=== PATIENT | female | born 1940 | race Caucasian/White ===

== ENCOUNTER 2017-12-09 11:30 | Emergency (ER) | payer OTHER ==
--- OUTSIDE RECORDS SUMMARY | 2017-12-09 11:33 | XMS REPORT | Clinical Summary ---
:1940 Author Organization [facility] Address [address] [place] [address] Care Team Providers Name Role Phone Liya Cruz MD Primary Care Provider Allergies Active Allergy Reactions Severity Noted Date Comments Niacin 12/13/2015 Oxybutynin 12/13/2015 Current Medications Prescription Sig. Disp. Refills Start End Status Date Date denosumab (PROLIA) 60 Prolia yearly Active mg/mL syringe syringe calcium Calcium with Active carbonate-vitamin D3 Vitamin D 600 1 600 mg(1,500mg) -400 mg (1,500 unit per tablet mg)-400 unit tablet POLYETHYLENE GLYCOL Miralax Active 3350 (MIRALAX ORAL) CYANOCOBALAMIN/FOLIC vitamin Active ACID (VITAMIN [id number] Z18-tpfab acid ACID ORAL) VITAMIN E (AQUASOL E vitamin E Active ORAL) TETRAHYDROZOLINE HCL/ZN Apply to eye. Active SULF (EYE DROPS OPHT) Fresh kote BABY ASPIRIN ORAL Take 81 mg by Active mouth. acetaminophen-codeine TAKE 1 TO 2 1 Active (TYLENOL WITH CODEINE TABLETS BY 7 #3) 300-30 mg per MOUTH EVERY tablet DAY NEEDED TiZANidine (ZANAFLEX) 2 Take 2 mg by 3 Active MG capsule mouth nightly. 7 levothyroxine Take 1 tablet 90 tablet 3 Active (SYNTHROID, LEVOXYL) (100 mcg 7 100 mcg tablet total) by mouth once daily. hydroCHLOROthiazide Take 1 tablet 90 tablet 3 Active (HYDRODIURIL) 12.5 MG (12.5 mg 7 tablet total) by mouth once daily. esomeprazole (NexIUM) Take 1 capsule 90 capsule 3 Active 40 MG capsule (40 mg total) 7 by mouth once daily. atenolol (TENORMIN) 25 TAKE ONE 270 tablet 3 Active MG tablet TABLET BY 7 MOUTH 2 TIMES DAILY losartan (COZAAR) 50 MG Take 1 tablet 180 tablet 3 Active tablet (50 mg total) 7 by mouth 2 (two) times a day. lidocaine (LIDODERM) 5 PLACE 1 PATCH 90 patch 3 Active % ON THE SKIN 7 DAILY.. MAY WEAR UP TO 12 HOURS verapamil sustained Take 1 90 tablet 2 Active release (CALAN-SR) 240 tablet(s) 7 MG SR tablet every day by oral route in the morning. verapamil (CALAN) 120 Take 1 tablet 90 tablet 3 Active MG tablet (120 mg total) 7 018 by mouth every evening. dicyclomine (BENTYL) 10 Take 1 capsule 120 capsule 11 Active MG capsule (10 mg total) 7 018 by mouth 4 (four) times a day before meals and nightly. omega-3 acid ethyl TAKE 2 360 capsule 3 Active esters (LOVAZA) 1 gram CAPSULES BY 7 capsule MOUTH TWICE A DAY amoxicillin (AMOXIL) TAKE 2 6 Active 500 MG capsule CAPSULES BY 8 MOUTH 1 HOUR BEFORE DENTAL PROCEDURE hydroxyurea (HYDREA) TAKE ONE 3 Active 500 mg capsule CAPSULE BY 8 MOUTH 6 DAYS A WEEK AND 2 CAPSULES ON SATURDAY zolpidem (AMBIEN) 5 MG Take one at 90 tablet 2 Active tablet bedtime 8 018 methylPREDNISolone follow package 21 tablet 0 Active (MEDROL, ANNE,) 4 mg directions 8 018 tablet diclofenac (VOLTAREN) 1 Apply 2 Tube 1 Active % gel topically 4 8 018 (four) times a day for 30 days. Apply 1 gram to affected area qid prn nortriptyline (PAMELOR) Take 1 capsule 30 capsule 11 10 MG capsule (10 mg total) 6 017 by mouth nightly. esomeprazole (NexIUM) Take 1 90 capsule 3 Discontinued 40 MG capsule capsule(s) 6 017 every day by oral route daily losartan (COZAAR) 50 MG Take 1 tablet 180 tablet 2 Discontinued tablet (50 mg total) 6 017 by mouth 2 (two) times a day for 90 days. Take 1 tablet(s) twice a day by oral route for 90 days. verapamil (CALAN) 120 Take 1 tablet 90 tablet 0 Discontinued MG tablet (120 mg total) 6 017 by mouth every evening for 90 days. Take 1 tablet(s) every day by oral route in the evening. verapamil sustained Take 1 tablet 90 tablet 2 Discontinued release (CALAN-SR) 240 (240 mg total) 6 017 MG SR tablet by mouth every morning for 90 days. Take 1 tablet(s) every day by oral route in the morning. hydroxyurea (HYDREA) Take 1,000 mg 1 Discontinued 500 mg capsule by mouth once 7 017 daily. 1 tab daily rivaroxaban (XARELTO) Take 1 tablet 2 tablet 0 Discontinued 10 mg tablet (10 mg total) 7 018 by mouth daily for 2 days. omega-3 acid ethyl Take 2 caps po 360 capsule 3 Discontinued esters (LOVAZA) 1 gram bid 7 017 capsule zolpidem (AMBIEN) 5 MG Take 1 tablet 30 tablet 1 Discontinued tablet (5 mg total) 7 017 by mouth once daily for 30 days. hydroCHLOROthiazide TAKE 1 TABLET 90 tablet 0 Discontinued (HYDRODIURIL) 12.5 MG EVERY DAY 7 017 tablet levothyroxine TAKE 1 TABLET 90 tablet 0 Discontinued (SYNTHROID, LEVOXYL) EVERY DAY 7 017 100 mcg tablet atenolol (TENORMIN) 25 TAKE ONE 270 tablet 0 Discontinued MG tablet TABLET BY 7 017 MOUTH 2 TIMES DAILY verapamil (CALAN) 120 TAKE 1 TABLET 90 tablet 3 Discontinued MG tablet IN THE EVENING 7 017 hydroxyurea (HYDREA) TAKE 2 75 capsule 0 Discontinued 500 mg capsule CAPSULES BY 017 MOUTH EVERY DAY lidocaine (LIDODERM) 5 PLACE 1 PATCH 30 patch 2 Discontinued % ON THE SKIN DAILY.. MAY WEAR UP TO 12 HOURS zolpidem (AMBIEN) 5 MG Take 1 tablet 30 tablet 1 Discontinued tablet (5 mg total) by mouth once daily for 30 days. acetaminophen-codeine Take 1-2 tabs 60 tablet 1 (TYLENOL WITH CODEINE a day prn #3) 300-30 mg per tablet hydroxyurea (HYDREA) TAKE 2 75 capsule 0 Discontinued 500 mg capsule CAPSULES BY 017 MOUTH EVERY DAY esomeprazole (NexIUM) TAKE ONE 90 capsule 3 Discontinued 40 MG capsule CAPSULE BY MOUTH EVERY DAY atenolol (TENORMIN) 25 TAKE ONE 270 tablet 1 Discontinued MG tablet TABLET BY MOUTH 2 TIMES DAILY zolpidem (AMBIEN) 5 MG TAKE 1 TABLET 30 tablet 1 Discontinued tablet BY MOUTH EVERY DAY levothyroxine TAKE 1 TABLET 90 tablet 0 Discontinued (SYNTHROID, LEVOXYL) EVERY DAY 100 mcg tablet hydroCHLOROthiazide TAKE 1 TABLET 90 tablet 0 Discontinued (HYDRODIURIL) 12.5 MG BY MOUTH EVERY tablet DAY losartan (COZAAR) 50 MG TAKE 1 TABLET 180 tablet 2 Discontinued tablet BY MOUTH TWICE 017 A DAY zolpidem (AMBIEN) 5 MG Take 1 tablet 90 tablet 2 Discontinued tablet (5 mg total) by mouth once daily for 30 days. BACTROBAN 2 % ointment Apply 15 g 1 topically 3 017 (three) times a day for 7 days. amoxicillin (AMOXIL) Take 2 cap 1 2 capsule 6 500 MG capsule hour before 7 017 dental procedure penicillin v potassium Take 1 tablet 40 tablet 0 (VEETID) 500 MG tablet (500 mg total) 7 017 by mouth 4 (four) times a day for 10 days. If fever hydroxyurea (HYDREA) Take 1 capsule 75 capsule 0 500 mg capsule (500 mg total) 7 017 by mouth 3 (three) times a week for 40 doses. predniSONE (DELTASONE) Take 2 tab in 60 tablet 0 Discontinued 1 mg tablet the am 7 017 predniSONE (DELTASONE) Take 1 tab 30 tablet 0 Discontinued 1 mg tablet every morning 7 018 rivaroxaban (XARELTO) Take one daily 30 tablet 0 Discontinued 10 mg tablet as directed 8 018 when in high risk situation for DVT XARELTO 10 mg tablet TAKE 1 TABLET 30 tablet 0 Discontinued BY MOUTH EVERY 8 018 DAY DIRECTED WHEN IN HIGH RISK SITUATION OF DVT Active Problems Problem Noted Date Essential thrombocytosis 01/31/2017 Anxiety 12/13/2015 Brachial neuritis 12/13/2015 Chronic back pain 12/13/2015 Chronic pain syndrome 12/13/2015 Generalized abdominal pain 12/13/2015 Left sided chest pain 12/13/2015 Musculoskeletal disorder of neck 12/13/2015 Other nerve root and plexus disorders 12/13/2015 Non megaloblastic anemia associated with nutritional deficiency 12/13/2015 Pain in thoracic spine 12/13/2015 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 Insomnia 10/01/2013 Back pain 07/07/2013 Fibromyalgia 01/05/2013 Malaise and fatigue 01/05/2013 Osteoporosis 10/23/2012 Atopic rhinitis 10/24/2011 Neuralgia 07/03/2011 Abnormal liver function tests 02/22/2011 Constipation 12/13/2010 Essential hypertension 12/13/2010 Hypothyroidism 12/13/2010 Irritable bowel syndrome 12/13/2010 Migraine 12/13/2010 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 Encounters Date Type Specialty Care Team Description 12/05/2017 Hospital Encounter Radiology Liya Cruz Acute bilateral low L.MD back pain with sciatica, sciatica laterality unspecified 12/05/2017 Procedure Pass Radiology 12/05/2017 Orders Only Internal Medicine Solange Farias MA Acute bilateral low back pain with sciatica, sciatica laterality unspecified (Primary Dx) 12/04/2017 Hospital Encounter Radiology Liya Cruz Acute bilateral low L., back pain, with sciatica presence unspecified 12/04/2017 Hospital Encounter Radiology Liya Cruz Acute bilateral low L., back pain, with sciatica presence unspecified 12/04/2017 Office Visit Internal Medicine Liya Cruz Acute bilateral low L., back pain, with sciatica presence unspecified (Primary Dx) 12/03/2017 Orders Only Hematology Nayely Phipps, Other specified MA diseases of blood and blood-forming organs (Primary Dx) 11/18/2017 Telephone Internal Medicine Solange Farias MA 11/10/2017 Refill Internal Medicine Liya Cruz MD 10/30/2017 Telephone Internal Medicine Shyam Beltrán Angel, [place] unspecified type (Primary Dx) 10/14/2017 Office Visit Internal Medicine Liya Cruz Encounter for general adult medical examination with abnormal findings (Primary Dx); MD Karlos Essential hypertension; Hyperglycemia; Vitamin D deficiency; Post herpetic neuralgia; Thrombocytosis 10/07/2017 Lab Lab Toni Ceja, Other frank MD diseases of blood and blood-forming organs 10/07/2017 Office Visit Hematology Toni Ceja Essential MD thrombocytosis (Primary Dx) 10/07/2017 Hospital Encounter Radiology Liya Cruz Screening mammogram, MD Karlos encounter for 09/27/2017 Orders Only Rheumatology Lucero, Other specified [place], [place] diseases of blood and blood-forming organs (Primary Dx) 09/08/2017 Refill Toni Valdovinos MD 09/06/2017 Refill Internal Medicine Liya Cruz MD 09/03/2017 Orders Only Hematology Nayely Phipps, Other specified MA diseases of blood and blood-forming organs (Primary Dx) 07/29/2017 Refill Hematology Toni Ceja MD 07/24/2017 Telephone Internal Medicine Felix Beltrán MA 07/15/2017 Office Visit Toni Valdovinos Essential MD thrombocytosis (Primary Dx) 07/15/2017 Office Visit Internal Medicine Liya Cruz Irritable bowel syndrome, unspecified type (Primary Dx); MD Karlos Other fatigue; Thrombocytosis; Screening mammogram, encounter for 07/09/2017 Orders Only Hematology Young, Other specified Fanny G, ALTHEA diseases of blood and blood-forming organs (Primary Dx) 06/17/2017 Office Visit Internal Medicine Liya Cruz Other fatigue ( Primary Dx); MD Karlos Other chest pain; Blurred vision; Nonintractable paroxysmal hemicrania, unspecified chronicity pattern 06/17/2017 Lab Toni Villalba, Other specified MD diseases of blood and blood-forming organs 06/17/2017 Office Visit Hematology Toni Ceja Essential MD thrombocytosis (Primary Dx) 05/29/2017 Orders Only Hematology Nayely Phipps, Other specified MA diseases of blood and blood-forming organs (Primary Dx) 05/21/2017 Refill Hematology Toni Ceja MD 05/20/2017 Office Visit Internal Medicine Liya Cruz Need for vaccination MD Karlos (Primary Dx) 05/20/2017 Office Visit Toni Valdovinos Essential MD thrombocytosis (Primary Dx) 05/17/2017 Orders Only Internal Medicine Liya Cruz MD 05/17/2017 Telephone Internal Medicine Liya Cruz MD 05/16/2017 Orders Only Internal Medicine Solange Farias MA 05/16/2017 Orders Only Hematology Nayely Phipps, Other specified MA diseases of blood and blood-forming organs (Primary Dx) 05/15/2017 Refill Internal Medicine Liya Cruz MD 04/15/2017 Office Visit Internal Medicine Liya Cruz Essential thrombocytosis (Primary Dx); MD Karlos Essential hypertension; Other specified hypothyroidism; Mixed hyperlipidemia; Folliculitis 04/13/2017 Refill Internal Medicine Liya Cruz MD 03/26/2017 Refill Internal Medicine Liya Cruz MD 03/15/2017 Telephone Internal Medicine Rebeca Beckman MA 03/13/2017 Refill Internal Medicine Liya Cruz MD 03/11/2017 Lab Toni Villalba, Other specified MD diseases of blood and blood-forming organs 03/11/2017 Office Visit Toni Valdovinos Essential MD thrombocytosis (Primary Dx) 03/06/2017 Orders Only Nayely Chiang, Other specified MA diseases of blood and blood-forming organs (Primary Dx) 03/05/2017 Refill Internal Medicine Liya Cruz MD 02/18/2017 Lab Lab Toni Ceja, Other specified diseases of blood and blood-forming organs 02/18/2017 Office Visit Hematology Toni Ceja Essential MD thrombocytosis (Primary Dx) 02/12/2017 Refill Hematology Toni Ceja MD 02/11/2017 Orders Only Hematology Nayely Phipps, Other specified MA diseases of blood and blood-forming organs (Primary Dx) 02/11/2017 Refill Internal Medicine Liya Cruz MD 01/31/2017 Hospital Encounter Radiology Kate Dennis, Screening for MD osteoporosis 01/31/2017 Hospital Encounter Radiology Kate Dennis Senile osteoporosis 01/31/2017 Lab Toni Villalba, Other specified diseases of blood and blood-forming organs 01/31/2017 Office Visit Toni Valdovinos Essential MD thrombocytosis (Primary Dx) 01/31/2017 Ancillary Orders Radiology Kate Dennis, Screening for MD osteoporosis 01/31/2017 Transcribe Orders Access Kate Dennis Senile osteoporosis (Primary Dx) 01/30/2017 Orders Only Hematology Nayely Phipps, Other specified MA diseases of blood and blood-forming organs (Primary Dx) 01/24/2017 Orders Only Internal Medicine Solange Farias MA Iron deficiency anemia, unspecified iron deficiency anemia type (Primary Dx) 01/18/2017 Telephone Internal Medicine Faby Orourke MA 01/16/2017 Telephone Internal Medicine Liya Crzu MD 01/15/2017 Telephone Internal Medicine Solange Farias MA 01/15/2017 Refill Toni Valdovinos MD 01/14/2017 Lab Lab Toni Ceja, Other specified diseases of blood and blood-forming organs 01/14/2017 Office Visit Toni Valdovinos Essential MD thrombocythemia (Primary Dx) 01/14/2017 Orders Only Hematology Young, Other specified Fanny G, ALTHEA diseases of blood and blood-forming organs (Primary Dx) 01/11/2017 Documentation Internal Medicine Liya Cruz MD 01/10/2017 Telephone Internal Medicine Solange Farias MA 01/07/2017 Office Visit Internal Medicine Liya Cruz Chronic fatigue ( Primary Dx); MD Karlos Chronic joint pain; Thrombocytosis; Other specified hypothyroidism; Fibromyalgia syndrome 01/03/2017 Refill Internal Medicine Liya Cruz MD 01/02/2017 Orders Only Hematology Shania Phippsa, Other specified [place] diseases of blood and blood-forming organs (Primary Dx) 12/17/2016 Refill Hematology Toni Ceja MD after 12/08/2016 Immunizations Name Dates Previously Given Next Due FLUZONE HIGH-DOSE PF 06/26/2015 Influenza Trivalent 06/12/2017, 06/10/2017, 06/10/2008 Pneumococcal Conjugate 13-Valent 07/12/2015 Pneumococcal Polysaccharide 07/07/2013, 09/18/2007, 09/09/2007 Tdap 05/20/2017 Family History Medical History Relation Name Comments Hypertension Father Breast cancer Mother Cancer Other Coronary artery disease Other Relation Name Status Comments Father Mother Other Social History Tobacco Use Types Packs/Day Years Used Date Never Smoker Smokeless Tobacco: Never Used Alcohol Use Drinks/Week oz/Week Comments No Sex Assigned at Date Recorded Not on file Last Filed Vital Signs Vital Sign Reading Time Taken Blood Pressure 118/71 12/04/2017 1:06 PM CDT Pulse 69 12/04/2017 1:06 PM CDT Temperature 36.5 C (97.7 F) 10/07/2017 2:28 PM [employer] Respiratory Rate 16 10/07/2017 2:28 PM [employer] Oxygen Saturation - - Inhaled Oxygen Concentration - - Weight 50.8 kg (112 lb) 12/05/2017 5:34 PM CDT Height 167.6 cm (5' 6") 12/05/2017 5:34 PM CDT Body Mass Index 18.08 12/05/2017 5:34 PM CDT Plan of Treatment Date Type Specialty Care Team Description 12/09/2017 Office Visit Internal Medicine Smiley Neves MD [address] [place] [address] [phone] 12/12/2017 Office Visit Internal Medicine Liya Cruz MD [address] [place] [address] [phone] 04/14/2018 Office Visit Internal Medicine Liya Cruz MD [address] [place] [address] [phone] Health Maintenance Due Date Last Done Comments INFLUENZA VACCINE 04/09/2018 06/12/2017, 06/10/2017, 05/10/2016, Additional history exists PNEUMOCOCCAL POLYSACCHARIDE VACCINE Completed 07/07/2013, 09/18/2007, AGE 65 AND OVER 09/09/2007 PNEUMOCOCCAL-13 Completed 07/12/2015 ZOSTER VACCINE Excluded Results MRI Lumbar Spine W Wo Contrast (12/05/2017 6:27 PM) Specimen Performing Laboratory [facility] [address] [place] [address] Narrative EXAM: MRI LUMBAR SPINE W WO CONTRAST CLINICAL HISTORY: M54.40 Lumbago with sciaticaunspecified side, rule out compression fracture TECHNIQUE: Multiplanar multisequence pre and post contrast enhanced examination was performed of the Lumbar spine. COMPARISON:Lumbar radiograph, 12/04/2017 FINDINGS: There are five [id number] lumbar-type vertebrae, and the last functional disc is presumed to be L5-S1. The compression deformity of the superior endplate of the L3 vertebral body with less than 25% vertebral height loss. It demonstrates mild corresponding edema and enhancement suggesting an acute to early subacute chronicity. Lumbar lordotic alignment, vertebral body height, and signal intensity are otherwise within normal limits. There is otherwise no evidence of acute fracture, suspicious osteolytic lesion, or suspicious osteoblastic lesion. No abnormal spinal cord signal is present. No abnormal enhancement is identified. Evaluation of the disc levels is as follows: L1-L2: No significant thecal sac or foraminal stenosis. L2-L3: Note is again made of a compression deformity of the superior endplate of the L3 vertebral body with less than 25% vertebral height loss. There is disc height loss and mild diffuse disc bulge with impression upon the ventral thecal sac. No significant thecal sac or foraminal stenosis. L3-L4: Disc height loss and mild diffuse disc bulge. Mild bilateral facet hypertrophy and minimal ligamentum flavum thickening also noted. Impression upon the thecal sac is present, particularly posterolaterally. No significant thecal sac stenosis. Minimal/mild bilateral inferior foraminal narrowing. L4-L5: Minimal diffuse disc bulge. Mild bilateral facet hypertrophy and ligamentum flavum thickening. Impression upon the thecal sac with a triangular configuration. Thecal sac is otherwise adequate in size. Mild bilateral inferior foraminal narrowing. L5-S1: Minimal diffuse disc bulge. No significant thecal sac or foraminal stenosis. Visualized paraspinal soft tissues are unremarkable. Note is made of a left interpolar renal renal simple cyst measuring 2.5 cm (T2 axial image 34, series 9). IMPRESSION: 1.Compression deformity of the superior endplate of the L3 vertebral body with less than 25% vertebral height loss. It demonstrates mild corresponding edema and enhancement suggesting an acute to early subacute chronicity. 2.No acute thecal sac stenosis or foraminal narrowing. [facility]-[id number] Procedure Note Hm Interface, Radiology Results Incoming - 12/05/2017 6:43 PM CDT EXAM: MRI LUMBAR SPINE W WO CONTRAST CLINICAL HISTORY: M54.40 Lumbago with sciatica unspecified side, rule out compression fracture TECHNIQUE: Multiplanar multisequence pre and post contrast enhanced examination was performed of the Lumbar spine. COMPARISON: Lumbar radiograph, 12/04/2017 FINDINGS: There are five [id number]-[id number] lumbar-type vertebrae, and the last functional disc is presumed to be L5-S1. The compression deformity of the superior endplate of the L3 vertebral body with less than 25% vertebral height loss. It demonstrates mild corresponding edema and enhancement suggesting an acute to early subacute chronicity. Lumbar lordotic alignment, vertebral body height, and signal intensity are otherwise within normal limits. There is otherwise no evidence of acute fracture , suspicious osteolytic lesion, or suspicious osteoblastic lesion. No abnormal spinal cord signal is present. No abnormal enhancement is identified. Evaluation of the disc levels is as follows: L1-L2: No significant thecal sac or foraminal stenosis. L2-L3: Note is again made of a compression deformity of the superior endplate of the L3 vertebral body with less than 25% vertebral height loss. There is disc height loss and mild diffuse disc bulge with impression upon the ventral thecal sac. No significant thecal sac or foraminal stenosis. L3-L4: Disc height loss and mild diffuse disc bulge. Mild bilateral facet hypertrophy and minimal ligamentum flavum thickening also noted. Impression upon the thecal sac is present, particularly posterolaterally. No significant thecal sac stenosis. Minimal/mild bilateral inferior foraminal narrowing. L4-L5: Minimal diffuse disc bulge. Mild bilateral facet hypertrophy and ligamentum flavum thickening. Impression upon the thecal sac with a triangular configuration. Thecal sac is otherwise adequate in size. Mild bilateral inferior foraminal narrowing. L5-S1: Minimal diffuse disc bulge. No significant thecal sac or foraminal stenosis. Visualized paraspinal soft tissues are unremarkable. Note is made of a left interpolar renal renal simple cyst measuring 2.5 cm (T2 axial image 34, series 9). IMPRESSION: 1. Compression deformity of the superior endplate of the L3 vertebral body with less than 25% vertebral height loss. It demonstrates mild corresponding edema and enhancement suggesting an acute to early subacute chronicity. 2. No acute thecal sac stenosis or foraminal narrowing. [facility]-[id number] Estimated GFR (12/05/2017 5:34 PM)Only the most recent of2 resultswithin the time period is included. Component Value Ref Range GFR Non Af Amer 31 (A) mL/min/1.73 m2 GFR Af Amer 38 (A) mL/min/1.73 m2 Comment: Chronic kidney disease: <60 mL/min/1.73m2 Kidney failure: <15 mL/min/1.73m2 The estimated GFR is calculated from the IDMS-traceable Modification of Diet in Renal Disease Equation. The accuracy of the calculation is poor when the creatinine is normal. Calculated values >90 mL/min/1.73m2 are not reported. This equation has not been validated in children (<18 years), women, the elderly (>70 years), or ethnic groups other than Caucasians and Americans. Specimen Performing Laboratory Blood [facility] DEPARTMENT OF PATHOLOGY AND GENOMIC MEDICINE [address] [place] [id number] POC creatinine (12/05/2017 5:34 PM)Only the most recent of2 resultswithin the time period is included. Component Value Ref Range POC creatinine 1.6 (H) 0.5 - 0.9 mg/dl Comment: Meter ID: [id number] Power System Electrical Engineer: Renee Julian Specimen Performing Laboratory Blood [facility] DEPARTMENT OF PATHOLOGY AND GENOMIC MEDICINE [address] [place] [id number] XR Lumbar Spine Complete 4+ Vw (12/04/2017 2:45 PM) [facility] [address] [place] [id number] Narrative EXAMINATION: XR LUMBAR SPINE COMPLETE 4VW CLINICAL HISTORY: M54.5 Low back pain, BACK PAIN 6 WKS COMPARISON:None IMPRESSION: 4 radiographs of the lumbar spine are submitted. 5 nonrib-bearing lumbar-type vertebral bodies are identified. There is a compression deformity of the L3 vertebral body with the impression of its superior endplate. Given the history, this probably represents an acute/recent compression fracture. MRI may be considered for further evaluation. There is questionable mild depression of the superior endplate of L1. Bone density appears decreased. Multilevel spondylotic changes of the lumbar spine, more pronounced at L2-L3. Vascular calcifications along the abdominal aorta. [id number] Procedure Note Interface, Radiology Results Incoming - 12/04/2017 5:38 PM CDT EXAMINATION: XR LUMBAR SPINE COMPLETE 4 VW CLINICAL HISTORY: M54.5 Low back pain, BACK PAIN 6 WKS COMPARISON: None IMPRESSION: 4 radiographs of the lumbar spine are submitted. 5 nonrib-bearing lumbar-type vertebral bodies are identified. There is a compression deformity of the L3 vertebral body with the impression of its superior endplate. Given the history, this probably represents an acute/ recent compression fracture. MRI may be considered for further evaluation. There is questionable mild depression of the superior endplate of L1. Bone density appears decreased. Multilevel spondylotic changes of the lumbar spine, more pronounced at L2-L3. Vascular calcifications along the abdominal aorta. [id number] XR Thoracic Spine 3 Vw (12/04/2017 2:45 PM) Specimen Performing Laboratory [facility] [address] [place] [id number] Narrative EXAMINATION:XR THORACIC SPINE 3 VW CLINICAL HISTORY:M54.5 Low back pain, t spine pain IMPRESSION: 4 views of the thoracic spine were obtained. The thoracic spine alignment is unremarkable. There is no fracture or subluxation. The bone density is unremarkable with no focal bone lesion. [facility]-[id number] Procedure Note Interface, Radiology Results Incoming - 12/04/2017 5:46 PM CDT EXAMINATION: XR THORACIC SPINE 3 VW CLINICAL HISTORY: M54.5 Low back pain, t spine pain IMPRESSION: 4 views of the thoracic spine were obtained. The thoracic spine alignment is unremarkable. There is no fracture or subluxation. The bone density is unremarkable with no focal bone lesion. [facility]-[id number] CBC with platelet and differential (10/31/2017 10:12 AM)Only the most recent of12 resultswithin the time period is included. Component Value Ref Range WBC 4.0 3.8 - 10.8 Thousand/uL RBC 2.55 (L) 3.80 - 5.10 Million/uL HGB 10.0 (L) 11.7 - 15.5 g/dL HCT 28.5 (L) 35.0 - 45.0 % MCV 111.8 (H) 80.0 - 100.0 fL MCH 39.2 (H) 27.0 - 33.0 pg MCHC 35.1 32.0 - 36.0 g/dL RDW 14.5 11.0 - 15.0 % Platelet count 429 (H) 140 - 400 Thousand/uL MPV 10.8 7.5 - 12.5 fL Neutrophils, absolute 1,964 1,500 - 7,800 cells/uL Lymphocytes, absolute 1,500 850 - 3,900 cells/uL Monocytes, absolute 476 200 - 950 cells/uL Eosinophils, absolute 20 15 - 500 cells/uL Basophils, absolute 40 0 - 200 cells/uL Neutrophils 49.1 % Lymphocytes 37.5 % Monocytes 11.9 % Eosinophils 0.5 % Basophils + RC 1.0 % Specimen Performing Laboratory [facility] Narrative FASTING:NO FASTING: NO Vitamin D 25 hydroxy level (10/14/2017 12:42 PM) Component Value Ref Range Vitamin D, 25-hydroxy 42 30 - 100 ng/mL Comment: Vitamin D Status 25-OH Vitamin D: Deficiency:<20 ng/mL Insufficiency: 20 - 29 ng/mL Optimal: > or=30 ng/mL For 25-OH Vitamin D testing on patients on D2-supplementation and patients for whom quantitation of D2 and D3 fractions is required, the QuestAssureD(TM) 25-OH VIT D, (D2,D3), LC/MS/MS is recommended: order code 56470 (patients >2yrs). For more information on this test, go to: http://education.Windcentrale.[employer]/faq/QAG147 (This link is being provided for informational/educational purposes only.) Specimen Performing Laboratory [facility] Narrative FASTING:NO FASTING: NO Thyroid stimulating hormone (10/14/2017 12:42 PM)Only the most recent of3 resultswithin the time period is included. Component Value Ref Range TSH 1.65 0.40 - 4.50 mIU/L Specimen Performing Laboratory [facility] Narrative FASTING:NO FASTING: NO Hemoglobin A1c (10/14/2017 12:42 PM) Component Value Ref Range Hemoglobin A1C 5.3 <5.7 % of total Hgb Comment: For the purpose of screening for the presence of diabetes: <5.7% Consistent with the absence of diabetes 5.7-6.4%Consistent with increased risk for diabetes (prediabetes) > or=6.5%Consistent with diabetes This assay result is consistent with a decreased risk of diabetes. Currently, no consensus exists regarding use of hemoglobin A1c for diagnosis of diabetes in children. According to [place] [employer] Association (ADA) guidelines, hemoglobin A1c <7.0% represents optimal control in non- diabetic patients. Different metrics may apply to specific patient populations. Standards of Medical Care in Diabetes(ADA). Specimen Performing Laboratory [facility] Narrative FASTING:NO FASTING: NO Lipid panel (10/14/2017 12:42 PM)Only the most recent of2 resultswithin the time period is included. Component Value Ref Range Cholesterol, total 207 (H) <200 mg/dL HDL cholesterol 39 (L) >50 mg/dL Triglycerides 141 <150 mg/dL LDL cholesterol calculated 141 (H) mg/dL (calc) Comment: Reference range: <100 Desirable range <100 mg/dL for patients with CHD or diabetes and <70 mg/dL for diabetic patients with known heart disease. LDL-C is now calculated using the Marvin-Johnston calculation, which is a validated novel method providing better accuracy than the Friedewald equation in the estimation of LDL-C. Marvin SS et al. ALFREDO. 2013;310(19): 8585-1965 (http://education.Droidhen.[employer]/faq/GLJ965) Cholesterol/HDL ratio 5.3 (H) <5.0 (calc) Non-HDL cholesterol 168 (H) <130 mg/dL (calc) Comment: For patients with diabetes plus 1 major ASCVD risk factor, treating to a non-HDL-C goal of <100 mg/dL (LDL-C of <70 mg/dL) is considered a therapeutic option. Specimen Performing Laboratory [facility] Narrative FASTING:NO FASTING: NO Comprehensive metabolic panel (10/14/2017 12:42 PM)Only the most recent of4 resultswithin the time period is included. Component Value Ref Range Glucose 101 (H) 65 - 99 mg/dL Comment: Fasting reference interval For someone without known diabetes, a glucose value between 100 and 125 mg/dL is consistent with prediabetes and should be confirmed with a follow-up test. BUN, whole blood 19 7 - 25 mg/dL Creatinine 0.86 0.60 - 0.93 mg/dL Comment: For patients >49 years of age, the reference limit for Creatinine is approximately 13% higher for people identified as -Lebanese. EGFR Non-Afr. [place] 65 > OR=60 mL/min/1.73m2 EGFR 75 > OR=60 mL/min/1.73m2 BUN/creatinine ratio NOT APPLICABLE 6 - 22 (calc) Sodium 141 135 - 146 mmol/L Potassium 4.4 3.5 - 5.3 mmol/L Chloride 103 98 - 110 mmol/L CO2 32 (H) 20 - 31 mmol/L Calcium 10.0 8.6 - 10.4 mg/dL Protein 7.2 6.1 - 8.1 g/dL Albumin, S 4.2 3.6 - 5.1 g/dL Globulin, total 3.0 1.9 - 3.7 g/dL (calc) Albumin/globulin ratio 1.4 1.0 - 2.5 (calc) Total bilirubin 0.6 0.2 - 1.2 mg/dL Alkaline phosphatase 48 33 - 130 U/L AST 39 (H) 10 - 35 U/L ALT 52 (H) 6 - 29 U/L Specimen Performing Laboratory [facility] Narrative FASTING:NO FASTING: NO Smear review (10/07/2017 2:30 PM)Only the most recent of4 resultswithin the time period is included. Component Value Ref Range Platelet slide review Zahra adequate Anisocytosis Moderate Schistocytes Occasional Ovalocytes Moderate Specimen Performing Laboratory [facility] DEPARTMENT OF PATHOLOGY AND GENOMIC MEDICINE [address] [place] [address] Mammo Screening w Cad Bilateral (10/07/2017 1:19 PM) Specimen Performing Laboratory [facility] [address] [place] [address] Narrative PROCEDURE: MAMMO SCREENING W CAD BILATERAL Computer-assisted detection was utilized for the interpretation of this exam. COMPARISON: 2015 through 2012 TECHNIQUE: Bilateral digital screening mammogram was performed and interpreted using computer-assisted detection. CLINICAL HISTORY: The patient has no current palpable breast complaints. FINDINGS: Bilateral mammogram demonstrates the breast parenchyma to beheterogeneously dense, which could obscure the detection of small masses. LEFT:No specific features of malignancy. RIGHT: No specific features of malignancy. IMPRESSION: BI-RADS Category 2. Benign finding(s). Recommend comparison with physical exam and annual screening mammography. There has been no significant interval change from prior studies. This facility is accredited by The [employer] for Mammography. A negative x-ray report should not delay biopsy if a dominant or clinically suspicious mass is present. Not all cancers are identified by x-ray. [facility]-[id number] Aldolase, serum (06/17/2017 5:10 PM) Component Value Ref Range Aldolase 9.0 (H) < OR=8.1 U/L Specimen Performing Laboratory [facility] Narrative FASTING:NO Sedimentation rate (06/17/2017 5:10 PM)Only the most recent of2 resultswithin the time period is included. Component Value Ref Range Sedimentation rate 25 < OR=30 mm/h Specimen Performing Laboratory [facility] Narrative FASTING:NO C-reactive protein (06/17/2017 5:10 PM)Only the most recent of2 resultswithin the time period is included. Component Value Ref Range CRP 1.5 <8.0 mg/L Comment: Please note recent reference range and units of measure changes Specimen Performing Laboratory [facility] Narrative FASTING:NO Creatine kinase, total (CPK) (06/17/2017 5:10 PM) Component Value Ref Range Creatine kinase 20 (L) 29 - 143 U/L Specimen Performing Laboratory [facility] Narrative FASTING:NO ECG 12 lead (06/17/2017 4:31 PM) Component Value Ref Range Ventricular rate 59 Atrial rate 59 TN interval 140 QRSD interval 104 QT interval 458 QTC interval 453 P axis 1 60 QRS axis 1 31 T wave axis 67 EKG impression Sinus bradycardia-Voltage criteria for left ventricular hypertrophy-Abnormal ECG-In automated comparison with ECG of 17-JUL-2016 12:47,-No significant change was found- Specimen Performing Laboratory [facility] [address] [place] [address] Manual differential (06/17/2017 2:12 PM)Only the most recent of2 resultswithin the time period is included. Component Value Ref Range Manual differential PERFORMED Neutrophils 59.0 39.0 - 69.0 % Lymphocytes 25.0 25.0 - 45.0 % Monocytes 13.0 (H) 0.0 - 10.0 % Eosinophils 2.0 0.0 - 5.0 % Basophils 0.0 0.0 - 1.0 % Metamyelocytes 0 % Myelocytes 1 % Promyelocytes 0 % Platelet slide review Mkd increased (A) Anisocytosis Moderate Schistocytes Occasional Target cells Moderate (A) Ovalocytes Moderate Specimen Performing Laboratory [facility] DEPARTMENT OF PATHOLOGY AND GENOMIC MEDICINE [address] [place] [id number] T4, free (04/15/2017 11:51 AM) Component Value Ref Range T4, free 1.4 0.8 - 1.8 ng/dL Specimen Performing Laboratory [facility] Narrative FASTING:NO Bone Density (01/31/2017 4:29 PM) Specimen Performing Laboratory [address] [address] Narrative EXAMINATION:BONE DENSITY CLINICAL HISTORY: 76 years Female M81.0 Age-related osteoporosis without current pathological fracture, m81.0 COMPARISON:01/11/2015 The results of this study expressed as bone mineral density (BMD) were as follows: AP spine (L1-L4) BMD: 0.900 g/cm2 T-Score: -2.4 Z-Score: -0.1 Percent change: +2.5 Dual Femur (Total Mean): BMD: 0.843 g/cm2 T-Score: -1.3 Z-Score:0.9 Percent change: +0.2 Trabecular Bone Score (TBS): TBS L1-L4: 1.201,(>1.350 normal, 1.200-1.350 partially degraded microarchitecture, <1.200 degraded microarchitecture) The 10 year probability of fracture, adjusted for FRAX: Major Osteoporotic Fracture: 22.6% Hip Fracture:13.7% Femur FRAX: Risk factors: Family history of Hip fracture 10 year probability of fracture: 1.Major osteoporotic: 22.1% 2.Hip: 14% 3.Based on femur left neck BMD Impression: 1.Osteopenia Notes: *The world health organization (WHO) has classified the patient's T-score as follows: At or above (-1) as normal (-1) to (-2.5) as low (osteopenia) Below (-2.5) as abnormally low (osteoporosis, increased fracture risk) For premenopausal women, men under the age 50 years, and children the WHO classification does not apply. In these individuals please assess bone mineral density with Z scores for each skeletal site examined. Z scores above -2.0: Within expected range for age. Z scores lower than -2.0:Low bone density for age. The TBS is derived from the texture of the DEXA image and has been shown to be related to bone microarchitecture and fracture risk. This data provides information independent of BMD value; is used as a complement to the data obtained from the DEXA analysis and the clinical examination. The TBS can assist the healthcare professional in assessment of fracture risk and in monitoring the effect of treatments on patient over time. [facility]-[id number] Procedure Note [facility], Radiology Results Incoming - 01/31/2017 4:40 PM CDT EXAMINATION: BONE DENSITY CLINICAL HISTORY: 76 years Female M81.0 Age-related osteoporosis without current pathological fracture, m81.0 COMPARISON: 01/11/2015 The results of this study expressed as bone mineral density (BMD) were as follows: AP spine (L1-L4) BMD: 0.900 g/cm2 T-Score: -2.4 Z-Score: -0.1 Percent change: +2.5 Dual Femur (Total Mean): BMD: 0.843 g/cm2 T-Score: -1.3 Z-Score: 0.9 Percent change: +0.2 Trabecular Bone Score (TBS): TBS L1-L4: 1.201, (>1.350 normal, 1.200-1.350 partially degraded microarchitecture, <1.200 degraded microarchitecture) The 10 year probability of fracture, adjusted for FRAX: Major Osteoporotic Fracture: 22.6% Hip Fracture: 13.7% Femur FRAX: Risk factors: Family history of Hip fracture 10 year probability of fracture: 1. Major osteoporotic: 22.1% 2. Hip: 14% 3. Based on femur left neck BMD Impression: 1. Osteopenia Notes: *The world health organization (WHO) has classified the patient's T-score as follows: At or above (-1) as normal (-1) to (-2.5) as low (osteopenia) Below (-2.5) as abnormally low (osteoporosis, increased fracture risk) For premenopausal women, men under the age 50 years, and children the WHO classification does not apply. In these individuals please assess bone mineral density with Z scores for each skeletal site examined. Z scores above -2.0: Within expected range for age. Z scores lower than -2.0: Low bone density for age. The TBS is derived from the texture of the DEXA image and has been shown to be related to bone microarchitecture and fracture risk. This data provides information independent of BMD value; is used as a complement to the data obtained from the DEXA analysis and the clinical examination. The TBS can assist the healthcare professional in assessment of fracture risk and in monitoring the effect of treatments on patient over time. [facility]-[id number] Total iron binding capacity (01/24/2017 11:13 AM)Only the most recent of2 resultswithin the time period is included. Component Value Ref Range Iron level 142 45 - 160 mcg/dL Iron binding capacity 311 250 - 450 mcg/dL (calc) Iron saturation 46 11 - 50 % (calc) Specimen Performing Laboratory [facility] Narrative FASTING:NO Reticulocyte count, automated (01/24/2017 11:13 AM) Component Value Ref Range Retic count, manual 1.4 % Retic absolute, auto 31,920 20,000 - 80,000 cells/uL Specimen Performing Laboratory [facility] Narrative FASTING:NO Erythropoietin (01/14/2017 2:12 PM) Component Value Ref Range Erythropoietin 105.8 (H) 2.6 - 18.5 mIU/mL Specimen Performing Laboratory Serum [facility] DEPARTMENT OF PATHOLOGY AND GENOMIC MEDICINE [address] [place] [id number] Reticulocyte count (01/14/2017 2:12 PM) Component Value Ref Range Retic %, auto 2.1 0.5 - 2.1 % Retic absolute, auto 0.0474 0.0210 - 0.1155 m/uL Specimen Performing Laboratory [facility] DEPARTMENT OF PATHOLOGY AND GENOMIC MEDICINE [address] [place] [id number] Ferritin level (01/14/2017 2:12 PM) Component Value Ref Range Ferritin level 679 (H) 13 - 150 ng/mL Specimen Performing Laboratory Plasma specimen [facility] DEPARTMENT OF PATHOLOGY AND GENOMIC MEDICINE [address] [place] [id number] LIYA SCREEN W IFA W REFLEX TO TITER (01/07/2017 12:40 PM) Component Value Ref Range LIYA screen NEGATIVE NEGATIVE Comment: LIYA IFA is a first line screen for detecting the presence of up to approximately 150 autoantibodies in various autoimmune diseases. A negative LIYA IFA result suggests LIYA-associated autoimmune diseases are not present at this time. Visit Physician FAQs for interpretation of all antibodies in the [place], prevalence, and association with diseases at http://Buscatucancha.com.[employer] ([employer])/ faq/TXG999 Specimen Performing Laboratory [facility] Narrative FASTING:NO URINALYSIS, COMPLETE, WITH REFLEX TO CULTURE (01/07/2017 12:40 PM) Component Value Ref Range Color, UA YELLOW YELLOW Appearance CLEAR CLEAR Specific gravity, urine 1.017 1.001 - 1.035 pH, urine 6.5 5.0 - 8.0 Glucose, urine NEGATIVE NEGATIVE Bilirubin, UA NEGATIVE NEGATIVE Ketones, UA NEGATIVE NEGATIVE Occult blood, urine NEGATIVE NEGATIVE Protein, UA NEGATIVE NEGATIVE Nitrite, UA NEGATIVE NEGATIVE Leukocyte esterase, UA NEGATIVE NEGATIVE WBC, UA NONE SEEN < OR=5 /HPF RBC, UA 0-2 < OR=2 /HPF Squamous epithelial cells, UA NONE SEEN < OR=5 /HPF Bacteria, UA NONE SEEN NONE SEEN /HPF Hyaline casts, UA NONE SEEN NONE SEEN /LPF Reflex NO CULTURE INDICATED Specimen Performing Laboratory [facility] Narrative FASTING:NO Cyclic citrullinated peptide antibody, IgG (01/07/2017 12:40 PM) Component Value Ref Range Cyclic citrullin peptide Ab <16 UNITS Comment: Reference Range Negative:<20 Weak Positive: 20-39 Moderate Positive: 40-59 Strong Positive: >59 Specimen Performing Laboratory [facility] Narrative FASTING:NO Rheumatoid factor (01/07/2017 12:40 PM) Component Value Ref Range Rheumatoid factor 8 <14 IU/mL Specimen Performing Laboratory [facility] Narrative FASTING:NO after 12/08/2016 Insurance Payer Benefit Plan / Group Subscriber ID Type Phone Address MEDICARE MEDICARE PART A AND B xxxxxxxxxx Medicare [place], [place] AETNA AETNA PPO OPEN CHOICE xxxxxxxxx PPO [phone] [id number]
[2017-12-09 12:29] LABS: Absolute Lymphocytes (CBC) 1.5 K/uL (0.7-4.9); Absolute Monocytes 1.2 K/uL (0.1-1.3); Absolute Neutrophil 8.8 K/uL (1.8-8.0); Hematocrit 33.8 % (36.0-45.0); Lymphocytes % 12.7 % (15.3-44.8); MCH 39.8 pg (27.0-35.0); MCV 119.8 fL (80-100); MPV 8.9 fL (7.6-11.3); Monocytes % 10.6 % (3.3-12.3); RBC Red Blood Cell Count 2.82 M/uL (3.86-4.86)
[2017-12-09 12:37] LABS: Potassium 3.2 mEq/L (3.6-5.0)
[2017-12-09 12:49] LABS: Urine Blood TRACE (NEG); Urine Glucose NEGATIVE (NEG); Urine Protein NEGATIVE (NEG); Urine Specific Gravity 1.015 (1.005-1.030)
[2017-12-09 13:12] LABS: Urine White Blood Cell Casts OK
[2017-12-09 13:13] LABS: Blood Morphology Comment NOTED (NOT SEEN); Macrocytosis 3+; Ovalocytes SLIGHT; Platelet Estimate INCR; Platelets, Giant FEW; Target Cells 2+
--- NOTE | 2017-12-09 14:07 | ER ---
Nurse's Notes [facility] Name: Carmen Ewing Age: 77 yrs Sex: Female : 1940 Arrival Date: 12/09/2017 Time: 11:31 Bed 13 Private MD: Diagnosis: Fracture of unspecified lumbar vertebra;Low back pain Presentation: 12/09 11:43 Presenting complaint: Patient states: "I am having pain in my back, lower abdomen, and lk1 down my legs. 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 Transition of care: patient was not received from another setting of care. Onset of symptoms is unknown. Care prior to arrival: None. 11:43 Method Of Arrival: Ambulatory lk1 11:43 Acuity: ARTHUR 3 lk1 Triage Assessment: 11:46 General: Appears in no apparent distress. Behavior is calm, cooperative, appropriate lk1 for age. Pain: Complains of pain in suprapubic area Pain radiates to low back area Pain currently is 9 out of 10 on a pain scale. GI: Abdomen is non-distended. : Reports pain in bilateral in suprapubic area flank(s), lower quadrant(s) in lower back urinary frequency. Historical: - Allergies: 11:46 nicin drugs; lk1 - PMHx: 11:46 Hypertension; Irritable bowel syndrome; neuropathy; shingles; lk1 - PSHx: 11:46 cataract sx; Bladder suspension; Hysterectomy; Appendectomy; splenectomy; lk1 - Immunization history:: Adult Immunizations up to date. - Social history:: Smoking status: Patient/guardian denies using tobacco. Screenin:37 Abuse screen: Denies threats or abuse. Denies injuries from another. Nutritional iw screening: No deficits noted. Tuberculosis screening: No symptoms or risk factors identified. Fall Risk None identified. Assessment: 12:30 General: Appears in no apparent distress. comfortable, Behavior is calm, cooperative. iw Pain: Denies pain. Neuro: Level of Consciousness is awake, alert, obeys commands. Cardiovascular: Patient's skin is warm and dry. Respiratory: Respiratory pattern is regular, symmetrical. GI: Bowel sounds present X 4 quads. Abd is soft X 4 quads. Derm: Skin is pink, warm \\T\\ dry. normal. Musculoskeletal: Range of motion: intact in all extremities. 13:37 Reassessment: Patient appears in no apparent distress at this time. Patient and/or iw family updated on plan of care and expected duration. Pain level reassessed. Patient is alert, oriented x 3, equal unlabored respirations, skin warm/dry/pink. Vital Signs: 11:47 BP 122 / 102; Pulse 74; Resp 18; Temp 98.2(TE); Pulse Ox 99% on R/A; Weight 50.8 kg lk1 (M); Height 5 ft. 3 in. (160.02 cm) (M); Pain 9/10; 11:47 Body Mass Index 19.84 (50.80 kg, 160.02 cm) 1 ED Course: 11:31 Patient arrived in ED. as 11:45 Triage completed. [facility] 11:47 Arm band placed on right wrist. [facility] 11:56 Deedee Scott, RN is Primary Nurse. 11:57 Yevgeniy Castro MD is Attending Physician. 12:23 Initial lab(s) drawn, by ct, sent to lab. Urine collected: clean catch specimen, clear. 5 Inserted saline lock: 22 gauge in left antecubital area, using aseptic technique. Blood collected. 12:23 BMP Sent. [facility] 12:24 CBC with Diff Sent. [facility] 12:30 Patient has correct armband on for positive identification. iw 14:20 No provider procedures requiring assistance completed. IV discontinued, intact, iw bleeding controlled, No redness/swelling at site. Pressure dressing applied. Administered Medications: No medications were administered Outcome: 14:07 Discharge ordered by . gs 14:20 Discharged to home ambulatory. iw 14:20 Condition: good 14:20 Discharge instructions given to patient, Instructed on discharge instructions, follow up and referral plans. Demonstrated understanding of instructions, follow-up care. 14:21 Patient left the ED. Signatures: Chanel Scruggs Irene, KATHY CHAVEZ Alexa Zelaya RN RN [facility] Alicia Scruggs [facility] Yevgeniy Castro MD MD
--- NOTE | 2017-12-09 14:07 | EDPHYS ---
Physician Documentation [facility] Name: Carmen Ewing Age: 77 yrs Sex: Female : 1940 Arrival Date: 12/09/2017 Time: 11:31 Bed 13 Private MD: ED Physician Yevgeniy Castro HPI: 12/09 13:58 This 77 yrs old Female presents to ER via Ambulatory with complaints of gs Abdominal Pain, Back Pain, Leg Pain. 13:58 The patient presents with pain that is acute. The symptoms are located in the low back. gs Onset: The symptoms/episode began/occurred 1 week(s) ago. The pain radiates to the right lower quadrant and left lower quadrant. Associated signs and symptoms: Pertinent negatives: fever. The problem was sustained from unknown cause. Modifying factors: The patient symptoms are alleviated by nothing, the patient symptoms are aggravated by movement. Severity of symptoms: At their worst the symptoms were moderate, in the emergency department the symptoms have improved, markedly. The patient has experienced similar episodes in the past, a few times. Historical: - Allergies: 11:46 nicin drugs; lk1 - PMHx: 11:46 Hypertension; Irritable bowel syndrome; neuropathy; shingles; lk1 - PSHx: 11:46 cataract sx; Bladder suspension; Hysterectomy; Appendectomy; splenectomy; lk1 - Immunization history:: Adult Immunizations up to date. - Social history:: Smoking status: Patient/guardian denies using tobacco. ROS: 13:58 Constitutional: Negative for fever. gs 13:58 All other systems are negative. Exam: 13:58 Chest/axilla: Normal chest wall appearance and motion. Nontender with no deformity. gs No lesions are appreciated. Cardiovascular: Regular rate and rhythm with a normal S1 and S2. No gallops, murmurs, or rubs. Normal PMI, no JVD. No pulse deficits. Respiratory: Lungs have equal breath sounds bilaterally, clear to auscultation and percussion. No rales, rhonchi or wheezes noted. No increased work of breathing, no retractions or nasal flaring. Abdomen/GI: Soft, non-tender, with normal bowel sounds. No distension or tympany. No guarding or rebound. No evidence of tenderness throughout. Back: No spinal tenderness. No costovertebral tenderness. Full range of motion. Skin: Warm, dry with normal turgor. Normal color with no rashes, no lesions, and no evidence of cellulitis. MS/ Extremity: Pulses equal, no cyanosis. Neurovascular intact. Full, normal range of motion. Neuro: Awake and alert, GCS 15, oriented to person, place, time, and situation. Cranial nerves II-XII grossly intact. Motor strength 5/5 in all extremities. Sensory grossly intact. Cerebellar exam normal. Normal gait. 13:58 Constitutional: The patient appears alert, awake. Vital Signs: 11:47 BP 122 / 102; Pulse 74; Resp 18; Temp 98.2(TE); Pulse Ox 99% on R/A; Weight 50.8 kg lk1 (M); Height 5 ft. 3 in. (160.02 cm) (M); Pain 9/10; 11:47 Body Mass Index 19.84 (50.80 kg, 160.02 cm) lk1 MDM: 12:02 Patient medically screened. 13:58 Differential diagnosis: arthritis, chronic back pain, Pyelonephritis ruptured disc, gs vertebral fracture. Data reviewed: vital signs, nurses notes. ED course: pt with known vert fx within week has seen pcp had workup mri no acute changes concerned about uti have drawn blood plts and urine good will discharge. 12/09 12:02 Order name: CBC with Diff; Complete Time: 13:57 gs 12/09 12:02 Order name: BMP; Complete Time: 13:57 gs 12/09 11:48 Order name: Urine Dipstick-Ancillary (obtain specimen); Complete Time: 12:24 lk1 12/09 12:25 Order name: Urine Dipstick--Ancillary (enter results) bd 12/09 12:25 Order name: Urine Dipstick-Ancillary; Complete Time: 13:57 EDMS 12/09 12:44 Order name: CBC Smear Scan; Complete Time: 13:57 EDMS Administered Medications: No medications were administered Disposition: 12/09/17 14:07 Discharged to Home. Impression: Fracture of unspecified lumbar vertebra, Low back pain. - Condition is Stable. - Discharge Instructions: Back Pain, Adult. - Medication Reconciliation Form, Thank You Letter, Antibiotic Education, Prescription Opioid Use form. - Follow up: Private Physician; When: 2 - 3 days; Reason: Re-evaluation by your physician. Signatures: Dispatcher [employer] Deedee Ward, RN RN Alexa Westfall RN RN lk1 Yevgeniy Castro MD MD
[2017-12-09 14:30] VITALS: BP 122/102; TEMP 98.2; O2SAT 99
== END 2017-12-09 14:21 | disposition home or self-care (01) ==
LOC: ER 11:30
DX: S32.009A Unspecified fracture of unspecified lumbar vertebra, initial encounter for closed fracture (principal); I10 Essential (primary) hypertension; Z91.048 Other nonmedicinal substance allergy status
CPT/HCPCS: 36415; 80048; 81003; 85025; 99283

== ENCOUNTER 2018-08-24 08:11 | Emergency (ER) | payer OTHER ==
--- OUTSIDE RECORDS SUMMARY | 2018-08-24 08:15 | XMS REPORT | Clinical Summary ---
:1940 Author Organization [facility] Address [address] [place] [address] Care Team Providers Name Role Phone Melania Cruz MD Primary Care Provider Allergies Active Allergy Reactions Severity Noted Date Comments Niacin 12/13/2015 Burning, stinging to body and hot flashes. Oxybutynin 12/13/2015 Skin burning Medications Medication Sig Dispensed Refills Start End Status Date Date denosumab (PROLIA) 60 Prolia 2 times 0 Active mg/mL syringe syringe a year calcium Take by mouth 0 09/09/19 Active carbonate-vitamin D3 daily. Calcium 11 600 mg(1,500mg) -400 with Vitamin D unit per tablet 600 mg (1,500 mg)-400 unit tablet POLYETHYLENE GLYCOL Miralax 0 Active 3350 (MIRALAX ORAL) VITAMIN E (AQUASOL E 800 Int'l 0 Active ORAL) Units daily. vitamin E TETRAHYDROZOLINE HCL/ZN Apply to eye. 0 Active SULF (EYE DROPS OPHT) 1 gtt 4x times/day hydroxyurea (HYDREA) 2 capsules 3 09/19/19 Active 500 mg capsule Mon, Wed, and 18 Sat. 1 cap the other days gabapentin (NEURONTIN) Take 1 capsule 60 capsule 11 12/31/19 Active 100 mg capsule (100 mg total) 18 019 by mouth 2 (two) times a day. losartan (COZAAR) 50 MG Take 1 tablet 180 tablet 3 02/01/20 Active tablet (50 mg total) 18 by mouth 2 (two) times a day. verapamil (CALAN) 120 TAKE 1 TABLET 90 tablet 3 02/03/20 Active MG tablet IN THE EVENING 18 019 verapamil sustained Take 1 90 tablet 3 02/21/20 Active release (CALAN-SR) 240 tablet(s) 18 MG SR tablet every day by oral route in the morning. TURMERIC ROOT EXTRACT Take by mouth. 0 Active ORAL glucosamine/chondr pryor A Take by mouth. 0 Active sod (OSTEO BI-FLEX ORAL) vit C/vit Take by mouth. 0 Active E/lutein/min/omega-3 (OCUVITE ORAL) cyanocobalamin 100 MCG Take 100 mcg 0 Active tablet by mouth daily. cholecalciferol, Take 1,000 0 Active vitamin D3, (VITAMIN Units by mouth D3) 1,000 unit capsule daily. atenolol (TENORMIN) 25 Takes 2 270 tablet 3 04/24/20 Active MG tablet tablets am and 18 1 PM lidocaine (LIDODERM) 5 PLACE 1 PATCH 90 patch 3 04/24/20 Active % ON THE SKIN 18 DAILY.. MAY WEAR UP TO 12 HOURS esomeprazole (NexIUM) Take 1 capsule 90 capsule 3 04/24/20 Active 40 MG capsule (40 mg total) 18 by mouth once daily. hydroCHLOROthiazide Take 1 tablet 90 tablet 3 06/19/20 Active (HYDRODIURIL) 12.5 MG (12.5 mg 18 tablet total) by mouth once daily. levothyroxine Take 1 tablet 90 tablet 1 06/19/20 Active (SYNTHROID, LEVOXYL) (100 mcg 18 100 mcg tablet total) by mouth daily. acetaminophen-codeine Take 1 tablet 30 tablet 0 08/06/20 Active (TYLENOL WITH CODEINE by mouth every 18 018 #3) 300-30 mg per 4 (four) hours tablet as needed for moderate pain for up to 30 days. zolpidem (AMBIEN) 5 MG TAKE 1 TABLET 30 tablet 1 08/12/20 Active tablet BY MOUTH AT 18 020 BEDTIME CYANOCOBALAMIN/FOLIC vitamin 0 Discontinued ACID (VITAMIN W25-HIKMU W54-zqeno acid 018 ACID ORAL) BABY ASPIRIN ORAL Take 81 mg by 0 Discontinued mouth. 018 rivaroxaban (XARELTO) Take 1 tablet 2 tablet 0 10/17/19 Discontinued 10 mg tablet (10 mg total) 17 018 by mouth daily for 2 days. omega-3 acid ethyl Take 2 caps po 360 capsule 3 10/24/19 Discontinued esters (LOVAZA) 1 gram bid 17 017 capsule acetaminophen-codeine TAKE 1 TO 2 1 02/14/20 Discontinued (TYLENOL WITH CODEINE TABLETS BY 17 018 #3) 300-30 mg per MOUTH EVERY tablet DAY NEEDED TiZANidine (ZANAFLEX) 2 Take 2 mg by 3 04/02/20 Discontinued MG capsule mouth nightly. 17 018 zolpidem (AMBIEN) 5 MG Take 1 tablet 90 tablet 2 04/15/20 Discontinued tablet (5 mg total) 17 018 by mouth once daily for 30 days. levothyroxine Take 1 tablet 90 tablet 3 04/15/20 Discontinued (SYNTHROID, LEVOXYL) (100 mcg 018 100 mcg tablet total) by mouth once daily. hydroCHLOROthiazide Take 1 tablet 90 tablet 3 04/15/20 Discontinued (HYDRODIURIL) 12.5 MG (12.5 mg 17 018 tablet total) by mouth once daily. esomeprazole (NexIUM) Take 1 capsule 90 capsule 3 04/15/20 Discontinued 40 MG capsule (40 mg total) 17 018 by mouth once daily. atenolol (TENORMIN) 25 TAKE ONE 270 tablet 3 04/15/20 Discontinued MG tablet TABLET BY 17 018 MOUTH 2 TIMES DAILY losartan (COZAAR) 50 MG Take 1 tablet 180 tablet 3 04/15/20 Discontinued tablet (50 mg total) 17 018 by mouth 2 (two) times a day. lidocaine (LIDODERM) 5 PLACE 1 PATCH 90 patch 3 04/15/20 Discontinued % ON THE SKIN 17 018 DAILY.. MAY WEAR UP TO 12 HOURS verapamil sustained Take 1 90 tablet 2 05/16/20 Discontinued release (CALAN-SR) 240 tablet(s) 17 018 MG SR tablet every day by oral route in the morning. verapamil (CALAN) 120 Take 1 tablet 90 tablet 3 05/16/20 Discontinued MG tablet (120 mg total) 17 018 by mouth every evening. amoxicillin (AMOXIL) Take 2 cap 1 2 capsule 6 05/17/20 Discontinued 500 MG capsule hour before 17 018 dental procedure dicyclomine (BENTYL) 10 Take 1 capsule 120 capsule 11 07/15/20 MG capsule (10 mg total) 17 018 by mouth 4 (four) times a day before meals and nightly. predniSONE (DELTASONE) Take 1 tab 30 tablet 0 07/15/20 Discontinued 1 mg tablet every morning 17 018 omega-3 acid ethyl TAKE 2 360 capsule 3 09/06/20 Discontinued esters (LOVAZA) 1 gram CAPSULES BY 17 018 capsule MOUTH TWICE A DAY amoxicillin (AMOXIL) TAKE 2 6 09/13/19 Discontinued 500 MG capsule CAPSULES BY 18 018 MOUTH 1 HOUR BEFORE DENTAL PROCEDURE zolpidem (AMBIEN) 5 MG Take one at 90 tablet 2 10/14/19 Discontinued tablet bedtime 18 018 rivaroxaban (XARELTO) Take one daily 30 tablet 0 10/14/19 Discontinued 10 mg tablet as directed 018 when in high risk situation for DVT XARELTO 10 mg tablet TAKE 1 TABLET 30 tablet 0 11/11/19 Discontinued BY MOUTH EVERY 18 018 DAY DIRECTED WHEN IN HIGH RISK SITUATION OF DVT methylPREDNISolone follow package 21 tablet 0 12/05/19 (MEDROL, ANNE,) 4 mg directions 018 tablet diclofenac (VOLTAREN) 1 Apply 2 Tube 1 12/05/19 Discontinued % gel topically 4 18 018 (four) times a day for 30 days. Apply 1 gram to affected area qid prn HYDROcodone-acetaminoph Take 1 tablet 120 tablet 0 12/20/19 Discontinued en (NORCO) 5-325 mg per by mouth every 18 018 tablet 6 (six) hours as needed for moderate pain (compression fracture) for up to 30 days. Max Daily Amount: 4 tablets metaxalone (SKELAXIN) Use 1 tab po 30 tablet 0 12/20/19 Discontinued 400 mg tablet tid as needed 018 for back spasms due to compression fracture tapentadol (NUCYNTA) 50 Take 1 tablet 90 tablet 0 01/16/20 Discontinued mg tablet (50 mg total) 18 018 by mouth every 8 (eight) hours as needed for severe pain for up to 30 days. Max Daily Amount: 150 mg celecoxib (CeleBREX) Take 1 capsule 30 capsule 0 01/16/20 Discontinued 200 MG capsule (200 mg total) 18 018 by mouth daily for 30 days. nystatin (MYCOSTATIN) Take 5 mL 100 mL 0 01/29/20 Discontinued 100,000 unit/mL (500,000 Units 18 018 suspension total) by mouth 4 (four) times a day for 5 days. Swish and spit diclofenac (VOLTAREN) 1 APPLY TO 200 g 1 02/04/20 Discontinued % gel AFFECTED AREA 18 018 1 GRAM 4 TIMES A DAY NEEDED celecoxib (CeleBREX) TAKE ONE 30 capsule 0 02/12/20 Discontinued 200 MG capsule CAPSULE BY 18 018 MOUTH EVERY DAY traMADol (ULTRAM) 50 mg Take 1 tablet 90 tablet 0 02/13/20 Discontinued tablet (50 mg total) 18 018 by mouth every 8 (eight) hours as needed for moderate pain for up to 30 days. ALPRAZolam (XANAX) 0.25 Take 1 tablet 2 tablet 0 02/13/20 MG tablet (0.25 mg 18 018 total) by mouth as needed for anxiety (pre-procedure ) for up to 1 day. nystatin (MYCOSTATIN) SWISH AND SPIT 100 mL 0 02/19/20 Discontinued 100,000 unit/mL WITH 5 18 018 suspension MILLILITERS BY MOUTH 4 TIMES A DAY acetaminophen-codeine Take 1 tablet 0 Discontinued (TYLENOL WITH CODEINE by mouth every 018 #3) 300-30 mg per 4 (four) hours tablet as needed for moderate pain. zolpidem (AMBIEN) 5 MG Take one at 30 tablet 1 02/21/20 Discontinued tablet bedtime 18 018 verapamil sustained Take 1 90 tablet 2 02/21/20 Discontinued release (CALAN-SR) 240 tablet(s) 18 018 MG SR tablet every day by oral route in the morning. nystatin (MYCOSTATIN) Take 5 mL 100 mL 0 02/21/20 100,000 unit/mL (500,000 Units 18 018 suspension total) by mouth 4 (four) times a day for 7 days. Swish in mouth HYDROcodone-acetaminoph Take 1 tablet 30 tablet 0 02/21/20 en (NORCO) 10-325 mg by mouth every 18 018 per tablet 8 (eight) hours as needed for moderate pain for up to 14 days. Max Daily Amount: 3 tablets hydroCHLOROthiazide Take 1 tablet 90 tablet 3 02/21/20 Discontinued (HYDRODIURIL) 12.5 MG (12.5 mg 18 018 tablet total) by mouth once daily. acetaminophen-codeine Take 1-2 60 tablet 0 03/06/20 Discontinued (TYLENOL WITH CODEINE tablets by 18 018 #3) 300-30 mg per mouth every 6 tablet (six) hours as needed for moderate pain for up to 30 doses. celecoxib (CeleBREX) TAKE ONE 30 capsule 0 03/10/20 Discontinued 200 MG capsule CAPSULE BY 18 018 MOUTH EVERY DAY acetaminophen with Take by mouth. 0 Discontinued codeine 018 (TYLENOL-CODEINE #3 ORAL) acetaminophen-codeine Take 1 tab po 90 tablet 0 04/01/20 Discontinued (TYLENOL WITH CODEINE q 8 hour for 18 018 #3) 300-30 mg per moderate to tablet severe pain from compression fractures acetaminophen-codeine Take 1 tab po 90 tablet 0 04/24/20 Discontinued (TYLENOL WITH CODEINE q 8 hour for 18 018 #3) 300-30 mg per moderate to tablet severe pain from compression fractures amoxicillin (AMOXIL) TAKE 2 2 capsule 4 05/21/20 500 MG capsule CAPSULES BY 18 018 MOUTH 1 HOUR BEFORE DENTAL PROCEDURE levothyroxine TAKE 1 TABLET 90 tablet 1 06/02/20 Discontinued (SYNTHROID, LEVOXYL) BY MOUTH EVERY 18 018 100 mcg tablet DAY zolpidem (AMBIEN) 5 MG Take one at 30 tablet 1 06/19/20 Discontinued tablet bedtime 018 amoxicillin (AMOXIL) Take 2 one 2 capsule 6 06/19/20 500 MG capsule hour prior to dental procedure acetaminophen-codeine Take 1 tablet 120 tablet 0 06/19/20 Discontinued (TYLENOL WITH CODEINE by mouth every 18 018 #3) 300-30 mg per 6 (six) hours tablet as needed for moderate pain for up to 30 days. Active Problems Problem Noted Date Essential thrombocytosis [...] Encounters Date Type Specialty Care Team Description 08/18/2018 Telephone Endocrinology Marquita Thapa MA 08/12/2018 Refill Internal Medicine Melania Cruz MD 08/06/2018 Orders Only Internal Medicine Melania Cruz MD 08/06/2018 Telephone Internal Medicine Solange Farias MA 06/26/2018 Lab Lab Toni Ceja, Other specified diseases of blood and blood-forming organs 06/26/2018 Office Visit Hematology Toni Ceja Essential MD thrombocytosis (HCC) (Primary Dx) 06/24/2018 Orders Only Hematology Nayely Phipps, Other specified MA diseases of blood and blood-forming organs (Primary Dx) 06/19/2018 Office Visit Internal Medicine Melania Cruz Chronic pain syndrome (Primary Dx); MD Karlos Other osteoporosis with current pathological fracture with delayed healing, subsequent encounter; Paroxysmal atrial fibrillation (HCC); Thrombocytosis (HCC); Closed compression fracture of L3 lumbar vertebra with routine healing , subsequent encounter; Closed compression fracture of fourth lumbar vertebra, initial encounter (HCC); Closed wedge compression fracture of first lumbar vertebra, initial encounter (HCC); Chronic midline low back pain with right-sided sciatica; Fluctuating blood pressure; Other fatigue 06/02/2018 Refill Internal Medicine Melania Cruz MD 05/23/2018 Orders Only Internal Medicine Solange Farias MA 05/21/2018 Refill Internal Medicine Melania Cruz MD 05/09/2018 Orders Only Internal Medicine Solange Farias MA Other fatigue (Primary Dx) 04/24/2018 Office Visit Internal Medicine Melania Cruz Other osteoporosis with current pathological fracture with delayed healing, subsequent encounter ( Primary Dx); MD Karlos Closed compression fracture of L3 lumbar vertebra with routine healing, subsequent encounter; Closed compression fracture of fourth lumbar vertebra, initial encounter; Closed wedge compression fracture of first lumbar vertebra, initial encounter; Thrombocytosis 04/24/2018 Lab Lab Toni Ceja, Other frank SOLIS diseases of blood and blood-forming organs 04/24/2018 Office Visit Hematology Toni Ceja, Essential thrombocytosis (Primary Dx) 04/15/2018 Orders Only Hematology Young, Other specified Fanny Curiel MA diseases of blood and blood-forming organs (Primary Dx) 04/01/2018 Orders Only Internal Medicine Melania Cruz MD 04/01/2018 Telephone Internal Medicine Solange Farias MA 03/17/2018 Lab Lab Melania Cruz Closed compression MD Karlos fracture of fourth lumbar vertebra, initial encounter (Primary Dx) 03/17/2018 Office Visit Internal Medicine Melania Cruz Closed compression fracture of fourth lumbar vertebra, initial encounter (Primary Dx); MD Karlos Closed compression fracture of L3 lumbar vertebra with routine healing, subsequent encounter; Vitamin D deficiency; Other osteoporosis with current pathological fracture with delayed healing, subsequent encounter 03/17/2018 Office Visit Neurosurgery Seth Ortiz MD Compression fracture of spine, sequela (Primary Dx) 03/10/2018 Refill Pain Medicine Anibal Garay MD 03/06/2018 Anesthesia Event General Surgery Mindy Rush APRN 03/06/2018 Surgery General Surgery Seth Ortiz MD KYPHOPLASTY OF L1, L3, L4 03/06/2018 Hospital Encounter General Surgery Seth Ortiz MD Compression fracture of L3 lumbar vertebra, sequela; Closed compression fracture of body of first lumbar vertebra 03/05/2018 Hospital Encounter Radiology Seth Ortiz MD Osteoporosis, unspecified osteoporosis type, unspecified pathological fracture presence 03/05/2018 Hospital Encounter Radiology Seth Ortiz MD Osteoporosis, unspecified osteoporosis type, unspecified pathological fracture presence 03/05/2018 Prep for Surgery Neurosurgery Mcarthur, Compression fracture Brigida RN of L3 lumbar vertebra, sequela (Primary Dx) 02/28/2018 Transcribe Orders Neurosurgery Seth Ortiz MD Osteoporosis, unspecified osteoporosis type, unspecified pathological fracture presence (Primary Dx) 02/28/2018 Transcribe Orders Access Kate Dennis, Senile osteoporosis (Primary Dx) 02/25/2018 Pre-Admit Testing Pre-Admission Seth Ortiz MD Preop testing Appointment Testing (Primary Dx) 02/25/2018 Office Visit Neurosurgery Seth Ortiz MD Non-traumatic compression fracture of first lumbar vertebra, initial encounter (Primary Dx); Non-traumatic compression fracture of third lumbar vertebra, initial encounter; Non-traumatic compression fracture of fourth lumbar vertebra, initial encounter 02/20/2018 Office Visit Internal Medicine Melania Cruz Closed wedge compression fracture of first lumbar vertebra, initial encounter (Primary Dx); MD Karlos Closed compression fracture of fourth lumbar vertebra, initial encounter; Closed compression fracture of L3 lumbar vertebra with routine healing , subsequent encounter 02/20/2018 Lab Lab Toni Ceja, Other specified diseases of blood and blood-forming organs 02/20/2018 Office Visit Hematology Toni Ceja, Essential thrombocytosis (Primary Dx) 02/19/2018 Telephone Internal Medicine Melania Cruz MD 02/18/2018 Refill Internal Medicine Melania Cruz MD 02/17/2018 Hospital Encounter Radiology Melania Cruz Closed compression MD Karlos fracture of third lumbar vertebra, sequela 02/17/2018 Hospital Encounter Radiology Melania Cruz Closed compression MD Karlos fracture of third lumbar vertebra, sequela 02/13/2018 Orders Only Hematology Young, Other specified Fanny Curiel MA diseases of blood and blood-forming organs (Primary Dx) 02/12/2018 Office Visit Pain Medicine Anibal Garay Vertebral fracture, osteoporotic, sequela (Primary Dx); MD Mauri Lumbosacral spondylosis without myelopathy; Musculoskeletal pain, chronic; Chronic pain syndrome 02/11/2018 Refill Pain Medicine Anibal Garay MD 02/06/2018 Refill Internal Medicine Melania Cruz MD 02/05/2018 Office Visit Internal Medicine Melania Cruz Closed compression fracture of third lumbar vertebra, sequela (Primary Dx); MD Karlos Thrombocytosis; Age-related osteoporosis with current pathological fracture with routine healing, subsequent encounter 02/03/2018 Refill Internal Medicine Melania Cruz MD 02/02/2018 Refill Internal Medicine Melania Cruz MD 01/31/2018 Refill Internal Medicine Melania Cruz MD 01/31/2018 Orders Only Internal Medicine Solange Farias, ALTHEA 01/28/2018 Orders Only Internal Medicine Solange Farias, [place] 01/22/2018 Procedure visit Pain Medicine Anibal Garay Lumbosacral spondylosis without myelopathy (Primary Dx); MD aMuri Lumbar facet arthropathy 01/15/2018 Office Visit Pain Medicine Anibal Garay Chronic pain syndrome (Primary Dx); MD Mauri Lumbar facet arthropathy; Chronic bilateral low back pain without sciatica; Musculoskeletal pain, chronic; Vertebral fracture, osteoporotic, with routine healing, subsequent encounter 01/13/2018 Orders Only Internal Medicine Melania Cruz Acute midline thoracic back pain (Primary Dx); MD Karlos Compression fracture of body of thoracic vertebra 01/13/2018 Telephone Internal Medicine Naz Tsang, [place] 01/08/2018 Telephone Internal Medicine Solange Farias, [place] 12/30/2017 Office Visit Internal Medicine Melania Cruz Closed compression fracture of L3 lumbar vertebra with routine healing, subsequent encounter ( Primary Dx); MD Karlos Age-related osteoporosis with current pathological fracture with routine healing, subsequent encounter 12/21/2017 Refill Internal Medicine Melania Cruz MD 12/19/2017 Lab Lab Toni Ceja, Other specified MD diseases of blood and blood-forming organs 12/19/2017 Office Visit Hematology Toni Ceja, Essential MD thrombocytosis (Primary Dx) 12/19/2017 Office Visit Internal Medicine Melania Cruz Localized osteoporosis with current pathological fracture with routine healing, subsequent encounter (Primary Dx); MD Karlos Acute midline low back pain without sciatica; Thrombocytosis; Elevated serum creatinine; BMI less than 19,adult 12/17/2017 Orders Only Hematology Nayely Phipps, Other specified MA diseases of blood and blood-forming organs (Primary Dx) 12/17/2017 Refill Internal Medicine Solange Farias, [place] 12/05/2017 Hospital Encounter Radiology Melania Cruz Acute bilateral low MD Karlos back pain with sciatica, sciatica laterality unspecified 12/05/2017 Orders Only Internal Medicine Solange Farias MA Acute bilateral low back pain with sciatica, sciatica laterality unspecified (Primary Dx) 12/04/2017 Hospital Encounter Radiology Melania Cruz Acute bilateral low L., back pain, with sciatica presence unspecified 12/04/2017 Hospital Encounter Radiology Melania Cruz Acute bilateral low L., MD back pain, with sciatica presence unspecified 12/04/2017 Office Visit Internal Medicine Melania Cruz Acute bilateral low L., back pain, with sciatica presence unspecified (Primary Dx) 12/03/2017 Orders Only Hematology Nayely Phipps, Other specified MA diseases of blood and blood-forming organs (Primary Dx) 11/18/2017 Telephone Internal Medicine Solange Farias MA 11/10/2017 Refill Internal Medicine Melania Cruz MD 10/30/2017 Telephone Internal Medicine Shyam Beltrán Angel, ALTHEA unspecified type (Primary Dx) 10/14/2017 Office Visit Internal Medicine Melania Cruz Encounter for general adult medical examination with abnormal findings (Primary Dx); MD Karlos Essential hypertension; Hyperglycemia; Vitamin D deficiency; Post herpetic neuralgia; Thrombocytosis 10/07/2017 Lab Lab Toni Ceja, Other specified diseases of blood and blood-forming organs 10/07/2017 Office Visit Hematology Toni Ceja Essential MD thrombocytosis (Primary Dx) 10/07/2017 Hospital Encounter Radiology Melania Cruz Screening mammogram, MD Karlos encounter for 09/27/2017 Orders Only Rheumatology Lucero, Other specified [place], [place] diseases of blood and blood-forming organs (Primary Dx) 09/08/2017 Refill Hematology Toni Ceja MD 09/06/2017 Refill Internal Medicine Melania Cruz MD 09/03/2017 Orders Only Hematology Nayely Phipps, Other specified MA diseases of blood and blood-forming organs (Primary Dx) after 08/23/2017 Immunizations Name Dates Previously Given Next Due FLUZONE HIGH-DOSE PF 06/26/2015 Influenza Trivalent 06/12/2017, 06/10/2017, 06/10/2008 Influenza, Unspecified 06/09/2018 Pneumococcal Conjugate 13-Valent 07/12/2015 Pneumococcal Polysaccharide 07/07/2013, 09/18/2007, 09/18/2007 Tdap 05/20/2017 Family History Medical History Relation Name Comments Hypertension Father Breast cancer Mother Cancer Other Coronary artery disease Other Relation Name Status Comments Father Mother Other Social History Tobacco Use Types Packs/Day Years Used Date Never Smoker Smokeless Tobacco: Never Used Tobacco Cessation: Counseling Given: Yes Alcohol Use Drinks/Week oz/Week Comments No Sex Assigned at Date Recorded Not on file Job Start Date Occupation Industry Not on file Not on file Not on file Travel History Travel Start Travel End No recent travel history available. Last Filed Vital Signs Vital Sign Reading Time Taken Blood Pressure 114/72 06/19/2018 11:31 AM CDT Pulse 64 06/19/2018 11:31 AM CDT Temperature 36.4 C (97.6 F) 04/24/2018 2:09 PM CDT Respiratory Rate 17 04/24/2018 2:09 PM CDT Oxygen Saturation 95% 03/06/2018 6:31 PM CDT Inhaled Oxygen Concentration - - Weight 45.8 kg (101 lb) 06/19/2018 11:31 AM CDT Height 165.1 cm (5' 5") 06/19/2018 11:31 AM CDT Body Mass Index 16.81 06/19/2018 11:31 AM CDT Plan of Treatment Date Type Specialty Care Team Description 08/25/2018 Office Visit Endocrinology Jewell Cloud MD [address] [facility] [address] [place], [place] [phone] 09/25/2018 Office Visit Internal Medicine Melania Cruz MD [address] [facility] [address] [place], [place] [phone] 09/25/2018 Office Visit Hematology Toni Ceja MD [address] [facility] [address] [place], [place] [phone] 09/25/2018 Lab Lab Health Maintenance Due Date Last Done Comments SHINGLES VACCINES (1 of 2) 1989 PNEUMOCOCCAL POLYSACCHARIDE VACCINE Completed 07/07/2013, 09/18/2007 AGE 65 AND OVER PNEUMOCOCCAL-13 Completed 07/12/2015 INFLUENZA VACCINE Completed 06/09/2018, 06/02/2018, 06/12/2017, Additional history exists Implants Implanted Type Area Referral Coordinator Device Shelf Model / Identifier Expiration Serial / Lot Date Cement Bone Hiviscocty Rdopq [employer] - [id number] Surgical N/A: [employer] OF 06/08/2020 C01A / Implanted: Qty: 1 on 03/06/2018 by Seth Ortiz MD Bone Cement N/A [employer] / [id number] Device Bone Filler Sz 3 [employer] - [id number] Surgical N/A: [employer] OF F04B / Implanted: Qty: 1 on 03/06/2018 by Seth Ortiz MD Implants; N/A [employer] / Expanders; [id number] Extenders; Surgical Wires Device Bone Filler Sz 3 [employer] - [id number] Surgical N/A: [employer] OF F04B / Implanted: Qty: 1 on 03/06/2018 by Seth Ortiz MD Implants; N/A [employer] / Expanders; [id number] Extenders; Surgical Wires Device Bone Filler Sz 3 [employer] - [id number] Surgical N/A: [employer] OF F04B / Implanted: Qty: 1 on 03/06/2018 by Seth Ortiz MD Implants; N/A [employer] / Expanders; [id number] Extenders; Surgical Wires Device Bone Filler Sz 3 [employer] - [id number] Surgical N/A: [employer] OF F04B / Implanted: Qty: 1 on 03/06/2018 by Seth Ortiz MD Implants; N/A [employer] / Expanders; [id number] Extenders; Surgical Wires Procedures Procedure Name Priority Date/Time Associated Comments Diagnosis TOTAL IRON BINDING Routine 06/26/2018 1:30 Results for this CAPACITY PM CDT procedure are in the results section. FERRITIN LEVEL Routine 06/26/2018 1:30 Results for this PM CDT procedure are in the results section. SEDIMENTATION RATE Routine 06/26/2018 1:30 Results for this PM CDT procedure are in the results section. SMEAR REVIEW Routine 06/26/2018 1:30 Results for this PM CDT procedure are in the results section. HC COMPLETE BLD COUNT Routine 06/26/2018 1:30 Other specified Results for this W/AUTO DIFF PM CDT diseases of blood procedure are in and blood-forming the results organs section. SEDIMENTATION RATE Routine 06/19/2018 12:40 Fluctuating blood Results for this PM CDT pressure procedure are in the results section. THYROID STIMULATING Routine 06/19/2018 12:40 Other fatigue Results for this HORMONE PM CDT procedure are in the results section. C-REACTIVE PROTEIN Routine 06/19/2018 12:40 Chronic midline low Results for this PM CDT back pain with procedure are in right-sided the results sciatica section. COMPREHENSIVE METABOLIC Routine 06/19/2018 12:40 Fluctuating blood Results for this PANEL PM CDT pressure procedure are in Other fatigue the results section. CBC WITH PLATELET AND Routine 05/10/2018 9:50 Other fatigue Results for this DIFFERENTIAL AM CDT procedure are in the results section. SMEAR REVIEW Routine 04/24/2018 2:05 Results for this PM CDT procedure are in the results section. HC COMPLETE BLD COUNT Routine 04/24/2018 2:05 Other specified Results for this W/AUTO DIFF PM CDT diseases of blood procedure are in and blood-forming the results organs section. TISSUE TRANSGLUTAMINASE Routine 03/17/2018 3:37 Results for this AB, IGA PM CDT procedure are in the results section. CELIAC DISEASE REFLEXIVE Routine 03/17/2018 3:37 Closed compression Results for this CASCADE PM CDT fracture of fourth procedure are in lumbar vertebra, the results initial encounter section. PHOSPHORUS LEVEL Routine 03/17/2018 3:37 Closed compression Results for this PM CDT fracture of fourth procedure are in lumbar vertebra, the results initial encounter section. VITAMIN D 25 HYDROXY Routine 03/17/2018 3:37 Closed compression Results for this LEVEL PM CDT fracture of fourth procedure are in lumbar vertebra, the results initial encounter section. PARATHYROID HORMONE Routine 03/17/2018 3:37 Closed compression Results for this PM CDT fracture of fourth procedure are in lumbar vertebra, the results initial encounter section. SERUM ELECTROPHORESIS Routine 03/17/2018 3:37 Closed compression Results for this PM CDT fracture of fourth procedure are in lumbar vertebra, the results initial encounter section. OR FL > 1 HOUR Routine 03/06/2018 4:50 Closed compression Results for this PM CDT fracture of body of procedure are in first lumbar the results vertebra section. [place] AN ELECTIVE Routine 03/06/2018 3:35 ENDOTRACHEAL AIRWAY PM CDT Procedure Note - Alana Ferguson CRNA - 03/06/2018 3:35 PM CDT Airway Date/Time: 03/06/2018 3:08 PM Performed by: ALANA FERGUSON Authorized by: LUCIANO AVILA Location: OR Urgency: Elective Difficult Airway: No Preoxygenated with 100% O2: Yes C-spine Precautions Maintained Throughout: Yes Mask Ventilation: Easy mask Final Airway Type: Endotracheal airway Final Endotracheal Airway: ETT Cuffed: Yes Technique Used: Direct laryngoscopy Devices/Methods Used in Placement: Intubating stylet Blade Type: Arriaga Laryngoscope Blade/Videolaryngoscope Blade Size: 2 ETT Size (mm): 6.5 Cuff at minimum occlusion pressure: Yes Measured from: Lips ETT to Lips (cm): 22 Placement Verified by: CO2 detection and direct visualization Laryngoscopic view: Grade I - full view of glottis Rapid Sequence Induction (RSI): No Modified RSI: No Number of Attempts at Approach: 1 KYPHOPLASTY, SPINE, LUMBAR 03/06/2018 12:55 PM CDT Closed compression fracture of body of first lumbar vertebra Case Notes PRONE POSITION, KYPHON KIT, C-ARM Special Needs PRONE POSITION, KYPHON KIT,C-ARM SURGICAL PATHOLOGY Routine 03/06/2018 9:11 Results for this REQUEST AM CDT procedure are in the results section. BONE DENSITY Routine 03/05/2018 2:50 Osteoporosis, Results for this PM CDT unspecified procedure are in osteoporosis type, the results unspecified section. pathological fracture presence BONE DENSITY Routine 03/05/2018 2:50 Osteoporosis, Results for this PERIPHERAL PM CDT unspecified procedure are in osteoporosis type, the results unspecified section. pathological fracture presence ECG PRE/POST OP Routine 02/25/2018 2:44 Preop testing Results for this PM CDT procedure are in the results section. SMEAR REVIEW Routine 02/20/2018 1:14 Results for this PM CDT procedure are in the results section. HC COMPLETE BLD COUNT Routine 02/20/2018 1:14 Other specified Results for this W/AUTO DIFF PM CDT diseases of blood and procedure are in blood-forming organs the results section. MRI LUMBAR SPINE W WO Routine 02/17/2018 4:15 Closed compression Results for this CONTRAST PM CDT fracture of third procedure are in lumbar vertebra, the results sequela section. MRI THORACIC SPINE W Routine 02/17/2018 3:40 Closed compression Results for this WO CONTRAST PM CDT fracture of third procedure are in lumbar vertebra, the results sequela section. CBC WITH PLATELET AND Routine 02/05/2018 11:06 Thrombocytosis Results for this DIFFERENTIAL AM CDT procedure are in the results section. COMPREHENSIVE Routine 02/05/2018 11:06 Closed compression Results for this METABOLIC PANEL AM CDT fracture of third procedure are in lumbar vertebra, the results sequela section. SMEAR REVIEW Routine 12/19/2017 2:50 Results for this PM CDT procedure are in the results section. ZZESTIMATED GFR Routine 12/19/2017 2:50 Results for this PM CDT procedure are in the results section. BASIC METABOLIC PANEL Routine 12/19/2017 2:50 Results for this PM CDT procedure are in the results section. HC COMPLETE BLD COUNT Routine 12/19/2017 2:50 Other specified Results for this W/AUTO DIFF PM CDT diseases of blood and procedure are in blood-forming organs the results section. MRI LUMBAR SPINE W WO STAT 12/05/2017 6:27 Acute bilateral low Results for this CONTRAST PM CDT back pain with procedure are in sciatica, sciatica the results laterality unspecified section. ESTIMATED GFR Routine 12/05/2017 5:34 Results for this PM CDT procedure are in the results section. POC CREATININE Routine 12/05/2017 5:34 Results for this PM CDT procedure are in the results section. ESTIMATED GFR Routine 12/05/2017 5:26 Results for this PM CDT procedure are in the results section. POC CREATININE Routine 12/05/2017 5:26 Results for this PM CDT procedure are in the results section. XR THORACIC SPINE 3 Routine 12/04/2017 2:45 Acute bilateral low Results for this VW PM CDT back pain, with procedure are in sciatica presence the results unspecified section. XR LUMBAR SPINE Routine 12/04/2017 2:45 Acute bilateral low Results for this COMPLETE 4+ VW PM CDT back pain, with procedure are in sciatica presence the results unspecified section. CBC WITH PLATELET AND Routine 10/31/2017 10:12 Hypertension, Results for this DIFFERENTIAL AM [employer] unspecified type procedure are in the results section. VITAMIN D 25 HYDROXY Routine 10/14/2017 12:42 Vitamin D deficiency Results for this LEVEL PM [facility] procedure are in the results section. HEMOGLOBIN A1C Routine 10/14/2017 12:42 Hyperglycemia Results for this PM [employer] [employer] procedure are in the results section. LIPID PANEL Routine 10/14/2017 12:42 Encounter for general Results for this PM [employer] [employer] CLERK adult medical procedure are in examination with the results abnormal findings section. Essential hypertension THYROID STIMULATING Routine 10/14/2017 12:42 Encounter for general Results for this HORMONE PM [employer] [employer]ERK adult medical procedure are in examination with the results abnormal findings section. Essential hypertension COMPREHENSIVE Routine 10/14/2017 12:42 Encounter for general Results for this METABOLIC PANEL PM [employer]OM [employer]ERK adult medical procedure are in examination with the results abnormal findings section. Essential hypertension SMEAR REVIEW Routine 10/07/2017 2:30 Results for this PM [employer] [employer]OM [employer]ERK procedure are in the results section. HC COMPLETE BLD COUNT Routine 10/07/2017 2:30 Other specified Results for this W/AUTO DIFF PM [employer] [employer]OM CLERK diseases of blood and procedure are in blood-forming organs the results section. MAMMO SCREENING W CAD Routine 10/07/2017 1:19 Screening mammogram, Results for this BILATERAL PM [employer]ERK encounter for procedure are in the results section. after 08/23/2017 Results Smear review (06/26/2018 1:30 PM CDT)Only the most recent of5 resultswithin the time period is included. Platelet slide review Zahra adequate [facility] DEPARTMENT OF PATHOLOGY AND GENOMIC MEDICINE Anisocytosis Moderate [facility]Y AND GENOMIC MEDICINE Polychromasia Moderate [facility] PATHOLOGY AND GENOMIC MEDICINE Tear drop cells Occasional [facility] DE[facility] OF PATHOLOGY AND GENOMIC MEDICINE Spherocytes Occasional [facility] DE[facility] OF PATHOLOGY AND GENOMIC MEDICINE Ovalocytes Moderate [facility] DE[facility] OF PATHOLOGY AND GENOMIC MEDICINE Performing Organization Address [facility] [place] Number [facility] DEPARTMENT OF PATHOLOGY AND [address] [place] [id number] [place] [facility] Total iron binding capacity (06/26/2018 1:30 PM CDT) Iron level 108 37 - 145 ug/dL [facility] DEPARTMENT OF PATHOLOGY AND GENOMIC MEDICINE Iron binding capacity 308 200 - 400 ug/dL [facility] DEPARTMENT OF PATHOLOGY AND GENOMIC MEDICINE % Saturation 35.1 15.0 - 38.0 % [facility] DEPARTMENT OF PATHOLOGY AND GENOMIC MEDICINE Specimen Plasma specimen Performing Organization Address City/[facility] Phone Number [facility] DEPARTMENT OF PATHOLOGY AND [address] [place] [id number] [place] MEDICINE Sedimentation rate (06/26/2018 1:30 PM CDT)Only the most recent of2 resultswithin the time period is included. Sedimentation rate 64 (H) 0 - 20 mm/hr [facility] DEPARTMENT OF PATHOLOGY AND GENOMIC MEDICINE Performing Organization Address City/[facility] Phone Number [facility] DEPARTMENT OF PATHOLOGY AND [address] [place] [address] GENOMIC MEDICINE CBC with platelet and differential (06/26/2018 1:30 PM CDT)Only the most recent of8 resultswithin the time period is included. WBC 6.10 4.50 - 11.00 k/uL [facility] DEPARTMENT OF PATHOLOGY AND GENOMIC MEDICINE RBC 2.25 (L) 4.20 - 5.50 m/uL [facility] DEPARTMENT OF PATHOLOGY AND GENOMIC MEDICINE HGB 9.7 (L) 12.0 - 16.0 g/dL [facility] DEPARTMENT OF PATHOLOGY AND GENOMIC MEDICINE HCT 26.9 (L) 37.0 - 47.0 % [facility] DEPARTMENT OF PATHOLOGY AND GENOMIC MEDICINE MCV 119.6 (H) 82.0 - 100.0 fL [facility] DEPARTMENT OF PATHOLOGY AND GENOMIC MEDICINE MCH 43.1 (H) 27.0 - 34.0 pg [facility] DEPARTMENT OF PATHOLOGY AND GENOMIC MEDICINE MCHC 36.1 31.0 - 37.0 g/dL [facility] DEPARTMENT OF PATHOLOGY AND GENOMIC MEDICINE RDW - SD 61.9 (H) 37.0 - 55.0 fL [facility] DEPARTMENT OF PATHOLOGY AND GENOMIC MEDICINE MPV 9.2 8.8 - 13.2 fL [facility] DEPARTMENT OF PATHOLOGY AND GENOMIC MEDICINE Platelet count 336 150 - 400 k/uL [facility] DEPARTMENT OF PATHOLOGY AND GENOMIC MEDICINE Neutrophils 60.2 39.0 - 69.0 % [facility] DEPARTMENT OF PATHOLOGY AND GENOMIC MEDICINE Lymphocytes 27.5 25.0 - 45.0 % [facility] DEPARTMENT OF PATHOLOGY AND GENOMIC MEDICINE Monocytes 11.8 (H) 0.0 - 10.0 % [facility] DEPARTMENT OF PATHOLOGY AND GENOMIC MEDICINE Eosinophils 0.2 0.0 - 5.0 % [facility] DEPARTMENT OF PATHOLOGY AND GENOMIC MEDICINE Basophils 0.3 0.0 - 1.0 % [facility] DEPARTMENT OF PATHOLOGY AND GENOMIC MEDICINE Specimen Blood Performing Organization Address City/[facility]/Zipcode Phone Number [facility] DEPARTMENT OF PATHOLOGY AND [address] [place] [address] [facility] MEDICINE Ferritin level (06/26/2018 1:30 PM CDT) Ferritin level 357 (H) 13 - 150 ng/mL [facility] DEPARTMENT OF PATHOLOGY AND GENOMIC MEDICINE Specimen Plasma specimen Performing Organization Address City/State/Zipcode Phone Number [facility] DEPARTMENT OF PATHOLOGY AND [address] [place] [address] [facility] C-reactive protein (06/19/2018 12:40 PM CDT) CRP 4.7 <8.0 mg/L [facility] [place] Specimen Blood Narrative Performed At FASTING:NO [facility] FASTING: NO Resulting Agency Comment Performing Organization Information: Site ID: [id number] Name: [facility] Address: [address] [place] [id number] Director: Gayatri Trent Performing Organization Address City/[facility] Phone Number [place] [address] Thyroid stimulating hormone (06/19/2018 12:40 PM CDT)Only the most recent of2 resultswithin the time period is included. TSH 0.63 0.40 - 4.50 mIU/L [facility] [place] Specimen Blood Narrative Performed At FASTING:NO [facility] FASTING: NO Resulting Agency Comment Performing Organization Information: Site ID: [id number] Name: [facility] Address: [address] [place] [id number] Director: Gayatri Trent Performing Organization Address [facility] [place] Phone [place] [address] Comprehensive metabolic panel (06/19/2018 12:40 PM CDT)Only the most recent of3 resultswithin the time period is included. Glucose 91 65 - 139 mg/dL [facility] Comment: [place] Non-fasting reference interval BUN, whole blood 22 7 - 25 mg/dL [facility] [place] Creatinine 0.75 0.60 - 0.93 [facility] Comment: mg/dL [place] For patients >49 years of age, the reference limit for Creatinine is approximately 13% higher for people identified as -Bahamian. EGFR Non-Afr. Bahamian 76 > OR=60 [facility] mL/min/1.73m2 [place] EGFR 88 > OR=60 [facility] mL/min/1.73m2 [place] BUN/creatinine ratio NOT APPLICABLE 6 - 22 (calc) [facility] [place] Sodium 142 135 - 146 mmol/L [facility] [place] Potassium 4.0 3.5 - 5.3 mmol/L [facility] [place] Chloride 102 98 - 110 mmol/L [facility] CO2 28 20 - 32 mmol/L [facility] Calcium 9.8 8.6 - 10.4 mg/dL [facility] Protein 7.0 6.1 - 8.1 g/dL [facility] Albumin, S 3.9 3.6 - 5.1 g/dL [facility] Globulin, total 3.1 1.9 - 3.7 g/dL [facility] (calc) [place] Albumin/globulin ratio 1.3 1.0 - 2.5 (calc) [facility] Total bilirubin 0.5 0.2 - 1.2 mg/dL [facility] Alkaline phosphatase 86 33 - 130 U/L [facility] AST 30 10 - 35 U/L [facility] ALT 48 (H) 6 - 29 U/L [facility] [place] Specimen Blood Narrative Performed At FASTING:NO [facility] FASTING: NO Resulting Agency Comment Performing Organization Information: Site ID: [id number] Name: [facility] Address: [address] [place] [phone] Director: Gayatri Trent Performing Organization Address City/State/[facility] Phone [place] [address] Celiac disease reflexive cascade (03/17/2018 3:37 PM CDT) IgA 454 (H) 68 - 408 mg/dL [facility] Comment: Total IgA is within or higher than established ranges. Tissue Transglutaminase, IgA to follow. REFERENCE INTERVAL: Immunoglobulin A Access complete set of age- and/or gender-specific reference intervals for this test in the [facility] ([facility]). Performed by [facility], [address] [place] [id number] [email or web address], Lorenzo Curry MD - Lab. Director Specimen Serum Performing Organization Address [facility] Centercode Phone Number [facility] [address] [address] Tissue transglutaminase Ab, IgA (03/17/2018 3:37 PM CDT) Tissue transglutaminase Ab, 1 0 - 3 U/mL [facility] IgA Comment: No further celiac testing to be performed. INTERPRETIVE INFORMATION: Tissue Transglutaminase (tTG) Antibody, IgA 3 U/mL or less: Negative 4-10 U/mL: Weak Positive 11 U/mL or greater: Positive Presence of the tissue transglutaminase (tTG) IgA antibody is associated with glutensensitive enteropathies such as celiac disease and dermatitis herpetiformis. tTG IgA antibody concentrations greater than 40 U/mL usually correlate with results of duodenal biopsies consistent with a diagnosis of celiac disease. For antibody concentrations greater or equal to 4 U/mL but less than or equal to 40 U/mL, additional testing for endomysial (GAYLE) IgA concentrations may improve the positive predictive value for disease. Performed by [facility], [address] [place], [place] [id number] [email or web address], Lorenzo Curry MD - Lab. Director Specimen Serum Performing Organization Address City/State/Zipcode Phone Number [facility] [address] [place] [address] Vitamin D 25 hydroxy level (03/17/2018 3:37 PM CDT)Only the most recent of2 resultswithin the time period is included. Vitamin D, 25-hydroxy 57.8 30.0 - 150.0 [facility] DEPARTMENT OF Comment: ng/mL PATHOLOGY AND GENOMIC This assay reports the sum of 25-hydroxy vitamin D3 and 25-hydroxy vitamin MEDICINE D2. Reference range: 0-17 years: Deficiency: less than 20ng/mL Optimum level: greater than or equal to 20 ng/mL. 18 years and older: Deficiency: less than 20ng/mL Insufficiency: 20-29 ng/mL Optimum Level: 30-80 ng/mL The assay reportable range is 3.4155.9 ng/mL. Levels higher than 150 ng/mL may be associated with toxicity. If toxicity is clinically suspected and the reported result is >155.9 ng/mL,contact lab for alternative methods to obtain a definitivelevel. If separate quantitation of 25-hydroxy vitamin D3 and 25-hydroxy vitamin D2 is needed, please contact lab for alternative methods. Specimen Blood Performing Organization Address City/State/Zipcode Phone Number [facility] DEPARTMENT OF PATHOLOGY AND [address] [place] [address] [facility] Serum electrophoresis (03/17/2018 3:37 PM CDT) Protein 7.5 6.3 - 8.3 g/dL [facility] DEPARTMENT OF Comment: PATHOLOGY AND GENOMIC [place] 4.6-7.0 g/dL MEDICINE 1 week 4.4-7.6 g/dL 7 months-1year5.1-7.3 g/dL 1-2 years5.6-7.5 g/dL >3 years6.0-8.0 g/dL 18-150 6.3-8.3 g/dL SPE albumin 4.62 4.00 - 5.30 g/dL [facility] DEPARTMENT OF PATHOLOGY AND GENOMIC MEDICINE SPE alpha 1 0.23 0.10 - 0.25 g/dL [facility] DEPARTMENT OF PATHOLOGY AND GENOMIC MEDICINE SPE alpha 2 0.84 0.58 - 0.84 g/dL [facility] DEPARTMENT OF PATHOLOGY AND GENOMIC MEDICINE SPE beta 0.96 0.50 - 1.10 g/dL [facility] DEPARTMENT OF PATHOLOGY AND GENOMIC MEDICINE SPE gamma 0.86 0.60 - 1.30 g/dL [facility] DEPARTMENT OF PATHOLOGY AND GENOMIC MEDICINE SPE extended See CommentComment: [facility] DE[facility] OF interpretation A normal serum PATHOLOGY AND GENOMIC protein study. MEDICINE SPE interpretation See CommentComment: [facility] DEPARTMENT OF Carolyne Tapia, PhD; PATHOLOGY AND GENOMIC Lidya Foote, PhD; Hannah Arriaga MD Specimen Serum Performing Organization Address [facility] Phone Number [facility] DEPARTMENT OF PATHOLOGY AND [address] [place] [phone] [place] [address] MEDICINE Phosphorus level (03/17/2018 3:37 PM CDT) Phosphorus 3.8 2.4 - 4.5 mg/dL [facility] DEPARTMENT OF PATHOLOGY AND GENOMIC MEDICINE Specimen Plasma specimen Performing Organization Address [facility] Phone Number [facility] DEPARTMENT OF PATHOLOGY AND [address] [place] [id number] [facility] Parathyroid hormone (03/17/2018 3:37 PM CDT) PTH 27 15 - 65 pg/mL [facility] DEPARTMENT OF PATHOLOGY AND GENOMIC MEDICINE Specimen Blood Performing Organization Address [facility] Phone Number [facility] DEPARTMENT OF PATHOLOGY AND [address] [place] [phone] [place] [address] MEDICINE [place] > I Hour (03/06/2018 4:50 PM CDT) Narrative Performed At EXAMINATION:OR [place] 1 HOUR RADIANT C-arm fluoroscopy was requested in OR. LOCATION: [facility]3 OR 10 PROCEDURE: C-ARM FOR KYPHOPLASTY OF L1, L3, L4 START: 1530 END: 1650 FL TIME: 2min 20sec DOSE (mGy): 18.30 TECH: IMPRESSION: Separate operative report will be issued by the physician performing the procedure. [id number] Procedure Note Interface, Radiology Results Incoming - 03/06/2018 9:45 PM CDT EXAMINATION: OR FL 1 HOUR C-arm fluoroscopy was requested in OR. LOCATION: [facility]3 OR 10 PROCEDURE: C-ARM FOR KYPHOPLASTY OF L1, L3, L4 START: 1530 END: 1650 FL TIME: 2min 20sec DOSE (mGy): 18.30 TECH: IMPRESSION: Separate operative report will be issued by the physician performing the procedure. [id number] Performing Organization Address [facility] Cent[facility]ode Phone Number [facility] [address] [place] [address] Surgical pathology request (03/06/2018 9:11 AM CDT) [facility] DEPARTMENT OF PATHOLOGY AND GENOMIC MEDICINE Surgical pathology report See link below for PDF [facility] DEPARTMENT OF Lab Report PATHOLOGY AND GENOMIC MEDICINE Result status This is Final Report to [facility] DEPARTMENT OF [id number] PATHOLOGY AND GENOMIC MEDICINE Performing Organization Address [facility]ode Phone Number [facility] DEPARTMENT OF PATHOLOGY AND [address] [place] [id number] [place] MEDICINE Bone Density (03/05/2018 2:50 PM CDT) Narrative Performed At EXAMINATION:[facility] CLINICAL HISTORY:M81.0 Age-related osteoporosis without current pathological fracture, Osteoporosis COMPARISON:01/31/2017 The results of this study expressed as bone mineral density (BMD) were as follows: AP spine (L1-L3) BMD: 0.920 g/cm2 T-Score: - 2.1 WHO Classification:Osteopenia There is a statistically significant 6.7% increase from prior exam. This however likely reflects increasing spondylitic changes given the extensive endplate deformity and sclerosis. TBS L1-L4: 1.217, >1.350 normal, 1.200-1.350 partially degraded microarchitecture, <1.200 degraded microarchitecture The 10 year probability of fracture, adjusted for FRAX: Major Osteoporotic Fracture: 20.2% Hip Fracture:16.7% Dual Femur (Total Mean): BMD: 0.798 g/cm2 T-Score:- 1.7 WHO Classification:Osteopenia There is a statistically significant 5.3 % decrease from prior. IMPRESSION: Bone mineral density results as described.Osteopenia with statistically significant decrease in total hip BMD from 01/31/2017 with abnormal TBS mapping score as detailed. A copy of this scans including a report detailing these results will follow. Note: The world health organization (WHO) has classified the patient's T-score as follows: Above (-1) as normal (-1) to (-2.5) as low (osteopenia) Below (-2.5) as abnormally low (osteoporosis, increased fracture risk) Dual femur FRAX: Risk factors: Family history, history of adult fracture. 10 year probability of fracture: 1.Major osteoporotic: 28.9% 2.Hip: 17.5% 3.Based on dual femur left neck BMD Thank you for allowing us to participate in the care of your patient. [facility]-[id number] Procedure Note [facility], Radiology Results Incoming - 03/05/2018 3:22 PM CDT EXAMINATION: BONE DENSITY CLINICAL HISTORY: M81.0 Age-related osteoporosis without current pathological fracture, Osteoporosis COMPARISON: 01/31/2017 The results of this study expressed as bone mineral density (BMD) were as follows: AP spine (L1-L3) BMD: 0.920 g/cm2 T-Score: - 2.1 WHO Classification: Osteopenia There is a statistically significant 6.7% increase from prior exam. This however likely reflects increasing spondylitic changes given the extensive endplate deformity and sclerosis. TBS L1-L4: 1.217, >1.350 normal, 1.200-1.350 partially degraded microarchitecture, <1.200 degraded microarchitecture The 10 year probability of fracture, adjusted for FRAX: Major Osteoporotic Fracture: 20.2% Hip Fracture: 16.7% Dual Femur (Total Mean): BMD: 0.798 g/cm2 T-Score: - 1.7 WHO Classification: Osteopenia There is a statistically significant 5.3 % decrease from prior. IMPRESSION: Bone mineral density results as described. Osteopenia with statistically significant decrease in total hip BMD from 01/31/2017 with abnormal TBS mapping score as detailed. A copy of this scans including a report detailing these results will follow. Note: The world health organization (WHO) has classified the patient's T-score as follows: Above (-1) as normal (-1) to (-2.5) as low (osteopenia) Below (-2.5) as abnormally low (osteoporosis, increased fracture risk) Dual femur FRAX: Risk factors: Family history, history of adult fracture. 10 year probability of fracture: 1. Major osteoporotic: 28.9% 2. Hip: 17.5% 3. Based on dual femur left neck BMD Thank you for allowing us to participate in the care of your patient. [facility]-[id number] [facility] Organization Address City/State/Zipcode Phone Number [facility] [address] [place] [address] Bone Density Peripheral (03/05/2018 2:50 PM CDT) Narrative Performed At EXAMINATION:BONE DENSITY PERIPHERAL [facility] CLINICAL HISTORY:M81.0 Age-related osteoporosis without current pathological fracture, Osteoporosis system indictes peripheral scan unusual variation in vertebra ( vertebral fractures) COMPARISON:01/11/2015 The results of this study expressed as bone mineral density (BMD) were as follows: Left Forearm (Radius 33%): BMD: 0.669 g/cm2 T-Score: - 2.4 WHO Classification:Osteopenia There is no statistically significant change from prior. IMPRESSION: Bone mineral density measurements as described.Please see report. A copy of this scans including a report detailing these results will follow. Note: The world health organization (WHO) has classified the patient's T-score as follows: Above (-1) as normal (-1) to (-2.5) as low (osteopenia) Below (-2.5) as abnormally low (osteoporosis, increased fracture risk) Thank you for allowing us to participate in the care of your patient. [facility]-[id number] Procedure Note Hm Interface, Radiology Results Incoming - 03/05/2018 3:22 PM CDT EXAMINATION: BONE DENSITY PERIPHERAL CLINICAL HISTORY: M81.0 Age-related osteoporosis without current pathological fracture, Osteoporosis system indictes peripheral scan unusual variation in vertebra ( vertebral fractures) COMPARISON: 01/11/2015 The results of this study expressed as bone mineral density (BMD) were as follows: Left Forearm (Radius 33%): BMD: 0.669 g/cm2 T-Score: - 2.4 WHO Classification: Osteopenia There is no statistically significant change from prior. IMPRESSION: Bone mineral density measurements as described. Please see report. A copy of this scans including a report detailing these results will follow. Note: The world health organization (WHO) has classified the patient's T-score as follows: Above (-1) as normal (-1) to (-2.5) as low (osteopenia) Below (-2.5) as abnormally low (osteoporosis, increased fracture risk) Thank you for allowing us to participate in the care of your patient. [facility]-[id number] Performing Organization Address [facility] Phone Number [facility] [address] [place] [address] ECG Pre/Post Op (02/25/2018 2:44 PM CDT) Ventricular rate 49 [facility] Atrial rate 49 [facility] [place] interval 182 [facility] QRSD interval 104 [facility] QT interval 490 [facility] QTC interval 442 [facility] P axis 1 78 [facility] QRS axis 1 66 [facility] T wave axis 72 [facility] EKG impression Marked sinus bradycardia-Voltage criteria for [facility] left ventricular hypertrophy-Abnormal ECG-In automated comparison with ECG of 17-JUN-2017 16:31,-No significant change was found- Performing Organization Address [facility] Centercode Phone Number [facility] [address] [place] [address] MRI Lumbar Spine W Wo Contrast (02/17/2018 4:15 PM CDT)Only the most recent of2 resultswithin the time period is included. Narrative Performed At [facility] EXAM:MRI LUMBAR SPINE W WO CONTRAST COMPARISON: December 05, 2017. CLINICAL HISTORY: S32.030S Wedge compression fracture of third lumbar vertebrasequela, compression fract TECHNIQUE: Multiplanar multisequence examination was performedWith and without contrast. FINDINGS: The previously noted L3 compression fracture demonstrates further height loss and slight further bony retropulsion. There are new acute to subacute compression fractures of the L4 and L1 vertebral bodies associated with height loss and bone marrow edema which have appeared since the previous examination. There is bony retropulsion most prominent at the L1 level but there is moderate stenosis but no evidence of compression of the conus medullaris. The appearance of the fractures in the absence of associated soft tissue mass is consistent with osteopenic compression fractures. These fractures are amenable to vertebral augmentation if clinically necessary for pain relief and spinal stabilization. There is stable degenerative disc disease and spondylotic changes throughout the lumbar spine without significant spondylotic stenosis. IMPRESSION: Further height loss involving the previously noted compression fracture of L3 with greater bony retropulsion resulting in moderate central canal stenosis. Acute to subacute compression fracture of the L1 vertebral body with bony retropulsion and moderate degree of spinal canal stenosis but no compression of the conus. Acute to subacute grade 1 compression fracture at L4 without significant bony retropulsion. No enhancing masses. The above-described osteopenic compression fractures are amenable to vertebral augmentation, if clinically necessary. [id number] Procedure Note Interface, Radiology Results Incoming - 02/17/2018 4:52 PM CDT EXAM: MRI LUMBAR SPINE W WO CONTRAST COMPARISON: December 05, 2017. CLINICAL HISTORY: S32.030S Wedge compression fracture of third lumbar vertebra sequela, compression fract TECHNIQUE: Multiplanar multisequence examination was performed With and without contrast. FINDINGS: The previously noted L3 compression fracture demonstrates further height loss and slight further bony retropulsion. There are new acute to subacute compression fractures of the L4 and L1 vertebral bodies associated with height loss and bone marrow edema which have appeared since the previous examination. There is bony retropulsion most prominent at the L1 level but there is moderate stenosis but no evidence of compression of the conus medullaris. The appearance of the fractures in the absence of associated soft tissue mass is consistent with osteopenic compression fractures. These fractures are amenable to vertebral augmentation if clinically necessary for pain relief and spinal stabilization. There is stable degenerative disc disease and spondylotic changes throughout the lumbar spine without significant spondylotic stenosis. IMPRESSION: Further height loss involving the previously noted compression fracture of L3 with greater bony retropulsion resulting in moderate central canal stenosis. Acute to subacute compression fracture of the L1 vertebral body with bony retropulsion and moderate degree of spinal canal stenosis but no compression of the conus. Acute to subacute grade 1 compression fracture at L4 without significant bony retropulsion. No enhancing masses. The above-described osteopenic compression fractures are amenable to vertebral augmentation, if clinically necessary. [facility]-[id number] Performing Organization Address City/State/Zipcode Phone Number [facility] [address] [place] [address] MRI Thoracic Spine W Wo Contrast (02/17/2018 3:40 PM CDT) Narrative Performed At [facility] EXAM:MRI THORACIC SPINE W WO CONTRAST COMPARISON: None. CLINICAL HISTORY: S32.030S Wedge compression fracture of third lumbar vertebrasequela, compression fracture TECHNIQUE: Multiplanar multisequence examination was performedWith and without contrast. FINDINGS: Recent grade 3 compression fracture of the L1 vertebral body with bony retropulsion and moderate spinal canal stenosis is identified again. There are no thoracic compression fractures. There is mild thoracic degenerative disc disease without dorsal protrusion or cord compression. IMPRESSION: No evidence of thoracic compression fracture. L1 compression fracture with bony retropulsion and moderate stenosis. This fracture appears to be likely of benign osteopenic etiology since there is no enhancing soft tissue mass. No enhancing masses. [id number] Procedure Note Interface, Radiology Results Incoming - 02/17/2018 4:53 PM CDT EXAM: MRI THORACIC SPINE W WO CONTRAST COMPARISON: None. CLINICAL HISTORY: S32.030S Wedge compression fracture of third lumbar vertebra sequela, compression fracture TECHNIQUE: Multiplanar multisequence examination was performed With and without contrast. FINDINGS: Recent grade 3 compression fracture of the L1 vertebral body with bony retropulsion and moderate spinal canal stenosis is identified again. There are no thoracic compression fractures. There is mild thoracic degenerative disc disease without dorsal protrusion or cord compression. IMPRESSION: No evidence of thoracic compression fracture. L1 compression fracture with bony retropulsion and moderate stenosis. This fracture appears to be likely of benign osteopenic etiology since there is no enhancing soft tissue mass. No enhancing masses. [id number] Performing Organization Address [facility]/Zipcode Phone Number [facility] [address] [place] [address] Estimated GFR (12/19/2017 2:50 PM CDT) GFR Non Af Amer 69 mL/min/1.73 m2 [facility] DEPARTMENT OF PATHOLOGY AND GENOMIC MEDICINE GFR Af Amer 84 mL/min/1.73 m2 [facility] DEPARTMENT OF Comment: PATHOLOGY AND GENOMIC Chronic kidney disease: <60 mL/min/1.73m2 MEDICINE Kidney failure: <15 mL/min/1.73m2 The estimated GFR is calculated from the IDMS-traceable Modification of Diet in Renal Disease Equation. The accuracy of the calculation is poor when the creatinine is normal. Calculated values >90 mL/min/1.73m2 are not reported. This equation has not been validated in children (<18 years), women, the elderly (>70 years), or ethnic groups other than Caucasians and Americans. Specimen Plasma specimen Performing Organization Address [facility] Phone Number [facility] DEPARTMENT OF PATHOLOGY AND [address] [place] [address] [facility] Basic metabolic panel (12/19/2017 2:50 PM CDT) Sodium 137 135 - 148 mEq/L [facility] DEPARTMENT OF PATHOLOGY AND GENOMIC MEDICINE Potassium 3.5 3.5 - 5.0 mEq/L [facility] DEPARTMENT OF PATHOLOGY AND GENOMIC MEDICINE Chloride 98 98 - 112 mEq/L [facility] DEPARTMENT OF PATHOLOGY AND GENOMIC MEDICINE CO2 25 24 - 31 mEq/L [facility] DEPARTMENT OF PATHOLOGY AND GENOMIC MEDICINE Anion gap 14 7 - 15 mEq/L [facility] DEPARTMENT OF PATHOLOGY Comment: AND [facility] Starting from December , anion gap calculation no longer incorporates potassium. Please note the change. BUN 17 8 - 23 mg/dL [facility] DEPARTMENT OF PATHOLOGY AND GENOMIC MEDICINE Creatinine 0.8 0.5 - 0.9 mg/dL [facility] DEPARTMENT OF PATHOLOGY AND GENOMIC MEDICINE Glucose 156 (H) 65 - 99 mg/dL [facility] DEPARTMENT OF PATHOLOGY AND GENOMIC MEDICINE Calcium 9.7 8.8 - 10.2 mg/dL [facility] DEPARTMENT OF PATHOLOGY AND GENOMIC MEDICINE Specimen Plasma specimen Performing Organization Address City/[facility]/Zipcode Phone Number [facility] DEPARTMENT PATHOLOGY AND [address] [place] [address] [facility] MEDICINE Estimated GFR (12/05/2017 5:34 PM CDT)Only the most recent of2 resultswithin the time period is included. GFR Non Af Amer 31 (A) mL/min/1.73 m2 [facility] DEPARTMENT OF PATHOLOGY AND GENOMIC MEDICINE GFR Af Amer 38 (A) mL/min/1.73 m2 [facility] DEPARTMENT OF Comment: PATHOLOGY AND GENOMIC Chronic kidney disease: <60 mL/min/1.73m2 MEDICINE Kidney failure: <15 mL/min/1.73m2 The estimated GFR is calculated from the IDMS-traceable Modification of Diet in Renal Disease Equation. The accuracy of the calculation is poor when the creatinine is normal. Calculated values >90 mL/min/1.73m2 are not reported. This equation has not been validated in children (<18 years), women, the elderly (>70 years), or ethnic groups other than Caucasians and Americans. Specimen Blood Performing Organization Address City/[facility] Centercode Phone Number [facility] DEPARTMENT OF PATHOLOGY AND [address] [place], [place] [id number] [facility] MEDICINE POC creatinine (12/05/2017 5:34 PM CDT)Only the most recent of2 resultswithin the time period is included. POC creatinine 1.6 (H) 0.5 - 0.9 mg/dl [facility] DEPARTMENT OF PATHOLOGY Comment: AND [employer] Meter ID: [id number] [employer] X Ray Operator: Renee Julian Specimen Blood Performing Organization Address City/[facility] Centercode Phone Number [facility] DEPARTMENT OF PATHOLOGY AND [address] [place], [place] [phone] [employer] XR Lumbar Spine Complete 4+ Vw (12/04/2017 2:45 PM CDT) Narrative Performed At EXAMINATION: XR LUMBAR SPINE COMPLETE 4VW [facility] CLINICAL HISTORY: M54.5 Low back pain, BACK [...] L2-L3. Vascular calcifications along the abdominal aorta. [id number] Procedure Note Hm Interface, Radiology Results Incoming - 12/04/2017 5:38 [...] L2-L3. Vascular calcifications along the abdominal aorta. [id number] Performing Organization Address [facility] Phone Number [facility] [address] [place] [address] XR Thoracic Spine 3 Vw (12/04/2017 2:45 PM CDT) Narrative Performed At EXAMINATION:XR THORACIC SPINE 3 VW [facility] CLINICAL HISTORY:M54.5 Low back pain, t spine pain IMPRESSION: 4 views of the thoracic spine were obtained. The thoracic spine alignment is unremarkable. There is no fracture or subluxation. The bone density is unremarkable with no focal bone lesion. [facility]-[id number] Procedure Note Interface, Radiology Results Incoming - 12/04/2017 5:46 PM CDT EXAMINATION: XR THORACIC SPINE 3 VW CLINICAL HISTORY: M54.5 Low back pain, t spine pain IMPRESSION: 4 views of the thoracic spine were obtained. The thoracic spine alignment is unremarkable. There is no fracture or subluxation. The bone density is unremarkable with no focal bone lesion. [facility]-[id number] Performing Organization Address [facility]ori Phone Number [facility] [address] [place] [address] Hemoglobin A1c (10/14/2017 12:42 PM CASH ROOM CLERK) Hemoglobin A1C 5.3 <5.7 % of total Hgb [employer] [place] Comment: For the purpose of screening for the presence of diabetes: <5.7% Consistent with the absence of diabetes 5.7-6.4%Consistent with increased risk for diabetes (prediabetes) > or=6.5%Consistent with diabetes This assay result is consistent with a decreased risk of diabetes. Currently, no consensus exists regarding use of hemoglobin A1c for diagnosis of diabetes in children. According to [place] Diabetes Association (ADA) guidelines, hemoglobin A1c <7.0% represents optimal control in non- diabetic patients. Different metrics may apply to specific patient populations. Standards of Medical Care in Diabetes(ADA). Specimen Blood Narrative Performed At FASTING:NO [facility] FASTING: NO Resulting Agency Comment Performing Organization Information: Site ID: [id number] Name: [facility] Address: [address] [place] [id number] Director: Gayatri Trent MD Performing Organization Address [facility]ori Phone Number [place] [address] Lipid panel (10/14/2017 12:42 PM CASH ROOM CLERK) Cholesterol, total 207 (H) <200 mg/dL [facility] HDL cholesterol 39 (L) >50 mg/dL [facility] Triglycerides 141 <150 mg/dL [facility] LDL cholesterol 141 (H) mg/dL (calc) [facility] calculated Comment: [place] Reference range: <100 Desirable range <100 mg/dL for patients with CHD or diabetes and <70 mg/dL for diabetic patients with known heart disease. LDL-C is now calculated using the Marvin-Preston calculation, which is a validated novel method providing better accuracy than the Friedewald equation in the estimation of LDL-C. Marvin RANDLE et al. ALFREDO. 2013;310(19): 8325-6169 (http://education.[employer].Guided Interventions/faq/KWJ037) Cholesterol/HDL ratio 5.3 (H) <5.0 (calc) [facility] Non-HDL cholesterol 168 (H) <130 mg/dL [facility] Comment: (calc) [place] For patients with diabetes plus 1 major ASCVD risk factor, treating to a non-HDL-C goal of <100 mg/dL (LDL-C of <70 mg/dL) is considered a therapeutic option. Specimen Blood Narrative Performed At FASTING:NO [facility] FASTING: NO Resulting Agency Comment Performing Organization Information: Site ID: [id number] Name: [facility] Address: [address] [place] [id number] Director: Gayatri Trent MD Performing Organization Address [facility] Phone Number [facility] [employer] [address] [address] Mammo Screening w Cad Bilateral (10/07/2017 1:19 PM CASH ROOM CLERK) Narrative Performed At PROCEDURE: [facility] MAMMO SCREENING W CAD BILATERAL Computer-assisted detection [...] studies. This facility is accredited by The [place] [employer] for Mammography. A negative x-ray report should not delay biopsy if a dominant or clinically suspicious mass is present. Not all cancers are identified by x-ray. [facility]-[id number] Performing Organization Address City/State/Zipcode Phone Number [facility] [address] [place] [address] after 08/23/2017 Insurance Payer Benefit Plan / Group Subscriber ID Type Phone Address MEDICARE MEDICARE PART A AND B xxxxxxxxxxx Medicare [place], [place] AET[employer] AETNA PPO OPEN CHOICE xxxxxxxxx PPO Advance Directives Patient has advance care planning documents on file. For more information, please contact:[facility] [place] [address]
[2018-08-24 09:03] LABS: Protime INR 0.99
[2018-08-24 09:20] LABS: ALT/SGPT 68 U/L (12-78); AST/SGOT 32 U/L (15-37); Albumin 3.6 g/dL (3.4-5.0); Alkaline Phosphatase 88 U/L (45-117); BUN Blood Urea Nitrogen 26 mg/dL (7-18); Bicarbonate 26 mmol/L (21-32); Bilirubin Direct 0.1 mg/dL (0-0.2); Bilirubin Total 0.4 mg/dL (0.2-1.0); Glucose Level 87 mg/dL (74-106); Lipase 248 U/L (73-393); Magnesium 1.7 mg/dL (1.8-2.4); NT PRO-BNP 629 pg/mL (<450); Potassium 3.3 mmol/L (3.5-5.1); Protein, Total 7.7 g/dL (6.4-8.2); Sodium Level 140 mmol/L (136-145); Troponin (Emerg Dept Use Only) < 0.02 ng/mL (0.0-0.045)
--- NOTE | 2018-08-24 09:28 | RAD REPORT ---
EXAM DESCRIPTION: Munir Single View08/24/2018 9:01 am CLINICAL HISTORY: Chest pain COMPARISON: 2017 FINDINGS: Areas of scarring are present within the lungs. The lungs appear clear of acute infiltrate . The heart is normal size IMPRESSION: No acute abnormalities displayed. If patient's symptoms persist PA and lateral chest se kostas would be recommended
[2018-08-24 09:37] LABS: Hematocrit 31.7 % (36.0-45.0); MCH 44.3 pg (27.0-35.0); MCV 124.9 fL (80-100); MPV 8.8 fL (7.6-11.3); RBC Red Blood Cell Count 2.54 M/uL (3.86-4.86)
[2018-08-24 09:41] LABS: Anisocytosis 1+; Blood Morphology Comment NOTED (NOT SEEN); Macrocytosis 3+; Platelet Estimate ADEQ
[2018-08-24] MEDS ORDERED: MAGNESIUM SULFATE 1 gm IVPB 1 GM/100 ML BAG IV ONE (10:38)
[2018-08-24] MEDS ORDERED: POTASSIUM 25 MEQ EFFERV TAB ONE (10:38)
--- NOTE | 2018-08-24 12:08 | ER ---
Nurse's Notes [facility] Name: Carmen Ewing Age: 78 yrs Sex: Female : 1940 Arrival Date: 08/24/2018 Time: 08:14 Bed 17 Private MD: out of town, doctor Diagnosis: Chest pain, unspecified Presentation: 08/24 08:30 Presenting complaint: Patient states: fractured L1, L3, L4 due to osteoporosis in em December, has been having back pain that radiates into abdomen and rib cage, has been taking T3 that have not helped, pt ambulated into room, rates pain 9/10. Transition of care: patient was not received from another setting of care. Onset of symptoms was December 2017. Risk Assessment: Do you want to hurt yourself or someone else? Patient reports no desire to harm self or others. Initial Sepsis Screen: Does the patient meet any 2 criteria? No. Patient's initial sepsis screen is negative. Does the patient have a suspected source of infection? No. Patient's initial sepsis screen is negative. Care prior to arrival: None. 08:30 Method Of Arrival: Ambulatory em 08:37 Acuity: ARTHUR 3 la1 Triage Assessment: 08:35 General: Appears in no apparent distress. comfortable, Behavior is calm, cooperative. em Pain: Complains of pain in lumbar area Pain radiates to chest and abdomen. GI: Abdomen is flat, Reports nausea. Historical: - Allergies: 08:35 niacin; em - PMHx: 08:35 Hypertension; Irritable bowel syndrome; neuropathy; shingles; Osteoporosis; pulmonary em embolism; thrombocythemia; Hypothyroidism; - Immunization history:: Adult Immunizations up to date. - Social history:: Smoking status: Patient/guardian denies using tobacco. - Ebola Screening: : Patient negative for fever greater than or equal to 101.5 degrees Fahrenheit, and additional compatible Ebola Virus Disease symptoms Patient denies exposure to infectious person Patient denies travel to an Ebola-affected area in the 21 days before illness onset No symptoms or risks identified at this time. Screenin:37 Abuse screen: Denies threats or abuse. Nutritional screening: No deficits noted. em Tuberculosis screening: No symptoms or risk factors identified. Fall Risk None identified. Assessment: 08:35 General: Appears in no apparent distress. comfortable, Behavior is calm, cooperative. em Pain: Complains of pain in lumbar area Pain currently is 9 out of 10 on a pain scale. Neuro: Level of Consciousness is awake, alert, obeys commands, Oriented to person, place, time, situation. Cardiovascular: Capillary refill < 3 seconds Patient's skin is warm and dry. Respiratory: Airway is patent Respiratory effort is even, unlabored, Respiratory pattern is regular, symmetrical. GI: Abdomen is flat, Bowel sounds present X 4 quads. Reports nausea. : No signs and/or symptoms were reported regarding the genitourinary system. EENT: No signs and/or symptoms were reported regarding the EENT system. Derm: Skin is intact, is healthy with good turgor, Skin is pink, warm \T\ dry. Musculoskeletal: Range of motion: intact in all extremities. 09:00 Reassessment: Patient appears in no apparent distress at this time. I agree with above iw assessment by Kai Gonzales LVN. 09:30 Reassessment: Patient appears in no apparent distress at this time. Patient and/or em family updated on plan of care and expected duration. Pain level reassessed. Patient is alert, oriented x 3, equal unlabored respirations, skin warm/dry/pink. 10:47 Reassessment: Patient appears in no apparent distress at this time. Patient and/or em family updated on plan of care and expected duration. Pain level reassessed. Patient is alert, oriented x 3, equal unlabored respirations, skin warm/dry/pink. family at bedside, pending disposition. 12:22 Reassessment: Patient appears in no apparent distress at this time. Patient and/or em family updated on plan of care and expected duration. Pain level reassessed. Patient is alert, oriented x 3, equal unlabored respirations, skin warm/dry/pink. Vital Signs: 08:35 BP 131 / 82; Pulse 71; Resp 16; Pulse Ox 99% on R/A; Weight 48.99 kg; Height 5 ft. 6 em in. (167.64 cm); Pain 9/10; 09:34 BP 126 / 63; Pulse 59; Resp 16; Pulse Ox 100% on R/A; em 10:47 BP 106 / 88; Pulse 57; Resp 18; Pulse Ox 99% on R/A; em 12:23 BP 142 / 67; Pulse 61; Resp 16; Pulse Ox 99% on R/A; Pain 5/10; em 08:35 Body Mass Index 17.43 (48.99 kg, 167.64 cm) em ED Course: 08:14 Patient arrived in ED. sb2 08:17 out of town, doctor is Private Physician. sb2 08:21 Yevgeniy Castro MD is Attending Physician. gs 08:30 Kai Gonzales LVN is Primary Nurse. em 08:35 Arm band placed on. em 08:37 Triage completed. la1 08:37 Patient has correct armband on for positive identification. Placed in gown. Bed in low em position. Call light in reach. Side rails up X2. compressor engineer on. Pulse ox on. NIBP on. 09:00 X-ray completed. Portable x-ray completed in exam room. Patient tolerated procedure sg4 well. 09:00 Initial lab(s) drawn, by me, sent to lab. Inserted saline lock: 20 gauge in right em forearm, using aseptic technique. Blood collected. 09:27 EKG done, by ED staff, reviewed by Yevgeniy Castro MD. em 09:33 Warm blanket given. em 12:21 No provider procedures requiring assistance completed. IV discontinued, intact, em bleeding controlled, No redness/swelling at site. Pressure dressing applied. Administered Medications: 10:38 Drug: Magnesium Sulfate 1 grams Route: IVPB; Infused Over: 1 hrs; Site: right forearm; em 12:21 Follow up: Response: No adverse reaction; IV Status: Completed infusion; IV Intake: em 100ml 10:38 Drug: Potassium Effervescent Tablet 50 mEq Route: PO; em 11:36 Follow up: Response: No adverse reaction em Intake: 12:21 IV: 100ml; Total: 100ml. em Outcome: 12:08 Discharge ordered by . gs 12:21 Discharged to home ambulatory, with family. em 12:21 Condition: good 12:21 Discharge instructions given to patient, Instructed on discharge instructions, follow up and referral plans. Demonstrated understanding of instructions, follow-up care. 12:23 Patient left the ED. em Signatures: Kai Gonzales LVN LVN em Deedee Scott RN RN Ishan Coronado RN RN la1 Yevgeniy Castro MD MD Mimi Mcneill sb2 Berenice Cazares sg4 Corrections: (The following items were deleted from the chart) 09:33 08:30 Presenting complaint: Patient states: fractured L1, L3, L4 in December, has been em having back pain that radiates into abdomen and rib cage, has been taking T3 that have not helped, pt ambulated into room, rates pain 05/19 em
--- NOTE | 2018-08-24 12:08 | EDPHYS ---
Physician Documentation [facility] Name: Carmen Ewing Age: 78 yrs Sex: Female : 1940 Arrival Date: 08/24/2018 Time: 08:14 Bed 17 Private MD: out of town, doctor ED Physician Yevgeniy Castro HPI: 08/24 12:03 This 78 yrs old Female presents to ER via Ambulatory with complaints of Pain gs All Over, Nausea. 12:03 The patient or guardian reports chest pain that is located primarily in the anterior gs chest wall. Onset: 4 week(s) ago. The pain does not radiate. Associated signs and symptoms: Pertinent negatives: abdominal pain, diaphoresis, dizziness, headache, near syncope, palpitations, shortness of breath, vomiting. The chest pain is described as dull. Duration: The patient or guardian reports multiple episodes, that wax and wane, with no pattern. Modifying factors: The symptoms are alleviated by nothing. the symptoms are aggravated by twisting torso. Severity of pain: At its worst the pain was moderate in the emergency department the pain is unchanged. The patient has experienced similar episodes in the past, several times. Historical: - Allergies: 08:35 niacin; em - PMHx: 08:35 Hypertension; Irritable bowel syndrome; neuropathy; shingles; Osteoporosis; pulmonary em embolism; thrombocythemia; Hypothyroidism; - Immunization history:: Adult Immunizations up to date. - Social history:: Smoking status: Patient/guardian denies using tobacco. - Ebola Screening: : Patient negative for fever greater than or equal to 101.5 degrees Fahrenheit, and additional compatible Ebola Virus Disease symptoms Patient denies exposure to infectious person Patient denies travel to an Ebola-affected area in the 21 days before illness onset No symptoms or risks identified at this time. ROS: 12:03 All other systems are negative. gs Exam: 12:03 Head/Face: Normocephalic, atraumatic. Eyes: Pupils equal round and reactive to light, gs extra-ocular motions intact. Lids and lashes normal. Conjunctiva and sclera are non-icteric and not injected. Cornea within normal limits. Periorbital areas with no swelling, redness, or edema. ENT: Nares patent. No nasal discharge, no septal abnormalities noted. Tympanic membranes are normal and external auditory canals are clear. Oropharynx with no redness, swelling, or masses, exudates, or evidence of obstruction, uvula midline. Mucous membranes moist. Neck: Trachea midline, no thyromegaly or masses palpated, and no cervical lymphadenopathy. Supple, full range of motion without nuchal rigidity, or vertebral point tenderness. No Meningismus. Chest/axilla: Normal chest wall appearance and motion. Nontender with no deformity. No lesions are appreciated. Cardiovascular: Regular rate and rhythm with a normal S1 and S2. No gallops, murmurs, or rubs. Normal PMI, no JVD. No pulse deficits. Respiratory: Lungs have equal breath sounds bilaterally, clear to auscultation and percussion. No rales, rhonchi or wheezes noted. No increased work of breathing, no retractions or nasal flaring. Abdomen/GI: Soft, non-tender, with normal bowel sounds. No distension or tympany. No guarding or rebound. No evidence of tenderness throughout. Back: No spinal tenderness. No costovertebral tenderness. Full range of motion. Skin: Warm, dry with normal turgor. Normal color with no rashes, no lesions, and no evidence of cellulitis. MS/ Extremity: Pulses equal, no cyanosis. Neurovascular intact. Full, normal range of motion. Neuro: Awake and alert, GCS 15, oriented to person, place, time, and situation. Cranial nerves II-XII grossly intact. Motor strength 5/5 in all extremities. Sensory grossly intact. Cerebellar exam normal. Normal gait. 12:03 Constitutional: The patient appears alert, awake. 12:03 ECG was reviewed by the Attending Physician. Vital Signs: 08:35 BP 131 / 82; Pulse 71; Resp 16; Pulse Ox 99% on R/A; Weight 48.99 kg; Height 5 ft. 6 em in. (167.64 cm); Pain 9/10; 09:34 BP 126 / 63; Pulse 59; Resp 16; Pulse Ox 100% on R/A; em 10:47 BP 106 / 88; Pulse 57; Resp 18; Pulse Ox 99% on R/A; em 12:23 BP 142 / 67; Pulse 61; Resp 16; Pulse Ox 99% on R/A; Pain 5/10; em 08:35 Body Mass Index 17.43 (48.99 kg, 167.64 cm) em MDM: 08:31 Patient medically screened. 12:03 Differential diagnosis: acute myocardial infarction, chest wall pain, congestive heart gs failure. Data reviewed: vital signs, nurses notes, and as a result, I will discharge patient. Response to treatment: the patient's symptoms have resolved after treatment, the patient's pain is gone. 08/24 08:32 Order name: Basic Metabolic Panel 08/24 08:32 Order name: CBC with Diff 08/24 08:32 Order name: LFT's 08/24 08:32 Order name: Magnesium 08/24 08:32 Order name: NT PRO-BNP 08/24 08:32 Order name: PT-INR 08/24 08:32 Order name: Troponin (emerg Dept Use Only) 08/24 08:32 Order name: Lipase 08/24 09:08 Order name: Protime (+INR); Complete Time: 10:22 EDMS 08/24 09:20 Order name: Basic Metabolic Panel; Complete Time: 10:22 EDWY 08/24 09:20 Order name: Liver (Hepatic) Function; Complete Time: 10:22 EDMS 08/24 09:20 Order name: Troponin (Emerg Dept Use Only); Complete Time: 10:22 EDMS 08/24 09:20 Order name: NT PRO-BNP; Complete Time: 10:22 EDMS 08/24 09:20 Order name: Magnesium; Complete Time: 10:22 EDMS 08/24 08:32 Order name: XRAY Chest (1 view) 08/24 08:32 Order name: EKG; Complete Time: 08:33 08/24 08:32 Order name: Cardiac monitoring; Complete Time: 09:30 08/24 08:32 Order name: EKG - Nurse/Tech; Complete Time: 09:30 08/24 08:32 Order name: IV Saline Lock; Complete Time: 09:30 08/24 08:32 Order name: Labs collected and sent; Complete Time: 09:30 08/24 08:32 Order name: O2 Per Protocol; Complete Time: 09:30 08/24 08:32 Order name: O2 Sat Monitoring; Complete Time: 09:29 08/24 09:20 Order name: Lipase; Complete Time: 10:22 EDWY 08/24 09:28 Order name: RAD; Complete Time: 10:22 EDMS 08/24 09:40 Order name: CBC with Automated Diff; Complete Time: 10: EDMS 08/24 09:41 Order name: Manual Differential; Complete Time: 10:22 EDMS EC:03 Rate is 56 beats/min. Rhythm is regular. IN interval is normal. QRS interval is gs prolonged. T waves are Flattened. No ST changes noted. Clinical impression: NSR w/ Non-specific ST/T Changes. Interpreted by me. Administered Medications: 10:38 Drug: Magnesium Sulfate 1 grams Route: IVPB; Infused Over: 1 hrs; Site: right forearm; em 12:21 Follow up: Response: No adverse reaction; IV Status: Completed infusion; IV Intake: em 100ml 10:38 Drug: Potassium Effervescent Tablet 50 mEq Route: PO; em 11:36 Follow up: Response: No adverse reaction em Disposition: 08/24/18 12:08 Discharged to Home. Impression: Chest pain, unspecified. - Condition is Stable. - Discharge Instructions: Nonspecific Chest Pain. - Medication Reconciliation Form, Thank You Letter, Antibiotic Education, Prescription Opioid Use form. - Follow up: Private Physician; When: 1 - 2 days; Reason: Re-evaluation by your physician. Signatures: Dispatcher [employer] Kai Moreno, SEUN DEJESUSN Yevgeniy Payne MD MD Corrections: (The following items were deleted from the chart) 12:23 12:08 08/24/2018 12:08 Discharged to Home. Impression: Chest pain, unspecified. em Condition is Stable. Forms are Medication Reconciliation Form, Thank You Letter, Antibiotic Education, Prescription Opioid Use. Follow up: Private Physician; When: 1 - 2 days; Reason: Re-evaluation by your physician. gs
[2018-08-24 12:33] VITALS: O2SAT 99
[2018-08-24 12:35] VITALS: BP 142/67
--- NOTE | 2018-08-25 07:06 | EKG ---
Test Date: 2018-08-24 Test Time: 09:20:38 Electrical Prospecting Supervisor: ILIANA MEASUREMENT RESULTS: Intervals: Rate: 56 [place]: 180 QRSD: 108 QT: 448 QTc: 432 [place]: P: 65 [place]: 180 QRS: 26 T: 62 INTERPRETIVE STATEMENTS: Sinus bradycardia Moderate voltage criteria for LVH, may be normal variant Nonspecific T wave abnormality Abnormal ECG Compared to ECG 06/06/2017 01:43:08 T-wave abnormality now present Electronically Signed On 08-25-18 07:04:33 [employer]INGER by Rhett Flores
== END 2018-08-24 12:23 | disposition home or self-care (01) ==
LOC: ER 08:11
DX: R07.9 Chest pain, unspecified (principal); I10 Essential (primary) hypertension; Z91.048 Other nonmedicinal substance allergy status
CPT/HCPCS: 36415; 71045; 80048; 80076; 83690; 83735; 83880; 84484; 85025; 85610; 93005; 96365; 96366; 99284; J3475

== ENCOUNTER 2019-10-11 09:29 | Emergency (ER) | payer OTHER ==
--- NOTE | 2019-10-11 10:12 | ER ---
Nurse's Notes [facility] Name: Carmen Ewing Age: 79 yrs Sex: Female : 1940 Arrival Date: 10/11/2019 Time: 09:31 Bed 18 Private MD: out of town, doctor Diagnosis: Zoster [herpes zoster] Presentation: 10/11 09:38 Presenting complaint: Patient states: pain to R arm, shoulder and R side of neck that ss began last night. This am, patient noticed painful rash to area. Hx of shingles. Transition of care: patient was not received from another setting of care. Onset of symptoms was October 10, 2019. Risk Assessment: Do you want to hurt yourself or someone else? Patient reports no desire to harm self or others. Initial Sepsis Screen: Does the patient meet any 2 criteria? No. Patient's initial sepsis screen is negative. Does the patient have a suspected source of infection? No. Patient's initial sepsis screen is negative. Care prior to arrival: None. 09:38 Method Of Arrival: Ambulatory ss 09:38 Acuity: ARTHUR 5 ss Historical: - Allergies: 09:42 Niacin; ss - PMHx: 09:42 Hypertension; Hypothyroidism; Irritable bowel syndrome; Osteoporosis; Pulmonary ss Embolism; shingles; neuropathy; thrombocythemia; ITP; - PSHx: 09:42 Hysterectomy; splenectomy; Appendectomy; Vertebroplasty s/p compression fx; ss - Immunization history:: Adult Immunizations up to date. - Coronavirus screen:: The patient has NOT traveled to [place], [place], or [place] in the past 14 days. Proceed with normal triage process as indicated. - Social history:: Smoking status: Patient denies any tobacco usage or history of. - Ebola Screening: : Patient denies exposure to infectious person Patient denies travel to an Ebola-affected area in the 21 days before illness onset. Screenin:24 Abuse screen: Denies threats or abuse. Nutritional screening: No deficits noted. Tuberculosis screening: No symptoms or risk factors identified. Fall Risk None identified. Assessment: 10:00 General: Appears in no apparent distress. uncomfortable, well developed, Behavior is sv calm, cooperative, appropriate for age. Pain: Complains of pain in right clavicle, anterior aspect of right upper chest and neck Pain currently is 8 out of 10 on a pain scale. Pain began 1 day ago. Is continuous. Neuro: Level of Consciousness is awake, alert, obeys commands, Oriented to person, place, time, situation, Moves all extremities. Full function Gait is steady. Respiratory: Airway is patent Respiratory effort is even, unlabored, Respiratory pattern is regular, symmetrical. Derm: Skin is pink, warm \T\ dry. Rash noted that is red, raised, on right clavicle, anterior aspect of right upper chest and neck. Musculoskeletal: Range of motion: intact in all extremities. Vital Signs: 09:42 BP 136 / 73; Pulse 66; Resp 17; Temp 97.9(O); Pulse Ox 100% on R/A; Weight 48.99 kg; ss Height 5 ft. 6 in. (167.64 cm); Pain 8/10; 09:42 Body Mass Index 17.43 (48.99 kg, 167.64 cm) ED Course: 09:29 [facility] 09:29 Pérez Warren MD is Attending Physician. cp 09:31 Patient arrived in ED. mr 09:31 out of town, doctor is Private Physician. mr 09:39 Triage completed. ss 09:42 Arm band placed on right wrist. ss 10:00 No provider procedures requiring assistance completed. sv 10:08 Urszula Ramirez RN is Primary Nurse. sv 10:08 Served as a certified executive chef for assessment of Pérez HOLT. sv 10:23 Patient did not have IV access during this emergency room visit. sv 10:25 Patient has correct armband on for positive identification. Bed in low position. Call light in reach. Administered Medications: 10:15 Drug: traMADol 50 mg Route: PO; 10:23 Follow up: Response: No adverse reaction; Medication administered at discharge. Outcome: 10:12 Discharge ordered by . 10:23 Discharged to home ambulatory. 10:23 Condition: stable 10:23 Discharge instructions given to patient, Instructed on discharge instructions, medication usage, Demonstrated understanding of instructions, follow-up care, medications, Prescriptions given X 3. 10:39 Patient left the ED. Signatures: Urszula Ramirez RN RN Trinidad HarringtonOdette ruiz RN RN Pérez Dixon PA PA cp Harris, Amy, RN RN Corrections: (The following items were deleted from the chart) 10:26 10:24 General: Appears ah ah
--- NOTE | 2019-10-11 10:12 | EDPHYS ---
Physician Documentation [facility] Name: Carmen Ewing Age: 79 yrs Sex: Female : 1940 Arrival Date: 10/11/2019 Time: 09:31 Bed 18 Private MD: out of town, doctor ED Physician Pérez Warren HPI: 10/11 09:50 This 79 yrs old Female presents to ER via Ambulatory with complaints of cp Shingles. 09:50 The patient's rash thought to be caused by possible shingles. cp 09:50 The rash is located on the right lateral neck and right shoulder and right side chest. cp The rash can be described as erythematous. 09:50 Onset: The symptoms/episode began/occurred this morning. cp 09:50 Associated signs and symptoms: Pertinent positives: Pain Pertinent negatives: cp difficulty breathing, fever, itching, wheezing. Patient reports having shingles in the past and pain is similar. Started having pain to right side of neck and right shoulder and right chest yesterday. Noticed rash this morning. Historical: - Allergies: 09:42 Niacin; ss - PMHx: 09:42 Hypertension; Hypothyroidism; Irritable bowel syndrome; Osteoporosis; Pulmonary ss Embolism; shingles; neuropathy; thrombocythemia; ITP; - PSHx: 09:42 Hysterectomy; splenectomy; Appendectomy; Vertebroplasty s/p compression fx; ss - Immunization history:: Adult Immunizations up to date. - Coronavirus screen:: The patient has NOT traveled to [place], [place], or [place] in the past 14 days. Proceed with normal triage process as indicated. - Social history:: Smoking status: Patient denies any tobacco usage or history of. - Ebola Screening: : Patient denies exposure to infectious person Patient denies travel to an Ebola-affected area in the 21 days before illness onset. ROS: 09:55 Constitutional: Negative for body aches, chills, fever, poor PO intake. cp 09:55 Eyes: Negative for injury, pain, redness, and discharge. cp 09:55 Cardiovascular: Negative for chest pain, palpitations. 09:55 Respiratory: Negative for cough, shortness of breath, wheezing. 09:55 Abdomen/GI: Negative for abdominal pain, vomiting, diarrhea, constipation. 09:55 Skin: Positive for rash. 09:55 Neuro: Negative for altered mental status, headache, weakness. 09:55 All other systems are negative. Exam: 10:00 Constitutional: The patient appears in no acute distress, alert, awake, cp non-diaphoretic, non-toxic, well developed, well nourished. 10:00 Head/Face: Normocephalic, atraumatic. cp 10:00 Eyes: Periorbital structures: appear normal, Conjunctiva: normal, no exudate, no injection, Lids and lashes: appear normal, bilaterally. 10:00 Chest/axilla: Palpation: is normal, no crepitus, no tenderness. 10:00 Cardiovascular: Rate: normal, Rhythm: regular. 10:00 Respiratory: the patient does not display signs of respiratory distress, Respirations: normal, no use of accessory muscles, no retractions, labored breathing, is not present, Breath sounds: are clear throughout, no decreased breath sounds, no stridor, no wheezing. 10:00 Skin: rash can be described as erythematous, papular, noted to be scattered and grouped, on the anterior aspect of right upper chest and right lateral neck and right shoulder. Vital Signs: 09:42 BP 136 / 73; Pulse 66; Resp 17; Temp 97.9(O); Pulse Ox 100% on R/A; Weight 48.99 kg; ss Height 5 ft. 6 in. (167.64 cm); Pain 8/10; 09:42 Body Mass Index 17.43 (48.99 kg, 167.64 cm) ss MDM: 09:36 Patient medically screened. lizbeth 10:00 Differential diagnosis: allergic reaction, cellulitis, herpes zoster. cp 10:12 Data reviewed: vital signs, nurses notes, and as a result, I will discharge patient. cp 10:12 Counseling: I had a detailed discussion with the patient and/or guardian regarding: the cp historical points, exam findings, and any diagnostic results supporting the discharge/admit diagnosis, the need for outpatient follow up, a family practitioner, to return to the emergency department if symptoms worsen or persist or if there are any questions or concerns that arise at home. Administered Medications: 10:15 Drug: traMADol 50 mg Route: PO; 10:23 Follow up: Response: No adverse reaction; Medication administered at discharge. sv Disposition: 10/12 07:40 Co-signature as Attending Physician, Pérez Kelvin MD I agree with the assessment and [facility] plan of care. Disposition: 10/11/19 10:12 Discharged to Home. Impression: Zoster [herpes zoster]. - Condition is Stable. - Discharge Instructions: Shingles. - Prescriptions for capsaicin 0.075 % Topical cream - apply 1 application by TOPICAL route 3 times per day As needed; 60 gram. Tramadol 50 mg Oral Tablet - take 1 tablet by ORAL route every 8 hours as needed; 12 tablet. Acyclovir 800 mg Oral Tablet - take 1 tablet by ORAL route 5 times per day for 10 days; 50 tablet. - Medication Reconciliation Form, Thank You Letter, Antibiotic Education, Prescription Opioid Use form. - Follow up: Private Physician; When: 1 - 2 days; Reason: Recheck today's complaints. - Problem is new. - Symptoms have improved. Signatures: Pérez Warren MD MD cha Smirch, Shelby RN RN Pérez Dixon PA PA cp Harris, Amy, RN RN ah Verde, Stephanie RN Corrections: (The following items were deleted from the chart) 10/11 10:39 10:12 10/11/2019 10:12 Discharged to Home. Impression: Zoster [herpes zoster]. ah Condition is Stable. Forms are Medication Reconciliation Form, Thank You Letter, Antibiotic Education, Prescription Opioid Use. Follow up: Private Physician; When: 1 - 2 days; Reason: Recheck today's complaints. Problem is new. Symptoms have improved. cp
[2019-10-11] MEDS ORDERED: TRAMADOL HCL 50 MG TAB ONE (10:22)
[2019-10-11 10:45] VITALS: BP 136/73; TEMP 97.9; O2SAT 100
== END 2019-10-11 10:39 | disposition home or self-care (01) ==
LOC: ER 09:29
DX: B02.9 Zoster without complications (principal); I10 Essential (primary) hypertension; Z88.8 Allergy status to other drugs, medicaments and biological substances
CPT/HCPCS: 99283

== ENCOUNTER 2021-03-04 21:43 | Emergency (ER) | payer OTHER ==
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
[2021-03-04] MEDS ORDERED: NA CHLORIDE 0.9% 500 ML ONE (23:02)
[2021-03-04 23:05] LABS: Absolute Lymphocytes (CBC) 1.2 K/uL (0.7-4.9); Hematocrit 30.6 % (36.0-45.0); Lymphocytes % 14.7 % (15.3-44.8); MPV 8.5 fL (7.6-11.3); RBC Red Blood Cell Count 2.55 M/uL (3.86-4.86)
[2021-03-04] MEDS ORDERED: ONDANSETRON 4 MG/2 ML VIAL ONE (23:19)
[2021-03-04] MEDS ORDERED: MORPHINE 4 MG/ML SYR ONE (23:19)
[2021-03-04 23:40] LABS: ALT/SGPT 56 U/L (12-78); AST/SGOT 34 U/L (15-37); Albumin 3.2 g/dL (3.4-5.0); Alkaline Phosphatase 78 U/L (45-117); BUN Blood Urea Nitrogen 56 mg/dL (7-18); Bicarbonate 27 mmol/L (21-32); Bilirubin Direct < 0.1 mg/dL (0-0.2); Bilirubin Total 0.3 mg/dL (0.2-1.0); Glucose Level 112 mg/dL (74-106); Lipase 235 U/L (73-393); Potassium 3.1 mmol/L (3.5-5.1); Protein, Total 8.4 g/dL (6.4-8.2); Sodium Level 138 mmol/L (136-145)
[2021-03-05 00:54] LABS: Blood Morphology Comment NOTED (NOT SEEN); Hypochromasia 1+; Macrocytosis 2+; Platelet Estimate ADEQ; Stomatocytes 1+; White Blood Cell Scan OK (OK)
[2021-03-05 01:45] LABS: Urine Blood 1+ (Negative); Urine Glucose Negative (Negative); Urine Protein Negative (Negative); Urine Specific Gravity 1.025 (1.005-1.030)
--- NOTE | 2021-03-05 02:02 | ER ---
Nurse's Notes [facility] Name: Carmen Ewing Age: 80 yrs Sex: Female : 1940 Arrival Date: 03/04/2021 Time: 21:45 Bed 6 Private MD: Diagnosis: Gastritis and duodenitis;Urinary tract infection, site not specified Presentation: 03/04 22:06 Chief complaint: Patient states: she has been having abdominal pain for days which has bb gotten worse today no vomiting or diarrhea pain is 9/10. Coronavirus screen: At this time, the client does not indicate any symptoms associated with coronavirus-19. Ebola Screen: No symptoms or risks identified at this time. Initial Sepsis Screen: Does the patient meet any 2 criteria? No. Patient's initial sepsis screen is negative. Does the patient have a suspected source of infection? No. Patient's initial sepsis screen is negative. Risk Assessment: Do you want to hurt yourself or someone else? Patient reports no desire to harm self or others. Onset of symptoms is unknown. 22:06 Method Of Arrival: Ambulatory bb 22:06 Acuity: ARTHUR 3 bb Triage Assessment: 23:07 General: Appears uncomfortable. GI: Reports lower abdominal pain, upper abdominal pain. ea Historical: - Allergies: 22:10 Niacin; bb - PMHx: 22:10 Hypertension; Hypothyroidism; Irritable bowel syndrome; neuropathy; Osteoporosis; bb Pulmonary Embolism; shingles; thrombocythemia; ITP; - PSHx: 22:10 Hysterectomy; splenectomy; Appendectomy; Vertebroplasty s/p compression fx; bb - Immunization history:: Adult Immunizations up to date, Client reports receiving the 2nd dose of the Covid vaccine. - Social history:: Smoking status: Patient denies any tobacco usage or history of. Screenin:38 Abuse screen: Denies threats or abuse. Nutritional screening: On. Tuberculosis ea screening: No symptoms or risk factors identified. Fall Risk None identified. Assessment: 23:06 General: Appears uncomfortable, Behavior is appropriate for age. Pain: Complains of ea pain in abdomen. Neuro: Level of Consciousness is awake, alert, obeys commands, Oriented to person, place, time. Cardiovascular: Patient's skin is warm and dry. Respiratory: Airway is patent Respiratory effort is even, unlabored, Respiratory pattern is regular, symmetrical. Derm: Skin is pink, warm \T\ dry. 03/05 00:16 Reassessment: Patient appears in no apparent distress at this time. Patient is alert, rr5 oriented x 3, equal unlabored respirations, skin warm/dry/pink. back form CTscan. 02:19 Reassessment: Patient appears in no apparent distress at this time. Patient is alert, rr5 oriented x 3, equal unlabored respirations, skin warm/dry/pink. discharge instruction given and explained without complaints made Patient states symptoms have improved. Vital Signs: 03/04 22:06 BP 96 / 58; Pulse 66; Resp 18 S; Temp 97.9(O); Pulse Ox 97% ; Weight 50.8 kg (R); bb Height 5 ft. 6 in. (167.64 cm) (R); Pain 9/10; 23:06 BP 146 / 58; Pulse 60; Resp 18; Pulse Ox 98% ; ea 03/05 00:30 BP 141 / 89; Pulse 65; Resp 17; Pulse Ox 99% ; rr5 01:20 BP 126 / 89; Pulse 69; Resp 17; Pulse Ox 98% ; rr5 02:21 BP 132 / 81; Pulse 75; Resp 19; Pulse Ox 99% ; rr5 03/04 22:06 Body Mass Index 18.08 (50.80 kg, 167.64 cm) bb ED Course: 03/04 21:45 Patient arrived in ED. es 22:08 Triage completed. bb 22:10 Arm band placed on. Family accompanied patient. bb 22:16 Trevor Miller MD is Attending Physician. [facility] 22:38 Jocelin Henriquez, KATHY is Primary Nurse. ea 23:07 Patient has correct armband on for positive identification. Bed in low position. Call ea light in reach. Side rails up X2. 23:33 Inserted saline lock: 20 gauge in right antecubital area, using aseptic technique. rr5 ,using aseptic technique. inserted by jocelin Blood collected. 03/05 00:17 CT Abd/Pelvis - Without Contrast In Process Unspecified. EDMS 02:19 No provider procedures requiring assistance completed. IV discontinued, intact, rr5 bleeding controlled, No redness/swelling at site. Pressure dressing applied. Administered Medications: 03/04 22:50 Drug: NS 0.9% 500 ml Route: IV; Rate: bolus; Site: right antecubital; ea 03/05 00:00 Follow up: Response: No adverse reaction; IV Status: Completed infusion; IV Intake: rr5 500ml 03/04 23:05 Drug: morphine 2 mg Route: IVP; Site: right antecubital; ea 23:06 Drug: Zofran (Ondansetron) 4 mg Route: IVP; Site: right antecubital; ea 03/05 00:10 Follow up: Response: No adverse reaction rr5 03/04 23:44 Drug: morphine 2 mg Route: IVP; Site: right antecubital; ea 03/05 00:40 Follow up: Response: No adverse reaction; RASS: Alert and Calm (0) rr5 01:59 Drug: GI Cocktail without - (Maalox Suspension 30 ml, Lidocaine Liquid 2 % 15 rr5 ml) Route: PO; 02:20 Follow up: Response: No adverse reaction rr5 01:59 Drug: Potassium Chloride 20 mEq Route: PO; rr5 02:20 Follow up: Response: No adverse reaction rr5 02:00 Drug: Rocephin (cefTRIAXone) 1 grams Route: IV; Rate: per protocol; Site: right forearm;rr5 02:20 Follow up: Response: No adverse reaction; IV Status: Completed infusion; IV Intake: rr5 100ml Intake: 00:00 IV: 500ml; Total: 500ml. rr5 02:20 IV: 100ml; Total: 600ml. rr5 Outcome: 02:01 Discharge ordered by . 7 02:19 Discharged to home via wheelchair, with family. rr5 02:19 Condition: stable 02:19 Discharge instructions given to patient, family, Instructed on discharge instructions, follow up and referral plans. Demonstrated understanding of instructions, follow-up care, medications, Prescriptions given X 3. 02:22 Patient left the ED. rr5 Signatures: Dispatcher [employer] Samanta Medina Brenda, RN RN bb Antunez, Elena, RN RN ea Roque, Raymond, RN RN rr5 Trevor Miller MD MD 7
--- NOTE | 2021-03-05 02:02 | EDPHYS ---
Physician Documentation [facility] Name: Carmen Ewing Age: 80 yrs Sex: Female : 1940 Arrival Date: 03/04/2021 Time: 21:45 Bed 6 Private MD: ED Physician Trevor Miller HPI: 03/04 23:05 This 80 yrs old Female presents to ER via Ambulatory with complaints of mh7 Abdominal Pain. 23:05 The patient presents with abdominal pain in the right upper quadrant, right lower mh7 quadrant. Onset: The symptoms/episode began/occurred 2 week(s) ago. The symptoms radiate to the right flank. 23:06 Associated signs and symptoms: Pertinent negatives: nausea, vomiting, and diarrhea, mh7 nausea and vomiting, anorexia, blood in stools, chest pain, constipation, diarrhea, dysuria, fever, headache, hematuria, nausea, palpitations, shortness of breath, vaginal discharge, vomiting, vomiting blood. The symptoms are described as intermittent, vague, waxing/waning. Modifying factors: The symptoms are alleviated by nothing, the symptoms are aggravated by nothing. Severity of pain: At its worst the pain was moderate 7 day(s) ago, in the emergency department the pain is unchanged. Historical: - Allergies: 22:10 Niacin; bb - PMHx: 22:10 Hypertension; Hypothyroidism; Irritable bowel syndrome; neuropathy; Osteoporosis; bb Pulmonary Embolism; shingles; thrombocythemia; ITP; - PSHx: 22:10 Hysterectomy; splenectomy; Appendectomy; Vertebroplasty s/p compression fx; bb - Immunization history:: Adult Immunizations up to date, Client reports receiving the 2nd dose of the Covid vaccine. - Social history:: Smoking status: Patient denies any tobacco usage or history of. ROS: 23:06 Constitutional: Negative for fever, chills, and weight loss, Eyes: Negative for injury, mh7 pain, redness, and discharge, ENT: Negative for injury, pain, and discharge, Neck: Negative for injury, pain, and swelling, Cardiovascular: Negative for chest pain, palpitations, and edema, Respiratory: Negative for shortness of breath, cough, wheezing, and pleuritic chest pain, Back: Negative for injury and pain, : Negative for injury, bleeding, discharge, and swelling, MS/Extremity: Negative for injury and deformity, Skin: Negative for injury, rash, and discoloration, Neuro: Negative for headache, weakness, numbness, tingling, and seizure, Psych: Negative for depression, anxiety, suicide ideation, homicidal ideation, and hallucinations, Allergy/Immunology: Negative for hives, rash, and allergies, Endocrine: Negative for neck swelling, polydipsia, polyuria, polyphagia, and marked weight changes, Hematologic/Lymphatic: Negative for swollen nodes, abnormal bleeding, and unusual bruising. Exam: 23:06 Constitutional: This is a well developed, well nourished patient who is awake, alert, mh7 and in no acute distress. Head/Face: Normocephalic, atraumatic. Eyes: Pupils equal round and reactive to light, extra-ocular motions intact. Lids and lashes normal. Conjunctiva and sclera are non-icteric and not injected. Cornea within normal limits. Periorbital areas with no swelling, redness, or edema. Neck: Trachea midline, no thyromegaly or masses palpated, and no cervical lymphadenopathy. Supple, full range of motion without nuchal rigidity, or vertebral point tenderness. No Meningismus. Chest/axilla: Normal chest wall appearance and motion. Nontender with no deformity. No lesions are appreciated. Cardiovascular: Regular rate and rhythm with a normal S1 and S2. No gallops, murmurs, or rubs. Normal PMI, no JVD. No pulse deficits. Respiratory: Lungs have equal breath sounds bilaterally, clear to auscultation and percussion. No rales, rhonchi or wheezes noted. No increased work of breathing, no retractions or nasal flaring. 23:06 Skin: Warm, dry with normal turgor. Normal color with no rashes, no lesions, and no evidence of cellulitis. MS/ Extremity: Pulses equal, no cyanosis. Neurovascular intact. Full, normal range of motion. Neuro: Awake and alert, GCS 15, oriented to person, place, time, and situation. Cranial nerves II-XII grossly intact. Motor strength 5/5 in all extremities. Sensory grossly intact. Cerebellar exam normal. Normal gait. Psych: Awake, alert, with orientation to person, place and time. Behavior, mood, and affect are within normal limits. 23:06 Abdomen/GI: Inspection: abdomen appears normal, Bowel sounds: normal, in all quadrants, Palpation: mild abdominal tenderness, in the right upper quadrant and right lower quadrant, mass, is not appreciated, rebound tenderness, is not appreciated, voluntary guarding, is not appreciated, involuntary guarding, is not appreciated, no appreciated organomegaly, Rectal exam: the exam is deferred, because of patient request, Indicators: McBurney's point is not tender, Antony's sign is negative, Rovsing's sign is negative, Obturator sign is negative, Psoas sign is negative, Liver: no appreciated palpable abnormalities, Hernia: not appreciated. 23:06 Back: normal spinal alignment noted, CVA tenderness, that is mild, is noted on the right, vertebral tenderness, is not appreciated, muscle spasm, is not present. Vital Signs: 22:06 BP 96 / 58; Pulse 66; Resp 18 S; Temp 97.9(O); Pulse Ox 97% ; Weight 50.8 kg (R); bb Height 5 ft. 6 in. (167.64 cm) (R); Pain 9/10; 23:06 BP 146 / 58; Pulse 60; Resp 18; Pulse Ox 98% ; ea 03/05 00:30 BP 141 / 89; Pulse 65; Resp 17; Pulse Ox 99% ; rr5 01:20 BP 126 / 89; Pulse 69; Resp 17; Pulse Ox 98% ; rr5 02:21 BP 132 / 81; Pulse 75; Resp 19; Pulse Ox 99% ; rr5 03/04 22:06 Body Mass Index 18.08 (50.80 kg, 167.64 cm) bb MDM: 01:59 Differential diagnosis: bowel obstruction, cholecystitis, Cholelithiasis, mh7 diverticulitis, gastritis, gastroesophageal reflux disease, non-specific abd pain, pancreatitis, Peptic Ulcer Disease, Pyelonephritis, Ureterolithiasis, urinary tract infection. Data reviewed: vital signs, nurses notes, lab test result(s), CBC, electrolytes, urinalysis, EKG, radiologic studies, CT scan. Data interpreted: Pulse oximetry: on room air is 98 %. Interpretation: normal. Counseling: I had a detailed discussion with the patient and/or guardian regarding: the historical points, exam findings, and any diagnostic results supporting the discharge/admit diagnosis, the presence of at least one elevated blood pressure reading (>120/80) during this emergency department visit, lab results, radiology results, the need for outpatient follow up, to return to the emergency department if symptoms worsen or persist or if there are any questions or concerns that arise at home. Response to treatment: the patient's symptoms have resolved after treatment, the patient's blood pressure is in an acceptable range, mental status has returned to baseline, the patient no longer shows bradycardia, the patient is not short of breath, the patient is not tachycardic, the patient's pain is gone, the patient's temperature has normalized. 02:01 Patient medically screened. [facility] 03/04 22:36 Order name: Basic Metabolic Panel [facility] 03/04 22:36 Order name: CBC with Diff; Complete Time: 01:19 [facility] 03/04 22:36 Order name: Hepatic Function; Complete Time: 23:41 [facility] 03/04 22:36 Order name: Lipase; Complete Time: 23:41 [facility] 03/04 22:36 Order name: Basic Metabolic Panel; Complete Time: 23:41 [facility] 03/04 23:12 Order name: CBC Smear Scan; Complete Time: 01:19 [facility] 03/04 23:42 Order name: CT Abd/Pelvis - Without Contrast [facility] 03/05 01:44 Order name: Urine Dipstick-Ancillary; Complete Time: 01:48 [facility] 03/05 01:46 Order name: Urine Microscopic Only 03/05 01:59 Order name: Urine Culture [facility] 03/04 22:36 Order name: IV Saline Lock; Complete Time: 22:50 [facility] 03/04 22:36 Order name: Labs collected and sent; Complete Time: 22:50 [facility] 03/04 22:36 Order name: EKG - Nurse/Tech; Complete Time: 23:18 [facility] 03/04 22:36 Order name: Urine Dipstick-Ancillary (obtain specimen); Complete Time: 01:42 [facility] Administered Medications: 03/04 22:50 Drug: NS 0.9% 500 ml Route: IV; Rate: bolus; Site: right antecubital; ea 03/05 00:00 Follow up: Response: No adverse reaction; IV Status: Completed infusion; IV Intake: rr5 500ml 03/04 23:05 Drug: morphine 2 mg Route: IVP; Site: right antecubital; ea 23:06 Drug: Zofran (Ondansetron) 4 mg Route: IVP; Site: right antecubital; ea 03/05 00:10 Follow up: Response: No adverse reaction rr5 03/04 23:44 Drug: morphine 2 mg Route: IVP; Site: right antecubital; ea 03/05 00:40 Follow up: Response: No adverse reaction; RASS: Alert and Calm (0) rr5 01:59 Drug: GI Cocktail without - (Maalox Suspension 30 ml, Lidocaine Liquid 2 % 15 rr5 ml) Route: PO; 02:20 Follow up: Response: No adverse reaction rr5 01:59 Drug: Potassium Chloride 20 mEq Route: PO; rr5 02:20 Follow up: Response: No adverse reaction rr5 02:00 Drug: Rocephin (cefTRIAXone) 1 grams Route: IV; Rate: per protocol; Site: right forearm;rr5 02:20 Follow up: Response: No adverse reaction; IV Status: Completed infusion; IV Intake: rr5 100ml Disposition: 03/05/21 02:01 Discharged to Home. Impression: Gastritis and duodenitis, Urinary tract infection, site not specified. - Condition is Stable. - Discharge Instructions: Gastritis, Adult, [id number], Urinary Tract Infection, Adult, [id number], Duodenitis. - Prescriptions for Bentyl 20 mg Oral Tablet - take 1 tablet by ORAL route every 6 hours As needed; 20 tablet. Keflex 500 mg Oral Capsule - take 1 capsule by ORAL route every 12 hours for 7 days; 14 capsule. Nexium 20 mg Oral Capsule - take 1 capsule by ORAL route once daily; 20 capsule. - Medication Reconciliation Form, Thank You Letter, Antibiotic Education, Prescription Opioid Use form. - Follow up: Private Physician; When: 1 - 2 days; Reason: Worsening of condition, Recheck today's complaints, Continuance of care, Re-evaluation by your physician. - Problem is an ongoing problem. - Symptoms have improved. Signatures: Dispatcher [employer] EDNaz Yoo RN RN Jocelin Sheffield RN RN ea Roque, Raymond, RN RN rr5 Trevor Miller MD MD mh7 Corrections: (The following items were deleted from the chart) 02:22 02:01 03/05/2021 02:01 Discharged to Home. Impression: Gastritis and duodenitis; rr5 Urinary tract infection, site not specified. Condition is Stable. Forms are Medication Reconciliation Form, Thank You Letter, Antibiotic Education, Prescription Opioid Use. Follow up: Private Physician; When: 1 - 2 days; Reason: Worsening of condition, Recheck today's complaints, Continuance of care, Re-evaluation by your physician. Problem is an ongoing problem. Symptoms have improved. mh7
[2021-03-05] MEDS ORDERED: MAGNES/ALUMIN/SIMET 30ML UCUP ONE (02:13)
[2021-03-05] MEDS ORDERED: LIDOCAINE VISCOUS 2% SOLN 15 ML UDC ONE (02:13)
[2021-03-05] MEDS ORDERED: POTASSIUM CL SA 10 MEQ TAB PO ONE (02:17)
[2021-03-05] MEDS ORDERED: NA CHLORIDE 0.9% 100 ML ONE (02:22)
[2021-03-05] MEDS ORDERED: CEFTRIAXONE/SWI 1gm 1 GM/10 ML SYR ONE (02:22)
[2021-03-05 02:35] VITALS: TEMP 97.9
[2021-03-05 02:42] VITALS: BP 132/81; O2SAT 99
[2021-03-05 03:36] LABS: Urine Bacteria LOADED /HPF (<20)
--- NOTE | 2021-03-06 12:16 | RAD REPORT ---
EXAM DESCRIPTION: CT - Abdomen Pelvis Wo Contrast - 03/05/2021 6:16 am CLINICAL HISTORY: 80 years Female Abd pain; Flank pain COMPARISON: None. TECHNIQUE: Contiguous axial images obtained through the abdomen and pelvis without IV contrast. Refo rmatted images obtained. This exam was performed according to our department optimization program which includes automated exp osure control, adjustment of the mA and/or kv according to patient size and/or use of iterative recon struction technique. FINDINGS: Scarring/atelectasis in the lower lungs. Calcified granuloma at the right lung base. Small hiatal hernia. The liver appears unremarkable. The liver appears prominent in the left upper abdomen without definite visualization of the spleen co nsistent with the clinical history of previous splenectomy. No adrenal masses. Low-density lesion in the left kidney measuring 2.9 cm consistent with a renal cyst. Small area of hy perdensity in the lateral left kidney likely from a small hemorrhagic cyst. There are nonobstructing renal calculi. No hydronephrosis or ureteral calculi. The gallbladder is visualized. Atherosclerotic calcifications. No aneurysmal dilatation of the aorta. There is wall thickening in the distal stomach and in the proximal duodenum with surrounding inflamma tory changes. The appearance suggests changes from gastritis/duodenitis or ulcer disease. Some of thi s inflammatory changes also visualized around the pancreatic head and therefore clinical and laborato ry correlation is also recommended to exclude the possibility of pancreatitis. No bowel obstruction. The appendix is not visualized. There is sigmoid diverticulosis. No significant free pelvic fluid. There are changes from previous hysterectomy. There are a co uple of calcific densities in the urinary bladder consistent with bladder stones. Degenerative changes in the spine. There are old compression fractures at L1, L3 and L4 with changes from vertebral body augmentation. IMPRESSION: 1. There is wall thickening in the distal stomach and in the proximal duodenum with pryor rrounding inflammatory changes. The appearance suggests changes from gastritis/duodenitis or ulcer di sease. Some of this inflammatory change is also visualized around the pancreatic head. Although pancr eatitis is felt to be much less likely, clinical and laboratory correlation is also recommended to ex clude the possibility of pancreatitis. 2. Nonobstructing renal calculi. No hydronephrosis or ureteral calculi. 3. There are a couple of calcific densities in the urinary bladder consistent with bladder stones. Electronically signed by: Zafar Pulido MD 03/05/2021 12:37 AM CDT Due to temporary technical issues with the PACS/Fluency reporting system, reports are being signed by the in house radiologist without review as a courtesy to ensure prompt reporting. The interpreting r adiologist is fully responsible for the content of the report.
--- NOTE | 2021-03-06 15:52 | EKG ---
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
== END 2021-03-05 02:22 | disposition home or self-care (01) ==
LOC: ER 21:43
DX: K29.70 Gastritis, unspecified, without bleeding (principal); K29.80 Duodenitis without bleeding; N39.0 Urinary tract infection, site not specified; I10 Essential (primary) hypertension; E03.9 Hypothyroidism, unspecified; K58.9 Irritable bowel syndrome, unspecified; G62.9 Polyneuropathy, unspecified; M81.0 Age-related osteoporosis without current pathological fracture; Z86.711 Personal history of pulmonary embolism
CPT/HCPCS: 96365; 96361; 93005; 87088; 85025; 87086; 80048; 36415; 80076; 87077; 87186; 83690; 74176; 96375; 99284; J0696; J7040; J2405; 81003; 81015

== ENCOUNTER 2021-05-29 09:50 | Inpatient (IN) | payer OTHER ==
[2021-05-29 10:46] LABS: Hematocrit 24.6 % (36.0-45.0); RBC Red Blood Cell Count 1.85 M/uL (3.86-4.86)
[2021-05-29 10:49] LABS: Protime INR 0.97
[2021-05-29 10:58] LABS: Absolute Lymphocytes (CBC) 1.1 K/uL (0.7-4.9); Basophils % 0.6 % (0-1.3); Lymphocytes % 28.3 % (15.3-44.8)
[2021-05-29 11:05] LABS: ALT/SGPT 62 U/L (12-78); AST/SGOT 43 U/L (15-37); Albumin 3.4 g/dL (3.4-5.0); Alkaline Phosphatase 58 U/L (45-117); BUN Blood Urea Nitrogen 26 mg/dL (7-18); Bicarbonate 24 mmol/L (21-32); Bilirubin Direct 0.1 mg/dL (0-0.2); Bilirubin Total 0.6 mg/dL (0.2-1.0); Glucose Level 124 mg/dL (74-106); Magnesium 1.9 mg/dL (1.8-2.4); NT PRO-BNP 1593 pg/mL (<450); Potassium 3.5 mmol/L (3.5-5.1); Sodium Level 138 mmol/L (136-145); Troponin (Emerg Dept Use Only) < 0.02 ng/mL (0.0-0.045)
--- NOTE | 2021-05-29 11:07 | RAD REPORT ---
EXAM DESCRIPTION: RAD - Chest Single View - 05/29/2021 10:40 am CLINICAL HISTORY: CHEST PAIN Chest pain. COMPARISON: Chest Single View dated 08/24/2018; Chest Single View dated 06/06/2017; CHEST SINGLE VIEW dated 03/07/2015; CHEST SINGLE VIEW dated 01/26/2011 FINDINGS: Portable technique limits examination quality. The lungs are emphysematous but grossly clear. The heart is normal in size. No displaced fractures. IMPRESSION: Prominent COPD.
--- NOTE | 2021-05-29 12:34 | RAD REPORT ---
EXAM DESCRIPTION: CT - Chest For Pe Angio - 05/29/2021 12:19 pm CLINICAL HISTORY: CHEST PAIN COMPARISON: Abdomen Pelvis Wo Contrast dated 03/05/2021 FINDINGS: Chest Wall: No suspicious thyroid nodules or pathologic lymphadenopathy. Lungs: Scarring and/or subsegmental atelectasis in the lung bases. No evidence of either edema or pne umonia. No suspicious pulmonary nodules identified. Pleura: No significant effusions or pneumothorax. Mediastinum/josemanuel: No pathologic lymphadenopathy. Small hiatal hernia. Pulmonary arteries/Aorta: No filling defect identified. No aortic aneurysm. Heart: No significant pericardial effusion. Normal heart size. Upper abdomen: No acute abnormality. Left upper pole renal lesion which is likely a cyst. Bones: No acute abnormality. Kyphoplasty changes at L1. Multilevel degenerative changes are present i n the spine. All CT scans are performed using dose optimization technique as appropriate and may include automated exposure control or mA/KV adjustment according to patient size. IMPRESSION: Negative for pulmonary embolism. No other acute findings identified within the chest.
[2021-05-29] MEDS ORDERED: ONDANSETRON 4 MG/2 ML VIAL ONE (12:46)
[2021-05-29] MEDS ORDERED: MORPHINE 4 MG/ML SYR ONE (12:46)
[2021-05-29] MEDS ORDERED: NA CHLORIDE 0.9% 500 ML ONE (12:48)
[2021-05-29 13:00] LABS: Urine Blood 1+ (Negative); Urine Glucose Negative (Negative); Urine Protein Negative (Negative); Urine pH 5.5 (5.0-7.0)
--- NOTE | 2021-05-29 13:06 | EDPHYS ---
Physician Documentation [facility] Name: Carmen Ewing Age: 81 yrs Sex: Female : 1940 Arrival Date: 05/29/2021 Time: 09:51 Bed 7 Private MD: ED Physician Christos Caal HPI: 05/29 10:34 This 81 yrs old Female presents to ER via Ambulatory with complaints of Chest pm1 Pain. 10:34 The patient or guardian reports chest pain that is located primarily in the left pm1 breast. Onset: at 03:00. The pain radiates to right back. Associated signs and symptoms: Pertinent positives: palpitations, Pertinent negatives: abdominal pain, cough, diaphoresis, dizziness, headache, lightheadedness, nausea, shortness of breath, vomiting. The chest pain is described as a pressure. Duration: The patient or guardian reports a single episode, that is still ongoing. Modifying factors: The symptoms are alleviated by nothing. the symptoms are aggravated by nothing. Severity of pain: in the emergency department the pain is a 8 / 10. The patient has not experienced similar symptoms in the past. The patient has not recently seen a physician, has an appointment scheduled, With hematology oncology this week for follow-up for ITP. Patient presents with chest pain onset 3 AM on right breast area. Patient reports pain migrated to left breast area with radiation to left back. Right breast pain no longer present. Patient reports palpitations with her chest pain. Palpitations described as feeling of irregular heart rate for a few seconds and then it settles down. Patient reports no other symptoms with her chest pain: No shortness of breath no nausea vomiting no headache no abdominal pain no diaphoresis. Historical: - Allergies: 10:13 Niacin; ss - PMHx: 10:13 Hypertension; Irritable bowel syndrome; ITP; neuropathy; Osteoporosis; Hypothyroidism; ss Pulmonary Embolism; shingles; thrombocythemia; - Immunization history:: Client reports receiving the 2nd dose of the Covid vaccine. - Social history:: Smoking status: Patient denies any tobacco usage or history of. ROS: 10:34 Constitutional: Negative for fever, chills, and weight loss. pm1 10:34 Respiratory: Negative for shortness of breath, cough, wheezing, and pleuritic chest pain, Abdomen/GI: Negative for abdominal pain, nausea, vomiting, diarrhea, and constipation, Back: Negative for injury and pain, MS/Extremity: Negative for injury and deformity, Skin: Negative for injury, rash, and discoloration, Neuro: Negative for headache, weakness, numbness, tingling, and seizure. 10:34 Cardiovascular: Positive for chest pain, palpitations, Negative for edema. 10:34 All other systems are negative. Exam: 10:34 Constitutional: This is a well developed, well nourished patient who is awake, alert, pm1 and in no acute distress. Head/Face: Normocephalic, atraumatic. 10:34 Back: No spinal tenderness. No costovertebral tenderness. Full range of motion. Skin: Warm, dry with normal turgor. Normal color with no rashes, no lesions, and no evidence of cellulitis. MS/ Extremity: Pulses equal, no cyanosis. Neurovascular intact. Full, normal range of motion. 10:34 Chest/axilla: Inspection: normal, Palpation: is normal, no crepitus, no tenderness. 10:34 Cardiovascular: Rate: normal, Rhythm: regular, Pulses: no pulse deficits are appreciated, Heart sounds: normal, normal S1and S2, Edema: is not appreciated. 10:34 Respiratory: Exam negative for acute changes, respiratory distress, shortness of breath, Breath sounds: are clear throughout. 10:34 Abdomen/GI: Exam negative for acute changes, Inspection: abdomen appears normal, Palpation: abdomen is soft and non-tender, in all quadrants. 10:34 Neuro: Exam negative for acute changes, Orientation: is normal, Mentation: is normal, Motor: is normal, moves all fours, Sensation: is normal, no obvious gross deficits. Vital Signs: 10:10 BP 165 / 88; Pulse 74; Resp 16; Temp 98.8(O); Pulse Ox 99% on R/A; Weight 50.8 kg; ss Height 5 ft. 5 in. (165.10 cm); Pain 8/10; 10:31 BP 160 / 81; Pulse 69; Resp 18; Pulse Ox 100% on R/A; Pain 8/10; tr6 10:10 Body Mass Index 18.64 (50.80 kg, 165.10 cm) ss MDM: 10:18 Patient medically screened. pm1 10:38 Data reviewed: vital signs. pm1 12:50 Counseling: I had a detailed discussion with the patient and/or guardian regarding: the pm1 historical points, exam findings, and any diagnostic results supporting the discharge/admit diagnosis, lab results, radiology results, the need for further work-up and treatment in the hospital. 13:04 Physician consultation: Ishan Coronado Sr. was called at 13:04, was contacted at 13:04, pm1 regarding admission, patient's condition, and will see patient in ED, shortly. 05/29 10:23 Order name: Basic Metabolic Panel; Complete Time: 11:53 tr6 05/29 10:23 Order name: CBC with Diff; Complete Time: 16:40 tr6 05/29 10:23 Order name: LFT's; Complete Time: 11:53 tr6 05/29 10:23 Order name: Magnesium; Complete Time: 11:53 tr6 05/29 10:23 Order name: NT PRO-BNP; Complete Time: 11:53 tr6 05/29 10:23 Order name: PT-INR; Complete Time: 11:00 tr6 05/29 10:23 Order name: Troponin (emerg Dept Use Only); Complete Time: 11:53 tr6 05/29 10:27 Order name: TSH pm1 05/29 10:27 Order name: Thyroid Stimulating Hormone; Complete Time: 11:53 EDMS 05/29 11:10 Order name: CBC Smear Scan; Complete Time: 16:40 EDMS 05/29 12:10 Order name: SARS-COV-2 RT PCR; Complete Time: 12:10 EDMS 05/29 13:00 Order name: Urine Dipstick-Ancillary; Complete Time: 13:02 EDMS 05/29 18:06 Order name: Troponin I; Complete Time: 18:33 EDMS 05/29 10:23 Order name: XRAY Chest (1 view); Complete Time: 11:53 tr6 05/29 10:23 Order name: EKG; Complete Time: 10:24 tr6 05/29 10:23 Order name: Cardiac monitoring; Complete Time: 10:23 tr6 05/29 10:23 Order name: EKG - Nurse/Tech; Complete Time: 10:32 tr6 05/29 11:54 Order name: CT Chest For PE Angio; Complete Time: 12:36 pm1 05/30 03:45 Order name: CBC with Automated Diff EDMS 05/30 04:19 Order name: Comprehensive Metabolic Panel EDMS 05/30 04:19 Order name: Lipid Profile EDMS 05/30 04:19 Order name: T4 Free EDMS 05/30 07:07 Order name: Folic Acid, (Folate) EDMS 05/30 07:07 Order name: Vitamin B12 Level EDMS 05/30 07:13 Order name: Type and Screen EDMS 05/29 10:23 Order name: IV Saline Lock; Complete Time: 10:34 tr6 05/29 10:23 Order name: Labs collected and sent; Complete Time: 10:34 tr6 05/29 10:23 Order name: O2 Per Protocol; Complete Time: 10:23 tr6 05/29 10:23 Order name: O2 Sat Monitoring; Complete Time: 10:23 tr6 Administered Medications: 12:23 Drug: morphine 4 mg Route: IVP; Site: right forearm; ch5 12:23 Drug: Zofran (Ondansetron) 4 mg Route: IVP; Site: right forearm; ch5 12:44 Follow up: Response: No adverse reaction tr6 12:25 Drug: NS 0.9% 500 ml Route: IV; Rate: bolus; Site: right forearm; ch5 16:28 Drug: Rocephin (cefTRIAXone) 1 grams Route: IV; Rate: calculated rate; Site: left tw2 antecubital; Disposition: 05/30 07:19 Co-signature as Attending Physician, Christos Caal MD I agree with the assessment and rn plan of care. Attestation: The patient's history, exam findings, diagnostics, and a summary of any interventions or procedures was reviewed in detail with Jorge Bush NP. Disposition Summary: 05/29/21 13:05 Hospitalization Ordered Hospitalization Status: Observation pm1 Provider: Ishan Coronado pm1 Condition: Stable pm1 Problem: new pm1 Symptoms: have improved pm1 Bed/Room Type: Standard pm1 Location: Telemetry/MedSurg (observation)(05/30/21 11:58) bd Room Assignment: 429(05/30/21 12:46) bd Diagnosis - Chest pain, unspecified pm1 Forms: - Medication Reconciliation Form pm1 - SBAR form pm1 Signatures: Dispatcher [employer] Ava Kinsey Roman, MD MD rn Smirch, Shelby, RN RN ss Jorge Bush, TISSUE SPECIALIST TISSUE SPECIALIST pm1 Hannah Hyman RN RN tw2 Cristiane Kilgore RN RN tr6 Ty Mcgrath RN RN ch5 Corrections: (The following items were deleted from the chart) 05/29 11:12 10:42 CORONAVIRUS+.BRZ ordered. EDMS EDMS 15:54 13:05 Telemetry/MedSurg (observation) pm1 bd 15:54 13:05 pm1 bd 05/30 11:58 05/29 15:54 [facility] ER HOLD bd bd 05/30 11:58 05/29 15:54 ERHOLD- bd bd 05/30 12:46 11:58 430 bd bd
--- NOTE | 2021-05-29 13:06 | ER ---
Nurse's Notes [facility] Name: Carmen Ewing Age: 81 yrs Sex: Female : 1940 Arrival Date: 05/29/2021 Time: 09:51 Bed 7 Private MD: Diagnosis: Chest pain, unspecified Presentation: 05/29 10:10 Chief complaint: Patient states: Pain under L breast that radiates towards back that ss began at 0300 this morning. Coronavirus screen: Client denies travel out of the [place] in the last 14 days. Ebola Screen: Patient denies exposure to infectious person. Patient denies travel to an Ebola-affected area in the 21 days before illness onset. Initial Sepsis Screen: Does the patient meet any 2 criteria? No. Patient's initial sepsis screen is negative. Does the patient have a suspected source of infection? No. Patient's initial sepsis screen is negative. Risk Assessment: Do you want to hurt yourself or someone else? Patient reports no desire to harm self or others. Onset of symptoms was May 29, 2021 at 03:00. 10:10 Method Of Arrival: Ambulatory ss 10:10 Acuity: ARTHUR 3 ss Triage Assessment: 19:07 General: Appears. General: Appears in no apparent distress. Behavior is. ch5 Historical: - Allergies: 10:13 Niacin; ss - PMHx: 10:13 Hypertension; Irritable bowel syndrome; ITP; neuropathy; Osteoporosis; Hypothyroidism; ss Pulmonary Embolism; shingles; thrombocythemia; - Immunization history:: Client reports receiving the 2nd dose of the Covid vaccine. - Social history:: Smoking status: Patient denies any tobacco usage or history of. Screenin:20 Abuse screen: Denies threats or abuse. Denies injuries from another. Nutritional tr6 screening: No deficits noted. Tuberculosis screening: No symptoms or risk factors identified. Fall Risk None identified. Assessment: 10:43 Pain: Pain radiates to left lateral anterior chest, right lateral anterior chest, right ch5 breast and left breast Pain began. Cardiovascular: Reports chest pain, Pain radiated from right to left and currently sits under left lateral breast Chest pain is described as quality is pressure, is located in radiates to left Breast began 0300am. Vital Signs: 10:10 BP 165 / 88; Pulse 74; Resp 16; Temp 98.8(O); Pulse Ox 99% on R/A; Weight 50.8 kg; ss Height 5 ft. 5 in. (165.10 cm); Pain 8/10; 10:31 BP 160 / 81; Pulse 69; Resp 18; Pulse Ox 100% on R/A; Pain 8/10; tr6 10:10 Body Mass Index 18.64 (50.80 kg, 165.10 cm) ss Vitals: 10:31 Cardiac Rhythm Assessment Regular Sinus rhythm. tr6 ED Course: 09:51 Patient arrived in ED. rg4 10:13 Triage completed. ss 10:13 Arm band placed on right wrist. ss 10:16 Jorge Bush NP is PHCP. pm1 10:16 Christos Caal MD is Attending Physician. pm1 10:20 Cristiane Kilgore, KATHY is Primary Nurse. tr6 10:20 Awaiting ED provider evaluation. tr6 10:20 Patient has correct armband on for positive identification. Placed in gown. Bed in low tr6 position. Call light in reach. Side rails up X2. nuclear scientist on. Pulse ox on. NIBP on. Door closed. Noise minimized. Visitors limited. Lights dimmed. Moved to private room. Warm blanket given. Diet: Patient is NPO. 10:20 No provider procedures requiring assistance completed. Patient maintains SpO2 tr6 saturation greater than 95% on room air. 10:33 Pillow given. mh5 10:33 Thyroid Stimulating Hormone Sent. mh5 10:33 TSH Sent. mh5 10:34 Basic Metabolic Panel Sent. mh5 10:34 CBC with Diff Sent. mh5 10:34 LFT's Sent. mh5 10:34 Magnesium Sent. mh5 10:34 NT PRO-BNP Sent. mh5 10:34 PT-INR Sent. mh5 10:34 Troponin (emerg Dept Use Only) Sent. mh5 10:39 XRAY Chest (1 view) In Process Unspecified. EDMS 10:45 EKG done, COVID swab sent to lab. mh5 10:46 Inserted saline lock: 20 gauge in right forearm, using aseptic technique. ch5 12:19 CT Chest For PE Angio In Process Unspecified. EDMS 13:05 Ishan Coronado is Hospitalizing Provider. pm1 Administered Medications: 12:23 Drug: morphine 4 mg Route: IVP; Site: right forearm; ch5 12:23 Drug: Zofran (Ondansetron) 4 mg Route: IVP; Site: right forearm; 5 12:44 Follow up: Response: No adverse reaction tr6 12:25 Drug: NS 0.9% 500 ml Route: IV; Rate: bolus; Site: right forearm; ch5 16:28 Drug: Rocephin (cefTRIAXone) 1 grams Route: IV; Rate: calculated rate; Site: left tw2 antecubital; Outcome: 13:05 Decision to Hospitalize by Provider. pm1 05/30 12:46 Patient left the ED. [facility] Signatures: Dispatcher [employer] EDMS Odette Severino RN RN ss Jorge Bush NP EHS MANAGER pm1 Hannah Hyman RN RN 2 Gabby Cazares [facility] Cristiane Kilgore RN RN tr6 Ty Mcgrath RN RN 5 Corrections: (The following items were deleted from the chart) 05/29 10:47 10:43 Cardiovascular: Reports chest pain, Pain radiated from right to left and 5 currently sits under left lateral breast [facility] 11:12 10:44 CORONAVIRUS+MR.LAB.BRZ drawn and sent. [address]
[2021-05-29] MEDS ORDERED: TRAMADOL HCL 50 MG TAB PO PRN (15:25)
[2021-05-29] MEDS ORDERED: MORPHINE 2 MG/ML SYR IV PRN (15:25)
[2021-05-29] MEDS ORDERED: ONDANSETRON 4 MG/2 ML VIAL IV PRN (15:25)
[2021-05-29] MEDS ORDERED: ACETAMINOPHEN 500 MG TAB PO PRN (15:25)
--- NOTE | 2021-05-29 15:56 | P.HP ---
Certification for Inpatient Patient admitted to: Inpatient With expected LOS: >2 Midnights Patient will require the following post-hospital care: None Practitioner: I am a practitioner with admitting privileges, knowledge of patient current condition, hospital course, and medical plan of care. Services: Services provided to patient in accordance with Admission requirements found in Title 42 Section 412.3 of the Code of Federal Regulations <Ishan Coronado - Last Filed: 05/29/21 15:57> Patient History Date of Service: 05/29/21 Primary Care Provider: Radha Gale Reason for admission: Chest Pain History of Present Illness: Chest CT FINDINGS: Chest Wall: No suspicious thyroid nodules or pathologic lymphadenopathy. Lungs: Scarring and/or subsegmental atelectasis in the lung bases. No evidence of either edema or pneumonia. No suspicious pulmonary nodules identified. Pleura: No significant effusions or pneumothorax. Mediastinum/josemanuel: No pathologic lymphadenopathy. Small hiatal hernia. Pulmonary arteries/Aorta: No filling defect identified. No aortic aneurysm. Heart: No significant pericardial effusion. Normal heart size. Upper abdomen: No acute abnormality. Left upper pole renal lesion which is likely a cyst. Bones: No acute abnormality. Kyphoplasty changes at L1. Multilevel degenerative changes are present in the spine. IMPRESSION: Negative for pulmonary embolism. No other acute findings identified within the chest. CXR COMPARISON: Chest Single View dated 08/24/2018; Chest Single View dated 06/06/2017; CHEST SINGLE VIEW dated 03/07/2015; CHEST SINGLE VIEW dated 01/26/2011 FINDINGS: Portable technique limits examination quality. The lungs are emphysematous but grossly clear. The heart is normal in size. No displaced fractures. IMPRESSION: Prominent COPD. Labs are remarkable for glucose of 124, BUN 26, GFR 57, white blood count slightly low at 3.7, hemoglobin 8.5, hematocrit 24.6, MCV is 133.1, MCH 46.1, AST mildly elevated at 43, globulin 4.6, BNP is 1593. Urinalysis is remarkable for blood, and nitrates being positive. The patient reports being woken between 2 and 3 AM with right-sided chest pain which gradually moved to the left side of her chest. She describes the chest pain as being constant and rates it at 8 out of 10. She had no other symptoms during this episode other than the discomfort. She waited at home until 10AM because she thought that the pain might be related to musculoskeletal problems. But when the pain did not resolve she decided to come to the emergency room. Currently she rates her pain at 7 out of 10. She does appear comfortable. Her son notes that she has had previous instances similar to this. - Past Medical/Surgical History Diabetic: No -: HTn -: IBS -: Nueropathy -: OA -: Shingles -: ITP -: Pneumonia -: Sp;enectomy -: Hysterectomy -: Appy -: Bladder supension -: Jonas Cataract sx Psychosocial/ Personal History: Retired, lives at home with Son. - Family History Father -: Heart disease, Hypertension, Stroke, Other (see notes) Notes: parkinson's Mother -: Heart disease, Hypertension, GI disease, Cancer, Other (see notes) Notes: Breast Cancer, TIA Sister -: Heart disease - Social History Smoking Status: Never smoker Alcohol use: No CD- Drugs: No Caffeine use: Yes <Ishan Coronado - Last Filed: 05/29/21 15:57> Date of Service: 05/29/21 <Samson Lay - Last Filed: 06/05/21 12:08> Allergies nicin drugs Allergy (Mild, Uncoded 05/29/21 17:20) Itching/Hives/Rash unknown statin Allergy (Mild, Uncoded 05/29/21 17:20) Unknown Home Medications: Amoxicillin 2 cap PO SEECOM 06/03/21 Aspirin [Lo-Dose Aspirin EC] 81 mg PO DAILY 06/03/21 Atenolol [Tenormin] 2 tab PO DAILY 06/03/21 Calcium W/ D 1200mg 1 cap PO DAILY 06/03/21 Cholecalciferol (Vitamin D3) [Vitamin D3] 1,000 unit PO DAILY 06/03/21 Codeine/APAP [Tylenol #3*] 1 tab PO TID PRN 06/03/21 Cyanocobalamin (Vitamin B-12) [Vitamin B12] 100 mcg PO DAILY 06/03/21 Forteo 20mcg 1 ea SQ DAILY 06/03/21 Glucosamine/Chondr Desai A Sod [Osteo Bi-Flex Caplet] 1 each PO DAILY 06/03/21 Hydroxyurea [Hydrea*] 2 cap PO SEECOM 06/03/21 Levothyroxine Sodium [Synthroid] 0.1 mg PO DAILY 06/03/21 Lidocaine 4% Patch [Lidoderm 5% Patch*] 1 patch TD DAILY 06/03/21 Losartan Potassium [Cozaar] 50 mg PO BID 06/03/21 Tumeric 1000mg 1 tab PO DAILY 06/03/21 Verapamil HCl [Calan*] 120 mg PO SEECOM 06/03/21 Vit A,C & E/Lutein/Minerals [Ocuvite Tablet] 1 tab PO DAILY 06/03/21 Vitamin E (Dl,Tocopheryl Acet) [Vitamin E] 800 unit PO DAILY 06/03/21 Zolpidem Tartrate [Ambien] 5 mg PO BEDTIME 06/03/21 hydroCHLOROthiazide [Hydrochlorothiazide] 12.5 mg PO DAILY 06/03/21 Esomeprazole Mag Trihydrate [Nexium] 40 mg PO DAILY 30 Days #30 capsule. 06/04/21 Review of Systems General: Unremarkable Eyes: Unremarkable ENT: Unremarkable Respiratory: Unremarkable Cardiovascular: Chest Pain, As per HPI Gastrointestinal: Unremarkable Genitourinary: Unremarkable Musculoskeletal: Unremarkable Integumentary: Unremarkable Neurological: Unremarkable <Ishan Coronado - Last Filed: 05/29/21 15:57> Physical Examination - Physical Exam General: Alert, In no apparent distress, Oriented x3 HEENT: Atraumatic, Normocephalic Neck: Supple Respiratory: Clear to auscultation bilaterally Cardiovascular: No edema, Normal pulses Capillary refill: <2 Seconds Gastrointestinal: Hypoactive, Soft and benign Musculoskeletal: No clubbing, No swelling, No contractures Integumentary: No rashes, No breakdown Neurological: Normal speech, Normal strength at 5/5 x4 extr, Normal tone External genitalia: Deferred Rectal: Deferred - Studies Laboratory Data (last 24 hrs) 05/29/21 10:27: PT 11.2, INR 0.97 05/29/21 10:27: WBC 3.70 L, Hgb 8.5 L, Hct 24.6 L, Plt Count 351 05/29/21 10:27: Sodium 138, Potassium 3.5, BUN 26 H, Creatinine 0.94, Glucose 124 H, Magnesium 1.9, Total Bilirubin 0.6, AST 43 H, ALT 62, Alkaline Phosphatase 58 <Ishan Coronado - Last Filed: 05/29/21 15:57> Assessment and Plan Discharge Plan: Home Plan to discharge in: 48 Hours - Advance Directives Does patient have a Living Will: No Does patient have a Durable POA for Healthcare: No - Code Status/Comfort Care Code Status Assessed: Yes Code Status: Full Code Critical Care: No Time Spent Managing Pts Care (In Minutes): 55 <Ishan Coronado - Last Filed: 05/29/21 15:57> - Problems (Diagnosis) (1) Chest pain Status: Acute (2) GERD (gastroesophageal reflux disease) Status: Acute (3) History of ITP Status: Acute (4) Symptomatic anemia Status: Acute <Samson Lay - Last Filed: 06/05/21 12:08> Date of Service: 05/29/21 Agree with plan of care as mentioned above. Patient will be ruled out for acute coronary syndrome. Physical exam: Vitals: Reviewed Cardiovascular: Regular rate rhythm no murmur Lungs: Clear bilaterally Extremities: No edema Neuro: No focal deficits Assessment/plan: 1. Chest pain rule out acute coronary syndrome-patient will be ruled out and we will monitor labs closely. <Samson Lay - Last Filed: 06/05/21 12:08>
[2021-05-29] MEDS: ENOXAPARIN 40 MG/0.4 ML SQ SCH (16:00)
[2021-05-29 16:21] LABS: Anisocytosis 1+; Blood Morphology Comment NOTED (NOT SEEN); Platelet Estimate ADEQ; Poikilocytosis 2+; White Blood Cell Scan OK (OK)
[2021-05-29] MEDS ORDERED: CEFTRIAXONE/SWI 1gm 1 GM/10 ML SYR ONE (16:51)
[2021-05-29] MEDS ORDERED: hydroCHLOROthiazide 12.5 MG CAP PO SCH (17:00)
[2021-05-29] MEDS: CEFTRIAXONE/SWI 1gm 1 GM/10 ML SYR IVP SCH (17:00)
[2021-05-29] MEDS ORDERED: atenoloL 25 MG TAB PO SCH (17:30)
[2021-05-29] MEDS ORDERED: VERAPAMIL HCL 120 MG TAB PO SCH (17:30)
[2021-05-29] MEDS ORDERED: ENOXAPARIN 40 MG/0.4 ML SQ ONE (17:50)
[2021-05-30 03:42] LABS: Absolute Lymphocytes (CBC) 1.3 K/uL (0.7-4.9); Basophils % 0.6 % (0-1.3); Lymphocytes % 42.1 % (15.3-44.8); MPV 8.5 fL (7.6-11.3); RBC Red Blood Cell Count 1.66 M/uL (3.86-4.86)
[2021-05-30 04:12] LABS: Bilirubin Total 0.3 mg/dL (0.2-1.0); Potassium 3.6 mmol/L (3.5-5.1); Protein, Total 7.1 g/dL (6.4-8.2)
[2021-05-30] MEDS ORDERED: LEVOTHYROXINE SOD 0.1 MG TAB PO SCH (06:00)
[2021-05-30 06:18] VITALS: BMI 18.4
[2021-05-30 07:07] LABS: Folic Acid, (Folate) 10.1 ng/mL (3.1-17.5)
[2021-05-30] MEDS ORDERED: CEFTRIAXONE/SWI 1gm 1 GM/10 ML SYR ONE (08:09)
[2021-05-30] MEDS ORDERED: ENOXAPARIN 40 MG/0.4 ML SQ ONE (08:09)
[2021-05-30] MEDS: CEFTRIAXONE/SWI 1gm 1 GM/10 ML SYR IVP SCH (08:49)
[2021-05-30] MEDS: ENOXAPARIN 40 MG/0.4 ML SQ SCH (08:49)
[2021-05-30] MEDS ORDERED: ONDANSETRON 4 MG/2 ML VIAL ONE (09:34)
[2021-05-30] MEDS ORDERED: MORPHINE 2 MG/ML SYR ONE (09:34)
[2021-05-30 09:54] VITALS: O2SAT 98
--- NOTE | 2021-05-30 10:26 | EKG ---
Test Date: 2021-05-29 Test Time: 10:25:10 Defensive Secondary Coach: JOSH MEASUREMENT RESULTS: Intervals: Rate: 73 WA: 142 QRSD: 98 QT: 396 QTc: 436 Hope: P: 95 WA: 142 QRS: 48 T: 65 INTERPRETIVE STATEMENTS: Sinus rhythm with premature atrial complexes Otherwise normal ECG Compared to ECG 03/04/2021 23:13:49 Atrial premature complex(es) now present Sinus bradycardia no longer present Left ventricular hypertrophy no longer present T-wave abnormality no longer present Electronically Signed On 05-30-21 10:22:18 CDT by Jomar Valles
[2021-05-30 12:56] LABS: Ferritin 787.7 ng/mL (8-388)
[2021-05-30 13:47] VITALS: BP 150/72; TEMP 98.1
[2021-05-30 13:59] LABS: Absolute Lymphocytes (CBC) 1.2 K/uL (0.7-4.9); Basophils % 0.4 % (0-1.3); Lymphocytes % 35.9 % (15.3-44.8); MPV 8.8 fL (7.6-11.3); RBC Red Blood Cell Count 1.73 M/uL (3.86-4.86)
--- NOTE | 2021-06-05 12:04 | P.DS ---
Discharge Date: 05/30/21 Primary Care Provider: Radha Gale Disposition: ROUTINE DISCHARGE Discharge Condition: GOOD Reason for Admission: Chest Pain Brief History of Present Illness: The patient reports being woken between 2 and 3 AM with right-sided chest pain which gradually moved to the left side of her chest. She describes the chest pain as being constant and rates it at 8 out of 10. She had no other symptoms during this episode other than the discomfort. She waited at home until 10AM because she thought that the pain might be related to musculoskeletal problems. But when the pain did not resolve she decided to come to the emergency room. Currently she rates her pain at 7 out of 10. She does appear comfortable. Her son notes that she has had previous instances similar to this. Hospital Course: Patient has done well during hospital stay. Patient was ruled out for acute coronary syndrome. Patient was anemic but hemoglobin is stable. Spoke to a deputy county attorney and they will follow with patient as an outpatient. Cardiology will also see the patient for further testing. At this time, patient is stable for discharge home. Vital Signs/Physical Exam: Temp Pulse Resp BP Pulse Ox 98.1 F 75 16 150/72 H 100 05/30/21 13:46 05/30/21 13:46 05/30/21 13:46 05/30/21 13:46 05/30/21 13:46 General: Alert, In no apparent distress, Oriented x3 Laboratory Data at Discharge: WBC 3.30 K/uL (4.3-10.9) L 05/30/21 13:34 Hgb 7.8 g/dL (12.0-15.0) L 05/30/21 13:34 Hct 23.0 % (36.0-45.0) L 05/30/21 13:34 Plt Count 362 K/uL (152-406) 05/30/21 13:34 PT 11.2 SECONDS (9.5-12.5) 05/29/21 10:27 INR 0.97 05/29/21 10:27 Sodium 142 mmol/L (136-145) 05/30/21 03:30 Potassium 3.6 mmol/L (3.5-5.1) 05/30/21 03:30 BUN 25 mg/dL (7-18) H 05/30/21 03:30 Creatinine 0.85 mg/dL (0.55-1.3) 05/30/21 03:30 Glucose 104 mg/dL (74-106) 05/30/21 03:30 Magnesium 1.9 mg/dL (1.8-2.4) 05/29/21 10:27 Total Bilirubin 0.3 mg/dL (0.2-1.0) 05/30/21 03:30 AST 39 U/L (15-37) H 05/30/21 03:30 ALT 61 U/L (12-78) 05/30/21 03:30 Alkaline Phosphatase 51 U/L (45-117) 05/30/21 03:30 Troponin I < 0.02 ng/mL (0.0-0.045) 05/29/21 17:30 Triglycerides 239 mg/dL (<150) H 05/30/21 03:30 Cholesterol 164 mg/dL (<200) 05/30/21 03:30 HDL Cholesterol 26 mg/dL (40-60) L 05/30/21 03:30 Cholesterol/HDL Ratio 6.31 05/30/21 03:30 Home Medications: Amoxicillin 2 cap PO SEECOM 06/03/21 Aspirin [Lo-Dose Aspirin EC] 81 mg PO DAILY 06/03/21 Atenolol [Tenormin] 2 tab PO DAILY 06/03/21 Calcium W/ D 1200mg 1 cap PO DAILY 06/03/21 Cholecalciferol (Vitamin D3) [Vitamin D3] 1,000 unit PO DAILY 06/03/21 Codeine/APAP [Tylenol #3*] 1 tab PO TID PRN 06/03/21 Cyanocobalamin (Vitamin B-12) [Vitamin B12] 100 mcg PO DAILY 06/03/21 Forteo 20mcg 1 ea SQ DAILY 06/03/21 Glucosamine/Chondr Desai A Sod [Osteo Bi-Flex Caplet] 1 each PO DAILY 06/03/21 Hydroxyurea [Hydrea*] 2 cap PO SEECOM 06/03/21 Levothyroxine Sodium [Synthroid] 0.1 mg PO DAILY 06/03/21 Lidocaine 4% Patch [Lidoderm 5% Patch*] 1 patch TD DAILY 06/03/21 Losartan Potassium [Cozaar] 50 mg PO BID 06/03/21 Tumeric 1000mg 1 tab PO DAILY 06/03/21 Verapamil HCl [Calan*] 120 mg PO SEECOM 06/03/21 Vit A,C & E/Lutein/Minerals [Ocuvite Tablet] 1 tab PO DAILY 06/03/21 Vitamin E (Dl,Tocopheryl Acet) [Vitamin E] 800 unit PO DAILY 06/03/21 Zolpidem Tartrate [Ambien] 5 mg PO BEDTIME 06/03/21 hydroCHLOROthiazide [Hydrochlorothiazide] 12.5 mg PO DAILY 06/03/21 Esomeprazole Mag Trihydrate [Nexium] 40 mg PO DAILY 30 Days #30 capsule. 06/04/21 Physician Discharge Instructions: OK TO DC IV AND DC HOME FOLLOW-UP WITH PRIMARY CARE PROVIDER IN 1-2 WEEKS FOLLOW-UP WITH Hematology and Cardiology IN 1-2 WEEKS RETURN TO THE ER IF symptoms worsen CALL or TEXT DR. FUNES AT [phone] IF ANY QUESTIONS REGARDING HOSPITAL STAY. PLEASE CALL THE FLOOR AT [phone] IF ANY MEDICATION OR NURSING QUESTIONS. Diet: AHA Activity: Fall precautions Followup: Unknown,U [Primary Care Provider] - (Call to schedule appointment)
== END 2021-05-30 15:15 | disposition home or self-care (01) | DRG 313 ==
LOC: ER 09:50 → ERHOLD 14:36 → 4TH 05-30 12:46
PROVIDERS: ADMIT Hospitalist; ATTEND Hospitalist
DX: R07.9 Chest pain, unspecified (principal); D69.3 Immune thrombocytopenic purpura; D64.9 Anemia, unspecified; I10 Essential (primary) hypertension; Z20.822 Contact with and (suspected) exposure to COVID-19
CPT/HCPCS: 36415; 71045; 71275; 80048; 80053; 80061; 80076; 81003; 82607; 82728; 82746; 83540; 83735; 83880; 84439; 84443; 84466; 84484; 85025; 85044; 85610; 86850; 86900; 86901; 93005; 94760; 99285; J0696; J1650; J2270; J2405; J7040; Q9967; U0003

== ENCOUNTER 2021-06-03 11:35 | Observation (INO) | payer OTHER ==
[2021-06-03 12:14] LABS: Absolute Lymphocytes (CBC) 1.4 K/uL (0.7-4.9); Basophils % 0.4 % (0-1.3); Hematocrit 22.5 % (36.0-45.0); Lymphocytes % 26.3 % (15.3-44.8); MPV 8.6 fL (7.6-11.3); RBC Red Blood Cell Count 1.66 M/uL (3.86-4.86)
[2021-06-03 12:21] LABS: Protime INR 1.02
[2021-06-03 12:41] LABS: ALT/SGPT 72 U/L (12-78); AST/SGOT 45 U/L (15-37); Albumin 3.4 g/dL (3.4-5.0); Alkaline Phosphatase 60 U/L (45-117); BUN Blood Urea Nitrogen 30 mg/dL (7-18); Bicarbonate 25 mmol/L (21-32); Bilirubin Direct 0.2 mg/dL (0-0.2); Bilirubin Total 0.9 mg/dL (0.2-1.0); Glucose Level 177 mg/dL (74-106); NT PRO-BNP 1631 pg/mL (<450); Potassium 3.4 mmol/L (3.5-5.1); Protein, Total 7.9 g/dL (6.4-8.2); Sodium Level 138 mmol/L (136-145); Troponin (Emerg Dept Use Only) < 0.02 ng/mL (0.0-0.045)
--- NOTE | 2021-06-03 12:58 | RAD REPORT ---
EXAM DESCRIPTION: RAD - Chest Single View - 06/03/2021 12:42 pm CLINICAL HISTORY: CHEST PAIN Chest pain. COMPARISON: Chest Single View dated 05/29/2021; Chest Single View dated 08/24/2018; Chest Single View dated 06/06/2017; CHEST SINGLE VIEW dated 03/07/2015; Chest For Pe Angio dated 05/29/2021 FINDINGS: Portable technique limits examination quality. The lungs are emphysematous grossly clear. The heart is normal in size. No displaced fractures. IMPRESSION: COPD.
[2021-06-03] MEDS ORDERED: METOCLOPRAMIDE 10 MG/2mL INJ ONE (13:00)
[2021-06-03] MEDS ORDERED: KETOROLAC 30 MG/ML INJ ONE (13:00)
[2021-06-03] MEDS ORDERED: NA CHLORIDE 0.9% 1,000 ML ONE (13:00)
--- NOTE | 2021-06-03 15:06 | EDPHYS ---
Physician Documentation [facility] Name: Carmen Ewing Age: 81 yrs Sex: Female : 1940 Arrival Date: 06/03/2021 Time: 11:41 Bed 14 Private MD: ED Physician Samson Taylor HPI: 06/03 12:21 This 81 yrs old Female presents to ER via Ambulatory with complaints of Chest ma2 Pain, Headache, Dizziness. 12:21 The patient or guardian reports chest pain that is located primarily in the substernal ma2 area. Onset: gradually, 1 day(s) ago. Severity of pain: At its worst the pain was mild in the emergency department the pain is unchanged. The patient has experienced similar episodes in the past. Patient was discharged from the hospital 3 days ago she had generalized body ache including chest discomfort abdominal pain, diarrhea, dehydration, decreased p.o. intake. 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 She did had a chance to follow-up with a specialist yet. Historical: - Allergies: 11:50 Niacin; ll1 - Home Meds: 20:29 Calan 120 mg Oral tab 2 tab daily [Active]; atenolol 25 mg Oral tab 2 tabs once daily df1 [Active]; cozar 50mg daily daily [Active]; hydrochlorothiazide 12.5 mg Oral cap 1 cap once daily [Active]; Nexium 40 mg Oral cpDR 1 cap once daily [Active]; tylenol #3 TID PRN [Active]; zolpidem 5 mg Oral tab 1 tab once daily [Active]; Lidoderm 5 % Topical ptmd 1 patch once daily [Active]; aspirin 81 mg Oral tab [Active]; hydrea 500mg 2 cap on Sun,Wed 1 Cap on Mon, e, ,Sat [Active]; forteo 20mcg 1 injection daily [Active]; calcium Vit D 1200mg daily [Active]; vitamin E 800 unit Oral cap daily [Active]; Vitamin B-12 100 mcg Oral tab daily [Active]; vitamin D3 1000 I.U. daily [Active]; Tumeric 1000mg daily [Active]; Osteo Bi-Flex oral daily [Active]; - PMHx: 11:50 Hypertension; Osteoporosis; Pulmonary Embolism; shingles; Irritable bowel syndrome; ll1 Hypothyroidism; neuropathy; ITP; thrombocythemia; - Immunization history:: Client reports receiving the 2nd dose of the Covid vaccine, 3 doses Flu vaccine is up to date. - Social history:: Smoking status: Patient denies any tobacco usage or history of. - Family history:: not pertinent. ROS: 12:21 Constitutional: Negative for fever, chills, and weight loss. ma2 12:21 All other systems are negative. Exam: 12:21 Constitutional: This is a well developed, well nourished patient who is awake, alert, ma2 and in no acute distress. Head/Face: Normocephalic, atraumatic. Eyes: Pupils equal round and reactive to light, extra-ocular motions intact. Lids and lashes normal. Conjunctiva and sclera are non-icteric and not injected. Cornea within normal limits. Periorbital areas with no swelling, redness, or edema. ENT: Nares patent. No nasal discharge, no septal abnormalities noted. Tympanic membranes are normal and external auditory canals are clear. Oropharynx with no redness, swelling, or masses, exudates, or evidence of obstruction, uvula midline. Mucous membranes moist. Neck: Trachea midline, no thyromegaly or masses palpated, and no cervical lymphadenopathy. Supple, full range of motion without nuchal rigidity, or vertebral point tenderness. No Meningismus. Chest/axilla: Normal chest wall appearance and motion. Nontender with no deformity. No lesions are appreciated. Cardiovascular: Regular rate and rhythm with a normal S1 and S2. No gallops, murmurs, or rubs. Normal PMI, no JVD. No pulse deficits. Respiratory: Lungs have equal breath sounds bilaterally, clear to auscultation and percussion. No rales, rhonchi or wheezes noted. No increased work of breathing, no retractions or nasal flaring. Abdomen/GI: Soft, non-tender, with normal bowel sounds. No distension or tympany. No guarding or rebound. No evidence of tenderness throughout. Skin: Warm, dry with normal turgor. Normal color with no rashes, no lesions, and no evidence of cellulitis. MS/ Extremity: Pulses equal, no cyanosis. Neurovascular intact. Full, normal range of motion. Neuro: Awake and alert, GCS 15, oriented to person, place, time, and situation. Cranial nerves II-XII grossly intact. Motor strength 5/5 in all extremities. Sensory grossly intact. Cerebellar exam normal. Normal gait. Vital Signs: 11:50 BP 121 / 73; Pulse 74; Resp 16; Temp 97.7; Pulse Ox 99% ; Weight 50.35 kg; Height 5 ft. ll1 6 in. (167.64 cm); Pain 8/10; 12:10 BP 124 / 63; Pulse 77; Resp 20; Pulse Ox 100% on R/A; es2 16:24 BP 136 / 85; Pulse 77; Resp 18; Temp 98.0; Pulse Ox 94% on R/A; es2 16:29 BP 164 / 88; Pulse 67; Resp 16; Temp 98.2; Pulse Ox 100% on R/A; es2 17:24 BP 154 / 72; Pulse 72; Resp 19; Temp 98.3; Pulse Ox 99% on R/A; es2 18:24 BP 163 / 88; Pulse 66; Resp 20; Temp 98.7; Pulse Ox 100% on R/A; es2 11:50 Body Mass Index 17.92 (50.35 kg, 167.64 cm) ll1 MDM: 11:49 Patient medically screened. mi2 12:22 Differential diagnosis: abnormal EKG, acute pericarditis, anxiety, gastroesophageal ma2 reflux disease (GERD), stable angina. 14:51 Data reviewed: vital signs, nurses notes. Counseling: I had a detailed discussion with ma2 the patient and/or guardian regarding: the historical points, exam findings, and any diagnostic results supporting the discharge/admit diagnosis, the presence of at least one elevated blood pressure reading (>120/80) during this emergency department visit, lab results, radiology results, the need for outpatient follow up, the need for further work-up and treatment in the hospital. ED course: Had symptomatic anemia hemoglobin 7.7 with severe fatigue, headache and also dehydrated. Will transfuse 2 units packed RBC and admit. . 06/03 11:49 Order name: Basic Metabolic Panel; Complete [facility]: 13:04 [facility] 06/03 11:49 Order name: CBC with Diff; Complete Time: 17:56 [facility] 06/03 11:49 Order name: LFT's; Complete Time: 13:04 [facility] 06/03 11:49 Order name: Magnesium; Complete Time: 13:04 [facility] 06/03 11:49 Order name: NT PRO-BNP; Complete Time: 13:04 [facility] 06/03 11:49 Order name: PT-INR; Complete Time: 13:04 [facility] 06/03 11:49 Order name: Troponin (emerg Dept Use Only); Complete Time: 13:04 [facility] 06/03 11:49 Order name: XRAY Chest (1 view); Complete Time: 13: [facility] 06/03 14:35 Order name: Type And Screen kg 06/03 14:57 Order name: Packed RBC Leukored [facility] 06/03 15:59 Order name: CBC Smear Scan; Complete Time: 17:56 [facility] 06/03 18:38 Order name: COVID-19 : Document "Date of Symptom Onset" if Symptomatic. 06/03 18:38 Order name: CORONAVIRUS [facility] 06/03 19:56 Order name: SARS-COV-2 RT PCR [facility] 06/03 11:49 Order name: EKG; Complete Time: 11:49 [facility] 06/03 11:49 Order name: Cardiac monitoring; Complete Time: 13:27 [facility] 06/03 11:49 Order name: EKG - Nurse/Tech; Complete Time: 13:27 [facility] 06/03 11:49 Order name: IV Saline Lock; Complete Time: 12:09 [facility] 06/03 11:49 Order name: Labs collected and sent; Complete Time: 12:09 [facility] 06/03 11:49 Order name: O2 Per Protocol; Complete Time: 19:53 [facility] 06/03 11:49 Order name: O2 Sat Monitoring; Complete Time: 19:53 ma2 Administered Medications: 12:43 Drug: NS 0.9% 1000 ml Route: IV; Rate: 1 bolus; Site: left antecubital; es2 13:27 Follow up: Response: No adverse reaction es2 18:41 Follow up: IV Status: Completed infusion es2 19:52 Follow up: IV Status: Completed infusion; IV Intake: 1000ml df1 12:43 Drug: Ketorolac 30 mg Route: IVP; Site: left antecubital; es2 13:27 Follow up: Response: No adverse reaction es2 19:53 Follow up: Response: Pain is decreased df1 12:43 Drug: Reglan (metoCLOPramide) 20 mg Route: IVP; Site: left antecubital; es2 13:26 Follow up: Response: No adverse reaction es2 Disposition Summary: 06/03/21 15:05 Hospitalization Ordered Hospitalization Status: Observation ma2 Provider: Dallas Tran Location: Telemetry/MedSurg (observation) ma2 Condition: Stable ma2 Problem: new ma2 Symptoms: are unchanged ma2 Bed/Room Type: [facility] Room Assignment: 219(06/03/21 20:08) Diagnosis - Anemia, unspecified ma2 Forms: - Medication Reconciliation Form ma2 - SBAR form ma2 Signatures: Dispatcher [employer] EDLissa Mejia RN RN Samson Taylor MD MD ma2 Amber Liu RN RN ll1 Ishan Coronado Dawn df1 Anya Dial RN RN es2 Corrections: (The following items were deleted from the chart) 20:08 15:05 mi2
--- NOTE | 2021-06-03 15:06 | ER ---
Nurse's Notes [facility] Name: Carmen Ewing Age: 81 yrs Sex: Female : 1940 Arrival Date: 06/03/2021 Time: 11:41 Bed 14 Private MD: Diagnosis: Anemia, unspecified Presentation: 06/03 11:50 Chief complaint: Patient states: CP continues since her visit here Saturday. + HERR and ll1 dizziness. Coronavirus screen: Vaccine status: Patient reports receiving the 2nd dose of the covid vaccine. 3 doses Client denies travel out of the [place] in the last 14 days. headache, Client presents with at least one sign or symptom that may indicate coronavirus-19. Standard/surgical mask placed on the client. Ebola Screen: Patient denies travel to an Ebola-affected area in the 21 days before illness onset. Initial Sepsis Screen: Does the patient meet any 2 criteria? No. Patient's initial sepsis screen is negative. Does the patient have a suspected source of infection? No. Patient's initial sepsis screen is negative. Risk Assessment: Do you want to hurt yourself or someone else? Patient reports no desire to harm self or others. Onset of symptoms was May 29, 2021. 11:50 Method Of Arrival: Ambulatory ll1 11:50 Acuity: ARTHUR 3 ll1 20:20 Note Blood transfusion started. df1 21:03 Note see paper charting for vital signs. df1 Triage Assessment: 12:18 General: Appears slender, well groomed, well developed, well nourished, Behavior is es2 calm, cooperative, appropriate for age. Pain: Complains of pain in back and chest Pain. Historical: - Allergies: 11:50 Niacin; ll1 - Home Meds: 20:29 Calan 120 mg Oral tab 2 tab daily [Active]; atenolol 25 mg Oral tab 2 tabs once daily df1 [Active]; cozar 50mg daily daily [Active]; hydrochlorothiazide 12.5 mg Oral cap 1 cap once daily [Active]; Nexium 40 mg Oral cpDR 1 cap once daily [Active]; tylenol #3 TID PRN [Active]; zolpidem 5 mg Oral tab 1 tab once daily [Active]; Lidoderm 5 % Topical ptmd 1 patch once daily [Active]; aspirin 81 mg Oral tab [Active]; hydrea 500mg 2 cap on Sun,Wed 1 Cap on Mon, e, ,Sat [Active]; forteo 20mcg 1 injection daily [Active]; calcium Vit D 1200mg daily [Active]; vitamin E 800 unit Oral cap daily [Active]; Vitamin B-12 100 mcg Oral tab daily [Active]; vitamin D3 1000 I.U. daily [Active]; Tumeric 1000mg daily [Active]; Osteo Bi-Flex oral daily [Active]; - PMHx: 11:50 Hypertension; Osteoporosis; Pulmonary Embolism; shingles; Irritable bowel syndrome; ll1 Hypothyroidism; neuropathy; ITP; thrombocythemia; - Immunization history:: Client reports receiving the 2nd dose of the Covid vaccine, 3 doses Flu vaccine is up to date. - Social history:: Smoking status: Patient denies any tobacco usage or history of. - Family history:: not pertinent. Screenin:18 Abuse screen: Denies threats or abuse. Denies injuries from another. Nutritional es2 screening: No deficits noted. Tuberculosis screening: No symptoms or risk factors identified. Fall Risk Mental Status- Oriented to own ability (0 pts). Assessment: 12:10 Pain: Complains of pain in chest Pain radiates to back and chest Pain currently is 8 es2 out of 10 on a pain scale. Pain began gradually. Neuro: Level of Consciousness is awake, alert, obeys commands, Oriented to person, place, time, situation, Appropriate for age Speech is normal. Cardiovascular: Reports recent chest pain that radiates from front to back. currently c/o headache, dizziness and fatigue. Capillary refill < 3 seconds Patient's skin is warm and dry. Respiratory: Airway is patent Respiratory effort is even, unlabored, Respiratory pattern is regular, symmetrical. GI: No signs and/or symptoms were reported involving the gastrointestinal system. : No signs and/or symptoms were reported regarding the genitourinary system. EENT: No signs and/or symptoms were reported regarding the EENT system. Derm: Skin temperature is warm. Musculoskeletal: Capillary refill < 3 seconds. Vital Signs: 11:50 BP 121 / 73; Pulse 74; Resp 16; Temp 97.7; Pulse Ox 99% ; Weight 50.35 kg; Height 5 ft. ll1 6 in. (167.64 cm); Pain 8/10; 12:10 BP 124 / 63; Pulse 77; Resp 20; Pulse Ox 100% on R/A; es2 16:24 BP 136 / 85; Pulse 77; Resp 18; Temp 98.0; Pulse Ox 94% on R/A; es2 16:29 BP 164 / 88; Pulse 67; Resp 16; Temp 98.2; Pulse Ox 100% on R/A; es2 17:24 BP 154 / 72; Pulse 72; Resp 19; Temp 98.3; Pulse Ox 99% on R/A; es2 18:24 BP 163 / 88; Pulse 66; Resp 20; Temp 98.7; Pulse Ox 100% on R/A; es2 11:50 Body Mass Index 17.92 (50.35 kg, 167.64 cm) 1 ED Course: 11:41 Patient arrived in ED. mr 11:45 Anya Dial, KATHY is Primary Nurse. es2 11:49 Samson Taylor MD is Attending Physician. ma2 11:49 Arm band placed on Patient placed in an exam room, on a stretcher. ll1 11:52 Triage completed. ll1 12:09 No provider procedures requiring assistance completed. Inserted saline lock: 20 gauge es2 in left antecubital area, using aseptic technique. Blood collected. Patient maintains SpO2 saturation greater than 95% on room air. 12:17 Patient has correct armband on for positive identification. Bed in low position. Call es2 light in reach. Side rails up X2. 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 Pulse ox on. NIBP on. es2 12:42 XRAY Chest (1 view) In Process Unspecified. EDMS 14:43 Type And Screen Sent. kg 15:05 Dallas Tran is Hospitalizing Provider. ma2 19:52 COVID-19 : Document "Date of Symptom Onset" if Symptomatic. Sent. df1 19:52 CORONAVIRUS Sent. df1 21:04 Patient admitted, IV remains in place. df1 Administered Medications: 12:43 Drug: NS 0.9% 1000 ml Route: IV; Rate: 1 bolus; Site: left antecubital; es2 13:27 Follow up: Response: No adverse reaction es2 18:41 Follow up: IV Status: Completed infusion es2 19:52 Follow up: IV Status: Completed infusion; IV Intake: 1000ml df1 12:43 Drug: Ketorolac 30 mg Route: IVP; Site: left antecubital; es2 13:27 Follow up: Response: No adverse reaction es2 19:53 Follow up: Response: Pain is decreased df1 12:43 Drug: Reglan (metoCLOPramide) 20 mg Route: IVP; Site: left antecubital; es2 13:26 Follow up: Response: No adverse reaction es2 Intake: 19:52 IV: 1000ml; Total: 1000ml. df1 Outcome: 15:05 Decision to Hospitalize by Provider. ma2 21:04 Admitted to Med/surg accompanied by nurse. df1 21:04 Condition: stable 21:04 Instructed on the need for admit. 21:41 Patient left the ED. df1 Signatures: Dispatcher [employer] SANTOSH LenTrinidadmeganSamson MD MD ma2 Amber Liu RN RN 1 Mary Cottrell RN RN kg Furlich, Dawn df1 Anya Dial RN RN es2
[2021-06-03 15:59] LABS: Anisocytosis 1+; Blood Morphology Comment NOTED (NOT SEEN); Macrocytosis 3+; Platelet Estimate INCR; Polychromasia SLIGHT; Target Cells 1+; White Blood Cell Scan OK (OK)
[2021-06-03] MEDS ORDERED: NA CHLORIDE 0.9% 250 ML ONE (16:38)
--- NOTE | 2021-06-03 18:19 | P.HP ---
Certification for Inpatient Patient admitted to: Observation With expected LOS: >2 Midnights Patient will require the following post-hospital care: None Practitioner: I am a practitioner with admitting privileges, knowledge of patient current condition, hospital course, and medical plan of care. Services: Services provided to patient in accordance with Admission requirements found in Title 42 Section 412.3 of the Code of Federal Regulations Patient History Date of Service: 06/03/21 Primary Care Provider: Radha Gale Reason for admission: Anemia, Atypical Chest Pain History of Present Illness: Chest Single View - 06/03/2021 12:42 pm CLINICAL HISTORY: CHEST PAIN COMPARISON: Chest Single View dated 05/29/2021; Chest Single View dated 08/24/2018; Chest Single View dated 06/06/2017; CHEST SINGLE VIEW dated 03/07/2015; Chest For Pe Angio dated 05/29/2021 FINDINGS: The lungs are emphysematous grossly clear. The heart is normal in size. No displaced fractures. IMPRESSION: COPD. Patient is an 81-year-old white female who was seen on 05/29 for anemia and atypical chest pain and malaise. She was admitted and then discharged home. She was doing fairly well until last night when she developed abdominal discomfort and vomited twice. She states she felt dehydrated and weak. Because she was dizzy and lightheaded she felt she could not remain at home. She did note mild chest discomfort on arrival. Her labs are remarkable for BNP of 1631, hemoglobin of 7.7, hematocrit of 22.5, and platelets of 439. Blood sugar slightly elevated at 177 otherwise labs are essentially within normal. Allergies nicin drugs Allergy (Mild, Uncoded 05/29/21 17:20) Itching/Hives/Rash unknown statin Allergy (Mild, Uncoded 05/29/21 17:20) Unknown Home medications list reviewed: Yes Home Medications: Cholecalciferol (Vitamin D3) [Vitamin D3] 1,000 unit PO DAILY 09/19/16 Codeine/APAP [Tylenol W/Codeine #3 tab] 1 tab PO TIDP PRN 09/19/16 Curcumin 1,000 mg PO DAILY 09/19/16 Esomeprazole Mag Trihydrate [Nexium] 40 mg PO DAILY 09/19/16 Levothyroxine [Synthroid] 100 mcg PO [id number] 09/19/16 Lidocaine 4% Patch [Lidoderm 5% Patch] 1 patch TD DAILY 09/19/16 Losartan Potassium [Cozaar] 50 mg PO BID 09/19/16 Jackson-3 Acid Ethyl Esters [Lovaza] 1 gm PO BID 09/19/16 Prolia 1 dose IJ ONCE 09/19/16 Verapamil HCl [Calan] 120 mg PO DAILY AFTER SUPPER 09/19/16 Verapamil HCl [Calan] 240 mg PO DAILY WITH BREAKFAST 09/19/16 Vit A/Vit C/Vit E/Zinc/Copper [Icaps Areds Softgel] 2 tab PO DAILY 09/19/16 Zolpidem Tartrate [Ambien] 5 mg PO BEDTIME 09/19/16 atenoloL [Tenormin] 25 mg PO DAILY AFTER SUPPER 09/19/16 atenoloL [Tenormin] 50 mg PO DAILY WITH BREAKFAST 09/19/16 hydroCHLOROthiazide [Hydrochlorothiazide*] 12.5 mg PO M,W,F 09/19/16 Calcium Carb/Vitamin D3/Vit K1 [Calcium + D Soft Chewable Tab] 1,200 mg PO DAILY 09/22/16 Cyanocobalamin (Vitamin B-12) [Vitamin B-12] 100 mcg PO DAILY 09/22/16 Glucosamine/D3/Boswellia Geeta [Osteo Bi-Flex Tablet] 1 each PO DAILY 09/22/16 Polyethylene Glycol 3350 [Miralax] 17 gm PO DAILYPRN PRN 09/22/16 Vitamin E 800 unit PO DAILY 09/22/16 - Past Medical/Surgical History Diabetic: No -: HTN -: IBS -: Neuropathy -: OA -: Shingles -: ITP -: Pneumonia -: Atypical Chest Pain -: Anemia -: Splenectomy -: Hysterectomy -: Appy -: Bladder supension -: Jonas Cataract sx Psychosocial/ Personal History: Retired, lives at home with Son. - Family History Father -: Heart disease, Hypertension, Stroke, Other (see notes) Notes: parkinson's Mother -: Heart disease, Hypertension, GI disease, Cancer, Other (see notes) Notes: Breast Cancer, TIA Sister -: Heart disease - Social History Smoking Status: Never smoker Alcohol use: No CD- Drugs: No Caffeine use: Yes Place of Residence: Home Review of Systems 10-point ROS is otherwise unremarkable General: Weakness, Malaise, As per HPI Eyes: Unremarkable ENT: Unremarkable Respiratory: SOB with Excertion Cardiovascular: Chest Pain (Atypical) Gastrointestinal: Nausea, Vomiting, Abdominal Pain Genitourinary: Unremarkable Musculoskeletal: Unremarkable Integumentary: Unremarkable Neurological: Weakness Lymphatics: Unremarkable Physical Examination - Physical Exam General: Alert, Oriented x3, Cooperative HEENT: Atraumatic, Normocephalic, PERRLA Neck: Supple, JVD not distended Respiratory: Clear to auscultation bilaterally, Normal air movement Cardiovascular: No edema, Regular rate/rhythm, Normal S1 S2 Capillary refill: Brisk Gastrointestinal: Soft and benign, Non-distended Musculoskeletal: No swelling, No contractures, No erythema Integumentary: No rashes, No breakdown Neurological: Normal speech, Normal strength at 5/5 x4 extr, Normal tone External genitalia: Deferred Rectal: Deferred - Studies Laboratory Data (last 24 hrs) 06/03/21 12:04: PT 11.7, INR 1.02 06/03/21 12:04: WBC 5.20 D, Hgb 7.7 L, Hct 22.5 L, Plt Count 439 H D 06/03/21 12:04: Sodium 138, Potassium 3.4 L, BUN 30 H, Creatinine 1.20, Glucose 177 H, Magnesium 2.0, Total Bilirubin 0.9, AST 45 H, ALT 72, Alkaline Phosphatase 60 Assessment and Plan - Plan Assessment: Anemia CP Nausea and Vomiting Plan: Anemia: Pt being transfused in ER. Following discharge continue iron and folic acid. Be sure to make visit with Heme-Onc. CP: Tylenol for mild pain, Tylenol 3 for significant pain. Nausea and Vomiting: Zofran 4mg PRN. Resume normal diet when able. DVT PPx: Lovenox 40mg SQ CODE STATUS: Full Code Discharge Plan: Home Plan to discharge in: 24 Hours - Advance Directives Does patient have a Living Will: No Does patient have a Durable POA for Healthcare: No - Code Status/Comfort Care Code Status Assessed: Yes Code Status: Full Code Critical Care: No Time Spent Managing Pts Care (In Minutes): 70
[2021-06-03] MEDS ORDERED: NA CHLORIDE 0.9% 100 ML ONE (20:20)
[2021-06-03] MEDS ORDERED: ONDANSETRON 4 MG/2 ML VIAL IV PRN (20:51)
[2021-06-03] MEDS ORDERED: ACETAMINOPHEN 500 MG TAB PO PRN (20:51)
[2021-06-03] MEDS: NA CHLORIDE 0.9% 1,000 ML IV SCH (22:49)
[2021-06-03] MEDS: LOSARTAN POTASSIUM 50 MG TABLET PO SCH (23:20)
[2021-06-04] MEDS: CODEINE 30MG/APAP 300MG TAB PO PRN ×2 (00:31→08:31)
[2021-06-04 01:40] VITALS: BMI 17.9
[2021-06-04] MEDS ORDERED: FAMOTIDINE 20 MG TAB PO ONE (01:49)
[2021-06-04] MEDS: HYDRALAZINE HCL 20 MG/ML VIAL IV PRN ×2 (02:27→13:21)
[2021-06-04 05:51] LABS: Absolute Lymphocytes (CBC) 0.7 K/uL (0.7-4.9); Basophils % 0.2 % (0-1.3); Lymphocytes % 11.9 % (15.3-44.8); MPV 8.9 fL (7.6-11.3)
[2021-06-04] MEDS ORDERED: atenoloL 50 MG TAB PO SCH (06:00)
[2021-06-04 06:05] LABS: Bilirubin Total 0.9 mg/dL (0.2-1.0); Potassium 3.8 mmol/L (3.5-5.1)
[2021-06-04] MEDS: NA CHLORIDE 0.9% 1,000 ML IV SCH ×2 (06:25→12:30)
[2021-06-04] MEDS ORDERED: LEVOTHYROXINE SOD 0.1 MG TAB PO SCH (06:30)
[2021-06-04] MEDS: LOSARTAN POTASSIUM 50 MG TABLET PO SCH (08:24)
[2021-06-04] MEDS ORDERED: ENOXAPARIN 30 MG/0.3 ML SQ SCH (09:00)
--- NOTE | 2021-06-04 12:51 | P.DS ---
Admission Date: 06/03/21 Discharge Date: 06/04/21 Primary Care Provider: Radha Gale Disposition: ROUTINE DISCHARGE Discharge Condition: FAIR Reason for Admission: Anemia, Atypical Chest Pain - Problems (1) Chest pain Current Visit: Yes Status: Acute (2) GERD (gastroesophageal reflux disease) Current Visit: Yes Status: Acute (3) History of ITP Current Visit: Yes Status: Acute (4) Symptomatic anemia Current Visit: Yes Status: Acute Brief History of Present Illness: 81-year-old woman who was seen on 05/29 for anemia and atypical chest pain and malaise. She was admitted and then discharged home. She was doing fairly well until she developed abdominal discomfort and vomited twice. She states she felt dehydrated and weak. Because she was dizzy and lightheaded she felt she could not remain at home. She did note mild chest discomfort. Her labs are in the ED: BNP of 1631, hemoglobin of 7.7, hematocrit of 22.5, and platelets of 439. Blood sugar slightly elevated at 177 otherwise labs are essentially within normal. Patient placed under observation for further management. Hospital Course: Patient placed under observation on the medical floor. Her initial troponin was negative. She was given 2 units PRBC transfusion for hemoglobin of 7.7. Posttransfusion hemoglobin is up to 10. Patient reported running out of her Nexium. She reported regurgitation and heart burn last night. Her symptoms is likely related to GERD and symptomatic anemia. Symptoms have resolved. Vital stable. 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 Vital Signs/Physical Exam: Temp Pulse Resp BP Pulse Ox 98.4 F 69 18 152/71 H 99 06/04/21 08:00 06/04/21 08:00 06/04/21 08:31 06/04/21 08:00 06/04/21 08:31 General: Alert, In no apparent distress, Oriented x3 HEENT: Mucous membr. moist/pink Neck: JVD not distended Respiratory: Clear to auscultation bilaterally, Normal air movement Cardiovascular: No edema, Regular rate/rhythm, Normal S1 S2 Gastrointestinal: Soft and benign, Non-distended Musculoskeletal: No swelling, No tenderness Integumentary: No rashes, No erythema, No cyanosis Neurological: Normal speech, Normal strength at 5/5 x4 extr, Cranial nerves 3-12 intact Laboratory Data at Discharge: WBC 5.50 K/uL (4.3-10.9) 06/04/21 05:02 Hgb 10.2 g/dL (12.0-15.0) L D 06/04/21 05:02 Hct 29.0 % (36.0-45.0) L D 06/04/21 05:02 Plt Count 366 K/uL (152-406) 06/04/21 05:02 PT 11.7 SECONDS (9.5-12.5) 06/03/21 12:04 INR 1.02 06/03/21 12:04 Sodium 139 mmol/L (136-145) 06/04/21 05:02 Potassium 3.8 mmol/L (3.5-5.1) 06/04/21 05:02 BUN 27 mg/dL (7-18) H 06/04/21 05:02 Creatinine 0.84 mg/dL (0.55-1.3) 06/04/21 05:02 Glucose 132 mg/dL (74-106) H 06/04/21 05:02 Magnesium 2.0 mg/dL (1.8-2.4) 06/03/21 12:04 Total Bilirubin 0.9 mg/dL (0.2-1.0) 06/04/21 05:02 AST 36 U/L (15-37) 06/04/21 05:02 ALT 62 U/L (12-78) 06/04/21 05:02 Alkaline Phosphatase 52 U/L (45-117) 06/04/21 05:02 Home Medications: Amoxicillin 2 cap PO SEECOM 06/03/21 Aspirin [Lo-Dose Aspirin EC] 81 mg PO DAILY 06/03/21 Atenolol [Tenormin] 2 tab PO DAILY 06/03/21 Calcium W/ D 1200mg 1 cap PO DAILY 06/03/21 Cholecalciferol (Vitamin D3) [Vitamin D3] 1,000 unit PO DAILY 06/03/21 Codeine/APAP [Tylenol #3*] 1 tab PO TID PRN 06/03/21 Cyanocobalamin (Vitamin B-12) [Vitamin B12] 100 mcg PO DAILY 06/03/21 Forteo 20mcg 1 ea SQ DAILY 06/03/21 Glucosamine/Chondr Desai A Sod [Osteo Bi-Flex Caplet] 1 each PO DAILY 06/03/21 Hydroxyurea [Hydrea*] 2 cap PO SEECOM 06/03/21 Levothyroxine Sodium [Synthroid] 0.1 mg PO DAILY 06/03/21 Lidocaine 4% Patch [Lidoderm 5% Patch*] 1 patch TD DAILY 06/03/21 Losartan Potassium [Cozaar] 50 mg PO BID 06/03/21 Tumeric 1000mg 1 tab PO DAILY 06/03/21 Verapamil HCl [Calan*] 120 mg PO SEECOM 06/03/21 Vit A,C & E/Lutein/Minerals [Ocuvite Tablet] 1 tab PO DAILY 06/03/21 Vitamin E (Dl,Tocopheryl Acet) [Vitamin E] 800 unit PO DAILY 06/03/21 Zolpidem Tartrate [Ambien] 5 mg PO BEDTIME 06/03/21 hydroCHLOROthiazide [Hydrochlorothiazide] 12.5 mg PO DAILY 06/03/21 Esomeprazole Mag Trihydrate [Nexium] 40 mg PO DAILY #30 06/04/21 New Medications: Esomeprazole Mag Trihydrate [Nexium] 40 mg PO DAILY #30 Diet: AHA Activity: Ad chirag Followup: EYAD CASTANO [Primary Care Provider] -
[2021-06-04 13:01] VITALS: BP 172/77; TEMP 97.4
[2021-06-04 15:35] VITALS: O2SAT 98
[2021-06-04 17:08] LABS: Urine Appearance CLEAR (Clear); Urine Bilirubin NEGATIVE (Negative); Urine Blood NEGATIVE (Negative); Urine Color YELLOW (Yellow); Urine Glucose NEGATIVE (Negative); Urine Protein TRACE (Negative); Urine Urobilinogen 0.2 mg/dL (0.2-1.0); Urine pH 6.5 (5.0-7.0)
[2021-06-04 17:13] LABS: Urine Microscopic Reflex ORDER UMIC
[2021-06-04 17:22] LABS: Urine Bacteria <20 /HPF (<20)
[2021-06-05] MEDS ORDERED: hydroCHLOROthiazide 12.5 MG CAP PO SCH (09:00)
== END 2021-06-04 14:42 | disposition home or self-care (01) ==
LOC: ER 11:35 → ERHOLD 18:51 → 2ND 20:39
PROVIDERS: ADMIT Internal Medicine; ATTEND Internal Medicine
PROC: 30233N1 Transfusion of Nonautologous Red Blood Cells into Peripheral Vein, Percutaneous Approach (ICD-10-PCS; principal; 2021-06-03)
DX: D64.9 Anemia, unspecified (principal); R07.89 Other chest pain; K21.9 Gastro-esophageal reflux disease without esophagitis; D69.3 Immune thrombocytopenic purpura; R11.2 Nausea with vomiting, unspecified; I10 Essential (primary) hypertension; K58.9 Irritable bowel syndrome, unspecified; G62.9 Polyneuropathy, unspecified; M19.90 Unspecified osteoarthritis, unspecified site; E03.9 Hypothyroidism, unspecified; M81.0 Age-related osteoporosis without current pathological fracture; J44.9 Chronic obstructive pulmonary disease, unspecified; Z20.822 Contact with and (suspected) exposure to COVID-19; Z87.01 Personal history of pneumonia (recurrent); Z86.711 Personal history of pulmonary embolism; Z86.73 Personal history of transient ischemic attack (TIA), and cerebral infarction without residual deficits; Z88.8 Allergy status to other drugs, medicaments and biological substances; Z90.81 Acquired absence of spleen; Z90.710 Acquired absence of both cervix and uterus; Z82.49 Family history of ischemic heart disease and other diseases of the circulatory system; Z82.0 Family history of epilepsy and other diseases of the nervous system; Z80.3 Family history of malignant neoplasm of breast; Z83.79 Family history of other diseases of the digestive system
CPT/HCPCS: 36430; 96361; 93005; 85025 ×2; 80048; 36415; 86900; 83735; 86850; 85610; 86901; 80076; 84484; 80053; 83880; 71045; 96375; 96374; 99285; U0003; J0360 ×2; J2765; J1650; P9016 ×2; J7050; J7030 ×3; J2405; G0378 ×2; 81003; 81015

== ENCOUNTER 2021-09-27 09:16 | Emergency (ER) | payer OTHER ==
--- OUTSIDE RECORDS SUMMARY | 2021-09-27 09:18 | XMS REPORT | Continuity of Care Document ---
:1940 Author Organization [facility] t Address [address] [place] [address] [address] [place] [address] Care Team Providers Name Role Phone PERRY Attending Clinician Unavailable BUCK Attending Clinician Unavailable DEEDEE Attending Clinician Unavailable Problems This patient has no known problems. Allergies, Adverse Reactions, Alerts This patient has no known allergies or adverse reactions. Medications This patient has no known medications. Procedures This patient has no known procedures. Encounters Start End Encounter Admission Attending Care Care Encounter Source Date/Time Date/Time Type Type Clinicians Facility Department ID 2021-08-21 2021-08-21 Outpatient [facility] [id number] [place] 00:00:00 00:00:00 ELLIOT 000 [facility] 2021-08-21 2021-08-21 Outpatient [facility] [id number] [place] 00:00:00 00:00:00 ELLIOT 238 [facility] 2021-06-29 2021-06-29 Outpatient [facility] [id number] [place] 00:00:00 00:00:00 ELLIOT 148 [facility] 2021-06-29 2021-06-29 Outpatient [facility] [id number] [place] 00:00:00 00:00:00 ELLIOT 634 [facility] 2021-06-05 2021-06-05 Outpatient [facility] [id number] [place] 00:00:00 00:00:00 LIYA 875 [facility] 2021-06-01 2021-06-01 Outpatient [facility] [id number] [place] 00:00:00 00:00:00 ELLIOT 974 [facility] 2021-06-01 2021-06-01 Outpatient [facility] [id number] [place] 00:00:00 00:00:00 ELLIOT 084 [facility] 2021-04-13 2021-04-13 Outpatient RICE, H [facility] [id number] [place] 00:00:00 00:00:00 ELLIOT [address] 2021-04-13 2021-04-13 Outpatient RICE, [facility] [id number] [place] 00:00:00 00:00:00 ELLIOT [address] 2021-04-10 2021-04-10 Outpatient BUCK, [facility] [id number] [place] 00:00:00 00:00:00 LIYA [address] 2021-04-10 2021-04-10 Outpatient BUCK, [facility] [id number] [place] 00:00:00 00:00:00 LIYA [address] 2021-04-10 2021-04-10 Outpatient BUCK, [facility] [id number] [place] 00:00:00 00:00:00 LIYA [address] 2021-03-27 2021-03-27 Outpatient BUCK, [facility] [id number] [place] 00:00:00 00:00:00 LIYA [address] 2021-03-09 2021-03-09 Outpatient RICE, [facility] [id number] [place] 00:00:00 00:00:00 ELLIOT [address] 2021-03-09 2021-03-09 Outpatient RICE, [facility] [id number] [place] 00:00:00 00:00:00 ELLIOT [address] 2021-02-16 2021-02-16 Outpatient RICE, [facility] H [id number] [place] 00:00:00 00:00:00 ELLIOT [address] 2021-02-16 2021-02-16 Outpatient RICE, [facility] [id number] [place] 00:00:00 00:00:00 ELLIOT [address] 2020-11-24 2020-11-24 Outpatient RICE, [facility] [id number] [place] 00:00:00 00:00:00 ELLIOT [address] 2020-11-24 2020-11-24 Outpatient RICE, [facility] [id number] [place] 00:00:00 00:00:00 ELLIOT [address] 2020-08-25 2020-08-25 Outpatient RICE, [facility] [id number] [place] 00:00:00 00:00:00 ELLIOT [address] 2020-08-25 2020-08-25 Outpatient RICE, [facility] [id number] [place] 00:00:00 00:00:00 ELLIOT [address] 2020-05-26 2020-05-26 Outpatient RICE, [facility] [id number] [place] 00:00:00 00:00:00 ELLIOT [address] 2020-05-26 2020-05-26 Outpatient RICE, [facility] [id number] [place] 00:00:00 00:00:00 ELLIOT [address] 2020-03-17 2020-03-17 Outpatient RICE, [facility] [id number] [place] 00:00:00 00:00:00 ELLIOT [address] 2020-03-17 2020-03-17 Outpatient RICE, [facility] [id number] [place] 00:00:00 00:00:00 ELLIOT [address] 2020-02-12 2020-02-12 Outpatient BUCK, [facility] [id number] [place] 00:00:00 00:00:00 LIYA [address] 2020-01-22 2020-01-22 Outpatient BUCK, [facility] [id number] [place] 00:00:00 00:00:00 LIYA [address] 2020-01-14 2020-01-14 Outpatient RICE, [facility] [id number] [place] 00:00:00 00:00:00 ELLIOT [address] 2020-01-14 2020-01-14 Outpatient RICE, [facility] [id number] [place] 00:00:00 00:00:00 ELLIOT [address] 2019-12-03 2019-12-03 Outpatient BUCK, [facility] [id number] [place] 00:00:00 00:00:00 LIYA [address] 2019-10-08 2019-10-08 Outpatient MARK, LINDA [facility] [id number] [place] 00:00:00 00:00:[address] 2019-08-24 2019-08-24 Outpatient MARK, LINDA [facility] [id number] [place] 00:00:00 00:00:[address] 2019-08-03 2019-08-03 Outpatient BUCK, [facility] [id number] [place] 00:00:00 00:00:00 LIYA [address] Results This patient has no known results.
[2021-09-27 09:47] LABS: Absolute Lymphocytes (CBC) 1.4 K/uL (0.7-4.9); Hematocrit 34.6 % (36.0-45.0); Lymphocytes % 26.4 % (15.3-44.8); MPV 8.4 fL (7.6-11.3); RBC Red Blood Cell Count 2.89 M/uL (3.86-4.86)
[2021-09-27 09:49] LABS: Protime INR 0.92
[2021-09-27 10:32] LABS: ALT/SGPT 72 U/L (12-78); AST/SGOT 39 U/L (15-37); Albumin 3.1 g/dL (3.4-5.0); Alkaline Phosphatase 83 U/L (45-117); BUN Blood Urea Nitrogen 28 mg/dL (7-18); Bicarbonate 25 mmol/L (21-32); Bilirubin Direct < 0.1 mg/dL (0-0.2); Bilirubin Total 0.3 mg/dL (0.2-1.0); Glucose Level 95 mg/dL (74-106); Magnesium 1.7 mg/dL (1.8-2.4); NT PRO-BNP 309 pg/mL (<450); Potassium 3.4 mmol/L (3.5-5.1); Protein, Total 7.4 g/dL (6.4-8.2); Sodium Level 138 mmol/L (136-145)
--- NOTE | 2021-09-27 11:33 | RAD REPORT ---
EXAM DESCRIPTION: RAD - Chest Single View - 09/27/2021 11:25 am CLINICAL HISTORY: CHEST PAIN COMPARISON: Chest Single View dated 06/03/2021; Chest Single View dated 05/29/2021; Chest Single View dated 08/24/2018; Chest Single View dated 06/06/2017 FINDINGS: Lines: None. Lungs: No evidence of edema or pneumonia. Pleural: No significant pleural effusions or pneumothorax. Cardiac: The heart size is within normal limits. Bones: No acute fractures. Other: IMPRESSION: No acute cardiopulmonary disease.
[2021-09-27 12:02] LABS: Anisocytosis 1+; Blood Morphology Comment NOTED (NOT SEEN); Macrocytosis 2+; Platelet Estimate ADEQ
--- NOTE | 2021-09-27 13:05 | EDPHYS ---
Physician Documentation [facility] Name: Carmen Ewing Age: 81 yrs Sex: Female : 1940 Arrival Date: 09/27/2021 Time: 09:18 Bed 20 Private MD: ED Physician Hector Cornelius HPI: 09/27 15:39 This 81 yrs old Female presents to ER via Ambulatory with complaints of Chest Pain. kdr 15:39 The patient or guardian reports chest pain that is located primarily in the anterior kdr chest wall. She states that she has been having chest pain for the past 2 days. She was in [place] preparing for a wedding when she began to have the pain. She decided that she should come home and get checked out. She denies any other associated symptoms. She is completely nontoxic and not in any acute distress at the time of initial presentation. 15:42 Onset: gradually, 2 day(s) ago. The pain does not radiate. Associated signs and kdr symptoms: The patient has no apparent associated signs or symptoms. The chest pain is described as aching, sharp. Duration: The patient or guardian reports multiple episodes, that are intermittent, that wax and wane, with no pattern. Modifying factors: The symptoms are alleviated by nothing. the symptoms are aggravated by activity. Severity of pain: At its worst the pain was mild moderate today. The patient has not experienced similar symptoms in the past. The patient has not recently seen a physician. Historical: - Allergies: 09:31 Niacin; jd3 - Home Meds: 09:31 aspirin 81 mg Oral tab [Active]; atenolol 25 mg Oral tab 2 tabs once daily [Active]; jd3 Calan 120 mg Oral tab 2 tab daily [Active]; calcium Vit D 1200mg daily [Active]; forteo 20mcg 1 injection daily [Active]; hydrochlorothiazide 12.5 mg Oral cap 1 cap once daily [Active]; Lidoderm 5 % Topical ptmd 1 patch once daily [Active]; Nexium 40 mg Oral cpDR 1 cap once daily [Active]; Osteo Bi-Flex Oral daily [Active]; hydrea 500mg 2 cap on Sun,Wed 1 Cap on Mon, Tue, ,Sat [Active]; tylenol #3 TID PRN [Active]; Vitamin B-12 100 mcg Oral tab daily [Active]; vitamin D3 1000 I.U. daily [Active]; Tumeric 1000mg daily [Active]; vitamin E 800 unit Oral cap daily [Active]; cozar 50mg daily daily [Active]; zolpidem 5 mg Oral tab 1 tab once daily [Active]; - PMHx: 09:31 Pulmonary Embolism; neuropathy; Irritable bowel syndrome; Hypertension; ITP; jd3 Osteoporosis; shingles; thrombocythemia; Hypothyroidism; - Immunization history:: Adult Immunizations up to date, Client reports receiving the 2nd dose of the Covid vaccine. - Social history:: Smoking status: Patient denies any tobacco usage or history of. ROS: 15:42 Constitutional: Negative for fever, chills, and weight loss, Eyes: Negative for injury, kdr pain, redness, and discharge, Neck: Negative for injury, pain, and swelling, Cardiovascular: Negative for chest pain, palpitations, and edema, Respiratory: Negative for shortness of breath, cough, wheezing, and pleuritic chest pain, Abdomen/GI: Negative for abdominal pain, nausea, vomiting, diarrhea, and constipation, Back: Negative for injury and pain, : Negative for injury, bleeding, discharge, and swelling, MS/Extremity: Negative for injury and deformity, Skin: Negative for injury, rash, and discoloration, Neuro: Negative for headache, weakness, numbness, tingling, and seizure activity. Psych: Negative for depression, anxiety, suicide ideation, homicidal ideation, and hallucinations, Allergy/Immunology: Negative for hives, rash, and allergies, Endocrine: Negative for neck swelling, polydipsia, polyuria, polyphagia, and marked weight changes, Hematologic/Lymphatic: Negative for swollen nodes, abnormal bleeding, and unusual bruising. Exam: 10:51 ECG was reviewed by the Attending Physician. kdr 15:42 Constitutional: This is a well developed, well nourished patient who is awake, alert, kdr and in no acute distress. Head/Face: Normocephalic, atraumatic. Eyes: Pupils equal round and reactive to light, extra-ocular motions intact. Lids and lashes normal. Conjunctiva and sclera are non-icteric and not injected. Cornea within normal limits. Periorbital areas with no swelling, redness, or edema. ENT: Nares patent. No nasal discharge, no septal abnormalities noted. Tympanic membranes are normal and external auditory canals are clear. Oropharynx with no redness, swelling, or masses, exudates, or evidence of obstruction, uvula midline. Mucous membranes moist. Neck: Trachea midline, no thyromegaly or masses palpated, and no cervical lymphadenopathy. Supple, full range of motion without nuchal rigidity, or vertebral point tenderness. No Meningismus. Chest/axilla: Normal chest wall appearance and motion. Nontender with no deformity. No lesions are appreciated. Cardiovascular: Regular rate and rhythm with a normal S1 and S2. No gallops, murmurs, or rubs. Normal PMI, no JVD. No pulse deficits. Respiratory: Lungs have equal breath sounds bilaterally, clear to auscultation and percussion. No rales, rhonchi or wheezes noted. No increased work of breathing, no retractions or nasal flaring. Abdomen/GI: Soft, non-tender, with normal bowel sounds. No distension or tympany. No guarding or rebound. No evidence of tenderness throughout. Back: No spinal tenderness. No costovertebral tenderness. Full range of motion. Skin: Warm, dry with normal turgor. Normal color with no rashes, no lesions, and no evidence of cellulitis. MS/ Extremity: Pulses equal, no cyanosis. Neurovascular intact. Full, normal range of motion. Neuro: Awake and alert, GCS 15, oriented to person, place, time, and situation. Cranial nerves II-XII grossly intact. Motor strength 5/5 in all extremities. Sensory grossly intact. Cerebellar exam normal. Normal gait. Psych: Awake, alert, with orientation to person, place and time. Behavior, mood, and affect are within normal limits. Vital Signs: 09:32 BP 159 / 62; Pulse 65; Resp 16 S; Temp 98.2(O); Pulse Ox 98% on R/A; Weight 48.99 kg jd3 (R); Height 5 ft. 6 in. (167.64 cm) (R); Pain 8/10; 10:15 BP 156 / 76; Pulse 63; Resp 18; Pulse Ox 99% on R/A; spring 11:47 BP 169 / 88; Pulse 59; Resp 16; Pulse Ox 100% on R/A; spring 12:55 BP 158 / 122; Pulse 58; Resp 18; Pulse Ox 95% ; spring 09:32 Body Mass Index 17.43 (48.99 kg, 167.64 cm) jd3 MDM: 13:04 Patient medically screened. kdr 15:48 Data reviewed: vital signs, nurses notes, lab test result(s), radiologic studies. kdr Counseling: I had a detailed discussion with the patient and/or guardian regarding: the historical points, exam findings, and any diagnostic results supporting the discharge/admit diagnosis, lab results, radiology results, the need for outpatient follow up. 09/27 09:28 Order name: Basic Metabolic Panel [facility] 09/27 09:28 Order name: CBC with Diff; Complete Time: 12:54 [facility] 09/27 09:28 Order name: LFT's; Complete Time: 12:54 [facility] 09/27 09:28 Order name: Magnesium; Complete Time: 12:54 [facility] 09/27 09:28 Order name: NT PRO-BNP; Complete Time: 12:54 [facility] 09/27 09:28 Order name: PT-INR; Complete Time: 12:54 [facility] 09/27 09:28 Order name: Troponin HS; Complete Time: 12:54 [facility] 09/27 09:28 Order name: XRAY Chest (1 view); Complete Time: 12:54 [facility] 09/27 09:28 Order name: EKG; Complete Time: :29 [facility] 09/27 09:28 Order name: Cardiac monitoring; Complete Time: :29 [facility] 09/27 09:28 Order name: EKG - Nurse/Tech; Complete Time: 09:29 [facility] 09/27 09:29 Order name: Basic Metabolic Panel; Complete Time: 12:54 [facility] 09/27 12:02 Order name: Manual Differential; Complete Time: 12:54 [facility] 09/27 09:28 Order name: IV Saline Lock; Complete Time: : kdr 09/27 09:28 Order name: Labs collected and sent; Complete Time: : [facility] 09/27 09:28 Order name: O2 Per Protocol; Complete Time: : [facility] 09/27 09:28 Order name: O2 Sat Monitoring; Complete Time: : kdr EC:51 Rate is 62 beats/min. Rhythm is regular, Normal Sinus Rhythm with No ectopy. QRS [place] kdr is Normal. IN interval is normal. QRS interval is normal. QT interval is normal. No Q waves. Clinical impression: Normal ECG. Administered Medications: No medications were administered Disposition Summary: 09/27/21 13:04 Discharge Ordered Location: Home kdr Problem: new kdr Symptoms: have improved kdr Condition: Stable kdr Diagnosis - Chest pain, unspecified kdr Followup: kdr - With: Private Physician - When: 2 - 3 days - Reason: If symptoms return, Further diagnostic work-up, Recheck today's complaints, Continuance of care, Re-evaluation by your physician Discharge Instructions: - Discharge Summary Sheet kdr - Chest Wall Pain, [id number] kdr - Nonspecific Chest Pain, Adult, [id number] kdr Forms: - Medication Reconciliation Form kdr - Thank You Letter kdr - Antibiotic Education kdr - Prescription Opioid Use kdr Prescriptions: - Pepcid 20 mg Oral Tablet - take 1 tablet by ORAL route every 12 hours for 10 days; 20 tablet; Refills: 0, kdr Product Selection Permitted - Tramadol 50 mg Oral Tablet - take 1 tablet by ORAL route every 8 hours as needed; 12 tablet; Refills: 0, kdr Product Selection Permitted Signatures: Dispatcher [employer] Hector Moulton MD MD kdr Davies, Jonathon RN RN jd3
--- NOTE | 2021-09-27 13:05 | ER ---
Nurse's Notes [facility] Name: Carmen Ewing Age: 81 yrs Sex: Female : 1940 Arrival Date: 09/27/2021 Time: 09:18 Bed 20 Private MD: Diagnosis: Chest pain, unspecified Presentation: 09/27 09:29 Chief complaint: Patient states: "I started having chest pain yesterday that was mild jd3 before I got on my flight. I decided I should go back home and come get seen.". Coronavirus screen: At this time, the client does not indicate any symptoms associated with coronavirus-19. Ebola Screen: Patient negative for fever greater than or equal to 101.5 degrees Fahrenheit, and additional compatible Ebola Virus Disease symptoms No symptoms or risks identified at this time. Initial Sepsis Screen: Does the patient meet any 2 criteria? No. Patient's initial sepsis screen is negative. Does the patient have a suspected source of infection? No. Patient's initial sepsis screen is negative. Risk Assessment: Do you want to hurt yourself or someone else? Patient reports no desire to harm self or others. Onset of symptoms was September 26, 2021. 09:29 Method Of Arrival: Ambulatory jd3 09:29 Acuity: ARTHUR 2 jd3 Triage Assessment: 11:49 General: Appears in no apparent distress. Behavior is calm, cooperative. Pain: spring Complains of pain in chest. Cardiovascular: Reports chest pain, Capillary refill < 3 seconds Pulses are all present. Historical: - Allergies: 09:31 Niacin; jd3 - Home Meds: 09:31 aspirin 81 mg Oral tab [Active]; atenolol 25 mg Oral tab 2 tabs once daily [Active]; jd3 Calan 120 mg Oral tab 2 tab daily [Active]; calcium Vit D 1200mg daily [Active]; forteo 20mcg 1 injection daily [Active]; hydrochlorothiazide 12.5 mg Oral cap 1 cap once daily [Active]; Lidoderm 5 % Topical ptmd 1 patch once daily [Active]; Nexium 40 mg Oral cpDR 1 cap once daily [Active]; Osteo Bi-Flex Oral daily [Active]; hydrea 500mg 2 cap on Sat,Wed 1 Cap on Mon, e, ,Sat [Active]; tylenol #3 TID PRN [Active]; Vitamin B-12 100 mcg Oral tab daily [Active]; vitamin D3 1000 I.U. daily [Active]; Tumeric 1000mg daily [Active]; vitamin E 800 unit Oral cap daily [Active]; cozar 50mg daily daily [Active]; zolpidem 5 mg Oral tab 1 tab once daily [Active]; - PMHx: 09:31 Pulmonary Embolism; neuropathy; Irritable bowel syndrome; Hypertension; ITP; jd3 Osteoporosis; shingles; thrombocythemia; Hypothyroidism; - Immunization history:: Adult Immunizations up to date, Client reports receiving the 2nd dose of the Covid vaccine. - Social history:: Smoking status: Patient denies any tobacco usage or history of. Screenin:48 Abuse screen: Denies threats or abuse. Denies injuries from another. Nutritional spring screening: No deficits noted. Tuberculosis screening: No symptoms or risk factors identified. Fall Risk Assessment: 11:49 Pain: Pain does not radiate. Pain began gradually. spring Vital Signs: 09:32 BP 159 / 62; Pulse 65; Resp 16 S; Temp 98.2(O); Pulse Ox 98% on R/A; Weight 48.99 kg jd3 (R); Height 5 ft. 6 in. (167.64 cm) (R); Pain 8/10; 10:15 BP 156 / 76; Pulse 63; Resp 18; Pulse Ox 99% on R/A; spring 11:47 BP 169 / 88; Pulse 59; Resp 16; Pulse Ox 100% on R/A; spring 12:55 BP 158 / 122; Pulse 58; Resp 18; Pulse Ox 95% ; spring 09:32 Body Mass Index 17.43 (48.99 kg, 167.64 cm) [facility] ED Course: 09:18 Patient arrived in ED. ds1 09:28 Hector Cornelius MD is Attending Physician. kdr 09:31 Triage completed. jd3 09:32 Arm band placed on. EKG completed in triage. Results shown to . jd3 09:58 Basic Metabolic Panel Sent. spring 11:25 XRAY Chest (1 view) In Process Unspecified. EDMS 11:48 Patient has correct armband on for positive identification. Placed in gown. Bed in low spring position. lunchroom monitor on. Pulse ox on. NIBP on. 11:48 No provider procedures requiring assistance completed. Inserted saline lock: 20 gauge spring in right antecubital area, using aseptic technique. Patient maintains SpO2 saturation greater than 95% on room air. 13:26 IV discontinued, intact, Pressure dressing applied. spring Administered Medications: No medications were administered Outcome: 13:04 Discharge ordered by . kdr 13:25 Discharged to home spring 13:25 Condition: good 13:25 Discharge instructions given to patient, Prescriptions given X 2. 13:26 Patient left the ED. spring Signatures: Dispatcher [employer] EDMS Hector Cornelius MD MD [facility] Marlen Metz ds1 Bassam Rascon RN RN jd3 Au-StagerBeulah RN RN spring Corrections: (The following items were deleted from the chart) 09:36 09:29 Ebola Screen: Patient negative for fever greater than or equal to 101.5 degrees jd3 Fahrenheit, and additional compatible Ebola Virus Disease symptoms jd3
[2021-09-27 13:39] VITALS: TEMP 98.2
[2021-09-27 13:43] VITALS: BP 158/122; O2SAT 95
== END 2021-09-27 13:26 | disposition home or self-care (01) ==
LOC: ER 09:16
DX: R07.9 Chest pain, unspecified (principal); I10 Essential (primary) hypertension; E03.9 Hypothyroidism, unspecified; Z79.82 Long term (current) use of aspirin; Z91.048 Other nonmedicinal substance allergy status
CPT/HCPCS: 36415; 71045; 80048; 80076; 83735; 83880; 84484; 85025; 85610; 93005; 99285

== ENCOUNTER 2022-05-13 08:32 | Emergency (ER) | payer OTHER ==
--- OUTSIDE RECORDS SUMMARY | 2022-05-13 08:35 | XMS REPORT | Continuity of Care Document ---
:[address] [facility] t Address [address] [place] [address] [address]. [address] [place] [address] Care Team Providers Name Role Phone ELLIOT AMADOR Attending Clinician Unavailable LIYA JANE Attending Clinician Unavailable LINDA MARK Attending Clinician Unavailable Problems This patient has no known problems. Allergies, Adverse Reactions, Alerts This patient has no known allergies or adverse reactions. Medications This patient has no known medications. Procedures This patient has no known procedures. Encounters Start End Encounter Admission Attending Care Care Encounter Source Date/Time Date/Time Type Type Clinicians Facility Department ID 2022-04-05 2022-04-05 Outpatient [facility] [id number] 00:00:00 00:00:00 ELLIOT 487 [place] 2022-04-05 2022-04-05 Outpatient [facility] [id number] [facility] 00:00:00 00:00:00 ELLIOT 243 [place] 2022-01-11 2022-01-11 Outpatient [facility], [facility] [id number] [facility] 00:00:00 00:00:00 LIYA 868 [facility] 2021-12-14 2021-12-14 Outpatient [facility] [id number] [facility] 00:00:00 00:00:00 ELLIOT 522 [place] 2021-12-14 2021-12-14 Outpatient [facility] [id number] [facility] 00:00:00 00:00:00 ELLIOT 076 [place] 2021-12-14 2021-12-14 Outpatient [facility], [facility] [id number] [facility] 00:00:00 00:00:00 LIYA 758 [facility] 2021-08-21 2021-08-21 Outpatient [facility] [id number] [facility] 00:00:00 00:00:00 ELLIOT 000 [place] 2021-08-21 2021-08-21 Outpatient RICE, [facility] [id number] [facility] 00:00:00 00:00:[address] ELLIOT [address] 2021-06-29 2021-06-29 Outpatient RICE, [facility] [id number] [facility] 00:00:00 00:00:00 ELLIOT [address] 2021-06-29 2021-06-29 Outpatient RICE, [facility] [id number] [facility] 00:00:00 00:00:[address]OT [address] 2021-06-05 2021-06-05 Outpatient BUCK, [facility] [id number] [facility] 00:00:00 00:00:00 LIYA [address] 2021-06-01 2021-06-01 Outpatient RICE, [facility] [id number] [facility] 00:00:00 00:00:[address] ELLI[address] 2021-06-01 2021-06-01 Outpatient RICE, [facility] [id number] [facility] 00:00:00 00:00:[address] 2021-04-13 2021-04-13 Outpatient RICE, [facility] [id number] [facility] 00:00:00 00:00:00 ELLIOT [address] 2021-04-13 2021-04-13 Outpatient RICE, [facility] [id number] [facility] 00:00:00 00:00:00 ELLIOT [address] 2021-04-10 2021-04-10 Outpatient BUCK, [facility] [id number] [facility] 00:00:00 00:00:00 LIYA [address] 2021-04-10 2021-04-10 Outpatient BUCK, [facility] [id number] [facility] 00:00:00 00:00:00 LIYA [address] 2021-04-10 2021-04-10 Outpatient BUCK, [facility] [id number] [facility] 00:00:00 00:00:00 LIYA [address] 2021-03-27 2021-03-27 Outpatient BUCK, [facility] [id number] [facility] 00:00:00 00:00:00 LIYA [address] 2021-03-09 2021-03-09 Outpatient RICE, [facility] [id number] [facility] 00:00:00 00:00:00 ELLIOT 599 [place] 2021-03-09 2021-03-09 Outpatient RICE, [facility] [id number] [facility] 00:00:00 00:00:00 ELLIOT 365 [place] 2021-02-16 2021-02-16 Outpatient RICE, [facility] [id number] [facility] 00:00:00 00:00:00 ELLIOT 302 [place] 2021-02-16 2021-02-16 Outpatient RICE, [facility] [id number] [facility] 00:00:00 00:00:00 ELLIOT 706 [place] 2020-11-24 2020-11-24 Outpatient RICE, [facility] [id number] [facility] 00:00:00 00:00:00 ELLIOT 611 [place] 2020-11-24 2020-11-24 Outpatient RICE, [facility] [id number] [facility] 00:00:00 00:00:00 ELLIOT 646 [place] 2020-08-25 2020-08-25 Outpatient RICE, [facility] [id number] [facility] 00:00:00 00:00:00 ELLIOT 154 [place] 2020-08-25 2020-08-25 Outpatient RICE, [facility] [id number] [facility] 00:00:00 00:00:00 ELLIOT 808 [place] 2020-05-26 2020-05-26 Outpatient RICE, [facility] [id number] [facility] 00:00:00 00:00:00 ELLIOT 167 [place] 2020-05-26 2020-05-26 Outpatient RICE, [facility] [id number] [facility] 00:00:00 00:00:00 ELLIOT 853 [place] 2020-03-17 2020-03-17 Outpatient RICE, [facility] [id number] [facility] 00:00:00 00:00:00 ELLIOT 358 [place] 2020-03-17 2020-03-17 Outpatient RICE, [facility] [id number] [facility] 00:00:00 00:00:00 ELLIOT 587 [place] 2020-02-12 2020-02-12 Outpatient BUCK, [facility] [id number] [facility] 00:00:00 00:00:00 LIYA 941 [facility] 2020-01-22 2020-01-22 Outpatient BUCK, [facility] [id number] [facility] 00:00:00 00:00:00 LIYA [address] 2020-01-14 2020-01-14 Outpatient PERRY, [facility] [id number] [facility] 00:00:00 00:00:00 ELLIOT [address] 2020-01-14 2020-01-14 Outpatient PERRY, [facility] [id number] [facility] 00:00:00 00:00:00 ELLIOT [address] 2019-12-03 2019-12-03 Outpatient BUCK, [facility] [id number] [facility] 00:00:00 00:00:00 LIYA [address] 2019-10-08 2019-10-08 Outpatient LINDA MARK [facility] [id number] [facility] 00:00:00 00:00:[address] 2019-08-24 2019-08-24 Outpatient LINDA MARK [facility] [id number] [facility] 00:00:00 00:00:[address] 2019-08-03 2019-08-03 Outpatient BUCK, [facility] [id number] [facility] 00:00:00 00:00:00 LIYA [address] Results This patient has no known results.
[2022-05-13 09:08] LABS: Absolute Lymphocytes (CBC) 1.7 K/uL (0.7-4.9); Hematocrit 32.6 % (36.0-45.0); Lymphocytes % 43.6 % (15.3-44.8); MCV 117.7 fL (80-100); MPV 8.2 fL (7.6-11.3); RBC Red Blood Cell Count 2.77 M/uL (3.86-4.86)
[2022-05-13 09:56] LABS: Albumin 3.3 g/dL (3.4-5.0); Bilirubin Total 0.6 mg/dL (0.2-1.0); Ferritin 146.9 ng/mL (8-388); Magnesium 1.9 mg/dL (1.8-2.4); Potassium 3.3 mmol/L (3.5-5.1); Protein, Total 7.5 g/dL (6.4-8.2); Troponin High Sensitivity 4.1 pg/mL (<58.9)
[2022-05-13] MEDS ORDERED: POTASSIUM 25 MEQ EFFERV TAB ONE (10:13)
[2022-05-13 10:25] LABS: Anisocytosis SLIGHT; Blood Morphology Comment NOTED (NOT SEEN); Macrocytosis 2+; Platelet Estimate ADEQ; White Blood Cell Scan OK (OK)
--- NOTE | 2022-05-13 11:05 | EDPHYS ---
Physician Documentation [facility] Name: Carmen Ewing Age: 82 yrs Sex: Female : 1940 Arrival Date: 05/13/2022 Time: 08:35 Bed 20 Private MD: ED Physician Hector Cornelius HPI: 05/13 10:06 This 82 yrs old Female presents to ER via Ambulatory with complaints of chest pain. snw 10:06 The patient or guardian reports chest pain that is located primarily in the anterior snw chest wall, bilaterally. Onset: suddenly, last night. Associated signs and symptoms: The patient has no apparent associated signs or symptoms. The chest pain is described as aching. Duration: The patient or guardian reports a single episode. Severity of pain: At its worst the pain was mild. The patient has experienced similar episodes in the past, multiple times. The patient has not recently seen a physician. Historical: - Allergies: 08:54 Niacin; mb8 - PMHx: 08:54 Hypertension; Hypothyroidism; Irritable bowel syndrome; ITP; neuropathy; Osteoporosis; mb8 Pulmonary Embolism; shingles; thrombocythemia; - Social history:: Smoking status: Patient denies any tobacco usage or history of. ROS: 10:05 Constitutional: Negative for fever, chills, and weight loss, Eyes: Negative for injury, snw pain, redness, and discharge, ENT: Negative for injury, pain, and discharge, Neck: Negative for injury, pain, and swelling, Cardiovascular: Negative for palpitations and edema, positive for anterior chest pain that awoke pt from sleep Respiratory: Negative for shortness of breath, cough, wheezing, and pleuritic chest pain, Abdomen/GI: Negative for abdominal pain, nausea, vomiting, diarrhea, and constipation, Back: Negative for injury and pain, : Negative for injury, bleeding, discharge, and swelling, MS/Extremity: Negative for injury and deformity, Skin: Negative for injury, rash, and discoloration, Neuro: Negative for headache, weakness, numbness, tingling, and seizure. Exam: 11:05 Constitutional: This is a well developed, well nourished patient who is awake, alert, snw and in no acute distress. Head/Face: Normocephalic, atraumatic. Eyes: Pupils equal round and reactive to light, extra-ocular motions intact. Lids and lashes normal. Conjunctiva and sclera are non-icteric and not injected. Cornea within normal limits. Periorbital areas with no swelling, redness, or edema. ENT: Nares patent. No nasal discharge, no septal abnormalities noted. Tympanic membranes are normal and external auditory canals are clear. Oropharynx with no redness, swelling, or masses, exudates, or evidence of obstruction, uvula midline. Mucous membranes moist. Neck: Trachea midline, no thyromegaly or masses palpated, and no cervical lymphadenopathy. Supple, full range of motion without nuchal rigidity, or vertebral point tenderness. No Meningismus. Chest/axilla: Normal chest wall appearance and motion. Nontender with no deformity. No lesions are appreciated. Cardiovascular: Regular rate and rhythm with a normal S1 and S2. No gallops, murmurs, or rubs. Normal PMI, no JVD. No pulse deficits. Respiratory: Lungs have equal breath sounds bilaterally, clear to auscultation and percussion. No rales, rhonchi or wheezes noted. No increased work of breathing, no retractions or nasal flaring. Abdomen/GI: Soft, non-tender, with normal bowel sounds. No distension or tympany. No guarding or rebound. No evidence of tenderness throughout. Back: No spinal tenderness. No costovertebral tenderness. Full range of motion. Skin: Warm, dry with normal turgor. Normal color with no rashes, no lesions, and no evidence of cellulitis. MS/ Extremity: Pulses equal, no cyanosis. Neurovascular intact. Full, normal range of motion. Neuro: Awake and alert, GCS 15, oriented to person, place, time, and situation. Cranial nerves II-XII grossly intact. Motor strength 5/5 in all extremities. Sensory grossly intact. Cerebellar exam normal. Normal gait. Vital Signs: 08:40 BP 163 / 77; Pulse 68; Resp 18 S; Temp 98.6(O); Pulse Ox 99% on R/A; Pain 8/10; mb8 10:06 BP 149 / 71; Pulse 66; Resp 16; Pulse Ox 99% ; mb8 11:16 BP 164 / 99; Pulse 70; Resp 16; Pulse Ox 99% ; mb8 MDM: 08:40 Patient medically screened. snw 10:09 Data reviewed: vital signs, nurses notes. Counseling: I had a detailed discussion with snw the patient and/or guardian regarding: the historical points, exam findings, and any diagnostic results supporting the discharge/admit diagnosis, lab results, the need for outpatient follow up. Special discussion: Based on the patient's history, exam, and Dx evaluation, there is no indication for emergent intervention or inpatient Tx. It is understood by the patient/guardian that if the Sx's persist or worsen they need to return immediately for re-evaluation. I have referred the patient to see his PCP for further evaluation of high blood pressure. ED course: Pt doing well, no complaints. Tolerating oral potassium. Will redraw Trop at 1030 and repeat EKG, will dc home if normal. 10:12 SILVIO Risk Score: 1 - patient's age is greater or equal to 65 years, 1 - Recent [<24hrs] snw Severe Angina. 05/13 08:51 Order name: CBC with Diff; Complete Time: 10:52 snw 05/13 08:51 Order name: Ferritin; Complete Time: 09:58 snw 05/13 08:51 Order name: Troponin High Sensitivity; Complete Time: 09:58 snw 05/13 08:51 Order name: CMP; Complete Time: 09:58 snw 05/13 08:51 Order name: Magnesium; Complete Time: 09:58 snw 05/13 08:51 Order name: PT-INR; Complete Time: 09:36 snw 05/13 08:51 Order name: EKG; Complete Time: 08:52 snw 05/13 08:51 Order name: EKG - Nurse/Tech; Complete Time: 08:52 snw 05/13 08:51 Order name: Ptt, Activated; Complete Time: 09:36 snw 05/13 10:20 Order name: Troponin High Sensitivity; Complete Time: 11:04 snw 05/13 10:20 Order name: EKG - Nurse/Tech; Complete Time: 10:39 snw 05/13 10:26 Order name: CBC Smear Scan; Complete Time: 10:52 EDMS EC:46 Rate is 68 beats/min. Rhythm is regular. QRS [place] is Normal. AR interval is normal. QRS snw interval is normal. QT interval is normal. Clinical impression: Normal ECG and NSR w/ Non-specific ST/T Changes. 10:31 Rate is 67 beats/min. Rhythm is regular. QRS [place] is Normal. AR interval is normal. QRS snw interval is normal. QT interval is normal. No Q waves. T waves are Normal. No ST changes noted. Clinical impression: Normal ECG. Administered Medications: 10:06 Drug: Potassium Effervescent Tablet 25 mEq Route: PO; mb8 10:39 Follow up: Response: No adverse reaction mb8 Disposition: 11:58 Co-signature as Attending Physician, Hector Cornelius MD I agree with the assessment and kdr plan of care. Disposition Summary: 05/13/22 11:05 Discharge Ordered Location: Home snw Condition: Stable snw Diagnosis - Chest pain, unspecified snw - Hypokalemia snw Followup: snw - With: Private Physician - When: 1 - 2 days - Reason: Recheck today's complaints, Continuance of care, Re-evaluation by your physician Followup: snw - With: Emergency Department - When: As needed - Reason: Worsening of condition Discharge Instructions: - Discharge Summary Sheet snw - Nonspecific Chest Pain, Adult snw - Potassium Content of Foods snw - Aspirin and Your Heart snw - Hypokalemia snw Forms: - Medication Reconciliation Form snw - Thank You Letter snw - Antibiotic Education snw - Prescription Opioid Use snw Signatures: Dispatcher [employer] EDMS Hector Cornelius MD MD kdr Waters, Shelly, ELEVATOR INSTALLER-C ELEVATOR INSTALLER-Csnw Nik Michael, RN RN mb8
--- NOTE | 2022-05-13 11:05 | ER ---
Nurse's Notes [facility] Name: Carmen Ewing Age: 82 yrs Sex: Female : 1940 Arrival Date: 05/13/2022 Time: 08:35 Bed 20 Private MD: Diagnosis: Chest pain, unspecified;Hypokalemia Presentation: 05/13 08:40 Chief complaint: Patient states: chest pain started last night, reports it feels like mb8 tightness. Reports similar pain in the past due to low RBCs. Coronavirus screen: Vaccine status: Patient reports receiving the 2nd dose of the covid vaccine. Ebola Screen: Patient negative for fever greater than or equal to 101.5 degrees Fahrenheit, and additional compatible Ebola Virus Disease symptoms Patient denies exposure to infectious person. Patient denies travel to an Ebola-affected area in the 21 days before illness onset. No symptoms or risks identified at this time. Initial Sepsis Screen: Does the patient meet any 2 criteria? No. Patient's initial sepsis screen is negative. Does the patient have a suspected source of infection? No. Patient's initial sepsis screen is negative. Risk Assessment: Do you want to hurt yourself or someone else? Patient reports no desire to harm self or others. Onset of symptoms was May 12, 2022. 08:40 Method Of Arrival: Ambulatory mb8 08:40 Acuity: ARTHUR 3 mb8 Triage Assessment: 08:55 General: Appears in no apparent distress. comfortable, Behavior is calm, cooperative, mb8 appropriate for age. Pain: Complains of pain in chest Pain radiates to back Pain currently is 8 out of 10 on a pain scale. Quality of pain is described as tight. Historical: - Allergies: 08:54 Niacin; mb8 - PMHx: 08:54 Hypertension; Hypothyroidism; Irritable bowel syndrome; ITP; neuropathy; Osteoporosis; mb8 Pulmonary Embolism; shingles; thrombocythemia; - Social history:: Smoking status: Patient denies any tobacco usage or history of. Screenin:57 Abuse screen: Denies threats or abuse. Denies injuries from another. Nutritional mb8 screening: No deficits noted. Tuberculosis screening: No symptoms or risk factors identified. Fall Risk No fall in past 12 months (0 pts). Secondary diagnosis (15 points) IV access (20 points). Ambulatory Aid- None/Bed Rest/Nurse Assist (0 pts). Gait- Normal/Bed Rest/Wheelchair (0 pts) Mental Status- Oriented to own ability (0 pts). Total Estrella Fall Scale indicates Low Risk Score (25-44 pts). Fall prevention measures have been instituted. Side Rails Up X 2 As available Patient and Family Educated on Fall Prevention Program and strategies. Assessment: 08:56 Cardiovascular: Reports chest pain, shortness of breath, Denies nausea, vomiting, mb8 Capillary refill < 3 seconds Pulses are all present. are 3+ in right radial artery, left radial artery, bilateral radial, brachial, femoral, popliteal, posterior tibial and and dorsalis pedis arteries. Chest pain is described as mild, quality is tight is located in left radiates to left back. 10:06 Reassessment: Patient and/or family updated on plan of care and expected duration. Pain mb8 level reassessed. Patient is alert, oriented x 3, equal unlabored respirations, skin warm/dry/pink. Vital Signs: 08:40 BP 163 / 77; Pulse 68; Resp 18 S; Temp 98.6(O); Pulse Ox 99% on R/A; Pain 8/10; mb8 10:06 BP 149 / 71; Pulse 66; Resp 16; Pulse Ox 99% ; mb8 11:16 BP 164 / 99; Pulse 70; Resp 16; Pulse Ox 99% ; mb8 Vitals: 08:58 Cardiac Rhythm Assessment Sinus rhythm. mb8 10:06 Cardiac Rhythm Assessment Sinus rhythm. mb8 ED Course: 08:35 Patient arrived in ED. em1 08:39 [facility] Gutier[facility]C [facility] snw 08:39 Hector Cornelius MD is Attending Physician. snw 08:50 Inserted saline lock: 18 gauge in left antecubital area, using aseptic technique. Blood mb8 collected. 08:52 Nik Michael, KATHY is Primary Nurse. mb8 08:54 Triage completed. mb8 08:56 Arm band placed on. EKG completed in triage. Results shown to MD. mb8 08:57 Patient has correct armband on for positive identification. Placed in gown. Bed in low mb8 position. Call light in reach. Side rails up X2. Client placed on continuous cardiac and pulse oximetry monitoring. NIBP monitoring applied. child monitor on. 08:57 No provider procedures requiring assistance completed. mb8 09:08 Ptt, Activated Sent. mb8 09:08 PT-INR Sent. mb8 09:08 Magnesium Sent. mb8 09:08 Troponin High Sensitivity Sent. mb8 09:08 CMP Sent. mb8 09:08 Ferritin Sent. mb8 09:08 CBC with Diff Sent. mb8 10:39 Troponin High Sensitivity Sent. mb8 11:16 IV discontinued, intact, bleeding controlled, No redness/swelling at site. Pressure mb8 dressing applied. Administered Medications: 10:06 Drug: Potassium Effervescent Tablet 25 mEq Route: PO; mb8 10:39 Follow up: Response: No adverse reaction mb8 Medication: :57 VIS not applicable for this client. mb8 Outcome: 11:05 Discharge ordered by . snw 11:16 Discharged to home ambulatory, with family. mb8 11:16 Condition: stable 11:16 Discharge instructions given to patient, Instructed on discharge instructions, follow up and referral plans. Demonstrated understanding of instructions, follow-up care. 11:17 Patient left the ED. mb8 Signatures: Mari Gutierrez FNP-C FNP-Ta [place] em1 Nik Michael, RN RN mb8
[2022-05-13 11:22] VITALS: TEMP 98.6; O2SAT 99
[2022-05-13 11:27] VITALS: BP 164/99
--- NOTE | 2022-05-14 11:33 | EKG ---
Test Date: 2022-05-13 Test Time: 08:40:40 Shift Commander: MEASUREMENT RESULTS: Intervals: Rate: 68 WY: 152 QRSD: 98 QT: 426 QTc: 452 [place]: P: 41 WY: 152 QRS: 8 T: 46 INTERPRETIVE STATEMENTS: Normal sinus rhythm Normal ECG Compared to ECG 09/27/2021 09:33:58 No significant changes Electronically Signed On 05-14-22 11:32:01 CDT by Jomar Valles
--- NOTE | 2022-05-15 14:36 | EKG ---
Test Date: 2022-05-13 Test Time: 10:31:07 Cell Support Operator: MEASUREMENT RESULTS: Intervals: Rate: 67 [place]: 160 QRSD: 92 QT: 412 QTc: 435 [place]: P: 54 MI: 160 QRS: 15 T: 54 INTERPRETIVE STATEMENTS: Normal sinus rhythm Normal ECG Compared to ECG 05/13/2022 08:40:40 No significant changes Electronically Signed On 05-15-22 14:31:51 CDT by Enio Flaherty
== END 2022-05-13 11:17 | disposition home or self-care (01) ==
LOC: ER 08:32
DX: R07.89 Other chest pain (principal); E87.6 Hypokalemia
CPT/HCPCS: 36415; 80053; 82728; 83735; 84484; 85025; 85610; 85730; 93005; 99284

== ENCOUNTER 2022-05-19 08:37 | Emergency (ER) | payer OTHER ==
--- OUTSIDE RECORDS SUMMARY | 2022-05-19 08:41 | XMS REPORT | Continuity of Care Document ---
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 1.2.840.1 [id number] Methodi 00:00:00 00:00:00 Only Nayely 49589.1.[address] 3.430.2.7 Hospit a .3.059145 l .8 2021-06-29 2021-06-29 Office Rice, 1.2.840.1 [id number] 717257 0235 Methodi 13:30:00 13:45:00 Visit Elliot [address]2887.1.[address] 3.430.2.7 Hospit a .3.924820 l .8 2021-06-29 2021-06-29 Lab Rice, 1.2.840.1 [id number] 9938 Methodi 13:30:00 13:35:[address] 3.430.2.7 Hospit a .3.177078 l .8 2021-06-29 2021-06-29 Outpatient MARCIAL, [facility] [id number] [facility] 00:00:00 00:00:00 ELLIOT [address] 2021-06-29 2021-06-29 [facility] [id number] [facility] 00:00:00 00:00:[address] 2021-06-29 2021-06-29 Travel 1.2.840.1 1.2.790.049 [id number] [id number] Methodi 00:00:00 00:00:[address] 3.430.2.7 0.2.7.3.698 Ho spita .3.300816 084.8 l .8 2021-06-07 2021-06-07 Orders Sana Duran 1.2.840.1 [id number] Methodi 00:00:00 00:00:00 Only Anya [address]60.1.[address] 3.430.2.7 Hospit a .3.649523 l .8 2021-06-05 2021-06-05 Office Buck, 1.2.840.1 [id number] 2100 [id number] Methodi 16:20:00 17:39:49 [address]de. 34513.1.[address] 3.430.2.7 Hospit a .3.950317 l .8 2021-06-05 2021-06-05 [facility] [id number] [facility] 00:00:00 00:00:[address] LIYA [address] 2021-06-05 2021-06-05 Travel 1.2.840.1 1.2.514.066 7820 993093 Methodi 00:00:00 00:00:[address] 3.430.2.7 0.2.7.3.698 Ho spita .3.826774 084.8 l .8 2021-06-01 2021-06-01 Office Rice, 1.2.840.1 [id number] 9424 Methodi 13:00:00 13:45:18 Visit Elliot [address]84.1.[address] 3.430.2.7 Hospit a .3.690839 l .8 2021-06-01 2021-06-01 Lab Rice, 1.2.840.1 [id number] 1310 Methodi 13:00:00 13:05:[address] 3.430.2.7 Hospit a .3.893643 l .8 2021-06-01 2021-06-01 Travel 1.2.840.1 1.2.151.775 8513 [id number] Methodi 00:00:00 00:00:[address] 3.430.2.7 0.2.7.3.698 Ho spita .3.005420 084.8 l .8 2021-06-01 2021-06-01 Outpatient RICE, [facility] [id number] [facility] 00:00:00 00:00:00 ELLIOT 974 [address] 2021-06-01 2021-06-01 Outpatient RICE, [facility] [id number] [facility] 00:00:00 00:00:[address] 2021-05-29 2021-05-29 Orders [place] 1.2.840.1 [id number] Methodi 00:00:00 00:00:00 Only Jay, 50384.1.[address] [facility] 3.430.2.7 Hospi ta .3.712195 l .8 2021-04-13 2021-04-13 Outpatient RICE, [facility] [id number] [facility] 00:00:00 00:00:00 ELLIOT [address] 2021-04-13 2021-04-13 Outpatient RICE, [facility] [id number] [facility] 00:00:00 00:00:00 ELLIOT 191 Meth[address] di 2021-04-10 2021-04-10 Outpatient BUCK, [facility] [id number] [facility] 00:00:00 00:00:00 LIYA [address] 2021-04-10 2021-04-10 Outpatient BUCK, [facility] [id number] [facility] 00:00:00 00:00:00 LIYA [address] 2021-04-10 2021-04-10 Outpatient BUCK, H [facility] [id number] [id number] [facility] 00:00:00 00:00:00 LIYA [address] 2021-03-27 2021-03-27 Outpatient BUCK, [facility] [id number] [facility] 00:00:00 00:00:00 LIYA [address] 2021-03-09 2021-03-09 Outpatient RICE, [facility] [id number] [facility] 00:00:00 00:00:00 ELLIOT [address] 2021-03-09 2021-03-09 Outpatient RICE, [facility] [id number] [facility] 00:00:00 00:00:00 ELLIOT 365 Metho di 2021-02-16 2021-02-16 Outpatient RICE, [facility] [id number] [facility] 00:00:00 00:00:00 ELLIOT [address] 2021-02-16 2021-02-16 Outpatient RICE, [facility] [id number] [facility] 00:00:00 00:00:00 ELLIOT 706 Meth[address] 2020-11-24 2020-11-24 Outpatient RICE, H [facility] [id number] [facility] 00:00:00 00:00:00 ELLIOT 611 [address] 2020-11-24 2020-11-24 Outpatient RICE, [facility] [id number] [facility] 00:00:00 00:00:00 ELLIOT 646 Metho di 2020-08-25 2020-08-25 Outpatient RICE, H [facility] [id number] [facility] 00:00:00 00:00:00 ELLIOT [address] 2020-08-25 2020-08-25 Outpatient RICE, [facility] [id number] [facility] 00:00:00 00:00:00 ELLIOT 808 Metho di 2020-05-26 2020-05-26 Outpatient RICE, [facility] [id number] [facility] 00:00:00 00:00:00 ELLIOT 167 Meth[address] 2020-05-26 2020-05-26 Outpatient RICE, [facility] [id number] [facility] 00:00:00 00:00:00 ELLIOT 853 Metho di 2020-03-17 2020-03-17 Outpatient RICE, [facility] [id number] [facility] 00:00:00 00:00:00 ELLOIT 358 Metho di 2020-03-17 2020-03-17 Outpatient RICE, [facility] [id number] [facility] 00:00:00 00:00:00 ELLIOT 587 Metho di 2020-02-12 2020-02-12 Outpatient BUCK, [facility] [id number] [id number] [facility] 00:00:00 00:00:00 LIYA 941 Method i 2020-01-22 2020-01-22 Outpatient BUCK, [facility] [id number] [facility] 00:00:00 00:00:00 LIYA 907 Method i 2020-01-14 2020-01-14 Outpatient RICE, [facility] [id number] [facility] 00:00:00 00:00:00 ELLIOT 528 Metho [address] 2020-01-14 2020-01-14 Outpatient RICE, [facility] [id number] [facility] 00:00:00 00:00:00 ELLIOT 164 Metho [address] 2019-12-03 2019-12-03 Outpatient BUCK, [facility] [id number] [facility] 00:00:00 00:00:00 LIYA [address] 2019-10-08 2019-10-08 Outpatient LINDA MARK [facility] [id number] [facility] 00:00:00 00:00:[address] 2019-08-24 2019-08-24 Outpatient MARK, LINDA [facility] [id number] [facility] 00:00:00 00:00:[address] 2019-08-03 2019-08-03 Outpatient BUCK, [facility] [id number] [facility] 00:00:00 00:00:00 LIYA [address] Results Test Description Test Time Test Comments Results Result Comments Source Comprehensive metabolic panel 2021-12-15 06:04:00 Test Item Value Reference Range Interpretation Comme nts Glucose (test code = 102 mg/dL 65-139 Non-fa sting reference 2345-7) interval BUN (test code = 3094-0) 25 mg/dL 7-25 Creatinine (test code = 1.10 mg/dL 0.6-0.88 H For patients >49 years of 2160-0) age, the refere nce limitfor Creati nine is approximately 1 3% higher for peopleident ified as -Brigida n. EGFR Non-Afr. English See_Comment L [Aut omated message] The (test code = 2775) system [facility] generated this result tra nsmitted reference range : > OR = 60 mL/min/1.73m 2. The reference range was not used to interpr et this result as normal/abnormal . EGFR See_Comment L [Auto mated message] The (test code = 2774) system [facility] generated this result tra nsmitted reference range : > OR = 60 mL/min/1.73m 2. The reference range was not used to interpr et this result as normal/abnormal . BUN/creatinine ratio See_Comment H [Autom ated message] The (test code = 3097-3) system which generated this result tra nsmitted reference range : 6 - 22 (calc). The ref erence range was not u sed to interpret this result as normal/abnormal . Sodium (test code = 139 mmol/L 919-621 8310-2) Potassium (test code = 4.3 mmol/L 3.5-5.3 2823-3) Chloride (test code = 104 mmol/L 98-110 5-0) CO2 (test code = 2027-9) 25 mmol/L 20-32 Calcium (test code = 9.6 mg/dL 8.6-10.4 15198-5) Protein (test code = 7.5 g/dL 6.1-8.1 2885-2) Albumin, S (test code = 4.2 g/dL 3.6-5.1 1751-7) Globulin, total (test See_Comment [Auto mated message] The code = 12370-7) system which generated this result tra nsmitted reference range : 1.9 - 3.7 g/dL (calc) . The reference range was not used to interpr et this result as normal/abnormal . Albumin/globulin ratio See_Comment [Aut omated message] The (test code = 1759-0) system which generated this result tra nsmitted reference range : 1.0 - 2.5 (calc). The reference range was not u sed to interpret this result as normal/abnormal . Total bilirubin (test 0.6 mg/dL 0.2-1.2 code = 1975-2) Alkaline phosphatase 84 U/L 37-153 (test code = 6768-6) AST (test code = 1920-8) 39 U/L 10-35 H ALT (test code = 1742-6) 47 U/L 6-29 H LETITIA (test code = LETITIA) FASTING:NO FASTING: NO RAC (test code = RAC) Performing Organization Information: Site ID: [facility] Name: [facility] Address: [address] [place] [phone] Director: Parish Contreras Lab Interpretation (test Abnormal code = 64439-6) [facility] [id number] 06:04:00 Test Item Value Reference Range Interpretation Comments Cholesterol, total 235 mg/dL See_Comment H [Automat ed (test code = 2093-3) message ] The system which generated this result transmitted reference range : <=200. The reference range was not used to interpret this result as normal/abnormal . HDL cholesterol 37 mg/dL See_Comment L [Automated (test code = 2085-9) message ] The system which generated this result transmitted reference range : > OR = 50. The reference range was not used to interpret this result as normal/abnormal . Triglycerides (test 154 mg/dL See_Comment H [Automa al code = 2571-8) message] The system which generated this result transmitted reference range : <=150. The reference range was not used to interpret this result as normal/abnormal . LDL cholesterol mg/dL (calc) H Reference ra nge: calculated (test <100 Desira ble code = 52636-6) range <100 m g/dL for primary prevention; <70 mg/dL for patients with C HD or diabetic patients with > or = 2 CHD risk factors. LDL-C is now calculated using the Marvin-Preston calculation, which is a validated novel method providin g better accuracy than the Friedewald equation in the estimation of LDL-C. Marvin Duncan S et al. ALFREDO. 2013;310(19): 9484-2472 (http://educati on .Armor5 .com/faq/NPU496 ) Cholesterol/HDL See_Comment H [Automated ratio (test code = message] The 9830-1) system which generated this result transmitted reference range : <5.0 (calc). Th e reference range was not used to interpret this result as normal/abnormal . Non-HDL cholesterol See_Comment H For rosa ents with (test code = diabetes plus 1 32875-5) major ASCVD ris k factor, treatin g to a non-HDL-C goal of <100 mg/dL (LDL-C of <70 mg/dL) is considered a therapeutic option. [Automated message] The system which generated this result transmitted reference range : <130 mg/dL (calc). The reference range was not used to interpret this result as normal/abnormal . LETITIA (test code = FASTING:NO LETITIA) FASTING: NO RAC (test code = Performing RAC) Organization Information: Site ID: [facility] Name: [facility] Address: [address] [place] [address] Director: Parish Contreras Lab Interpretation Abnormal (test code = 19621-3) [place] [address], [id number] 06:04:00 Test Item Value Reference Range Interpretation Comments T4, free (test code 1.3 ng/dL 0.8-1.8 = 3024-7) LETITIA (test code = FASTING:NO FASTING: NO LETITIA) RAC (test code = Performing Organization RAC) Information: Site ID: [facility] Name: [facility] Address: [address] [place] [address] Director: Parish [facility]Texas [facility] AllenThyroid stimulating [id number] 06:04:00 Test Item Value Reference Range Interpretation Comments TSH (test See_Comment [Automated mes emeli] code = The system ic h 3016-3) generated this result transmit al reference range : 0.40 - 4.50 mIU /L. The reference r danni was not used to interpret this result as normal/abnormal . LETITIA (test FASTING:NO FASTING: code = LETITIA) NO RAC (test Performing code = RAC) Organization Information: Site ID: [facility] Name: [facility] Address: [address] [place] [address] Director: Parish L [facility]St[facility] HospitalAmylase [id number] 22:53:00 Test Item Value Reference Range Interpretation Comments Amylase (test code = 47 U/L 21-101 1798-8) LETITIA (test code = FASTING:NO FASTING: NO LETITIA) RAC (test code = Performing Organization RAC) Information: Site ID: [facility] Name: [facility] Address: [address] [place] [address] Director: Parish Contreras [facility] [id number] 22:53:00 Test Item Value Reference Range Interpretation Comments Lipase (test code = 74 U/L 7-60 H 3040-3) LETITIA (test code = LETITIA) FASTING:NO FASTING: NO RAC (test code = RAC) Performing Organization Information: Site ID: A Name: [facility] Address: [address] [place] [address] Director: Parish Contreras Lab Interpretation (test Abnormal code = 87440-2) [facility] Center[facility]-reactive [id number] 22:53:00 Test Item Value Reference Range Interpretation Comments CRP (test 2.4 mg/L See_Comment [Automated mes emeli] code = The system whic h 1988-01) generated this result transmit al reference range : <=8.0. The refe rence range was not u sed to interpret th is result as normal/abnormal . LETITIA (test FASTING:NO FASTING: code = LETITIA) NO RAC (test Performing code = RAC) Organization Information: Site ID: [facility] Name: [facility] Address: [address] [place] [address] Director: Parish Contreras [facility] [id number] 22:53:00 Test Item Value Reference Range Interpretation Comments Sedimentation rate 43 mm/h See_Comment H [Automat ed (test code = 4537-7) message ] The system which generated this result transmitted reference range : < OR = 30. The reference range was not used to interpret this result as normal/abnormal . LETITIA (test code = FASTING:NO LETITIA) FASTING: NO RAC (test code = Performing RAC) Organization Information: Site ID: [facility] Name: [facility] Address: [address] [place] [address] Director: Parish Contreras Lab Interpretation Abnormal (test code = 78735-2) [facility] iron binding [id number] 22:53:00 Test Item Value Reference Range Interpretation Comments Iron level (test See_Comment [Automated code = 2498-4) message] The system which generated this result transmit al reference range : 45 - 160 mcg/dL . The reference range was not u sed to interpret th is result as normal/abnormal . Iron binding See_Comment [Automated capacity (test message] The code = 2500-7) system which generated this result transmit al reference range : 250 - 450 mcg/d L (calc). The reference range was not used to interpret this result as normal/abnormal . Iron saturation See_Comment [Automated (test code = message] The 2502-3) system which generated this result transmit al reference range : 16 - 45 % (calc ). The reference range was not u sed to interpret th is result as normal/abnormal . LETITIA (test code = FASTING:NO FASTING: LETITIA) NO RAC (test code = Performing RAC) Organization Information: Site ID: [facility] Name: [facility] Address: [address] [place] [id number] Director: Parish Contreras [facility] SCREEN W IFA W REFLEX TO [id number] 22:53:00 Test Item Value Reference Interpretation Comments Range LIYA Screen (test POSITIVE NEGATIVE A LIYA IFA is a first code = 05118-2) line screen for detecting thepresence of up to approximatel y 150 autoantibod ies invarious autoimmune diseases. A positive LIYA IF A resultis sugges tive of autoimmune disease and reflexes totite r and pattern. Further laborat ory testing may beconsidered if clinically indicated. For additional information, pl ease refer tohttp://educat ion. Proximiant s.co m/faq/AVX486(Th is link is being provided for informational/e duca tional purposes only.) LIYA titer (test code 1:40 titer H A low l evel LIYA = 5048-4) titer may be present in pre-clinicalaut oimm une diseases an d normal individu als. Reference Range <1:40 Negative 1:40-1:80 Low Antibody Level >1:80 Elevated Antibody Level LIYA pattern (test Cytoplasmic A The presen ce of code = 62472-7) cytoplasmic fluorescence wa s noted onthe HEp -2 slide. Other reactivities (e .g., anti-mitochondr ial antibodies or anti-smooth muscleantibodie s) may be responsi ble for this fluorescence.Th e clinical significance of this finding is uncertain.Clini marva correlation is recommended. AC -15 to AC-23: Cytoplasmic International Consensus on AN A Patterns(https: //do i.org/10.1515/c [facility]- 9343-9001) LETITIA (test code = FASTING:NO LETITIA) FASTING: NO RAC (test code = Performing RAC) Organization Information: Site ID: Name: [facility] Address: [address] [place] [phone] Director: Dr. Parish Contreras Lab Interpretation Abnormal (test code = 96161-4) [facility]
[2022-05-19] MEDS ORDERED: HYDROCODONE/APAP 7.5/325 MG TAB ONE (09:04)
--- NOTE | 2022-05-19 09:34 | RAD REPORT ---
EXAM DESCRIPTION: RAD - Wrist Right 3 View - 05/19/2022 9:25 am CLINICAL HISTORY: PAIN COMPARISON: No comparisonsNo comparisons FINDINGS/IMPRESSION: Distal radial impaction fracture with dorsal tilt of the distal radius. Nondisp laced ulnar styloid fracture. Distal radial fracture probably extends to the articular surface. No ot her fractures seen.
--- NOTE | 2022-05-19 09:40 | RAD REPORT ---
EXAM DESCRIPTION: RAD - Elbow Right 3 View - 05/19/2022 9:25 am CLINICAL HISTORY: PAIN COMPARISON: Humerus Right dated 05/19/2022 FINDINGS/IMPRESSION: Lucency through the medial humeral condyle could represent a nondisplaced fract ure. No elbow effusion is seen, however. CT could confirm if clinically indicated.
--- NOTE | 2022-05-19 09:41 | RAD REPORT ---
EXAM DESCRIPTION: RAD - Humerus Right - 05/19/2022 9:25 am CLINICAL HISTORY: PAIN COMPARISON: No comparisons FINDINGS/IMPRESSION: No acute fracture. No malalignment. Right glenohumeral joint and AC joint degen erative changes.
--- NOTE | 2022-05-19 10:29 | EDPHYS ---
Physician Documentation [facility] Name: Carmen Ewing Age: 82 yrs Sex: Female : 1940 Arrival Date: 05/19/2022 Time: 08:38 Bed 18 Private MD: ED Physician Pérez Warren HPI: 05/19 08:49 This 82 yrs old Female presents to ER via Ambulatory with complaints of Fall jl9 Injury, Arm Injury. Patient reports that she was working in her garage when she tripped and fell onto her right arm. Patient denies hitting any other part of her body and denies LOC. . 08:49 Details of fall: The patient fell from an upright position, while walking. Onset: The jl9 symptoms/episode began/occurred just prior to arrival. Associated injuries: The patient sustained right arm, swelling. Severity of symptoms: in the emergency department the symptoms a " 8" out of "10". Historical: - Allergies: 08:47 Niacin; kr3 - Home Meds: 08:47 aspirin 81 mg Oral tab [Active]; kr3 - Immunization history:: Adult Immunizations up to date, Client reports receiving the 2nd dose of the Covid vaccine. - Social history:: Smoking status: Patient denies any tobacco usage or history of. ROS: 08:51 Constitutional: Negative for fever, chills, and weight loss, Eyes: Negative for injury, jl9 pain, redness, and discharge, ENT: Negative for injury, pain, and discharge, Neck: Negative for injury, pain, and swelling, Cardiovascular: Negative for chest pain, palpitations, and edema, Respiratory: Negative for shortness of breath, cough, wheezing, and pleuritic chest pain, Abdomen/GI: Negative for abdominal pain, nausea, vomiting, diarrhea, and constipation, Back: Negative for injury and pain, : Negative for injury, bleeding, discharge, and swelling. 08:51 Skin: Negative for injury, rash, and discoloration, Neuro: Negative for headache, weakness, numbness, tingling, and seizure, Psych: Negative for depression, anxiety, suicide ideation, homicidal ideation, and hallucinations, Allergy/Immunology: Negative for hives, rash, and allergies, Endocrine: Negative for neck swelling, polydipsia, polyuria, polyphagia, and marked weight changes, Hematologic/Lymphatic: Negative for swollen nodes, abnormal bleeding, and unusual bruising. 08:51 MS/extremity: Positive for tenderness, R wrist. . Exam: 08:51 Constitutional: This is a well developed, well nourished patient who is awake, alert, jl9 and in no acute distress. Head/Face: Normocephalic, atraumatic. Eyes: Pupils equal round and reactive to light, extra-ocular motions intact. Lids and lashes normal. Conjunctiva and sclera are non-icteric and not injected. Cornea within normal limits. Periorbital areas with no swelling, redness, or edema. ENT: Mucous membranes moist. Neck: Trachea midline, no thyromegaly or masses palpated, and no cervical lymphadenopathy. Supple, full range of motion without nuchal rigidity, or vertebral point tenderness. No Meningismus. Chest/axilla: Normal chest wall appearance and motion. Nontender with no deformity. No lesions are appreciated. Cardiovascular: Regular rate and rhythm with a normal S1 and S2. No gallops, murmurs, or rubs. Normal PMI, no JVD. No pulse deficits. Respiratory: Lungs have equal breath sounds bilaterally, clear to auscultation and percussion. No rales, rhonchi or wheezes noted. No increased work of breathing, no retractions or nasal flaring. Abdomen/GI: Soft, non-tender, with normal bowel sounds. No distension or tympany. No guarding or rebound. No evidence of tenderness throughout. Back: No spinal tenderness. No costovertebral tenderness. Full range of motion. Skin: Warm, dry with normal turgor. Normal color with no rashes, no lesions, and no evidence of cellulitis. 08:51 Neuro: Awake and alert, GCS 15, oriented to person, place, time, and situation. Cranial nerves II-XII grossly intact. Motor strength 5/5 in all extremities. Sensory grossly intact. Cerebellar exam normal. Normal gait. Psych: Awake, alert, with orientation to person, place and time. Behavior, mood, and affect are within normal limits. 08:51 Musculoskeletal/extremity: Extremities: swelling, tenderness, R wrist. , ROM: limited active range of motion due to pain, in the right arm, Circulation is intact in all extremities. Sensation intact. Compartment Syndrome exam of affected extremity: is normal. no pain, no numbness, no tingling, no sensation deficit, no palor, no weak pulses. Vital Signs: 08:45 BP 144 / 65; Pulse 72; Resp 16; Temp 97.9; Pulse Ox 98% on R/A; Weight 49.9 kg; Height kr3 5 ft. 6 in. (167.64 cm); 10:45 BP 130 / 72; Pulse 76; Resp 16; Temp 98.0(O); Pulse Ox 98% ; Pain 3/10; jh6 08:45 Body Mass Index 17.76 (49.90 kg, 167.64 cm) kr3 Maikel Coma Score: 08:51 Eye Response: spontaneous(4). Verbal Response: oriented(5). Motor Response: obeys jh6 commands(6). Total: 15. Trauma Score (Adult): 08:51 Eye Response: spontaneous(1); Verbal Response: oriented(1); Motor Response: obeys jh6 commands(2); Systolic BP: > 89 mm Hg(4); Respiratory Rate: 10 to 29 per min(4); Colt Score: 15; Trauma Score: 12 Procedures: 10:27 Splinting: Splint applied to right arm using Orthoglass splint, sling, Sugar tong. jl9 applied by myself. post reduction film - Examined by me, post splint application: neurovascular intact, 2+ distal pulses palpable, brisk capillary refill noted, Patient tolerated well. MDM: 08:44 Patient medically screened. jl9 08:51 Data reviewed: vital signs, nurses notes. jl9 10:27 Counseling: I had a detailed discussion with the patient and/or guardian regarding: the jl9 historical points, exam findings, and any diagnostic results supporting the discharge/admit diagnosis, radiology results, the need for outpatient follow up, a orthopedic surgeon. Response to treatment: the patient's symptoms have markedly improved after treatment. 05/19 08:49 Order name: XRAY Wrist RIGHT 3 view; Complete Time: 09:47 jl9 05/19 08:49 Order name: XRAY Humerus RIGHT; Complete Time: 09:47 jl9 05/19 08:49 Order name: XRAY Elbow RIGHT 3 view; Complete Time: 09:47 jl9 05/19 09:58 Order name: Sugar Tong Forearm Splint; Complete Time: 10:18 jl9 Administered Medications: 08:55 Drug: [place] (HYDROcodone-acetaminophen) (7.5 mg-325 mg) 1 tabs Route: PO; 6 10:10 Follow up: Response: No adverse reaction jh6 Disposition Summary: 05/19/22 10:29 Discharge Ordered Location: Home 9 Condition: Stable jl9 Diagnosis - Displaced fracture of head of unspecified radius, initial encounter for closed jl9 fracture Followup: 9 - With: Benitez Perdomo MD - When: 1 - 2 days - Reason: Recheck today's complaints, Continuance of care, Re-evaluation by your physician Discharge Instructions: - Discharge Summary Sheet jl9 - Radial Fracture jl9 - Ulnar Fracture jl9 - Distal Humerus Elbow Fracture jl9 Forms: - Medication Reconciliation Form jl9 - Thank You Letter jl9 - Antibiotic Education jl9 - Prescription Opioid Use jl9 Prescriptions: - Tylenol-Codeine #3 300 mg-30 mg Oral - take 1 tablet by ORAL route every 6-8 hours As needed; 20 tablet; Refills: 0, jl9 Product Selection Permitted Signatures: Dispatcher [employer] Lizzie Ramsay RN RN 6 Kenny Murrieta 9 Elaine Ruvalcaba RN RN kr3
--- NOTE | 2022-05-19 10:29 | ER ---
Nurse's Notes [facility] Name: Carmen Ewing Age: 82 yrs Sex: Female : 1940 Arrival Date: 05/19/2022 Time: 08:38 Bed 18 Private MD: Diagnosis: Displaced fracture of head of unspecified radius, initial encounter for closed fracture Presentation: 05/19 08:45 Chief complaint: Patient states: fell from chair in garage while trying to rearrange kr3 items on top shelf. Coronavirus screen: Vaccine status: Patient reports receiving the 2nd dose of the covid vaccine. Client denies travel out of the [place] in the last 14 days. Ebola Screen: Patient denies exposure to infectious person. Initial Sepsis Screen: Does the patient meet any 2 criteria? No. Patient's initial sepsis screen is negative. Does the patient have a suspected source of infection? No. Patient's initial sepsis screen is negative. Risk Assessment: Do you want to hurt yourself or someone else? Patient reports no desire to harm self or others. Onset of symptoms was May 19, 2022. 08:45 Method Of Arrival: Ambulatory kr3 08:45 Acuity: ARTHUR 4 kr3 08:51 Care prior to arrival: Medication(s) given: Tylenol, 650 mg. Mechanism of Injury: Fall jh6 out of chair. Triage Assessment: 08:48 General: Appears in no apparent distress. uncomfortable, Behavior is calm, cooperative, kr3 appropriate for age. Historical: - Allergies: 08:47 Niacin; kr3 - Home Meds: 08:47 aspirin 81 mg Oral tab [Active]; kr3 - Immunization history:: Adult Immunizations up to date, Client reports receiving the 2nd dose of the Covid vaccine. - Social history:: Smoking status: Patient denies any tobacco usage or history of. Screenin:50 Abuse screen: Denies threats or abuse. Denies injuries from another. Nutritional jh6 screening: No deficits noted. Tuberculosis screening: No symptoms or risk factors identified. Fall Risk Fall in past 12 months (25 points). Primary Survey: 08:50 NO uncontrolled hemorrhage observed. A: The client is awake and alert. The airway is jh6 patent. Breathing/Chest: Spontaneous respiratory effort, equal unlabored respirations, breath sounds clear bilaterally, regular pattern, symmetrical chest rise and fall. Circulation: No external hemorrhage present. Regular and strong central pulse, skin warm/dry/normal color. Disability Pupils are equal, round, reactive to light and accommodation. Exposure/Environment: A warming method has been applied: A warm blanket has been provided to the patient. Assessment: 08:49 General: Appears in no apparent distress. Behavior is calm, cooperative, Smells of. jh6 Pain: Complains of pain in right arm Pain currently is 66 out of 10 on a pain scale. Quality of pain is described as aching, Pain began 1 day ago. Is continuous, Aggravated by increased activity, repositioning. Musculoskeletal: Capillary refill < 3 seconds, Range of motion: limited in right wrist Swelling present in right wrist Reports pain in right wrist. 10:10 Reassessment: Patient and/or family updated on plan of care and expected duration. Pain jh6 level reassessed. Patient is alert, oriented x 3, equal unlabored respirations, skin warm/dry/pink. pt aware of fx and the need for cast and follow up with ortho on Saturday. Patient states feeling better. 10:46 Reassessment: Ortho cast formed and without increased pain. cap refill < 2sec and jh6 without redness or swelling. Vital Signs: 08:45 BP 144 / 65; Pulse 72; Resp 16; Temp 97.9; Pulse Ox 98% on R/A; Weight 49.9 kg; Height kr3 5 ft. 6 in. (167.64 cm); 10:45 BP 130 / 72; Pulse 76; Resp 16; Temp 98.0(O); Pulse Ox 98% ; Pain 3/10; jh6 08:45 Body Mass Index 17.76 (49.90 kg, 167.64 cm) kr3 Armstrong Coma Score: 08:51 Eye Response: spontaneous(4). Verbal Response: oriented(5). Motor Response: obeys jh6 commands(6). Total: 15. Trauma Score (Adult): 08:51 Eye Response: spontaneous(1); Verbal Response: oriented(1); Motor Response: obeys jh6 commands(2); Systolic BP: > 89 mm Hg(4); Respiratory Rate: 10 to 29 per min(4); Maikel Score: 15; Trauma Score: 12 ED Course: 08:38 Patient arrived in ED. mr 08:41 Arm band placed on left wrist. Patient placed in an exam room, on a stretcher. kr3 08:44 [facility] jl9 08:44 Pérez Warren MD is Attending Physician. jl9 08:47 Triage completed. kr3 08:48 Lizzie Jackson, RN is Primary Nurse. jh6 08:52 Bed in low position. Call light in reach. Adult w/ patient. jh6 09:27 XRAY Wrist RIGHT 3 view In Process Unspecified. EDMS 09:27 XRAY Humerus RIGHT In Process Unspecified. EDMS 09:27 XRAY Elbow RIGHT 3 view In Process Unspecified. EDMS 10:25 Orthoglass splint: Sugar tong splint applied on right arm. Sling applied to right arm. jh6 10:28 Benitez Perdomo MD is Referral Physician. jl9 10:47 No provider procedures requiring assistance completed. Patient did not have IV access ss during this emergency room visit. Administered Medications: 08:55 Drug: [place] (HYDROcodone-acetaminophen) (7.5 mg-325 mg) 1 tabs Route: PO; [facility] 10:10 Follow up: Response: No adverse reaction [facility] Outcome: 10:29 Discharge ordered by MD. jl9 10:47 Discharged to home ambulatory, with family. 10:47 Condition: good 10:47 Discharge instructions given to patient, family, Instructed on discharge instructions, follow up and referral plans. medication usage, Demonstrated understanding of instructions, follow-up care, medications, splint care, Prescriptions given X 1. 10:47 Patient left the ED. ss Signatures: Dispatcher [facility] Trinidad Harrington Odette Clay RN RN Lizzie Jackson, RN RN [facility] Kenny Murrieta 9 Elaine Ruvalcaba, KATHY RN kr3 Corrections: (The following items were deleted from the chart) 08:45 08:45 Arm band placed on left wrist. Patient placed in an exam room, on a stretcher, [id number] 09:02 08:45 BP 144 / 65; Pulse 72bpm; Resp 72bpm; Pulse Ox 98% RA; Temp 97.9F; 49.9 kg; kr3 Height 5 ft. 6 in.; BMI: 17.7; kr3
[2022-05-19 11:45] VITALS: O2SAT 98
[2022-05-19 11:48] VITALS: BP 130/72; TEMP 98
== END 2022-05-19 10:47 | disposition home or self-care (01) ==
LOC: ER 08:37
PROC: 0PSHXZZ Reposition Right Radius, External Approach (ICD-10-PCS; principal; 2022-05-19)
DX: S52.121A Displaced fracture of head of right radius, initial encounter for closed fracture (principal); Z79.82 Long term (current) use of aspirin; Z91.048 Other nonmedicinal substance allergy status
CPT/HCPCS: 99284

== ENCOUNTER 2022-10-16 15:19 | Emergency (ER) | payer OTHER ==
--- OUTSIDE RECORDS SUMMARY | 2022-10-16 15:24 | XMS REPORT | Continuity of Care Document ---
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 00:00:[address] 3.430.2.7 Hospit a .3.274907 l .8 2022-07-05 2022-07-05 Office Rice, 1.2.840.1 [id number] 796703 8242 Methodi 13:00:00 15:11:13 Visit Elliot [address]8440.1.[address] 3.430.2.7 Hospit a .3.513067 l .8 2022-07-05 2022-07-05 Lab Rice, 1.2.840.1 [id number] 248435 4909 Methodi 12:55:00 13:00:[address] 3.430.2.7 Hospit a .3.102077 l .8 2022-07-05 2022-07-05 Travel 1.2.840.1 1.2.943.639 2945 630216 Methodi 00:00:00 00:00:[address] 3.430.2.7 0.2.7.3.698 Ho spita .3.198609 084.8 l .8 2022-07-05 2022-07-05 Outpatient RICE, [facility] [id number] 173 [place] 00:00:00 00:00:00 ELLIOT [address] 2022-07-05 2022-07-05 Outpatient MARCIAL, [facility] [id number] 439 [place] 00:00:00 00:00:00 ELLIOT [address] 2022-07-04 2022-07-04 Orders Stuart, 1.2.840.1 [id number] 59853 Methodi 00:00:00 00:00:00 Only Nayely 43419.1.[address] 3.430.2.7 Hospit a .3.090126 l .8 2022-06-27 2022-06-27 Office Buck, 1.2.840.1 [id number] 2099 594480 Methodi 14:00:00 15:26:18 Visit Jayde. 81516.1.[address] 3.430.2.7 Hospit a .3.227575 l .8 2022-06-27 2022-06-27 Travel 1.2.840.1 1.2.428.432 7820 161062 Methodi 00:00:00 00:00:[address] 3.430.2.7 0.2.7.3.698 Ho spita .3.622114 084.8 l .8 2022-06-27 2022-06-27 Outpatient BUCK, [facility] [id number] [id number] [place] 00:00:00 00:00:00 LIYA [address] 2022-05-24 2022-05-24 Refill Buck, 1.2.840.1 [id number] 2099 438886 Methodi 00:00:00 00:00:[address] 3.430.2.7 Hospit a .3.191762 l .8 2022-05-04 2022-05-04 Telephone Stuart, 1.2.840.1 [id number] 600 [id number] Methodi 00:00:00 00:00:[address] 3.430.2.7 Hospit a .3.337074 l .8 2022-05-04 2022-05-04 Telephone Moise, 1.2.840.1 [id number] 106 4532533 Methodi 00:00:00 00:00:[address] 3.430.2.7 Hospit a .3.203193 l .8 2022-04-05 2022-04-05 Office Rice, 1.2.840.1 622428616 432625 9777 Methodi 13:15:00 14:12:14 Visit Elliot 52316.1.[address] 3.430.2.7 Hospit a .3.752814 l .8 2022-04-05 2022-04-05 Office Rice, 1.2.840.1 615580193 299963 2691 Methodi 13:15:00 14:12:14 Visit Elliot 31252.1.[address] 3.430.2.7 Hospit a .3.889965 l .8 2022-04-05 2022-04-05 Lab Rice, 1.2.840.1 838810607 834624 7635 Methodi 13:15:00 13:20:[address] 3.430.2.7 Hospit a .3.141724 l .8 2022-04-05 2022-04-05 Lab Rice, 1.2.840.1 239820393 695474 0634 Methodi 13:15:00 13:20:[address] 3.430.2.7 Hospit a .3.974751 l .8 2022-04-05 2022-04-05 Travel 1.2.840.1 1.2.763.655 8944 250097 Methodi 00:00:00 00:00:[address] 3.430.2.7 0.2.7.3.698 Ho spita .3.178912 084.8 l .8 2022-04-05 2022-04-05 Travel 1.2.840.1 1.2.567.681 6765 130165 Methodi 00:00:00 00:00:[address] 3.430.2.7 0.2.7.3.698 Ho spita .3.433288 084.8 l .8 2022-04-04 2022-04-04 Travel 1.2.840.1 1.2.280.345 7107 130105 Methodi 00:00:00 00:00:[address] 3.430.2.7 0.2.7.3.698 Ho spita .3.484016 084.8 l .8 2022-04-04 2022-04-04 Orders Stuart, 1.2.840.1 197825032 22374 Methodi 00:00:00 00:00:00 Only Nayely 80727.1.[address] 3.430.2.7 Hospit a .3.087108 l .8 2022-04-04 2022-04-04 Orders Arrington, 1.2.840.1 [id number] 278959 2205 Methodi 00:00:00 00:00:00 Only Solange 13277.1.[address] 3.430.2.7 Hospit a .3.279798 l .8 2022-04-04 2022-04-04 Travel 1.2.840.1 1.2.620.431 6076 508117 Methodi 00:00:00 00:00:[address] 3.430.2.7 0.2.7.3.698 Ho spita .3.384066 084.8 l .8 2022-04-04 2022-04-04 Orders Stuart, 1.2.840.1 [id number] 69676 Methodi 00:00:00 00:00:00 Only Nayely 50611.1.[address] 3.430.2.7 Hospit a .3.556228 l .8 2022-04-04 2022-04-04 Orders Arrington, 1.2.840.1 329045215 389942 3635 Methodi 00:00:00 00:00:00 Only Solange 30560.1.[address] 3.430.2.7 Hospit a .3.816450 l .8 2022-03-22 2022-03-22 Refill Buck, 1.2.840.1 [id number] 2099 342652 Methodi 00:00:00 00:00:[address] 3.430.2.7 Hospit a .3.572316 l .8 2022-03-22 2022-03-22 Refill Buck, 1.2.840.1 090049306 2099 351619 Methodi 00:00:00 00:00:[address] 3.430.2.7 Hospit a .3.606403 l .8 2022-03-15 2022-03-15 Travel 1.2.840.1 1.2.314.295 4902 988328 Methodi 00:00:00 00:00:[address] 3.430.2.7 0.2.7.3.698 Ho spita .3.227667 084.8 l .8 2022-03-15 2022-03-15 Travel 1.2.840.1 1.2.057.839 1653 222342 Methodi 00:00:00 00:00:[address] 3.430.2.7 0.2.7.3.698 Ho spita .3.042121 084.8 l .8 2022-03-14 2022-03-14 Travel 1.2.840.1 1.2.311.290 1699 224142 Methodi 00:00:00 00:00:[address] 3.430.2.7 0.2.7.3.698 Ho spita .3.468505 084.8 l .8 2022-03-14 2022-03-14 Travel 1.2.840.1 1.2.844.531 6309 192512 Methodi 00:00:00 00:00:[address] 3.430.2.7 0.2.7.3.698 Ho spita .3.778143 084.8 l .8 2022-03-13 2022-03-13 Orders Stuart, 1.2.840.1 [id number] 58161 Methodi 00:00:00 00:00:00 Only Nayely 90523.1.[address] 3.430.2.7 Hospit a .3.553196 l .8 2022-03-13 2022-03-13 Orders Stuart, 1.2.840.1 [id number] 87187 Methodi 00:00:00 00:00:00 Only Nayely 14259.1.[address] 3.430.2.7 Hospit a .3.213489 l .8 2022-01-11 2022-01-11 Telephone Buck, 1.2.840.1 [id number] 12241628 Methodi 11:00:00 13:31:00 Consult Jayde. 56451.1.[address] 3.430.2.7 Hospit a .3.607155 l .8 2022-01-11 2022-01-11 Telephone Buck, 1.2.840.1 391276737 86621186 Methodi 11:00:00 13:31:00 Consult [address]de[address] 23537.1.[address] 3.430.2.7 Hospit a .3.801216 l .8 2021-12-15 2021-12-15 Orders Buck, 1.2.840.1 980111593 2099 177236 Methodi 00:00:00 00:00:00 Only Jayde. 68479.1.[address] 3.430.2.7 Hospit a .3.112893 l .8 2021-12-15 2021-12-15 Orders Buck, 1.2.840.1 286613312 2099803 Methodi 00:00:00 00:00:00 Only Jayde. 98098.1.[address] 3.430.2.7 Hospit a .3.348150 l .8 2021-12-14 2021-12-14 Office Buck, 1.2.840.1 673175627 2099 219421 Methodi 13:40:00 14:36:45 Visit Liya Méndez. 10706.1.[address] 3.430.2.7 Hospit a .3.168581 l .8 2021-12-14 2021-12-14 Office Buck, 1.2.840.1 098304001 2099560 Methodi 13:40:00 14:36:45 Visit Liya Everett 56375.1.[address] 3.430.2.7 Hospit a .3.122354 l .8 2021-12-14 2021-12-14 Office Rice, 1.2.840.1 461287538 939290 4880 Methodi 13:00:00 13:34:14 Visit Elliot 86918.1.[address] 3.430.2.7 Hospit a .3.850589 l .8 2021-12-14 2021-12-14 Office Rice, 1.2.840.1 837324611 658739 8518 Methodi 13:00:00 13:34:14 Visit Elliot 39970.1.[address] 3.430.2.7 Hospit a .3.727371 l .8 2021-12-14 2021-12-14 Lab Rice, 1.2.840.1 977814151 686032 7199 Methodi 13:00:00 13:05:[address] 3.430.2.7 Hospit a .3.658788 l .8 2021-12-14 2021-12-14 Lab Rice, 1.2.840.1 796948560 916592 8987 Methodi 13:00:00 13:05:[address] 3.430.2.7 Hospit a .3.699997 l .8 2021-12-14 2021-12-14 Orders Stuart, 1.2.840.1 470871843 56679 94952 Methodi 00:00:00 00:00:00 Only Nayely 76035.1.[address] 3.430.2.7 Hospit a .3.031003 l .8 2021-12-14 2021-12-14 Travel 1.2.840.1 1.2.617.598 6933 863109 Methodi 00:00:00 00:00:[address] 3.430.2.7 0.2.7.3.698 Ho spita .3.441211 084.8 l .8 2021-12-14 2021-12-14 Orders Stuart, 1.2.840.1 [id number] Methodi 00:00:00 00:00:00 Only Nayely 78753.1.[address] 3.430.2.7 Hospit a .3.233670 l .8 2021-12-14 2021-12-14 Travel 1.2.840.1 1.2.416.891 3408 122693 Methodi 00:00:00 00:00:[address] 3.430.2.7 0.2.7.3.698 Ho spita .3.632897 084.8 l .8 2021-12-13 2021-12-13 Orders Snyder, 1.2.840.1 482380314 387 4734417 Methodi 00:00:00 00:00:00 Only Delilah 34783.1.[address] 3.430.2.7 Hospit a .3.101452 l .8 2021-12-13 2021-12-13 Travel 1.2.840.1 1.2.832.029 3549 917106 Methodi 00:00:00 00:00:[address] 3.430.2.7 0.2.7.3.698 Ho spita .3.952951 084.8 l .8 2021-12-13 2021-12-13 Orders Snyder, 1.2.840.1 947398555 426 0536309 Methodi 00:00:00 00:00:00 Only Delilah 10439.1.[address] 3.430.2.7 Hospit a .3.944995 l .8 2021-12-13 2021-12-13 Travel 1.2.840.1 1.2.077.396 2300 685916 Methodi 00:00:00 00:00:[address] 3.430.2.7 0.2.7.3.698 Ho spita .3.141143 084.8 l .8 2021-12-06 2021-12-06 Refill Buck, 1.2.840.1 [id number] 2099 644491 Methodi 00:00:00 00:00:[address] 3.430.2.7 Hospit a .3.621556 l .8 2021-12-06 2021-12-06 Refill Buck, 1.2.840.1 696539379 2099 694926 Methodi 00:00:00 00:00:[address] 3.430.2.7 Hospit a .3.351770 l .8 2021-11-20 2021-11-20 Travel 1.2.840.1 1.2.216.128 5686 318736 Methodi 00:00:00 00:00:[address] 3.430.2.7 0.2.7.3.698 Ho spita .3.694563 084.8 l .8 2021-11-20 2021-11-20 Travel 1.2.840.1 1.2.576.275 5614 258301 Methodi 00:00:00 00:00:[address] 3.430.2.7 0.2.7.3.698 Ho spita .3.638336 084.8 l .8 2021-11-17 2021-11-17 Travel 1.2.840.1 1.2.637.962 4300 813483 Methodi 00:00:00 00:00:[address] 3.430.2.7 0.2.7.3.698 Ho spita .3.441895 084.8 l .8 2021-11-17 2021-11-17 Travel 1.2.840.1 1.2.533.125 0279 465749 Methodi 00:00:00 00:00:[address] 3.430.2.7 0.2.7.3.698 Ho spita .3.168355 084.8 l .8 2021-11-15 2021-11-15 Orders Stuart, 1.2.840.1 250009528 Methodi 00:00:00 00:00:00 Only Nayely 24488.1.[address] 3.430.2.7 Hospit a .3.282572 l .8 2021-11-15 2021-11-15 Orders Stuart, 1.2.840.1 171321465 Methodi 00:00:00 00:00:00 Only Nayely 26390.1.[address] 3.430.2.7 Hospit a .3.843318 l .8 2021-10-19 2021-10-19 Refill Buck, 1.2.840.1 781177295 2099 630656 Methodi 00:00:00 00:00:[address] 3.430.2.7 Hospit a .3.516641 l .8 2021-10-19 2021-10-19 Refill Buck, 1.2.840.1 020920565 2099 767250 Methodi 00:00:00 00:00:[address] 3.430.2.7 Hospit a .3.739693 l .8 2021-09-24 2021-09-24 Refill Buck, 1.2.840.1 147814325 2099038 Methodi 00:00:00 00:00:[address] 3.430.2.7 Hospit a .3.315570 l .8 2021-09-21 2021-09-21 Orders Lamine, 1.2.840.1 739638345 61908613 Methodi 00:00:00 00:00:00 Only Anitaa L 17955.1.1 408 [address] t 3.430.2.7 Hospit a .3.603928 l .8 2021-09-20 2021-09-20 Orders Buck, 1.2.840.1 [id number] 2099 541689 Methodi 00:00:00 00:00:00 Only Jayde. 42231.1.[address] 3.430.2.7 Hospit a .3.924616 l .8 2021-09-20 2021-09-20 Orders Arrington, 1.2.840.1 058811099 911408 2894 Methodi 00:00:00 00:00:00 Only Solange 35257.1.[address] 3.430.2.7 Hospit a .3.824977 l .8 2021-09-20 2021-09-20 Refill Arrington, 1.2.840.1 582663715 114194 2651 Methodi 00:00:00 00:00:[address] 3.430.2.7 Hospit a .3.104094 l .8 2021-08-21 2021-08-21 Will Ceja, 1.2.840.1 618058426 452551 2327 Methodi 13:30:00 14:21:19 Visit Elliot [address]114.1.[address] 3.430.2.7 Hospit a .3.749094 l .8 2021-08-21 2021-08-21 Josh Ceja, 1.2.840.1 [id number] 038817 5309 Methodi 13:25:00 13:30:[address] 3.430.2.7 Hospit a .3.079984 l .8 2021-08-21 2021-08-21 Travel 1.2.840.1 1.2.720.022 2824 339029 Methodi 00:00:00 00:00:[address] 3.430.2.7 0.2.7.3.698 Ho spita .3.692751 084.8 l .8 2021-08-17 2021-08-17 Orders Moise, 1.2.840.1 931361472 96306 22614 Methodi 00:00:00 00:00:00 Only Nayely 97372.1.[address] 3.430.2.7 Hospit a .3.064914 l .8 2021-06-29 2021-06-29 Office Rice, 1.2.840.1 [id number] 383441 0599 Methodi 13:30:00 13:45:00 Visit Elliot 87651.1.[address] 3.430.2.7 Hospit a .3.204854 l .8 2021-06-29 2021-06-29 Lab Rice, 1.2.840.1 290351300 346412 1036 Methodi 13:30:00 13:35:[address] 3.430.2.7 Hospit a .3.030913 l .8 2021-06-29 2021-06-29 Travel 1.2.840.1 1.2.056.055 4166 497914 Methodi 00:00:00 00:00:[address] 3.430.2.7 0.2.7.3.698 Ho spita .3.835777 084.8 l .8 2021-06-07 2021-06-07 Sana Stokes 1.2.840.1 818734834 996 0324053 Methodi 00:00:00 00:00:00 Only Anya 51878.1.[address] 3.430.2.7 Hospit a .3.884524 l .8 2021-06-05 2021-06-05 Office Buck, 1.2.840.1 434380856 2100 854387 Methodi 16:20:00 17:39:49 Visit Liya Everett 54623.1.[address] 3.430.2.7 Hospit a .3.321328 l .8 2021-06-05 2021-06-05 Travel 1.2.840.1 1.2.979.590 9111 827858 Methodi 00:00:00 00:00:[address] 3.430.2.7 0.2.7.3.698 Ho spita .3.209134 084.8 l .8 2021-06-01 2021-06-01 Office Rice, 1.2.840.1 459259326 917842 7377 Methodi 13:00:00 13:45:18 Visit Elliot 05067.1.[address] 3.430.2.7 Hospit a .3.634397 l .8 2021-06-01 2021-06-01 Lab Rice, 1.2.840.1 291788774 470856 5155 Methodi 13:00:00 13:05:[address] 3.430.2.7 Hospit a .3.434620 l .8 2021-06-01 2021-06-01 Travel 1.2.840.1 1.2.243.950 8140 000547 Methodi 00:00:00 00:00:[address] 3.430.2.7 0.2.7.3.698 Ho spita .3.998738 084.8 l .8 2021-05-29 2021-05-29 Orders Rajtakarla 1.2.840.1 257013191 128011 9000 Methodi 00:00:00 00:00:00 Only Thompson, 29066.1.[address] Deb 3.430.2.7 Hospi ta .3.486379 l .8 2021-04-13 2021-04-13 Outpatient RICE, [facility] [id number] 686 [place] 00:00:00 00:00:[address] 2021-04-13 2021-04-13 Outpatient RICE, [facility] [id number] 779 [place] 00:00:00 00:00:00 ELLIOT 191 Metho di 2021-04-10 2021-04-10 Outpatient BUCK, [facility] [id number] 63716 [place] 00:00:00 00:00:00 LIYA [address] 2021-04-10 2021-04-10 Outpatient BUCK, [facility] 11390 97580 [place] 00:00:00 00:00:00 LIYA 869 Method i 2021-04-10 2021-04-10 Outpatient BUCK, [facility] 36469 29123 [place] 00:00:00 00:00:00 LIYA 329 Method i 2021-03-27 2021-03-27 Outpatient BUCK, [facility] 80880 23057 [place] 00:00:00 00:00:00 LIYA 607 Method i 2021-03-09 2021-03-09 Outpatient RICE, [facility] [id number] 596 [place] 00:00:00 00:00:00 ELLIOT 599 Metho di 2021-03-09 2021-03-09 Outpatient RICE, [facility] [id number] 345 [place] 00:00:00 00:00:00 ELLIOT 365 Metho di 2021-02-16 2021-02-16 Outpatient RICE, [facility] [id number] 505 [place] 00:00:00 00:00:00 ELLIOT 302 Metho di 2021-02-16 2021-02-16 Outpatient RICE, [facility] [id number] 163 [place] 00:00:00 00:00:00 ELLIOT 706 Metho di 2020-11-24 2020-11-24 Outpatient RICE, [facility] [id number] 408 [place] 00:00:00 00:00:00 ELLIOT 611 Metho di 2020-11-24 2020-11-24 Outpatient RICE, [facility] [id number] 419 [place] 00:00:00 00:00:00 ELLIOT 646 Metho di 2020-08-25 2020-08-25 Outpatient RICE, [facility] [id number] 301 [place] 00:00:00 00:00:00 ELLIOT 154 Metho di 2020-08-25 2020-08-25 Outpatient RICE, [facility] [id number] 101 [place] 00:00:00 00:00:00 ELLIOT 808 Metho di 2020-05-26 2020-05-26 Outpatient RICE, [facility] [id number] 384 [place] 00:00:00 00:00:00 ELLIOT [address] 2020-05-26 2020-05-26 Outpatient RICE, [facility] [id number] 985 [place] 00:00:00 00:00:00 ELLIOT 853 Metho di 2020-03-17 2020-03-17 Outpatient RICE, [facility] [id number] 326 [place] 00:00:00 00:00:00 ELLIOT [address] 2020-03-17 2020-03-17 Outpatient RICE, [facility] [id number] 260 [place] 00:00:00 00:00:00 ELLIOT [address] 2020-02-12 2020-02-12 Outpatient BUCK, [facility] [id number] 61376 [place] 00:00:00 00:00:00 LIYA [address] 2020-01-22 2020-01-22 Outpatient BUCK, [facility] 48301 27912 [place] 00:00:00 00:00:00 LIYA [address] 2020-01-14 2020-01-14 Outpatient RICE, [facility] [id number] 759 [place] 00:00:00 00:00:00 ELLIOT [address] 2020-01-14 2020-01-14 Outpatient RICE, [facility] [id number] 152 [place] 00:00:00 00:00:00 ELLIOT [address] 2019-12-03 2019-12-03 Outpatient BUCK, [facility] [id number] 90236 [place] 00:00:00 00:00:00 LIYA [address] 2019-10-08 2019-10-08 Outpatient MARK, LINDA [facility] 2100 [id number] [place] 00:00:00 00:00:[address] 2019-08-24 2019-08-24 Outpatient MARK, LINDA [facility] 2100 [id number] [place] 00:00:00 00:00:[address] 2019-08-03 2019-08-03 Outpatient BUCK, [facility] [id number] 31226 [place] 00:00:00 00:00:00 LIYA [address] Results Test Description Test Time Test Comments Results Result Comments Source Comprehensive metabolic panel 2022-06-29 19:14:00 Test Item Value Reference Range Interpretation Comme nts Glucose (test code = 111 mg/dL 65-139 Non-f asting 2345-7) reference inter chao BUN (test code = 3094-0) 21 mg/dL 7-25 Creatinine (test code = 0.92 mg/dL 0.60-0.95 2160-0) eGFR (test code = 8257) 62 See_Comment The eGFR is based on the CKD-EPI 202 1 equation. To ca lculate the new eGFR fr om a previous Creati nine or Cystatin Cresul t, go to https://www.kid tiffany.org /professionals/ kdoqi/g fr%5Fcalculator [Automated mess age] The system [employer] generated this result transmitted ref erence range: > OR = 6 0 mL/min/1.73m2. The reference range was not used to int erpret this result as normal/abnormal . BUN/creatinine ratio (test NOT APPLICABLE See_Comment [Automated message] code = 3097-3) The system [employer] [facility] [place] generated this result transmitted ref erence range: 6 - 22 ( calc). The reference r danni was not used to interpret this result as normal/abnor mal. Sodium (test code = 138 mmol/L 149-030 1892-2) Potassium (test code = 3.5 mmol/L 3.5-5.3 2823-3) Chloride (test code = 100 mmol/L 98-110 2075-0) CO2 (test code = 2027-9) 26 mmol/L 20-32 Calcium (test code = 9.6 mg/dL 8.6-10.4 88259-8) Protein (test code = 7.7 g/dL 6.1-8.1 2885-2) Albumin, S (test code = 4.4 g/dL 3.6-5.1 1751-7) Globulin, total (test code 3.3 See_Comment [Automated message] = 50510-0) The system [employer] generated this result transmitted ref erence range: 1.9 - 3. 7 g/dL (calc). The ref erence range was not u sed to interpret this result as normal/abnor mal. Albumin/globulin ratio 1.3 See_Comment [Aut omated message] (test code = 1759-0) The sys tem which generated this result transmitted ref erence range: 1.0 - 2. 5 (calc). The ref erence range was not u sed to interpret this result as normal/abnor mal. Total bilirubin (test code 0.6 mg/dL 0.2-1.2 = 1974-) Alkaline phosphatase (test 81 U/L 37-153 code = 6768-6) AST (test code = 1920-8) 42 U/L 10-35 H ALT (test code = 1742-6) 45 U/L 6-29 H LETITIA (test code = LETITIA) FASTING:NO FASTING: NO RAC (test code = RAC) Performing Organization Information: Site ID: [facility] Address: [address] [place] [id number] Director: Parish Contreras [facility] Interpretation (test Abnormal code = 15885-4) [facility] [id number] 19:14:00 Test Item Value Reference Interpretation Comments Range Cholesterol, total 124 mg/dL <=200 (test code = 2093-3) HDL cholesterol 32 mg/dL See_Comment L [Automated (test code = 2085-9) message ] The system which generated this result transmitted reference range : > OR = 50. The reference range was not used to interpret this result as normal/abnormal . Triglycerides (test 200 mg/dL <=150 H If a no n-fasting code = 2571-8) specimen was collected, considerrepeat triglyceride testing on a fasting specime nif clinically indicated. Bob ramsay et al. J. of Cl in. Lipidol. 2015;9:129-169. LDL cholesterol 65 mg/dL (calc) Reference ra nge: calculated (test <100 Desira ble code = 52270-3) range <100 m g/dL for primary prevention; <70 mg/dL for patie nts with CHD or diabetic patien ts with > or = 2 C HD risk factors. L DL-C is now calculat ed using the Marvin-Johnston calculation, wh ich is a validated novel method providing radha r accuracy than t he Kezia equa tion in the estimati on of LDL-C. Zuly n SS et al. ALFREDO. 2013;310(19): 7275-2850 (http://educati on.Q uestDiagnostics .com /faq/VEB296) Cholesterol/HDL 3.9 See_Comment [Automated ratio (test code = message] The system 9830-1) which generated this result transmitted reference range : <5.0 (calc). Th e reference range was not used to interpret this result as normal/abnormal . Non-HDL cholesterol 92 See_Comment For rosa ents with (test code = diabetes plus 1 60542-1) major ASCVD ris k factor, treatin g to a non-HDL-C goa l of <100 mg/dL (LDL -C of <70 mg/dL) i s considered a therapeutic opt ion. [Automated mess age] The system [employer] generated this result transmit al reference range : <130 mg/dL (marva c). The reference r danni was not used to interpret this result as normal/abnormal . LETITIA (test code = FASTING:NO LETITIA) FASTING: NO RAC (test code = Performing RAC) Organization Information: Site ID: [facility] Address: [address] [place] [id number] Director: Parish Contreras Lab Interpretation Abnormal (test code = 83035-0) [facility] [id number] 19:14:00 Test Item Value Reference Range Interpretation Comments Hemoglobin A1C 5.3 See_Comment For the purpo se of (test code = screening for t 4548-4) presence ofdiab etes: <5.7% Consisten t with the absence of diabetes5.7-6.4 % Consistent with increased risk for diabetes (prediabetes)> or =6.5% Consisten t with diabetes This a ssay result is consi stent with a decrease d riskof diabetes . Currently, no consensus exist s regarding use ofhemoglobin A1 c for diagnosis of di abetes in children. According to [place] Diabetes Associ ation (ADA)guidelines , hemoglobin A1c <7.0% represents optimalcontrol in non- di abetic patients. Differentmetric s may apply to specif ic patient populat ions. Standards of [place] d[place] Care in Diabetes(ADA). [Automated mess age] The system [employer] generated this result transmitted ref erence range: <5.7 % o f total Hgb. The reference range was not used to int erpret this result as normal/abnormal . LETITIA (test code = FASTING:NO LETITIA) FASTING: NO RAC (test code = Performing RAC) Organization Information: Site ID: [facility] Name: [facility] Address: [address] [place] [address] [facility] [id number] 19:14:00 Test Item Value Reference Range Interpretation Comments T4, free (test code 1.5 ng/dL 0.8-1.8 = 3024-7) LETITIA (test code = FASTING:NO FASTING: NO LETITIA) RAC (test code = Performing Organization RAC) Information: Site ID: [facility] Name: [facility] Address: [address] [place] [address] Director: [facility] Hospital[facility]yroid stimulating [id number] 19:14:00 Test Item Value Reference Range Interpretation Comments TSH (test 0.94 See_Comment [Automated mes emeli] code = The system [facility] h 3016-3) generated this result transmit al reference range : 0.40 - 4.50 mIU /L. The reference r danni was not used to interpret this result as normal/abnormal . LETITIA (test FASTING:NO FASTING: code = LETITIA) NO RAC (test Performing code = RAC) Organization Information: Site ID: [facility] Name: [facility] Lab Address: [address] [place] [address] [facility] [id number] 19:14:00 Test Item Value Reference Interpretation Comments Range Urine culture (test SEE NOTE A CULTURE , URINE, code = 630-4) ROUTINE Micro Number: [id number] Test Status: Fi nal Specimen Source : Urine, clean ca tch Specimen Qualit y: Adequate Result : Greater than 100,000 CFU/mL of Escherichia col i E.coli - INT FRANCE AMOX/CLAVULANAT E S <=2 AMPICILLIN S <=2 AMP/SULBACT AM S <=2 CEFAZOLIN NR <=4 2 CEFE PIME S <=1 CEFTAZIDI ME S <=1 CEFTRIAXONE S <=1 CIPROFLOXAC IN S <=0.25 GENTAM ICIN S <=1 IMIPENEM S <=0.25 LEVOFLOX ACIN S <=0.12 NITROFURANTOIN S <=16 PIP/TAZOBA CTAM S <=4 TOBRAMYCI N S <=1 TRIMETHOPRIM/ANDRES LFA S <=20 S=Susceptible I=Intermediate R=Resistant * = Not TestedNR = Not Reported NN = See Therapy Comment s THERAPY COMMENT S Note 1: For infections othe r than uncomplica al UTI caused by E . coli, K. pneumo niae or P. mirabilis : Cefazolin is resistant if HI C > or = 8 mcg/mL. (Distinguishing susceptible alma elijah intermediate fo r isolates with M IC < or = 4 mcg/mL requires additi onal testing.) Note 2: For uncomplicat ed UTI caused by E . coli, K. pneumo niae or P. mirabilis : Cefazolin is susceptible if FRANCE <32 mcg/mL and predicts susceptible to the oral agents cefaclor, cefdi carlos, cefpodoxime, cefprozil, cefuroxime, cephalexin and loracarbef. LETITIA (test code = FASTING:NO LETITIA) FASTING: NO RAC (test code = Performing RAC) Organization Information: Site ID: [facility] Address: [address] [place] [phone] Director: Parish Contreras Lab Interpretation Abnormal (test code = 58399-8) [facility] with [id number] 19:14:00 Test Item Value Reference Range Interpretation Comments Color, UA (test code YELLOW YELLOW = 5778-6) Appearance (test CLEAR CLEAR code = 5767-9) Specific gravity, 1.020 1.001-1.035 urine (test code = 5811-5) pH, urine (test code 5.5 5.0-8.0 = 5803-2) Glucose, urine (test NEGATIVE NEGATIVE code = 39879-2) Bilirubin, UA (test NEGATIVE NEGATIVE code = 5770-3) Ketones, UA (test TRACE NEGATIVE A code = 2514-8) Occult blood, urine 2+ NEGATIVE A (test code = 5794-3) Protein, UA (test NEGATIVE NEGATIVE code = 75753-0) Nitrite, UA (test POSITIVE NEGATIVE A code = 5802-4) Leukocyte esterase, 1+ NEGATIVE A UA (test code = 5799-2) WBC, UA (test code = 6-10 See_Comment A [Autom ated 5821-4) message] The system which generated this result transmitted reference range : < OR = 5 /HPF. The reference range was not used to interpr et this result as normal/abnormal . RBC, UA (test code = NONE SEEN See_Comment [Autom ated 63259-6) message] The system which generated this result transmitted reference range : < OR = 2 /HPF. The reference range was not used to interpr et this result as normal/abnormal . Squamous epithelial NONE SEEN See_Comment [Automa al cells, UA (test code message ] The = 83695-1) system which generated this result transmitted reference range : < OR = 5 /HPF. The reference range was not used to interpr et this result as normal/abnormal . Bacteria, UA (test MANY NONE SEEN /HPF A code = 5769-5) Hyaline casts, UA NONE SEEN NONE SEEN /LPF (test code = 5796-8) Note: (test code = This urin e was 8251-1) analyzed for th e presence of WBC , RBC, bacteria, casts, and othe r formed elements . Only those elements seen were reported. LETITIA (test code = FASTING:NO LETITIA) FASTING: NO RAC (test code = Performing RAC) Organization Information: Site ID: [facility]: [facility] Lab Address: [address] [place] [phone] Director: Parish Contreras Lab Interpretation Abnormal (test code = 77231-3) [facility] CenterVitamin D 25 hydroxy [id number] 19:14:00 Test Item Value Reference Range Interpretation Comments Vitamin D, 49 ng/mL 30-100 Vitamin D Statu s 25-hydroxy (test 25-OH Vitam in D: code = 1988-) Deficiency: < 20 ng/mLInsufficie ncy : 20 - 29 ng/mLOptimal: > or = 30 ng/mL For 25-OH Vitamin D testing on patients on D2-supplementat ion and patients fo r whom quantitati on of D2 and D3 fractions is required, the QuestAssureD(TM )25 -OH VIT D, (D2,D3), LC/MS/ MS is recommended: order code 9288 8 (patients >2yrs).See Note 1 Note 1 For additional information, please refer to http://educatio n.Q uestDiagnostics .co m/faq/TNK705 (T his link is being provided for informational/e maricruz ational purpose s only.) LETITIA (test code = FASTING:NO FASTING: LETITIA) NO RAC (test code = Performing RAC) Organization Information: Site ID: [facility] Address: [address] [place] [phone] Director: Parish Contreras [facility] metabolic [id number] 06:04:00 Test Item Value Reference Interpretation Comments Range Glucose (test code 102 mg/dL 65-139 Non-fast ing = 2345-7) reference inter chao BUN (test code = 25 mg/dL 7-25 3094-0) Creatinine (test 1.10 mg/dL 0.6-0.88 H For patient s >49 code = 2160-0) years of age, the reference limit for Creatinine is approximately 1 3% higher for peopleidentifie d as -Brigida n. EGFR Non-Afr. See_Comment L [Automated me ssage] Omani (test code The syst em which = 6035) generated this result transmit al reference range : > OR = 60 mL/min/1.73m2. The reference range was not used to interpret this result as normal/abnormal . EGFR See_Comment L [Automated mes emeli] Omani (test code The syst em which = 8114) generated this result transmit al reference range : > OR = 60 mL/min/1.73m2. The reference range was not used to interpret this result as normal/abnormal . BUN/creatinine See_Comment H [Automated m essage] ratio (test code = The syste m which 3097-3) generated this result transmit al reference range : 6 - 22 (calc). The reference range was not used to interpret this result as normal/abnormal . Sodium (test code = 139 mmol/L 314-979 6420-2) Potassium (test 4.3 mmol/L 3.5-5.3 code = 2823-3) Chloride (test code 104 mmol/L 98-110 = 2074-0) CO2 (test code = 25 mmol/L 20-32 2028-05) Calcium (test code 9.6 mg/dL 8.6-10.4 = 11640-9) Protein (test code 7.5 g/dL 6.1-8.1 = 2885-2) Albumin, S (test 4.2 g/dL 3.6-5.1 code = 1751-7) Globulin, total See_Comment [Automated message] (test code = [place] 897[address]-7) generated this result transmit al reference range : 1.9 - 3.7 g/dL (marva c). The reference r danni was not used to interpret this result as normal/abnormal . Albumin/globulin See_Comment [Automated message] ratio (test code = The syste m which ) generated this result transmit al reference range : 1.0 - 2.5 (calc). T he reference range was not used to interpret this result as normal/abnormal . Total bilirubin 0.6 mg/dL 0.2-1.2 (test code = 1974-) Alkaline 84 U/L 37-153 phosphatase (test code = 6768-6) AST (test code = 39 U/L 10-35 H 192-8) ALT (test code = 47 U/L 6-29 H 174-6) LETITIA (test code = FASTING:NO LETITIA) FASTING: NO RAC (test code = Performing RAC) Organization Information: Site ID: [facility] Address: [address] [place] [phone] Director: Parish Contreras Lab Interpretation Abnormal (test code = 25322-8) [facility] CenterLipid [id number] 06:04:00 Test Item Value Reference Range Interpretation Comments Cholesterol, total 235 mg/dL See_Comment H [Automat ed (test code = 2092-11) message ] The system which generated this result transmitted reference range : <=200. The reference range was not used to interpret this result as normal/abnormal . HDL cholesterol 37 mg/dL See_Comment L [Automated (test code = 2085-05) message ] The system which generated this [...] calculated (test <100 Desira ble code = 93095-4) range <100 m g/dL for primary prevention; <70 mg/dL for patients with C HD or diabetic patients with > or = 2 CHD risk factors. LDL-C is now calculated using the Marvin-Preston calculation, which is a validated novel method providin g better accuracy than the Friedewald equation in the estimation of LDL-C. Marvin S S et al. ALFREDO. 2013;310(19): 8793-0523 (http://educati on .Light Extraction .com/faq/PCG258 ) Cholesterol/HDL See_Comment H [Automated ratio (test code = message] The 9830-1) system which generated this result transmitted reference range : <5.0 (calc). Th e reference range was not used to interpret this result as normal/abnormal . Non-HDL cholesterol See_Comment H For rosa ents with (test code = diabetes plus 1 21765-6) major ASCVD ris k factor, treatin g [...] RAC) Organization Information: Site ID: [facility] Name: [facility] Address: [address] [place] [phone] Director: Parish Contreras Lab Interpretation Abnormal (test code = 51695-7) [facility] [place] [address], [id number] 06:04:00 Test Item Value Reference Range Interpretation Comments T4, free (test code 1.3 ng/dL 0.8-1.8 = 3024-7) LETITIA (test code = FASTING:NO FASTING: NO LETITIA) RAC (test code = Performing Organization RAC) Information: Site ID: [facility] Name: [facility] Lab Address: [address] [place] [address] Director: Parish Contreras [facility] CenterThyroid stimulating [id number] 06:04:00 Test Item Value Reference Range Interpretation Comments TSH (test See_Comment [Automated mes emeli] code = The system [employer] h 3016-3) generated this result transmit al reference range : 0.40 - 4.50 mIU /L. The reference r danni was not used to interpret this result as normal/abnormal . LETITIA (test FASTING:NO FASTING: code = LETITIA) NO RAC (test Performing code = RAC) Organization Information: Site ID: A Name: [facility] Lab Address: [address] [place] [address] Director: Parish Contreras [facility] CenterAmylase [id number] 22:53:00 Test Item Value Reference Range Interpretation Comments Amylase (test code = 47 U/L 21-101 1798-8) LETITIA (test code = FASTING:NO FASTING: NO LETITIA) RAC (test code = Performing Organization RAC) Information: Site ID: A Name: [facility] Lab Address: [address] [place] [address] Director: Parish Contreras [facility] CenterLipase [id number] 22:53:00 Test Item Value Reference Range Interpretation Comments Lipase (test code = 74 U/L 7-60 H 3040-3) LETITIA (test code = LETITIA) FASTING:NO FASTING: NO RAC (test code = RAC) Performing Organization Information: Site ID: A Name: [facility] Lab Address: [address] [place] [address] Director: Parish Contreras Lab Interpretation (test Abnormal code = 62658-9) [facility] CenterC-reactive [id number] 22:53:00 Test Item Value Reference Range Interpretation Comments CRP (test 2.4 mg/L See_Comment [Automated mes emeli] code = The system [employer] h 1988-5) generated this result transmit al reference range : <=8.0. The refe rence range was not u sed to interpret th is result as normal/abnormal . LETITIA (test FASTING:NO FASTING: code = LETITIA) NO RAC (test Performing code = RAC) Organization Information: Site ID: [facility] Name: [facility] Lab Address: [address] [place] [address] Director: Parish Contreras [facility] Centerimentation [id number] 22:53:00 Test Item Value Reference Range Interpretation [...] = Performing RAC) Organization Information: Site ID: [facility]: [facility] Address: [address] [place] [address] Director: Parish Contreras Lab Interpretation Abnormal (test code = 49160-1) [facility] binding [id number] 22:53:00 Test Item Value Reference Range Interpretation [...] = Performing RAC) Organization Information: Site ID: [facility] Name: [facility] Address: [address] [place] [address] Director: Parish Contreras [facility] CenterANA SCREEN W IFA W REFLEX TO [id number] 22:53:00 Test Item Value Reference Interpretation Comments Range LIYA Screen (test POSITIVE NEGATIVE A LIYA IFA is a first code = 99177-5) line screen for detecting thepresence of up to approximatel y 150 autoantibod ies invarious autoimmune diseases. A positive LIYA IF A resultis sugges tive of autoimmune disease and reflexes totite r and pattern. Further laborat ory testing may beconsidered if clinically indicated. For additional information, pl ease refer tohttp://educat ion. Videonline CommunicationsDiagnostic s.co m/faq/BRI382(Th is link is being provided for informational/e duca tional purposes only.) LIYA titer (test code 1:40 titer H A low l evel LIYA = 5048-4) titer may be present in pre-clinicalaut oimm une diseases an d normal individu als. Reference Range <1:40 Negative 1:40-1:80 Low Antibody Level >1:80 Elevated Antibody Level LIYA pattern (test Cytoplasmic A The presen ce of code = 11406-7) cytoplasmic fluorescence wa s noted onthe HEp -2 slide. Other reactivities (e .g., anti-mitochondr ial antibodies or anti-smooth muscleantibodie s) may be responsi ble for this fluorescence.Th e clinical significance of this finding is uncertain.Clini marva correlation is recommended. AC -15 to AC-23: Cytoplasmic International Consensus on AN A Patterns(https: //do i.org/10.1515/c [facility]2017[address]53[address]) LETITIA (test code = FASTING:NO LETITIA) FASTING: NO RAC (test code = Performing RAC) Organization Information: Site ID: IG Name: [facility] Address: [address] [place] [id number] Director: Dr. Parish Contreras Lab Interpretation Abnormal (test code = 25512-0) [facility]
--- NOTE | 2022-10-16 15:59 | RAD REPORT ---
EXAM DESCRIPTION: RAD - Chest Single View - 10/16/2022 3:53 pm CLINICAL HISTORY: CHEST PAIN Chest pain. COMPARISON: Chest Single View dated 09/27/2021; Chest Single View dated 06/03/2021; Chest Single View dated 05/29/2021; Chest Single View dated 08/24/2018 FINDINGS: Portable technique limits examination quality. The lungs are emphysematous but clear. Chronic blunting the left costophrenic angle suspected. The he art is normal in size. No displaced fractures. IMPRESSION: COPD.
[2022-10-16 16:41] LABS: Absolute Lymphocytes (CBC) 1.5 K/uL (0.7-4.9); Hematocrit 25.4 % (36.0-45.0); Lymphocytes % 23.9 % (15.3-44.8); MCV 115.1 fL (80-100); RBC Red Blood Cell Count 2.21 M/uL (3.86-4.86)
[2022-10-16 16:47] LABS: Potassium 3.3 mmol/L (3.5-5.1); Troponin High Sensitivity 9.4 pg/mL (<58.9)
--- NOTE | 2022-10-16 18:06 | RAD REPORT ---
EXAM DESCRIPTION: CT - Chest For Pe Angio - 10/16/2022 5:29 pm CLINICAL HISTORY: Chest pain. CHEST PAIN COMPARISON: Chest For Pe Angio dated 05/29/2021 TECHNIQUE: CT angiogram of the pulmonary arteries was performed with MIP. All CT scans are performed using dose optimization technique as appropriate and may include automated exposure control or mA/KV adjustment according to patient size. FINDINGS: No evidence of pulmonary thromboembolism. No acute aortic finding demonstrated. The lungs are emphysematous with linear atelectasis in both lung bases. No significant pericardial or pleural fluid. Small hiatal hernia. No concerning bony finding. IMPRESSION: No evidence of pulmonary thromboembolism. Moderate COPD.
--- NOTE | 2022-10-16 18:13 | ER ---
Nurse's Notes [facility] Name: Carmen Ewing Age: 82 yrs Sex: Female : 1940 Arrival Date: 10/16/2022 Time: 15:24 Bed 23 Private MD: Diagnosis: Chest pain, unspecified Presentation: 10/16 15:33 Chief complaint: Patient states: Chest pain began yesterday evening - radiates to mid ld1 back. Coronavirus screen: At this time, the client does not indicate any symptoms associated with coronavirus-19. Ebola Screen: No symptoms or risks identified at this time. Initial Sepsis Screen: Does the patient meet any 2 criteria? No. Patient's initial sepsis screen is negative. Does the patient have a suspected source of infection? No. Patient's initial sepsis screen is negative. Risk Assessment: Do you want to hurt yourself or someone else? Patient reports no desire to harm self or others. Onset of symptoms was October 16, 2022 at 15:33. 15:33 Method Of Arrival: Ambulatory ld1 15:33 Acuity: ARTHUR 3 ld1 Triage Assessment: 15:33 General: Appears in no apparent distress. comfortable, Behavior is calm, cooperative, ld1 appropriate for age. Pain: Complains of pain in chest Pain does not radiate. Pain currently is 8 out of 10 on a pain scale. Quality of pain is described as throbbing, Pain began suddenly. EENT: No signs and/or symptoms were reported regarding the EENT system. Neuro: Level of Consciousness is awake, alert, obeys commands, Oriented to person, place, time, situation. Cardiovascular: Capillary refill < 3 seconds Patient's skin is warm and dry. Respiratory: Airway is patent Respiratory effort is even, unlabored. GI: Abdomen is flat, non-distended. : No signs and/or symptoms were reported regarding the genitourinary system. Derm: No signs and/or symptoms reported regarding the dermatologic system. Musculoskeletal: No signs and/or symptoms reported regarding the musculoskeletal system. Historical: - Allergies: 15:33 Niacin; ld1 - PMHx: 15:33 Hypertension; Hypothyroidism; Irritable bowel syndrome; ITP; neuropathy; Osteoporosis; ld1 Pulmonary Embolism; shingles; thrombocythemia; - PSHx: 15:33 Cholecystectomy; Total abdominal hysterectomy; ld1 - Immunization history:: Adult Immunizations Client reports receiving the 2nd dose of the Covid vaccine. - Social history:: Smoking status: Patient denies any tobacco usage or history of. Patient/guardian denies using alcohol. Screenin:45 [facility] ED Fall Risk Assessment (Adult) History of falling in the last 3 months, eh3 including since admission No falls in past 3 months (0 pts) Confusion or Disorientation No (0 pts) Intoxicated or Sedated No (0 pts) Impaired Gait No (0 pts) Mobility Assist Device Used No (0 pt) Altered Elimination Yes (1 pt) Score/Fall Risk Level 0 - 2 = Low Risk. Abuse screen: Denies threats or abuse. Denies injuries from another. Nutritional screening: No deficits noted. Tuberculosis screening: No symptoms or risk factors identified. Assessment: 15:45 General: Appears in no apparent distress. uncomfortable, Behavior is calm, cooperative, eh3 appropriate for age. Pain: Complains of pain in anterior aspect of left upper chest and left breast Pain radiates to left scapular area and left subscapular area Pain currently is 8 out of 10 on a pain scale. Quality of pain is described as sharp, Pain began 1 day ago. Is continuous. Neuro: Level of Consciousness is awake, alert, obeys commands, Oriented to person, place, time, situation. Cardiovascular: Capillary refill < 3 seconds Patient's skin is warm and dry. Respiratory: Airway is patent Respiratory effort is even, unlabored, Respiratory pattern is regular, symmetrical. GI: Abdomen is round non-distended, Reports nausea, vomiting. : No signs and/or symptoms were reported regarding the genitourinary system. EENT: No signs and/or symptoms were reported regarding the EENT system. Derm: No signs and/or symptoms reported regarding the dermatologic system. Skin is pink, warm \T\ dry. Musculoskeletal: No signs and/or symptoms reported regarding the musculoskeletal system. Circulation, motion, and sensation intact. Range of motion: intact in all extremities. 16:45 Reassessment: Patient appears in no apparent distress at this time. Patient and/or eh3 family updated on plan of care and expected duration. Pain level reassessed. Patient is alert, oriented x 3, equal unlabored respirations, skin warm/dry/pink. 17:45 Reassessment: Patient appears in no apparent distress at this time. Patient and/or eh3 family updated on plan of care and expected duration. Pain level reassessed. Patient is alert, oriented x 3, equal unlabored respirations, skin warm/dry/pink. Vital Signs: 15:33 BP 122 / 61; Pulse 72; Resp 18; Temp 97.9(O); Pulse Ox 98% on R/A; Weight 48.99 kg; ld1 Height 5 ft. 6 in. (167.64 cm); Pain 8/10; 15:45 BP 140 / 60; Resp 69; Temp 20; Pulse Ox 99% on R/A; eh3 16:45 BP 126 / 102; Pulse 69; Resp 21; Pulse Ox 99% on R/A; eh3 17:45 BP 147 / 72; Pulse 68; Resp 19; Pulse Ox 97% on R/A; eh3 15:33 Body Mass Index 17.43 (48.99 kg, 167.64 cm) ld1 Vitals: 15:45 Cardiac Rhythm Assessment Sinus rhythm. eh3 ED Course: 15:24 Patient arrived in ED. am2 15:25 Tima Harper MD is Attending Physician. sp3 15:33 Triage completed. ld1 15:33 Arm band placed on right wrist. EKG completed in triage. Results shown to MD. ld1 15:45 Patient has correct armband on for positive identification. Placed in gown. Bed in low eh3 position. Call light in reach. Side rails up X2. Adult w/ patient. Client placed on continuous cardiac and pulse oximetry monitoring. NIBP monitoring applied. Door closed. Noise minimized. Lights dimmed. Warm blanket given. 15:45 Patient maintains SpO2 saturation greater than 95% on room air. eh3 15:49 Gina Lopez, RN is Primary Nurse. eh3 15:55 XRAY Chest (1 view) In Process Unspecified. EDMS 16:10 Inserted saline lock: 20 gauge in right antecubital area, using aseptic technique. eh3 Blood collected. 17:30 CT Chest For PE Angio In Process Unspecified. EDMS 18:14 No provider procedures requiring assistance completed. IV discontinued, intact, eh3 bleeding controlled, No redness/swelling at site. Pressure dressing applied. Administered Medications: No medications were administered Medication: 18:14 VIS not applicable for this client. eh3 Outcome: 18:13 Discharge ordered by . sp3 18:14 Discharged to home ambulatory, with family. eh3 18:14 Condition: stable 18:14 Discharge instructions given to patient, family, Instructed on discharge instructions, follow up and referral plans. Demonstrated understanding of instructions, follow-up care. 18:23 Patient left the ED. eh3 Signatures: Dispatcher [employer] EDMS Maria E Dove 2 Sujey Pruett RN RN ld1 Tima Harper MD MD sp3 Gina Lopez RN RN eh3
--- NOTE | 2022-10-16 18:13 | EDPHYS ---
Physician Documentation [facility] Name: Carmen Ewing Age: 82 yrs Sex: Female : 1940 Arrival Date: 10/16/2022 Time: 15:24 Bed 23 Private MD: ED Physician Tima Harper HPI: 10/16 16:12 This 82 yrs old Female presents to ER via Ambulatory with complaints of Chest Pain. sp3 16:12 82-year-old female with a history of hypertension, irritable bowel syndrome, prior sp3 history of ITP presents to the ED with chief complaint dull chest pain radiating posteriorly into her back for approximately 24 hours. She denies any acute onset of the symptoms rather she slowly noticed it. Denies any pain down the left arm, syncope, shortness of breath, abdominal pain though she does say she has bad esophageal reflux. She is on a PPI for that. On ROS, she denies fever, URI symptoms, neck pain, lower back pain, vomiting, diarrhea, rash, or any other symptoms at this time.. Historical: - Allergies: 15:33 Niacin; ld1 - PMHx: 15:33 Hypertension; Hypothyroidism; Irritable bowel syndrome; ITP; neuropathy; Osteoporosis; ld1 Pulmonary Embolism; shingles; thrombocythemia; - PSHx: 15:33 Cholecystectomy; Total abdominal hysterectomy; ld1 - Immunization history:: Adult Immunizations Client reports receiving the 2nd dose of the Covid vaccine. - Social history:: Smoking status: Patient denies any tobacco usage or history of. Patient/guardian denies using alcohol. ROS: 16:15 Constitutional: Negative for fever, chills, and weight loss, Eyes: Negative for injury, sp3 pain, redness, and discharge, ENT: Negative for injury, pain, and discharge, Neck: Negative for injury, pain, and swelling, Respiratory: Negative for shortness of breath, cough, wheezing, and pleuritic chest pain, MS/Extremity: Negative for injury and deformity, Skin: Negative for injury, rash, and discoloration, Neuro: Negative for headache, weakness, numbness, tingling, and seizure, Psych: Negative for depression, anxiety, suicide ideation, homicidal ideation, and hallucinations, Allergy/Immunology: Negative for hives, rash, and allergies, Endocrine: Negative for neck swelling, polydipsia, polyuria, polyphagia, and marked weight changes, Hematologic/Lymphatic: Negative for swollen nodes, abnormal bleeding, and unusual bruising. 16:15 All other systems are negative. Exam: 16:16 Constitutional: This is a well developed, well nourished patient who is awake, alert, sp3 and in no acute distress. Head/Face: Normocephalic, atraumatic. Eyes: Pupils equal round and reactive to light, extra-ocular motions intact. Lids and lashes normal. Conjunctiva and sclera are non-icteric and not injected. Cornea within normal limits. Periorbital areas with no swelling, redness, or edema. ENT: Nares patent. No nasal discharge, no septal abnormalities noted. External auditory canals are clear. Oropharynx with no redness, swelling, or masses, exudates, or evidence of obstruction, uvula midline. Mucous membranes moist. Neck: Trachea midline, no thyromegaly or masses palpated, and no cervical lymphadenopathy. Supple, full range of motion without nuchal rigidity, or vertebral point tenderness. No Meningismus. Chest/axilla: Normal chest wall appearance and motion. Nontender with no deformity. No lesions are appreciated. Cardiovascular: Regular rate and rhythm with a normal S1 and S2. No gallops, murmurs, or rubs. Normal PMI, no JVD. No pulse deficits. Respiratory: Lungs have equal breath sounds bilaterally, clear to auscultation and percussion. No rales, rhonchi or wheezes noted. No increased work of breathing, no retractions or nasal flaring. Abdomen/GI: Soft, non-tender, with normal bowel sounds. No distension or tympany. No guarding or rebound. No evidence of tenderness throughout. Back: No spinal tenderness. No costovertebral tenderness. Full range of motion. Skin: Warm, dry with normal turgor. Normal color with no rashes, no lesions, and no evidence of cellulitis. MS/ Extremity: Pulses equal, no cyanosis. Neurovascular intact. Full, normal range of motion. Neuro: Awake and alert, GCS 15, oriented to person, place, time, and situation. Cranial nerves II-XII grossly intact. Motor strength 5/5 in all extremities. Sensory grossly intact. Cerebellar exam normal. Normal gait. Psych: Awake, alert, with orientation to person, place and time. Behavior, mood, and affect are within normal limits. 16:16 ECG was reviewed by the Attending Physician. EKG demonstrates normal sinus rhythm at 68 bpm with normal intervals, normal QRS, slight leftward axis, nonspecific diffuse ST/T changes without evidence of acute ischemia. Vital Signs: 15:33 BP 122 / 61; Pulse 72; Resp 18; Temp 97.9(O); Pulse Ox 98% on R/A; Weight 48.99 kg; ld1 Height 5 ft. 6 in. (167.64 cm); Pain 8/10; 15:45 BP 140 / 60; Resp 69; Temp 20; Pulse Ox 99% on R/A; eh3 16:45 BP 126 / 102; Pulse 69; Resp 21; Pulse Ox 99% on R/A; eh3 17:45 BP 147 / 72; Pulse 68; Resp 19; Pulse Ox 97% on R/A; eh3 15:33 Body Mass Index 17.43 (48.99 kg, 167.64 cm) ld1 MDM: 15:59 Patient medically screened. sp3 16:17 Data reviewed: vital signs, nurses notes, old medical records, lab test result(s), EKG, sp3 radiologic studies. ED course: 82-year-old female with chest pain radiating to her back. Differential diagnosis includes acute coronary syndrome, pulmonary embolism, aortic pathology including dissection and aneurysm, esophagitis, reflux others. I am not highly suspicious for sepsis, shock and other critical infectious findings. Work-up will include CT scan of the chest PE protocol, chest x-ray, EKG as noted above, laboratory values and general observation. No pharmacological intervention at this point with possible ketorolac.. 18:12 ED course: Negative including CT scan. Will discharge patient home at this time. sp3 Symptoms are mostly resolved and I reassured patient. She is comfortable with the plan and will follow-up with her PCP.. 10/16 15:35 Order name: Basic Metabolic Panel; Complete Time: 17:31 ld10/16 15:35 Order name: CBC with Diff; Complete Time: 17:31 ld10/16 15:35 Order name: Troponin HS; Complete Time: 17:31 ld10/16 15:35 Order name: XRAY Chest (1 view); Complete Time: 17:10/16 15:35 Order name: EKG; Complete Time: 15:36 ld1 10/16 15:58 Order name: CT Chest For PE Angio; Complete Time: 18:12 sp3 10/16 15:35 Order name: Cardiac monitoring; Complete Time: 15:35 ld1 10/16 15:35 Order name: EKG - Nurse/Tech; Complete Time: 15:35 ld1 10/16 15:35 Order name: IV Saline Lock; Complete Time: 16:21 ld1 10/16 15:35 Order name: Labs collected and sent; Complete Time: 16:21 ld1 10/16 15:35 Order name: O2 Per Protocol; Complete Time: 15:35 ld1 10/16 15:35 Order name: O2 Sat Monitoring; Complete Time: 15:35 ld1 Administered Medications: No medications were administered Disposition Summary: 10/16/22 18:13 Discharge Ordered Location: Home sp3 Condition: Stable sp3 Diagnosis - Chest pain, unspecified sp3 Followup: sp3 - With: Private Physician - When: Upon discharge from the Emergency Department - Reason: Continuance of care Discharge Instructions: - Discharge Summary Sheet sp3 - Nonspecific Chest Pain, Adult sp3 Forms: - Medication Reconciliation Form sp3 - Thank You Letter sp3 - Antibiotic Education sp3 - Prescription Opioid Use sp3 Signatures: Dispatcher [employer] Sujey Oglesby, KATHY RN ld1 Tima Harper MD MD sp3
[2022-10-16 19:01] VITALS: TEMP 20
[2022-10-16 19:10] VITALS: BP 147/72; O2SAT 97
== END 2022-10-16 18:23 | disposition home or self-care (01) ==
LOC: ER 15:19
DX: R07.89 Other chest pain (principal); I10 Essential (primary) hypertension; Z91.048 Other nonmedicinal substance allergy status
CPT/HCPCS: 85025; 80048; 36415; 84484; 71275; 71045; Q9967; 93005

== ENCOUNTER 2022-11-14 11:59 | Emergency (ER) | payer OTHER ==
--- OUTSIDE RECORDS SUMMARY | 2022-11-14 12:11 | XMS REPORT | Continuity of Care Document ---
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 Completed [facility] 00:00:00 Hospital FLUZONE HIGH-DOSE PF 2014-06-11 Completed [facility] 00:00:00 Hospital FLUZONE HIGH-DOSE PF 2014-06-11 Completed [facility] 00:00:00 Hospital Pneumococcal 2013-07-07 Completed [facility] Polysaccharide 00:00:00 Hospital Pneumococcal 2013-07-07 Completed [facility] Polysaccharide 00:00:00 Hospital Pneumococcal 2013-07-07 Completed [facility] Polysaccharide 00:00:00 Hospital Influenza Trivalent 2008-06-10 Completed [facility] 00:00:00 Hospital Influenza Trivalent 2008-06-10 Completed [facility] 00:00:00 Hospital Influenza Trivalent 2008-06-10 Completed [facility] 00:00:00 [facility] Pneumococcal 2007-09-18 Completed [facility] Polysaccharide 00:00:00 [facility] Pneumococcal 2007-09-18 Completed [facility] Polysaccharide 00:00:00 [facility] Pneumococcal 2007-09-18 Completed [facility] Polysaccharide 00:00:00 [facility] Pneumococcal 2007-09-18 Completed [facility] Polysaccharide 00:00:00 [facility] Pneumococcal 2007-09-18 Completed [facility] Polysaccharide 00:00:00 [facility] Pneumococcal 2007-09-18 Completed [facility] Polysaccharide 00:00:00 Hospital Vital Signs Vital Name Observation Time Observation Value Comments Source Systolic blood 2022-10-04 19:03:00 132 mm[Hg] Method [facility] pressure Diastolic blood 2022-10-04 19:03:00 60 [facility] pressure Heart rate 2022-10-04 19:03:00 78 /min [facility] Body height 2022-10-04 19:03:00 167.6 cm [facility] Body weight 2022-10-04 19:03:00 55.702 kg [facility] BMI 2022-10-04 19:03:00 19.82 kg/m2 [facility] Oxygen saturation in 2022-10-04 19:03:00 97 /min [facility] Arterial blood by Pulse oximetry Respiratory rate 2022-07-05 18:18:00 18 /min [facility] Systolic blood 2022-04-05 18:20:00 153 mm[Hg] [facility] pressure Diastolic blood 2022-04-05 18:20:00 74 mm[Hg] [facility] pressure Heart rate 2022-04-05 18:20:00 71 /min [facility] Respiratory rate 2022-04-05 18:20:00 17 /min [facility] Body height 2022-04-05 18:20:00 167.6 cm [facility] Body weight 2022-04-05 18:20:00 56.881 kg [facility] BMI 2022-04-05 18:20:00 20.24 kg/m2 [facility] Oxygen saturation in 2022-04-05 18:20:00 98 /min [facility] Arterial blood by Pulse oximetry Procedures Procedure Date / Time Performing Clinician Source Performed CBC WITH PLATELET AND 2022-10-04 19:08:00 Elliot Ceja Method [facility] DIFFERENTIAL SMEAR REVIEW 2022-10-04 19:08:00 Elliot Ceja [facility] spital CBC WITH PLATELET AND 2022-07-05 18:42:00 [facility] DIFFERENTIAL SMEAR REVIEW 2022-07-05 18:42:00 [facility] URINE CULTURE 2022-06-27 20:28:00 Liya Cruz [facility] CBC WITH PLATELET AND 2022-06-27 [facility]:28[facility]OL[facility] 2022-06-27 20:28:00 Liya Cruz [facility] PANEL HEMOGLOBIN A1C 2022-06-27 20:28:00 [facility] THYROID STIMULATING 2022-06-27 20:28:00 Liya Cruz [facility] HORMONE T4, FREE 2022-06-27 20:28:00 Liya [facility] H [facility]ital LIPID PANEL 2022-06-27 20:28:00 [facility]ya [facility] URINALYSIS, AUTOMATED 2022-06-27 20:28:00 Liya Cruz [facility] WITH MICROSCOPY VITAMIN D 25 HYDROXY 2022-06-27 20:28:00 Liya Cruz [facility] LEVEL CBC WITH PLATELET AND 2022-04-05 18:28:00 [facility] DIFFERENTIAL MANUAL DIFFERENTIAL 2022-04-05 18:28:00 [facility] COMPREHENSIVE METABOLIC 2021-12-14 19:41:00 Liya Cruz Met [facility] PANEL LIPID PANEL 2021-12-14 19:41:00 [facility]ya [facility] THYROID STIMULATING 2021-12-14 19:41:00 Liya Cruz [facility] HORMONE T4, FREE 2021-12-14 19:41:00 Liya [facility]ital CBC WITH PLATELET AND 2021-12-14 18:15:00 [facility] DIFFERENTIAL SMEAR REVIEW 2021-12-14 18:15:00 [facility] HC COMPLETE BLD COUNT 2021-08-21 19:44:00 [facility] W/AUTO DIFF SMEAR REVIEW 2021-08-21 19:44:00 [facility] spital HC COMPLETE BLD COUNT 2021-06-29 18:40:00 [facility] W/AUTO DIFF SMEAR REVIEW 2021-06-29 18:40:00 [facility] spital CBC WITH PLATELET AND 2021-06-12 18:43:00 Liya Cruz [facility] DIFFERENTIAL COMPREHENSIVE METABOLIC 2021-06-12 18:43:00 Liya Cruz [facility] PANEL TOTAL IRON BINDING 2021-06-12 18:43:00 NancyLiya [facility] CAPACITY AMYLASE LEVEL 2021-06-12 18:43[facility] 2021-06-12 18:43:00 NancyLiya [facility] ospital LIYA SCREEN W IFA W REFLEX 2021-06-12 18:43:00 NancyLiya [facility] TO TITER C-REACTIVE PROTEIN 2021-06-12 18:43:00 [facility] JaydeGuilherme [facility] SEDIMENTATION RATE 2021-06-12 18:43:00 [facility] CBC WITH PLATELET AND 2021-06-01 18:10:00 [facility] DIFFERENTIAL MANUAL DIFFERENTIAL 2021-06-01 18:10:00 [facility] Plan of Care Planned Activity Planned Date Details Comments Source Future Scheduled 2022-10-05 SHINGLES VACCINES Postponed from [facility] Test 13:26:52 (1 of 2) [code = 1989 [facility] SHINGLES VACCINES (Patient Refused) (1 of 2)] Future Scheduled 2022-10-05 SHINGLES VACCINES Postponed from [facility] Test 13:26:52 (1 of 2) [code = 1989 [facility] SHINGLES VACCINES (Patient Refused) (1 of 2)] Future Scheduled 2022-05-09 HEPATITIS B [facility] Test 08:41:29 VACCINES (1 of 3 Hospital [...] Clinicians Facility Department ID 2022-10-04 2022-10-04 Office Rice, 1.2.840.1 [id number] 2270 Methodi 13:00:00 13:30:04 Visit Elliot 33164.1.[address] 3.430.2.7 Hospit a .3.117046 l .8 2022-10-04 2022-10-04 Office Rice, 1.2.840.1 [id number] 4924 Methodi 13:00:00 13:30:04 Visit Elliot 68128.1.[address] 3.430.2.7 Hospit a .3.593629 l .8 2022-10-04 2022-10-04 Lab Rice, 1.2.840.1 [id number] 5121 Methodi 13:05:00 13:10:[address] 3.430.2.7 Hospit a .3.284090 l .8 2022-10-04 2022-10-04 Lab Rice, 1.2.840.1 [id number] 7116 Methodi 13:05:00 13:10:[address] 3.430.2.7 Hospit a .3.522901 l .8 2022-10-04 2022-10-04 Travel 1.2.840.1 1.2.944.948 1898 772105 Methodi 00:00:00 00:00:[address] 3.430.2.7 0.2.7.3.698 Ho spita .3.041357 084.8 l .8 2022-10-04 2022-10-04 Travel 1.2.840.1 1.2.980.847 5165 195063 Methodi 00:00:00 00:00:[address] 3.430.2.7 0.2.7.3.698 Ho spita .3.818542 084.8 l .8 2022-10-02 2022-10-02 Orders Buford, 1.2.840.1 [id number] 52569 Methodi 00:00:00 00:00:00 Only Nayely 83143.1.[address] 3.430.2.7 Hospit a .3.852902 l .8 2022-10-02 2022-10-02 Orders Buford, 1.2.840.1 [id number] 97537 Methodi 00:00:00 00:00:00 Only Nayely 09221.1.[address] 3.430.2.7 Hospit a .3.377297 l .8 2022-09-05 2022-09-05 Telephone Snyder, 1.2.840.1 [id number] 2 [id number] Methodi 00:00:00 00:00:[address] 3.430.2.7 Hospit a .3.194310 l .8 2022-09-05 2022-09-05 Telephone Snyder, 1.2.840.1 [id number] 2 [id number] Methodi 00:00:00 00:00:[address] 3.430.2.7 Hospit a .3.825374 l .8 2022-07-05 2022-07-05 Office Rice, 1.2.840.1 [id number] 940275 3812 Methodi 13:00:00 15:11:13 Visit Elliot 20285.1.[address] 3.430.2.7 Hospit a .3.499051 l .8 2022-07-05 2022-07-05 Office Rice, 1.2.840.1 [id number] 095816 4083 Methodi 13:00:00 15:11:13 Visit Elliot 98723.1.[address] 3.430.2.7 Hospit a .3.201000 l .8 2022-07-05 2022-07-05 Lab Rice, 1.2.840.1 [id number] 117003 3846 Methodi 12:55:00 13:00:[address] 3.430.2.7 Hospit a .3.569503 l .8 2022-07-05 2022-07-05 Lab Rice, 1.2.840.1 [id number] 065422 0503 Methodi 12:55:00 13:00:[address] 3.430.2.7 Hospit a .3.858334 l .8 2022-07-05 2022-07-05 Travel 1.2.840.1 1.2.682.627 1337 556663 Methodi 00:00:00 00:00:[address] 3.430.2.7 0.2.7.3.698 Ho spita .3.456917 084.8 l .8 2022-07-05 2022-07-05 Travel 1.2.840.1 1.2.364.157 0043 271420 Methodi 00:00:00 00:00:[address] 3.430.2.7 0.2.7.3.698 Ho spita .3.667551 084.8 l .8 2022-07-04 2022-07-04 Orders Buford, 1.2.840.1 [id number] 61567 Methodi 00:00:00 00:00:00 Only Nayely 71045.1.[address] 3.430.2.7 Hospit a .3.527373 l .8 2022-07-04 2022-07-04 Orders Buford, 1.2.840.1 [id number] 29437 Methodi 00:00:00 00:00:00 Only Nayely 34905.1.[address] 3.430.2.7 Hospit a .3.846970 l .8 2022-06-27 2022-06-27 Office Nancy, 1.2.840.1 [id number] Methodi 14:00:00 15:26:18 Visit Jayde. 58163.1.[address] 3.430.2.7 Hospit a .3.681004 l .8 2022-06-27 2022-06-27 Office Nancy, 1.2.840.1 [id number] 2099708 Methodi 14:00:00 15:26:18 Visit [address]de. 74992.1.[address] 3.430.2.7 Hospit a .3.174330 l .8 2022-06-27 2022-06-27 Travel 1.2.840.1 1.2.942.849 7389 481342 Methodi 00:00:00 00:00:[address] 3.430.2.7 0.2.7.3.698 Ho spita .3.525445 084.8 l .8 2022-06-27 2022-06-27 Travel 1.2.840.1 1.2.382.552 9497 645251 Methodi 00:00:00 00:00:[address] 3.430.2.7 0.2.7.3.698 Ho spita .3.293861 084.8 l .8 2022-05-24 2022-05-24 Refill Nancy, 1.2.840.1 [id number] 2099 110717 Methodi 00:00:00 00:00:[address] 3.430.2.7 Hospit a .3.792346 l .8 2022-05-24 2022-05-24 Refill Nancy, 1.2.840.1 [id number] 2099 381353 Methodi 00:00:00 00:00:[address] 3.430.2.7 Hospit a .3.219991 l .8 2022-05-04 2022-05-04 Telephone Buford, 1.2.840.1 [id number] 825 [id number] Methodi 00:00:00 00:00:[address] 3.430.2.7 Hospit a .3.427291 l .8 2022-05-04 2022-05-04 Telephone Buford, 1.2.840.1 [id number] 829 [id number] Methodi 00:00:00 00:00:[address] 3.430.2.7 Hospit a .3.202143 l .8 2022-04-05 2022-04-05 Office Rice, 1.2.840.1 [id number] 108756 2371 Methodi 13:15:00 14:12:14 Visit Elliot 54405.1.[address] 3.430.2.7 Hospit a .3.977258 l .8 2022-04-05 2022-04-05 Office Rice, 1.2.840.1 [id number] 773868 1788 Methodi 13:15:00 14:12:14 Visit Elliot [address]902.1.[address] 3.430.2.7 Hospit a .3.915750 l .8 2022-04-05 2022-04-05 Lab Rice, 1.2.840.1 [id number] 830181 4257 Methodi 13:15:00 13:20:[address] 3.430.2.7 Hospit a .3.047767 l .8 2022-04-05 2022-04-05 Lab Rice, 1.2.840.1 [id number] 892156 8665 Methodi 13:15:00 13:20:[address] 3.430.2.7 Hospit a .3.114274 l .8 2022-04-05 2022-04-05 Travel 1.2.840.1 1.2.607.688 3022 698906 Methodi 00:00:00 00:00:[address] 3.430.2.7 0.2.7.3.698 Ho spita .3.215724 084.8 l .8 2022-04-05 2022-04-05 Travel 1.2.840.1 1.2.758.807 9118 818562 Methodi 00:00:00 00:00:[address] 3.430.2.7 0.2.7.3.698 Ho spita .3.279030 084.8 l .8 2022-04-04 2022-04-04 Travel 1.2.840.1 1.2.673.464 7336 453191 Methodi 00:00:00 00:00:[address] 3.430.2.7 0.2.7.3.698 Ho spita .3.444343 084.8 l .8 2022-04-04 2022-04-04 Orders Buford, 1.2.840.1 [id number] 91285 78392 Methodi 00:00:00 00:00:00 Only Nayely 01109.1.[address] 3.430.2.7 Hospit a .3.275681 l .8 2022-04-04 2022-04-04 Orders Arrington, 1.2.840.1 [id number] [id number] 3671 Methodi 00:00:00 00:00:00 Only Solange 59867.1.[address] 3.430.2.7 Hospit a .3.862437 l .8 2022-04-04 2022-04-04 Travel 1.2.840.1 1.2.299.991 5930 187646 Methodi 00:00:00 00:00:[address] 3.430.2.7 0.2.7.3.698 Ho spita .3.314905 084.8 l .8 2022-04-04 2022-04-04 Orders Buford, 1.2.840.1 [id number] 36635 28818 Methodi 00:00:00 00:00:00 Only Nayely 39895.1.[address] 3.430.2.7 Hospit a .3.611273 l .8 2022-04-04 2022-04-04 Orders Arrington, 1.2.840.1 [id number] 336850 7020 Methodi 00:00:00 00:00:00 Only Solange 97766.1.[address] 3.430.2.7 Hospit a .3.134940 l .8 2022-03-22 2022-03-22 Refill Nancy, 1.2.840.1 [id number] 2099 577779 Methodi 00:00:00 00:00:[address] 3.430.2.7 Hospit a .3.004926 l .8 2022-03-22 2022-03-22 Refill Nancy, 1.2.840.1 [id number] 2099 840239 Methodi 00:00:00 00:00:[address] 3.430.2.7 Hospit a .3.570499 l .8 2022-03-15 2022-03-15 Travel 1.2.840.1 1.2.029.502 9338 508194 Methodi 00:00:00 00:00:[address] 3.430.2.7 0.2.7.3.698 Ho spita .3.536151 084.8 l .8 2022-03-15 2022-03-15 Travel 1.2.840.1 1.2.566.486 6718 681614 Methodi 00:00:00 00:00:[address] 3.430.2.7 0.2.7.3.698 Ho spita .3.252396 084.8 l .8 2022-03-14 2022-03-14 Travel 1.2.840.1 1.2.840.672 2523 234143 Methodi 00:00:00 00:00:[address] 3.430.2.7 0.2.7.3.698 Ho spita .3.614837 084.8 l .8 2022-03-14 2022-03-14 Travel 1.2.840.1 1.2.963.409 3516 283725 Methodi 00:00:00 00:00:[address] 3.430.2.7 0.2.7.3.698 Ho spita .3.699397 084.8 l .8 2022-03-13 2022-03-13 Orders Buford, 1.2.840.1 [id number] 41937 Methodi 00:00:00 00:00:00 Only Nayely 67201.1.[address] 3.430.2.7 Hospit a .3.828275 l .8 2022-03-13 2022-03-13 Orders Buford, 1.2.840.1 [id number] 47108 Methodi 00:00:00 00:00:00 Only Nayely 24553.1.[address] 3.430.2.7 Hospit a .3.770366 l .8 2022-01-11 2022-01-11 Telephone Nancy, 1.2.840.1 [id number] Methodi 11:00:00 13:31:00 Consult Jayde[address] 68963.1.[address] 3.430.2.7 Hospit a .3.956489 l .8 2022-01-11 2022-01-11 Telephone Nancy, 1.2.840.1 [id number] Methodi 11:00:00 13:31:00 Consult [address]de[address] 34696.1.[address] 3.430.2.7 Hospit a .3.217456 l .8 2021-12-15 2021-12-15 Orders Nancy, 1.2.840.1 [id number] 2099 552546 Methodi 00:00:00 00:00:00 Only Jayde. 80967.1.[address] 3.430.2.7 Hospit a .3.301660 l .8 2021-12-15 2021-12-15 Orders Nancy, 1.2.840.1 [id number] 2099 854925 Methodi 00:00:00 00:00:00 Only Jayde. 41341.1.[address] 3.430.2.7 Hospit a .3.702236 l .8 2021-12-14 2021-12-14 Office Nancy, 1.2.840.1 [id number] Methodi 13:40:00 14:36:45 Visit Jayde. 97583.1.[address] 3.430.2.7 Hospit a .3.692934 l .8 2021-12-14 2021-12-14 Office Anncy, 1.2.840.1 [id number] 2099 979715 Methodi 13:40:00 14:36:45 Visit Jayde. 54638.1.[address] 3.430.2.7 Hospit a .3.040978 l .8 2021-12-14 2021-12-14 Office Rice, 1.2.840.1 [id number] 868839 0268 Methodi 13:00:00 13:34:14 Visit Elliot [address]176.1.[address] 3.430.2.7 Hospit a .3.729605 l .8 2021-12-14 2021-12-14 Office Rice, 1.2.840.1 [id number] 701411 9855 Methodi 13:00:00 13:34:14 Visit Elliot 46832.1.[address] 3.430.2.7 Hospit a .3.628782 l .8 2021-12-14 2021-12-14 Lab Rice, 1.2.840.1 [id number] 815941 8286 Methodi 13:00:00 13:05:[address] 3.430.2.7 Hospit a .3.521673 l .8 2021-12-14 2021-12-14 Lab Rice, 1.2.840.1 [id number] 098606 9554 Methodi 13:00:00 13:05:[address] 3.430.2.7 Hospit a .3.546005 l .8 2021-12-14 2021-12-14 Orders Buford, 1.2.840.1 [id number] Methodi 00:00:00 00:00:00 Only Nayely 43694.1.[address] 3.430.2.7 Hospit a .3.021706 l .8 2021-12-14 2021-12-14 Travel 1.2.840.1 1.2.196.228 5167 645521 Methodi 00:00:00 00:00:[address] 3.430.2.7 0.2.7.3.698 Ho spita .3.025990 084.8 l .8 2021-12-14 2021-12-14 Orders Buford, 1.2.840.1 [id number] Methodi 00:00:00 00:00:00 Only Nayely 10203.1.[address] 3.430.2.7 Hospit a .3.211533 l .8 2021-12-14 2021-12-14 Travel 1.2.840.1 1.2.019.305 6729 746676 Methodi 00:00:00 00:00:[address] 3.430.2.7 0.2.7.3.698 Ho spita .3.272300 084.8 l .8 2021-12-13 2021-12-13 Orders Snyder, 1.2.840.1 [id number] 489 [id number] Methodi 00:00:00 00:00:00 Only Delilah 00022.1.[address] 3.430.2.7 Hospit a .3.562445 l .8 2021-12-13 2021-12-13 Travel 1.2.840.1 1.2.434.317 9814 226668 Methodi 00:00:00 00:00:[address] 3.430.2.7 0.2.7.3.698 Ho spita .3.648918 084.8 l .8 2021-12-13 2021-12-13 Orders Snyder, 1.2.840.1 [id number] 986 [id number] Methodi 00:00:00 00:00:00 Only Delilah 69254.1.[address] 3.430.2.7 Hospit a .3.046660 l .8 2021-12-13 2021-12-13 Travel 1.2.840.1 1.2.514.973 0516 019244 Methodi 00:00:00 00:00:[address] 3.430.2.7 0.2.7.3.698 Ho spita .3.696661 084.8 l .8 2021-12-06 2021-12-06 Refill Nancy, 1.2.840.1 [id number] 2099 086397 Methodi 00:00:00 00:00:[address] 3.430.2.7 Hospit a .3.071498 l .8 2021-12-06 2021-12-06 Refill Nancy, 1.2.840.1 [id number] 2099 410486 Methodi 00:00:00 00:00:[address] 3.430.2.7 Hospit a .3.639952 l .8 2021-11-20 2021-11-20 Travel 1.2.840.1 1.2.702.402 9989 622548 Methodi 00:00:00 00:00:[address] 3.430.2.7 0.2.7.3.698 Ho spita .3.025937 084.8 l .8 2021-11-20 2021-11-20 Travel 1.2.840.1 1.2.906.319 2757 204677 Methodi 00:00:00 00:00:[address] 3.430.2.7 0.2.7.3.698 Ho spita .3.497274 084.8 l .8 2021-11-17 2021-11-17 Travel 1.2.840.1 1.2.666.113 0247 553839 Methodi 00:00:00 00:00:[address] 3.430.2.7 0.2.7.3.698 Ho spita .3.833967 084.8 l .8 2021-11-17 2021-11-17 Travel 1.2.840.1 1.2.461.198 7530 550674 Methodi 00:00:00 00:00:[address] 3.430.2.7 0.2.7.3.698 Ho spita .3.213334 084.8 l .8 2021-11-15 2021-11-15 Orders Buford, 1.2.840.1 [id number] Methodi 00:00:00 00:00:00 Only Nayely 18690.1.[address] 3.430.2.7 Hospit a .3.826364 l .8 2021-11-15 2021-11-15 Orders Buford, 1.2.840.1 [id number] Methodi 00:00:00 00:00:00 Only Nayely 40795.1.[address] 3.430.2.7 Hospit a .3.366598 l .8 2021-10-19 2021-10-19 Refill Nancy, 1.2.840.1 [id number] Methodi 00:00:00 00:00:[address] 3.430.2.7 Hospit a .3.027630 l .8 2021-09-24 2021-09-24 Refill Nancy, 1.2.840.1 [id number] Methodi 00:00:00 00:00:[address] 3.430.2.7 Hospit a .3.557478 l .8 2021-09-21 2021-09-21 Orders Lamine, 1.2.840.1 [id number] Methodi 00:00:00 00:00:00 Only Jameshia L 01019.1.1 [address] 3.430.2.7 Hospit a .3.935090 l .8 2021-09-20 2021-09-20 Orders Nancy, 1.2.840.1 [id number] 2099 [id number] Methodi 00:00:00 00:00:00 Only Jayde. 54022.1.[address] 3.430.2.7 Hospit a .3.789080 l .8 2021-09-20 2021-09-20 Orders Arrington, 1.2.840.1 [id number] 037308 8051 Methodi 00:00:00 00:00:00 Only Solange 52408.1.[address] 3.430.2.7 Hospit a .3.933075 l .8 2021-09-20 2021-09-20 Refill Murphy, 1.2.840.1 [id number] 954439 3182 Methodi 00:00:00 00:00:[address] 3.430.2.7 Hospit a .3.310928 l .8 2021-08-21 2021-08-21 Will Ceja, 1.2.840.1 [id number] 719369 8431 Methodi 13:30:00 14:21:19 Visit Elliot 65538.1.[address] 3.430.2.7 Hospit a .3.630366 l .8 2021-08-21 2021-08-21 Josh Ceja 1.2.840.1 [id number] 1969 Methodi 13:25:00 13:30:[address] 3.430.2.7 Hospit a .3.425547 l .8 2021-08-21 2021-08-21 Travel 1.2.840.1 1.2.132.203 2747 473140 Methodi 00:00:00 00:00:[address] 3.430.2.7 0.2.7.3.698 Ho spita .3.415501 084.8 l .8 2021-08-17 2021-08-17 Rommel Phipps, 1.2.840.1 [id number] 04277 Methodi 00:00:00 00:00:00 Only Nayely 23649.1.[address] 3.430.2.7 Hospit a .3.114308 l .8 2021-06-29 2021-06-29 Office Rice, 1.2.840.1 [id number] 5310 Methodi 13:30:00 13:45:00 Visit Elliot 50438.1.[address] 3.430.2.7 Hospit a .3.122330 l .8 2021-06-29 2021-06-29 Lab Rice, 1.2.840.1 [id number] 823085 5876 Methodi 13:30:00 13:35:[address] 3.430.2.7 Hospit a .3.910345 l .8 2021-06-29 2021-06-29 Travel 1.2.840.1 1.2.855.307 4357 096091 Methodi 00:00:00 00:00:[address] 3.430.2.7 0.2.7.3.698 Ho spita .3.397309 084.8 l .8 2021-06-07 2021-06-07 Sana Stokes 1.2.840.1 [id number] 649 [id number] Methodi 00:00:00 00:00:00 Only Anya 05345.1.[address] 3.430.2.7 Hospit a .3.172647 l .8 2021-06-05 2021-06-05 Office Nancy, 1.2.840.1 [id number] 2099 375641 Methodi 16:20:00 17:39:49 Visit Liya Everett 97241.1.[address] 3.430.2.7 Hospit a .3.694077 l .8 2021-06-05 2021-06-05 Travel 1.2.840.1 1.2.335.243 9930 724423 Methodi 00:00:00 00:00:[address] 3.430.2.7 0.2.7.3.698 Ho spita .3.411553 084.8 l .8 2021-06-01 2021-06-01 Office Rice, 1.2.840.1 [id number] 438991 9031 Methodi 13:00:00 13:45:18 Visit Elliot 30460.1.[address] 3.430.2.7 Hospit a .3.970012 l .8 2021-06-01 2021-06-01 Lab Rice, 1.2.840.1 [id number] 139042 5109 Methodi 13:00:00 13:05:[address] 3.430.2.7 Hospit a .3.901994 l .8 2021-06-01 2021-06-01 Travel 1.2.840.1 1.2.366.353 7629 415559 Methodi 00:00:00 00:00:[address] 3.430.2.7 0.2.7.3.698 Ho spita .3.402580 084.8 l .8 2021-05-29 2021-05-29 Orders Rajtak 1.2.840.1 [id number] 002373 3808 Methodi 00:00:00 00:00:00 Only Thompson, 34080.1.[address] Deb 3.430.2.7 Hospi ta .3.120799 l .8 2021-04-13 2021-04-13 Outpatient [facility] [id number] [place] 00:00:00 00:00:00 ELLIOT [address] 2021-04-13 2021-04-13 Outpatient RICE, [facility] [id number] [place] 00:00:00 00:00:00 ELLIOT [address] 2021-04-10 2021-04-10 Outpatient NANCY, H H [id number] [place] 00:00:00 00:00:00 LIYA [address] 2021-04-10 2021-04-10 Outpatient NANCY, [facility] [id number] [place] 00:00:00 00:00:00 LIYA [address] 2021-04-10 2021-04-10 Outpatient NANCY, [facility] [id number] [place] 00:00:00 00:00:00 LIYA 329 Method i 2021-03-27 2021-03-27 Outpatient NANCY, [facility] [id number] [place] 00:00:00 00:00:00 LIYA 607 Method i 2021-03-09 2021-03-09 Outpatient RICE, H [facility] [id number] [place] 00:00:00 00:00:00 ELLIOT 599 [facility] [address] 2021-03-09 2021-03-09 Outpatient RICE, H [facility] [id number] [place] 00:00:00 00:00:00 ELLIOT 365 [facility] 2021-02-16 2021-02-16 Outpatient RICE, H H [id number] [place] 00:00:00 00:00:00 ELLIOT 302 [facility] 2021-02-16 2021-02-16 Outpatient RICE, H [facility] [id number] [place] 00:00:00 00:00:00 ELLIOT 706 [facility] [address] 2020-11-24 2020-11-24 Outpatient RICE, H [facility] [id number] [place] 00:00:00 00:00:00 ELLIOT 611 [facility] 2020-11-24 2020-11-24 Outpatient RICE, [facility] [id number] [place] 00:00:00 00:00:00 ELLIOT [address] 2020-08-25 2020-08-25 Outpatient RICE, [facility] H [id number] [place] 00:00:00 00:00:00 ELLIOT [address] 2020-08-25 2020-08-25 [facility], [facility] [id number] [place] 00:00:00 00:00:00 ELLIOT [address] 2020-05-26 2020-05-26 Outpatient RICE, [facility] [id number] [place] 00:00:00 00:00:00 ELLIOT [address] 2020-05-26 2020-05-26 Outpatient RICE, [facility] [id number] [place] 00:00:00 00:00:00 ELLIOT [address] 2020-03-17 2020-03-17 Outpatient RICE, [facility] [id number] [place] 00:00:00 00:00:00 ELLIOT [address] 2020-03-17 2020-03-17 Outpatient RICE, [facility] [id number] [place] 00:00:00 00:00:00 ELLIOT [address] 2020-02-12 2020-02-12 Outpatient NANCY, [facility] [id number] [place] 00:00:00 00:00:00 LIYA [address] 2020-01-22 2020-01-22 Outpatient NANCY, [facility] [id number] [place] 00:00:00 00:00:00 LIYA [address] 2020-01-14 2020-01-14 Outpatient RICE, [facility] [id number] [place] 00:00:00 00:00:00 ELLIOT [address] 2020-01-14 2020-01-14 Outpatient RICE, [facility] [id number] [place] 00:00:00 00:00:00 ELLIOT [address] 2019-12-03 2019-12-03 Outpatient NANCY, [facility] [id number] [place] 00:00:00 00:00:00 LIYA [address] 2019-10-08 2019-10-08 Outpatient MARK, [facility] [id number] [place] 00:00:00 00:00:[address] 2019-08-24 2019-08-24 Outpatient MARK, LINDA [facility] [id number] [place] 00:00:00 00:00:[address] 2019-08-03 2019-08-03 Outpatient NANCY, [facility] [id number] [place] 00:00:00 00:00:00 LIYA [address] Results Test Description Test Time Test Comments Results Result Comments Source Comprehensive metabolic panel 2022-06-29 19:14:00 Test Item Value Reference Range Interpretation Comme nts Glucose (test code = 111 mg/dL 65-139 Non-fa sting reference 2345-7) interval BUN (test code = 3094-0) 21 mg/dL 7-25 Creatinine (test code = 0.92 mg/dL 0.60-0.95 2160-0) eGFR (test code = 8257) 62 See_Comment The eGFR is based on the CKD-EPI 202 1 equation. To ca lculate the new eGFR fr om a previous Creati nine or Cystatin Cresul t, go to https://www.kid tiffany.org /professionals/ kdoqi/g fr%5Fcalculator [Automated mess age] The system [employer] generated this result transmitted ref erence range: > OR = 6 0 mL/min/1.73m2. The reference range was not used to int erpret this result as normal/abnormal . BUN/creatinine ratio (test NOT APPLICABLE See_Comment [Automated message] code = 3097-3) The system [employer] generated this result transmitted ref erence range: 6 - 22 ( calc). The reference r danni was not used to interpret this result as normal/abnor mal. Sodium (test code = 138 mmol/L 513-483 0565-2) Potassium (test code = 3.5 mmol/L 3.5-5.3 2823-3) Chloride (test code = 100 mmol/L 98-110 2075-0) CO2 (test code = 2027-9) 26 mmol/L 20-32 Calcium (test code = 9.6 mg/dL 8.6-10.4 27918-3) Protein (test code = 7.7 g/dL 6.1-8.1 2885-2) Albumin, S (test code = 4.4 g/dL 3.6-5.1 1751-7) Globulin, total (test code 3.3 See_Comment [Automated message] = 00971-6) The system [employer] generated this result transmitted ref erence range: [...] Performing Organization Information: Site ID: RGA [facility]: [facility] Address: [address] [place] [address] Director: Parish Contreras Lab Interpretation (test Abnormal code = 33396-1) [facility] [id number] 19:14:00 Test Item Value Reference Interpretation Comments [...] calculated (test <100 Desira ble code = 10078-4) range <100 m g/dL for primary prevention; <70 mg/dL for patie nts with CHD or diabetic patien ts with > or = 2 C HD risk factors. L DL-C is now calculat ed using the Marvin-Johnston calculation, wh ich is a validated novel method providing radha r accuracy than t he Friedewald equa tion in the estimati on of LDL-C. Zuly n SS et al. ALFREDO. 2013;310(19): 4206-2152 (http://educati on.Jobinasecond .4vets /faq/ZRO419) Cholesterol/HDL 3.9 See_Comment [Automated ratio (test code = message] The system 9830-1) which generated this result transmitted reference range : <5.0 (calc). Th e reference range was not used to interpret this result as normal/abnormal . Non-HDL cholesterol 92 See_Comment For rosa ents with (test code = diabetes plus 1 16915-7) major ASCVD ris k factor, treatin g to a non-HDL-C goa l of <100 mg/dL (LDL -C of <70 mg/dL) i s considered a therapeutic opt ion. [Automated mess age] The system [employer] generated this result transmit al reference range : <130 mg/dL (marva c). The reference r danni was not used to interpret this result as normal/abnormal . LETITIA (test code = FASTING:NO LETITIA) FASTING: NO RAC (test code = Performing RAC) Organization Information: Site ID: RGA Name: [facility] Address: [address] [place] [address] Director: Parish Contreras Lab Interpretation Abnormal (test code = 37053-0) [facility] CampusHem[facility] [id number] 19:14:00 Test Item Value Reference Range Interpretation Comments Hemoglobin A1C 5.3 See_Comment For the purpo se of (test code = screening for t he 4548-4) presence ofdiab etes: <5.7% Consisten t [...] specif ic patient populat ions. Standards of Mo dical Care in Diabetes(ADA). [Automated mess age] The system whic h generated this result transmitted ref erence range: <5.7 % o f total Hgb. The reference range was not used to int erpret this result as normal/abnormal . LETITIA (test code = FASTING:NO LETITIA) FASTING: NO RAC (test code = Performing RAC) Organization Information: Site ID: [facility] Name: [facility] Address: [address] [place] [address] Director: [place] [address], [id number] 19:14:00 Test Item Value Reference Range Interpretation Comments T4, free (test code 1.5 ng/dL 0.8-1.8 = 3024-7) LETITIA (test code = FASTING:NO FASTING: NO LETITIA) RAC (test code = Performing Organization RAC) Information: Site ID: [facility] Name: [facility] Address: [address] [place] [address] Director: [facility] CenterThyroid stimulating [id number] 19:14:00 Test Item Value Reference Range Interpretation Comments TSH (test 0.94 See_Comment [Automated mes emeli] code = The system [employer] 3016-3) generated this result transmit al reference range : 0.40 - 4.50 mIU /L. The reference r danni was not used to interpret this result as normal/abnormal . LETITIA (test FASTING:NO FASTING: code = LETITIA) NO RAC (test Performing code = RAC) Organization Information: Site ID: [facility] Name: [facility] Address: [address] [place] [address] Director: [facility] CenterUrine [id number] 19:14:00 Test Item Value Reference Interpretation Comments Range Urine culture (test SEE NOTE A CULTURE , URINE, code = 630-4) ROUTINE Micro Number: [id number] Test Status: Fi nal Specimen Source : Urine, clean ca tch Specimen Qualit y: Adequate Result : Greater than 100,000 CFU/mL of Escherichia col i E.coli - INT FRANCE AMOX/CLAVULANAT E S <=2 AMPICILLIN S <=2 AMP/SULBACT AM S <=2 CEFAZOLIN N R <=4 2 CEFE PIME S <=1 CEFTAZIDI ME S <=1 CEFTRIAXONE S <=1 CIPROFLOXAC IN S <=0.25 GENTAMIC IN S <=1 IMIPENEM S <=0.25 LEVOFLOX ACIN [...] P. mirabilis : Cefazolin is resistant if DE C > or = 8 mcg/mL. (Distinguishing [...] RAC) Organization Information: Site ID: RGA [facility]: [facility] Address: [address] [place] [address] Director: Parish Contreras Lab Interpretation Abnormal (test code = 54800-2) [facility] HospitalUrinalysis, automated with [id number] 19:14:00 Test Item Value Reference Range Interpretation Comments Color, UA (test code YELLOW YELLOW = 5778-6) Appearance (test CLEAR CLEAR code = 5767-9) Specific gravity, 1.020 1.001-1.035 urine (test code = 5811-5) pH, urine (test code 5.5 5.0-8.0 = 5803-2) Glucose, urine (test NEGATIVE NEGATIVE code = 32606-6) Bilirubin, UA (test NEGATIVE NEGATIVE code = 5770-3) Ketones, UA (test TRACE NEGATIVE A code = 2514-8) Occult blood, urine 2+ NEGATIVE A (test code = 5794-3) Protein, UA (test NEGATIVE NEGATIVE code = 31948-7) Nitrite, UA (test POSITIVE NEGATIVE A code [...] code = NONE SEEN See_Comment [Autom ated 82880-9) message] The system which generated this result transmitted reference range : < OR = 2 /HPF. The reference range was not used to interpr et this result as normal/abnormal . Squamous epithelial NONE SEEN See_Comment [Automa al cells, UA (test code message ] The = 63412-9) system which generated this result transmitted reference [...] RAC) Organization Information: Site ID: RGA Name: [facility] Lab Address: [address] [place] [address] Director: Parish Contreras Lab Interpretation Abnormal (test code = 43282-3) [facility] CampusVitamin D 25 hydroxy [id number] 19:14:00 Test Item Value Reference Range Interpretation Comments Vitamin D, 49 ng/mL 30-100 Vitamin D Statu s 25-hydroxy (test 25-OH Vitam in D: code = 1989-) Deficiency: <20 ng/mLInsufficie ncy : 20 - 29 ng/mLOptimal: [...] please refer to http://educatio n.Q uestDiagnostics .co m/faq/IEW695 (T his link is being provided for informational/e maricruz ational purpose s only.) LETITIA (test code = FASTING:NO FASTING: LETITIA) NO RAC (test code = Performing RAC) Organization Information: Site ID: RGA [facility]: [facility] Address: [address] [place] [address] Director: Parish Contreras [facility] CampusComprehensive metabolic [id number] 19:14:00 Test Item Value Reference Range Interpretation Comments Glucose (test code = 111 mg/dL 65-139 Non-fa sting 2345-7) reference interval BUN (test code = 21 mg/dL 7-25 3094-0) Creatinine (test 0.92 mg/dL 0.60-0.95 code = 2160-0) eGFR (test code = 62 See_Comment The eGFR i s based 8257) on the CKD-EPI 2020 equation. To calculate the n ew eGFR from a previous Creatinine or Cystatin Cresul t, go to https://www.kid ne y.org/professio na ls/kdoqi/gfr%5F ca lculator [Automated message] The system which generated this result transmitted reference range : > OR = 60 mL/min/1.73m2. The reference range was not used to interpr et this result as normal/abnormal . BUN/creatinine ratio NOT APPLICABLE See_Comment [Aut omated (test code = 3097-3) message ] The system which generated this result transmitted reference range : 6 - 22 (calc). The reference range was not used to interpr et this result as normal/abnormal . Sodium (test code = 138 mmol/L 706-824 8083-2) Potassium (test code 3.5 mmol/L 3.5-5.3 = 2823-3) Chloride (test code 100 mmol/L 98-110 = 2075-0) CO2 (test code = 26 mmol/L 20-32 2028-05) Calcium (test code = 9.6 mg/dL 8.6-10.4 08104-7) Protein (test code = 7.7 g/dL 6.1-8.1 5-2) Albumin, S (test 4.4 g/dL 3.6-5.1 code = 1751-7) Globulin, total 3.3 See_Comment [Automated (test code = message] The ) system which generated this result transmitted reference range : 1.9 - 3.7 g/dL (calc). The reference range was not used to interpret this result as normal/abnormal . Albumin/globulin 1.3 See_Comment [Automated ratio (test code = message] The ) system which generated this result transmitted reference range : 1.0 - 2.5 (calc ). The reference range was not used to interpr et this result as normal/abnormal . Total bilirubin 0.6 mg/dL 0.2-1.2 (test code = 1974-) Alkaline phosphatase 81 U/L 37-153 (test code = 6768-6) AST (test code = 42 U/L 10-35 H 1928) ALT (test code = 45 U/L 6-29 H 174-6) LETITIA (test code = FASTING:NO LETITIA) FASTING: NO RAC (test code = Performing RAC) Organization Information: Site ID: RGA Name: [facility] Lab Address: [address] [place] [address] Director: Parish Contreras Lab Interpretation Abnormal (test code = 11099-1) [facility] CampusLipid [id number] 19:14:00 Test Item Value Reference Interpretation Comments [...] calculated (test <100 Desira ble code = 93108-6) range <100 m g/dL for primary prevention; <70 mg/dL for patie nts with CHD or diabetic patien ts with > or = 2 C HD risk factors. L DL-C is now calculat ed using the Marvin-Johnston calculation, wh ich is a validated novel method providing radha r accuracy than t he Friedewald equa tion in the estimati on of LDL-C. Zuly n SS et al. ALFREDO. 2013;310(19): 1258-7886 (http://educati on.[employer] /faq/PZE135) Cholesterol/HDL 3.9 See_Comment [Automated ratio (test code = message] The system 9830-1) which generated this result transmitted reference range : <5.0 (calc). Th e reference range was not used to interpret this result as normal/abnormal . Non-HDL cholesterol 92 See_Comment For rosa ents with (test code = diabetes plus 1 98754-4) major ASCVD ris k factor, treatin g to a non-HDL-C goa l of <100 mg/dL (LDL -C of <70 mg/dL) i s considered a therapeutic opt ion. [Automated mess age] The system whic h generated this result transmit al reference range : <130 mg/dL (marva c). The reference r danni was not used to interpret this result as normal/abnormal . LETITIA (test code = FASTING:NO LETITIA) FASTING: NO RAC (test code = Performing RAC) Organization Information: Site ID: RGA [facility]: [facility] Address: [address] [place] [address] Director: Parish Contreras Lab Interpretation Abnormal (test code = 84656-1) [facility] CampusHemoglobin [id number] 19:14:00 Test Item Value Reference Range Interpretation Comments Hemoglobin A1C 5.3 See_Comment For the purpo se of (test code = screening for t he 4548-4) presence ofdiab etes: <5.7% Consisten t [...] specif ic patient populat ions. Standards of Mo dical Care in Diabetes(ADA). [Automated mess age] The system [employer] generated this result transmitted ref erence range: <5.7 % o f total Hgb. The reference range was not used to int erpret this result as normal/abnormal . LETITIA (test code = FASTING:NO LETITIA) FASTING: NO RAC (test code = Performing RAC) Organization Information: Site ID: [facility] Name: [facility] Address: [address] [place] [address] Director: Parish Contreras [facility] [address] [id number] 19:14:00 Test Item Value Reference Range Interpretation Comments T4, free (test code 1.5 ng/dL 0.8-1.8 = 3024-7) LETITIA (test code = FASTING:NO FASTING: NO LETITIA) RAC (test code = Performing Organization RAC) Information: Site ID: [facility] Name: [facility] Address: [address] [place] [address] Director: Parish Contreras [facility] HospitalThyroid stimulating [id number] 19:14:00 Test Item Value Reference Range Interpretation Comments TSH (test 0.94 See_Comment [Automated mes emeli] code = The system [employer] 3016-3) generated this result transmit al reference range : 0.40 - 4.50 mIU /L. The reference r danni was not used to interpret this result as normal/abnormal . LETITIA (test FASTING:NO FASTING: code = LETITIA) NO RAC (test Performing code = RAC) Organization Information: Site ID: [facility] Name: [facility] Address: [address] [place] [address] Director: Parish Contreras [facility] CampusUrine [id number] 19:14:00 Test Item Value Reference Interpretation Comments Range Urine culture (test SEE NOTE A CULTURE , URINE, code = 630-4) ROUTINE Micro Number: [id number] Test Status: Fi nal Specimen Source : Urine, clean ca tch Specimen Qualit y: Adequate Result : Greater than 100,000 CFU/mL of Escherichia col i E.coli - INT FRANCE AMOX/CLAVULANAT E S <=2 AMPICILLIN S <=2 AMP/SULBACT AM S <=2 CEFAZOLIN N R <=4 2 CEFE PIME S <=1 CEFTAZIDI ME S <=1 CEFTRIAXONE S <=1 CIPROFLOXAC IN S <=0.25 GENTAMIC IN S <=1 IMIPENEM S <=0.25 LEVOFLOX ACIN [...] P. mirabilis : Cefazolin is resistant if DE C > or = 8 mcg/mL. (Distinguishing [...] RAC) Organization Information: Site ID: RGA Name: [facility] Address: [address] [place] [address] Director: Parish Contreras Lab Interpretation Abnormal (test code = 61321-6) [facility] CampusUrinalysis, automated with [id number] 19:14:00 Test Item Value Reference Range Interpretation Comments Color, UA (test code YELLOW YELLOW = 5778-6) Appearance (test CLEAR CLEAR code = 5767-9) Specific gravity, 1.020 1.001-1.035 urine (test code = 5811-5) pH, urine (test code 5.5 5.0-8.0 = 5803-2) Glucose, urine (test NEGATIVE NEGATIVE code = 04708-3) Bilirubin, UA (test NEGATIVE NEGATIVE code = 5770-3) Ketones, UA (test TRACE NEGATIVE A code = 2514-8) Occult blood, urine 2+ NEGATIVE A (test code = 5794-3) Protein, UA (test NEGATIVE NEGATIVE code = 27986-3) Nitrite, UA (test POSITIVE NEGATIVE A code [...] code = NONE SEEN See_Comment [Autom ated 33540-9) message] The system which generated this result transmitted reference range : < OR = 2 /HPF. The reference range was not used to interpr et this result as normal/abnormal . Squamous epithelial NONE SEEN See_Comment [Automa al cells, UA (test code message ] The = 09654-1) system which generated this result transmitted reference [...] = Performing RAC) Organization Information: Site ID: A Name: [facility] Lab Address: [address] [place] [address] Director: Parish Contreras Lab Interpretation Abnormal (test code = 54084-1) [facility] CampusVitamin D 25 hydroxy [id number] 19:14:00 Test Item Value Reference Range Interpretation [...] please refer to http://educatio n.Q uestDiagnostics .co m/faq/NTP916 (T his link is being provided for informational/e maricruz ational purpose s only.) LETITIA (test code = FASTING:NO FASTING: LETITIA) NO RAC (test code = Performing RAC) Organization Information: Site ID: RGA [facility]: [facility] Address: [address] [place] [address] Director: Parish Contreras [facility] CampusComprehensive metabolic [id number] 06:04:00 Test Item Value Reference Interpretation Comments [...] EGFR Non-Afr. See_Comment L [Automated me ssage] Malawian (test code The syst em which = 3781) generated this result transmit al reference range : > OR = 60 mL/min/1.73m2. The reference range was not used to interpret this result as normal/abnormal . EGFR See_Comment L [Automated mes emeli] Malawian (test code The syst em which = 2774) generated this result transmit al reference range [...] . Sodium (test code = 139 mmol/L 173-106 0398-2) Potassium (test 4.3 mmol/L 3.5-5.3 code = 2823-3) Chloride (test code 104 mmol/L 98-110 = 2075-0) CO2 (test code = 25 mmol/L 20-32 2027-9) Calcium (test code 9.6 mg/dL 8.6-10.4 = 62161-9) Protein (test code 7.5 g/dL 6.1-8.1 = 2885-2) Albumin, S (test 4.2 g/dL 3.6-5.1 code = 1751-7) Globulin, total See_Comment [Automated message] (test code = The system [facility] h [address]-6) generated this result transmit al reference range : 1.9 - 3.7 g/dL (marva c). The reference r danni was not used to interpret this result as normal/abnormal . Albumin/globulin See_Comment [Automated message] ratio (test code = The [facility] which 1759-0) generated this result transmit al reference range : 1.0 - 2.5 (calc). T he reference range was not used to interpret this result as normal/abnormal . Total bilirubin 0.6 mg/dL 0.2-1.2 (test code = 1974-2) Alkaline 84 U/L 37-153 phosphatase (test code = 6768-6) AST (test code = 39 U/L 10-35 H 1920-8) ALT (test code = 47 U/L 6-29 H 1742-6) LETITIA (test code = FASTING:NO LETITIA) FASTING: NO RAC (test code = Performing RAC) Organization Information: Site ID: SAIDA Name: [facility] Address: [address] [place] [address] Director: Parish Contreras Lab Interpretation Abnormal (test code = 03662-5) [facility] HospitalLipid [id number] 06:04:00 Test Item Value Reference Range Interpretation [...] calculated (test <100 Desira ble code = 81493-7) range <100 m g/dL for primary prevention; <70 mg/dL for patients with C HD or diabetic patients with > or = 2 CHD risk factors. LDL-C is now calculated using the Marvin-Johnston calculation, which is a validated novel method providin g better accuracy than the Friedewald equation in the estimation of LDL-C. Marvin S S et al. ALFREDO. 2013;310(19): 8720-1660 (http://educati on .Quest[employer] Interactive TKO .com/faq/PEW857 ) Cholesterol/HDL See_Comment H [Automated ratio (test code = message] The 9830-1) system which generated this result transmitted reference range : <5.0 (calc). Th e reference range was not used to interpret this result as normal/abnormal . Non-HDL cholesterol See_Comment H For rosa ents with (test code = diabetes plus 1 15313-7) major ASCVD ris k factor, treatin g [...] RAC) Organization Information: Site ID: SAIDA [facility]: [facility] Address: [address] [place] [address] Director: Parish Contreras Lab Interpretation Abnormal (test code = 51316-6) [facility] CenterT4, [id number] 06:04:00 Test Item Value Reference Range Interpretation Comments T4, free (test code 1.3 ng/dL 0.8-1.8 = 3024-7) LETITIA (test code = FASTING:NO FASTING: NO LETITIA) RAC (test code = Performing Organization RAC) Information: Site ID: SAIDA [facility]: [facility] Address: [address] [place] [address] Director: Parish Contreras [facility] CampusThyroid stimulating [id number] 06:04:00 Test Item Value Reference Range Interpretation Comments TSH (test See_Comment [Automated mes emeli] code = The system whic h 3016-3) generated this result transmit al reference range : 0.40 - 4.50 mIU /L. The reference r danni was not used to interpret this result as normal/abnormal . LETITIA (test FASTING:NO FASTING: code = LETITIA) NO RAC (test Performing code = RAC) Organization Information: Site ID: [facility] Name: [facility] Address: [address] [place] [address] Director: Parish Contreras [facility] CampusAmylase [id number] 22:53:00 Test Item Value Reference Range Interpretation Comments Amylase (test code = 47 U/L 21-101 1798-8) LETITIA (test code = FASTING:NO FASTING: NO LETITIA) RAC (test code = Performing Organization RAC) Information: Site ID: LYNETTE Name: [facility] Address: [address] [place] [address] Director: Parish JohnsonLubbock Heart & Surgical HospitalLipase [id number] 22:53:00 Test Item Value Reference Range Interpretation Comments Lipase (test code = 74 U/L 7-60 H 3040-3) LETITIA (test code = LETITIA) FASTING:NO FASTING: NO RAC (test code = RAC) Performing Organization Information: Site ID: [facility] Name: [facility] Lab Address: [address] [place] [address] Director: Parish Contreras Lab Interpretation (test Abnormal code = 28526-7) [facility] CampusC-reactive [id number] 22:53:00 Test Item Value Reference Range Interpretation Comments CRP (test 2.4 mg/L See_Comment [Automated mes emeli] code = The system ic h 1988-01) generated this result transmit al reference range : <=8.0. The refe rence range was not u sed to interpret th is result as normal/abnormal . LETITIA (test FASTING:NO FASTING: code = LETITIA) NO RAC (test Performing code = RAC) Organization Information: Site ID: [facility] Name: [facility] Lab Address: [address] [place] [address] Director: Parish Contreras [facility] Hospitaledimentation [id number] 22:53:00 Test Item Value Reference Range Interpretation [...] = Performing RAC) Organization Information: Site ID: [facility] Name: [facility] Address: [address] [place] [address] Director: Parish Contreras Lab Interpretation Abnormal (test code = 23316-0) [facility] Cleburnetal iron binding [id number] 22:53:00 Test Item Value Reference Range Interpretation [...] See_Comment [Automated (test code = message] The [employer]32[employer]) system which generated this result transmit al reference range : 16 - 45 % (calc ). The reference range was not u sed to interpret th is result as normal/abnormal . LETITIA (test code = FASTING:NO FASTING: LETITIA) NO RAC (test code = Performing RAC) Organization Information: Site ID: [id number] Name: [facility] Address: [address] [place] [id number] Director: [facility] W IFA W REFLEX TO [id number] 22:53:00 Test Item Value Reference Interpretation Comments Range LIYA Screen (test POSITIVE NEGATIVE A LIYA IFA is a first code = 59375-7) line screen for detecting thepresence of up to approximatel y 150 autoantibod ies invarious autoimmune diseases. A positive LIYA IF A resultis sugges tive of autoimmune disease and reflexes totite r and pattern. Further laborat ory testing may beconsidered if clinically indicated. For additional information, pl ease refer tohttp://educat ion. fypioDiagnostic s.co m/faq/CUA856(Th is link is being provided for informational/e duca tional purposes only.) LIYA titer (test code 1:40 titer H A low l evel LIYA = 5048-4) titer may be present in pre-clinicalaut oimm une diseases an d normal individu als. Reference Rang e <1:40 Negative 1:40-1:80 Low Antibody Level >1:80 Elevated Antibody Level LIYA pattern (test Cytoplasmic A The presen ce of code = 87464-7) cytoplasmic fluorescence wa s noted onthe HEp -2 slide. Other reactivities (e .g., anti-mitochondr ial antibodies or anti-smooth muscleantibodie s) may be responsi ble for this fluorescence.Th e clinical significance of this finding is uncertain.Clini marva correlation is recommended. AC -15 to AC-23: Cytoplasmic International Consensus on AN A Patterns(https: //do i.org/10.1515/c cl- 7969-3069) LETITIA (test code = FASTING:NO LETITIA) FASTING: NO RAC (test code = Performing RAC) Organization Information: Site ID: [id number] Name: [facility] Address: [address] [place] [address], [place] [address] Director: Dr. Parish Contreras Lab Interpretation Abnormal (test code = 09311-4) [facility]
[2022-11-14 12:42] LABS: Absolute Lymphocytes (CBC) 1.2 K/uL (0.7-4.9); Hematocrit 28.3 % (36.0-45.0); Lymphocytes % 22.2 % (15.3-44.8); MCV 114.1 fL (80-100); MPV 7.7 fL (7.6-11.3); RBC Red Blood Cell Count 2.48 M/uL (3.86-4.86)
[2022-11-14] MEDS ORDERED: NA CHLORIDE 0.9% 500 ML ONE (12:45)
[2022-11-14 12:49] LABS: Protime INR 0.99
[2022-11-14 13:05] LABS: Albumin 3.2 g/dL (3.4-5.0); Bilirubin Direct 0.1 mg/dL (0-0.2); Bilirubin Total 0.4 mg/dL (0.2-1.0); Potassium 3.6 mmol/L (3.5-5.1); Protein, Total 7.2 g/dL (6.4-8.2); Troponin High Sensitivity 3.4 pg/mL (<58.9)
[2022-11-14 13:18] LABS: Anisocytosis SLIGHT; Blood Morphology Comment NOTED (NOT SEEN); Macrocytosis 1+; Platelet Estimate ADEQ; White Blood Cell Scan OK (OK)
--- NOTE | 2022-11-14 13:21 | RAD REPORT ---
EXAM DESCRIPTION: RADChest Single View11/14/2022 12:53 pm CLINICAL HISTORY: CHEST PAIN COMPARISON: Chest Single View dated 10/16/2022; Chest Single View dated 09/27/2021; Chest Single View d ated 06/03/2021; Chest Single View dated 05/29/2021 TECHNIQUE: Portable AP view of the chest. FINDINGS: The lungs are clear.Hyperlucency and hyperinflation again noted suggestive of COPD. Mild l eft basilar atelectasis/scarring. No pneumothorax or effusion. The cardiomediastinal contours are unr emarkable. IMPRESSION: No acute cardiopulmonary process. Stable chronic changes suggestive of COPD.
--- NOTE | 2022-11-14 14:09 | RAD REPORT ---
EXAM DESCRIPTION: CT - Chest For Pe Angio - 11/14/2022 1:32 pm CLINICAL HISTORY: CHEST PAIN COMPARISON: Chest For Pe Angio dated 10/16/2022; Chest For Pe Angio dated 05/29/2021 TECHNIQUE: Thin axial CT images of the chest were obtained following administration of 80 mL Isovue 370 IV contrast. Multiplanar reconstructions, and maximum intensity projection reconstructions were g enerated and reviewed. Exam utilizes a protocol for optimal evaluation of pulmonary arterial tree. All CT scans are performed using dose optimization technique as appropriate and may include automated exposure control or mA/KV adjustment according to patient size. FINDINGS: Pulmonary arteries are normal. No emboli or other suspicious finding. No acute or signific ant aorta findings. No mass or infiltrate in the lung parenchyma. Stable pattern of basal predominant scarring and subseg mental atelectasis. The medially situated left lower lobe 9 millimeter nodule, on axial image 43/141 series 501 is new. No pleural thickening or pleural effusion. No pneumothorax. No abnormal mediastinal or hilar masses or lymphadenopathy seen. No chest wall mass or abnormal axill iary lymphadenopathy. No suspicious osseous abnormality. L1 vertebral body chronic appearing compression fracture deformity with sequelae of prior vertebral augmentation again noted. IMPRESSION: No evidence of acute central pulmonary emboli. New medially situated left lower lobe 9 millimeter nodule. Given the other more extensive chronic fin dings, this could reflect focal scarring versus atelectasis. A follow-up CT chest is recommended in 6 -12 months to ensure stability.
[2022-11-14 18:23] VITALS: TEMP 98.4
[2022-11-14 18:45] VITALS: BP 153/75; O2SAT 99
--- NOTE | 2022-11-15 16:23 | EKG ---
Test Date: 2022-11-14 Test Time: 12:22:06 Marketing Rep: BP MEASUREMENT RESULTS: Intervals: Rate: 66 MD: 188 QRSD: 102 QT: 424 QTc: 444 [place]: P: 65 MD: 188 QRS: 50 T: 71 INTERPRETIVE STATEMENTS: Normal sinus rhythm Normal ECG Compared to ECG 10/16/2022 15:33:49 ST (T wave) deviation no longer present Electronically Signed On 11-15-22 16:20:13 ATHLETIC EQUIPMENT MANAGER by Enio Flaherty
--- NOTE | 2022-11-30 15:30 | ER ---
[facility] Name: Carmen Ewing Age: 82 yrs Sex: Female : 1940 Arrival Date: 11/14/2022 Time: 12:02 Bed 8 Private MD: Melania Cruz Diagnosis: Chest pain, unspecified Presentation: 11/14 12:18 Chief complaint: Patient states: she started having left sided chest pain last night ap3 under her left breast that radiates to her back. patient also reports nausea, but denies vomiting. Coronavirus screen: At this time, the client does not indicate any symptoms associated with coronavirus-19. Ebola Screen: No symptoms or risks identified at this time. Initial Sepsis Screen: Does the patient meet any 2 criteria? No. Patient's initial sepsis screen is negative. Does the patient have a suspected source of infection? No. Patient's initial sepsis screen is negative. Risk Assessment: Do you want to hurt yourself or someone else? Patient reports no desire to harm self or others. Onset of symptoms was November 14, 2022. 12:18 Method Of Arrival: Ambulatory ap3 12:18 Acuity: ARTHUR 2 ap3 Triage Assessment: 12:20 General: Appears uncomfortable, Behavior is calm, cooperative. Pain: Complains of pain ap3 in left breast Pain radiates to back. Neuro: Level of Consciousness is awake, alert, obeys commands, Oriented to person, place, time, situation. Cardiovascular: Reports chest pain, nausea. Respiratory: Airway is patent Respiratory effort is even, unlabored, Respiratory pattern is regular, symmetrical. Historical: - Allergies: 12:19 Niacin; ap3 - PMHx: 12:19 Hypertension; Hypothyroidism; Irritable bowel syndrome; ITP; neuropathy; Osteoporosis; ap3 Pulmonary Embolism; shingles; thrombocythemia; - PSHx: 12:19 Cholecystectomy; Total abdominal hysterectomy; ap3 - Immunization history:: Client reports receiving the 2nd dose of the Covid vaccine, Flu vaccine is up to date. - Social history:: Smoking status: Patient denies any tobacco usage or history of. Screenin:21 Abuse screen: Denies threats or abuse. Nutritional screening: No deficits noted. ap3 Tuberculosis screening: No symptoms or risk factors identified. Assessment: 12:21 Pain: Pain began gradually, over night last night. ap3 13:16 Reassessment: No changes from previously documented assessment. Patient and/or family bp updated on plan of care and expected duration. Pain level reassessed. 15:24 Reassessment: No changes from previously documented assessment. Patient and/or family bp updated on plan of care and expected duration. Pain level reassessed. 16:17 Reassessment: REPEAT TROP IN PROCESS. bp 17:19 Reassessment: PT DC HOME AMBULATORY. bp Vital Signs: 12:18 BP 107 / 88; Pulse 66; Resp 17; Temp 98.4(O); Pulse Ox 99% ; Weight 49.44 kg; Height 5 ap3 ft. 6 in. ; Pain 8/10; 13:16 BP 128 / 58; Pulse 63; Resp 18; Pulse Ox 97% ; bp 15:24 BP 147 / 62; Pulse 61; Resp 18; Pulse Ox 100% ; bp 16:17 BP 143 / 73; Pulse 60; Resp 16; Pulse Ox 100% ; bp 17:19 BP 153 / 75; Pulse 60; Resp 17; Pulse Ox 99% ; bp 12:18 Body Mass Index 17.59 (49.44 kg, 167.64 cm) ap3 12:18 Pain Scale: Adult ap3 ED Course: 12:02 Patient arrived in ED. am2 12:02 Melania Cruz is Private Physician. am2 12:05 Jorge Bush NP is PHCP. pm1 12:05 Jorge Huddleston DO is Attending Physician. pm1 12:19 Triage completed. ap3 12:21 Arm band placed on right wrist. ap3 12:21 Patient has correct armband on for positive identification. Placed in gown. Bed in low ap3 position. Call light in reach. Side rails up X 1. hospital monitor on. Pulse ox on. NIBP on. 12:21 Patient maintains SpO2 saturation greater than 95% on room air. ap3 12:30 Inserted saline lock: 22 gauge in right forearm, using aseptic technique. Blood bp collected. 12:32 Seth Garcia, RN is Primary Nurse. bp 12:55 XRAY Chest (1 view) In Process Unspecified. EDMS 13:34 CT Chest For PE Angio In Process Unspecified. EDMS 17:20 No provider procedures requiring assistance completed. IV discontinued, intact, bp bleeding controlled, No redness/swelling at site. Pressure dressing applied. Administered Medications: 12:45 Drug: NS 0.9% IV 500 ml Route: IV; Rate: bolus; Site: right forearm; bp 15:25 Follow up: IV Status: Completed infusion; IV Intake: 500ml bp Intake: 15:25 IV: 500ml; Total: 500ml. bp Outcome: 16:58 Discharge ordered by MD. pm1 17:20 Discharged to home ambulatory, with family. bp 17:20 Condition: stable 17:20 Discharge instructions given to patient, Instructed on discharge instructions, follow up and referral plans. Demonstrated understanding of instructions, follow-up care. 17:21 Patient left the ED. bp Signatures: Dispatcher [employer] EDMS Jorge Bush NP COOK SAUCE pm1 Maria E Dove am2 Seth Garcia, KATHY RN bp Maria E Adair RN RN ap3
--- NOTE | 2022-11-30 15:30 | EDPHYS ---
Physician Documentation [facility] Name: Carmen Ewing Age: 82 yrs Sex: Female : 1940 Arrival Date: 11/14/2022 Time: 12:02 Bed 8 Private MD: Melania Cruz ED Physician Jorge Huddleston HPI: 11/14 12:16 This 82 yrs old Female presents to ER via Ambulatory with complaints of Chest Pain - pm1 radiating to back. 12:16 The patient or guardian reports chest pain that is located primarily in the left pm1 breast. Onset: yesterday. The pain radiates to left back. Associated signs and symptoms: Pertinent negatives: abdominal pain, cough, shortness of breath. The chest pain is described as sharp. Duration: The patient or guardian reports a single episode. Modifying factors: the symptoms are aggravated by deep breath, palpation of area. Severity of pain: in the emergency department the pain is unchanged. The patient has not experienced similar symptoms in the past. The patient has not recently seen a physician. Historical: - Allergies: 12:19 Niacin; ap3 - PMHx: 12:19 Hypertension; Hypothyroidism; Irritable bowel syndrome; ITP; neuropathy; Osteoporosis; ap3 Pulmonary Embolism; shingles; thrombocythemia; - PSHx: 12:19 Cholecystectomy; Total abdominal hysterectomy; ap3 - Immunization history:: Client reports receiving the 2nd dose of the Covid vaccine, Flu vaccine is up to date. - Social history:: Smoking status: Patient denies any tobacco usage or history of. ROS: 12:16 Constitutional: Negative for fever, chills, and weight loss. pm1 12:16 Respiratory: Negative for shortness of breath, cough, wheezing, and pleuritic chest pain, Abdomen/GI: Negative for abdominal pain, nausea, vomiting, diarrhea, and constipation, Back: Negative for injury and pain, MS/Extremity: Negative for injury and deformity, Skin: Negative for injury, rash, and discoloration, Neuro: Negative for headache, weakness, numbness, tingling, and seizure. 12:16 Cardiovascular: Positive for chest pain, Negative for edema, palpitations. 12:16 All other systems are negative. Exam: 12:16 Constitutional: This is a well developed, well nourished patient who is awake, alert, pm1 and in no acute distress. Head/Face: Normocephalic, atraumatic. 12:16 Back: No spinal tenderness. No costovertebral tenderness. Full range of motion. Skin: Warm, dry with normal turgor. Normal color with no rashes, no lesions, and no evidence of cellulitis. MS/ Extremity: Pulses equal, no cyanosis. Neurovascular intact. Full, normal range of motion. 12:16 Chest/axilla: Axilla: lymphadenopathy, is not appreciated, mild tenderness present, Breasts: tenderness, that is mild of the left breast, allen Sanderson RN. 12:16 Cardiovascular: Exam negative for acute changes, Rate: normal, Rhythm: regular, Pulses: no pulse deficits are appreciated, Heart sounds: normal. 12:16 Respiratory: Exam negative for acute changes, respiratory distress, shortness of breath. 12:16 Abdomen/GI: Exam negative for acute changes, Inspection: abdomen appears normal, Palpation: abdomen is soft and non-tender, in all quadrants. 12:16 Neuro: Exam negative for acute changes, Orientation: is normal, Mentation: is normal, Motor: is normal, moves all fours. Vital Signs: 12:18 BP 107 / 88; Pulse 66; Resp 17; Temp 98.4(O); Pulse Ox 99% ; Weight 49.44 kg; Height 5 ap3 ft. 6 in. ; Pain 8/10; 13:16 BP 128 / 58; Pulse 63; Resp 18; Pulse Ox 97% ; bp 15:24 BP 147 / 62; Pulse 61; Resp 18; Pulse Ox 100% ; bp 16:17 BP 143 / 73; Pulse 60; Resp 16; Pulse Ox 100% ; bp 17:19 BP 153 / 75; Pulse 60; Resp 17; Pulse Ox 99% ; bp 12:18 Body Mass Index 17.59 (49.44 kg, 167.64 cm) ap3 12:18 Pain Scale: Adult ap3 MDM: 12:05 Patient medically screened. pm1 12:16 Differential diagnosis: chest wall pain, pneumonia, pulmonary embolism, acute coronary pm1 symdrome. 15:37 Data reviewed: vital signs. pm1 15:37 Counseling: I had a detailed discussion with the patient and/or guardian regarding: the pm1 historical points, exam findings, and any diagnostic results supporting the discharge/admit diagnosis, lab results, radiology results. 15:38 ED course: Heart score 3. Patient without any current chest pain. Initial troponin pm1 negative and will repeat troponin prior to disposition. 16:57 Counseling: I had a detailed discussion with the patient and/or guardian regarding: lab pm1 results, the need for outpatient follow up, to return to the emergency department if symptoms worsen or persist or if there are any questions or concerns that arise at home. 11/14 12:15 Order name: Basic Metabolic Panel; Complete Time: 13:12 pm1 11/14 12:15 Order name: CBC with Diff; Complete Time: 13:22 pm1 11/14 12:15 Order name: LFT's; Complete Time: 13:12 pm1 11/14 12:15 Order name: NT PRO-BNP; Complete Time: 13:12 pm1 11/14 12:15 Order name: PT-INR; Complete Time: 12:51 pm1 11/14 12:15 Order name: Troponin HS; Complete Time: 13:12 pm1 11/14 13:18 Order name: CBC Smear Scan; Complete Time: 13:22 EDMS 11/14 15:37 Order name: Troponin High Sensitivity; Complete Time: 16:58 pm1 11/14 12:15 Order name: XRAY Chest (1 view); Complete Time: 13:22 pm1 11/14 12:15 Order name: CT Chest For PE Angio; Complete Time: 14:36 pm1 11/14 12:15 Order name: EKG; Complete Time: 12:16 pm1 11/14 12:15 Order name: Cardiac monitoring; Complete Time: 12:22 pm1 11/14 12:15 Order name: EKG - Nurse/Tech; Complete Time: 12:32 pm11/14 12:15 Order name: IV Saline Lock; Complete Time: 12:32 pm1 11/14 12:15 Order name: Labs collected and sent; Complete Time: 12:32 pm1 11/14 12:15 Order name: O2 Per Protocol; Complete Time: 12:22 pm1 11/14 12:15 Order name: O2 Sat Monitoring; Complete Time: 12:22 pm1 EC:32 Rate is 66 beats/min. Rhythm is regular, Normal Sinus Rhythm with No ectopy. QRS [place] pm1 is Normal. UT interval is normal. QRS interval is normal. QT interval is normal. No Q waves. T waves are Normal. No ST changes noted. Clinical impression: Normal ECG. Administered Medications: 12:45 Drug: NS 0.9% IV 500 ml Route: IV; Rate: bolus; Site: right forearm; bp 15:25 Follow up: IV Status: Completed infusion; IV Intake: 500ml bp Disposition: 13:29 Co-signature as Attending Physician, Jorge Huddleston DO I was immediately available on-site ms3 in the Emergency Department for consultation in the care of the patient. Disposition Summary: 11/14/22 16:58 Discharge Ordered Location: Home pm1 Problem: new pm1 Symptoms: have improved pm1 Condition: Stable pm1 Diagnosis - Chest pain, unspecified pm1 Followup: pm1 - With: Emergency Department - When: As needed - Reason: Worsening of condition Followup: pm1 - With: Private Physician - When: 2 - 3 days - Reason: Recheck today's complaints, Continuance of care, Re-evaluation by your physician Discharge Instructions: - Discharge Summary Sheet pm1 - Nonspecific Chest Pain, Adult pm1 Forms: - Medication Reconciliation Form pm1 - Thank You Letter pm1 - Antibiotic Education pm1 - Prescription Opioid Use pm1 Signatures: Dispatcher [employer] EDMS Jorge Bush, BEAT[employer]ICE LEAD DIE MOLDER pm1 Seth Garcia, RN RN bp Maria E Adair RN RN ap3 Jorge Huddleston DO DO ms3
== END 2022-11-14 17:21 | disposition home or self-care (01) ==
LOC: ER 11:59
DX: R07.89 Other chest pain (principal); I10 Essential (primary) hypertension; Z91.048 Other nonmedicinal substance allergy status
CPT/HCPCS: 96361; 93005; 85025; 80048; 36415; 85610; 80076; 84484 ×2; 83880; 71275; 71045; 96360; 99285; Q9967; J7040

== ENCOUNTER 2023-03-13 08:17 | Emergency (ER) | payer OTHER ==
--- OUTSIDE RECORDS SUMMARY | 2023-03-13 08:23 | XMS REPORT | Continuity of Care Document ---
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 2022-04-05 Travel 1.2.840.1 1.2.173.723 3252 618024 Methodi 00:00:00 00:00:[address] 3.430.2.7 0.2.7.3.698 Ho spita .3.089922 084.8 l .8 2022-04-04 2022-04-04 Travel 1.2.840.1 1.2.733.838 6773 915814 Methodi 00:00:00 00:00:[address] 3.430.2.7 0.2.7.3.698 Ho spita .3.341367 084.8 l .8 2022-04-04 2022-04-04 Orders [place], 1.2.840.1 [id number] 88129 91280 Methodi 00:00:00 00:00:00 Only Nayely 19274.1.[address] 3.430.2.7 Hospit a .3.256338 l .8 2022-04-04 2022-04-04 Orders [place], 1.2.840.1 [id number] 167984 8370 Methodi 00:00:00 00:00:00 Only Solange 22711.1.[address] 3.430.2.7 Hospit a .3.048485 l .8 2022-03-22 2022-03-22 Refill Nancy, 1.2.840.1 [id number] 2099 438305 Methodi 00:00:00 00:00:[address] 3.430.2.7 Hospit a .3.036901 l .8 2022-03-15 2022-03-15 Travel 1.2.840.1 1.2.837.117 6901 358197 Methodi 00:00:00 00:00:[address] 3.430.2.7 0.2.7.3.698 Ho spita .3.468086 084.8 l .8 2022-03-14 2022-03-14 Travel 1.2.840.1 1.2.134.049 8734 726565 Methodi 00:00:00 00:00:[address] 3.430.2.7 0.2.7.3.698 Ho spita .3.670158 084.8 l .8 2022-03-13 2022-03-13 Orders [place], 1.2.840.1 [id number] 60260 87295 Methodi 00:00:00 00:00:00 Only Nayely 48689.1.[address] 3.430.2.7 Hospit a .3.492741 l .8 2022-01-11 2022-01-11 Telephone Nancy, 1.2.840.1 [id number] Methodi 11:00:00 13:31:00 Consult Jayde. 28759.1.[address] 3.430.2.7 Hospit a .3.166253 l .8 2021-12-15 2021-12-15 Orders Nancy, 1.2.840.1 [id number] 2099 736654 Methodi 00:00:00 00:00:00 Only Jayde. 15770.1.[address] 3.430.2.7 Hospit a .3.807698 l .8 2021-12-14 2021-12-14 Office Nancy, 1.2.840.1 [id number] 2099 811823 Methodi 13:40:00 14:36:45 Visit Jayde. 14593.1.[address] 3.430.2.7 Hospit a .3.870847 l .8 2021-12-14 2021-12-14 Office Rice, 1.2.840.1 [id number] 513222 4606 Methodi 13:00:00 13:34:14 Visit Elliot 97776.1.[address] 3.430.2.7 Hospit a .3.462945 l .8 2021-12-14 2021-12-14 Lab Rice, 1.2.840.1 [id number] 821117 8465 Methodi 13:00:00 13:05:[address] 3.430.2.7 Hospit a .3.052319 l .8 2021-12-14 2021-12-14 Rommel Phipps, 1.2.840.1 [id number] Methodi 00:00:00 00:00:00 Only Nayely 07336.1.[address] 3.430.2.7 Hospit a .3.430184 l .8 2021-12-14 2021-12-14 Travel 1.2.840.1 1.2.297.017 3168 802064 Methodi 00:00:00 00:00:[address] 3.430.2.7 0.2.7.3.698 Ho spita .3.519617 084.8 l .8 2021-12-13 2021-12-13 Rommel Snyder, 1.2.840.1 [id number] 978 0977032 Methodi 00:00:00 00:00:00 Only Delilah 88450.1.[address] 3.430.2.7 Hospit a .3.566055 l .8 2021-12-13 2021-12-13 Travel 1.2.840.1 1.2.613.490 5830 510709 Methodi 00:00:00 00:00:[address] 3.430.2.7 0.2.7.3.698 Ho spita .3.066844 084.8 l .8 2021-12-06 2021-12-06 Cesar Cruz, 1.2.840.1 [id number] 2099067 Methodi 00:00:00 00:00:[address] 3.430.2.7 Hospit a .3.949217 l .8 2021-11-20 2021-11-20 Travel 1.2.840.1 1.2.527.386 2650 228199 Methodi 00:00:00 00:00:[address] 3.430.2.7 0.2.7.3.698 Ho spita .3.466494 084.8 l .8 2021-11-17 2021-11-17 Travel 1.2.840.1 1.2.289.074 8814 758816 Methodi 00:00:00 00:00:[address] 3.430.2.7 0.2.7.3.698 Ho spita .3.279844 084.8 l .8 2021-11-15 2021-11-15 Orders [place], 1.2.840.1 [id number] Methodi 00:00:00 00:00:00 Only Nayely 27800.1.[address] 3.430.2.7 Hospit a .3.255722 l .8 2021-10-19 2021-10-19 Refill Nancy, 1.2.840.1 [id number] 2099898 Methodi 00:00:00 00:00:[address] 3.430.2.7 Hospit a .3.759255 l .8 2021-09-24 2021-09-24 Refjulio Nancy, 1.2.840.1 [id number] 2099038 Methodi 00:00:00 00:00:[address] 3.430.2.7 Hospit a .3.458238 l .8 2021-09-21 2021-09-21 Orders Lamine, 1.2.840.1 [id number] [id number] Methodi 00:00:00 00:00:00 Only Jameshia L 98544.1.1 [address] 3.430.2.7 Hospit a .3.437490 l .8 2021-09-20 2021-09-20 Orders Nancy, 1.2.840.1 [id number] 2099842 Methodi 00:00:00 00:00:00 Only Jayde. 96700.1.[address] 3.430.2.7 Hospit a .3.869329 l .8 2021-09-20 2021-09-20 Orders [place], 1.2.840.1 [id number] 958195 4620 Methodi 00:00:00 00:00:00 Only Solange 84240.1.[address] 3.430.2.7 Hospit a .3.033527 l .8 2021-09-20 2021-09-20 Refill Ar[place], 1.2.840.1 [id number] 081156 6186 Methodi 00:00:00 00:00:[address] 3.430.2.7 Hospit a .3.105760 l .8 2021-08-21 2021-08-21 Office Rice, 1.2.840.1 127608747 408448 2815 Methodi 13:30:00 14:21:19 Visit Elliot 19971.1.[address] 3.430.2.7 Hospit a .3.228190 l .8 2021-08-21 2021-08-21 Lab Rice, 1.2.840.1 [id number] 061067 3024 Methodi 13:25:00 13:30:[address] 3.430.2.7 Hospit a .3.240824 l .8 2021-08-21 2021-08-21 Travel 1.2.840.1 1.2.855.828 9554 924102 Methodi 00:00:00 00:00:[address] 3.430.2.7 0.2.7.3.698 Ho spita .3.114578 084.8 l .8 2021-08-17 2021-08-17 Orders [place], 1.2.840.1 [id number] 71902 77174 Methodi 00:00:00 00:00:00 Only Nayely 36066.1.[address] 3.430.2.7 Hospit a .3.985946 l .8 2021-06-29 2021-06-29 Office Rice, 1.2.840.1 661423631 802454 7489 Methodi 13:30:00 13:45:00 Visit Elliot 54092.1.[address] 3.430.2.7 Hospit a .3.503689 l .8 2021-06-29 2021-06-29 Lab Rice, 1.2.840.1 [id number] 169032 1955 Methodi 13:30:00 13:35:[address] 3.430.2.7 Hospit a .3.218521 l .8 2021-06-29 2021-06-29 Travel 1.2.840.1 1.2.344.408 7657 812150 Methodi 00:00:00 00:00:[address] 3.430.2.7 0.2.7.3.698 Ho spita .3.731525 084.8 l .8 2021-06-07 2021-06-07 Orders Sana Duran 1.2.840.1 [id number] 315 4546217 Methodi 00:00:00 00:00:00 Only Anya 94422.1.[address] 3.430.2.7 Hospit a .3.054139 l .8 2021-06-05 2021-06-05 Office Nancy, 1.2.840.1 [id number] 2099 177697 Methodi 16:20:00 17:39:49 Visit Liya Everett 86610.1.[address] 3.430.2.7 Hospit a .3.755433 l .8 2021-06-05 2021-06-05 Travel 1.2.840.1 1.2.829.943 6660 187301 Methodi 00:00:00 00:00:[address] 3.430.2.7 0.2.7.3.698 Ho spita .3.819348 084.8 l .8 2021-06-01 2021-06-01 Office Marcial, 1.2.840.1 [id number] 451809 2310 Methodi 13:00:00 13:45:18 Visit Elliot 73771.1.[address] 3.430.2.7 Hospit a .3.422519 l .8 2021-06-01 2021-06-01 Lab Rice, 1.2.840.1 [id number] 647298 0665 Methodi 13:00:00 13:05:[address] 3.430.2.7 Hospit a .3.833959 l .8 2021-06-01 2021-06-01 Travel 1.2.840.1 1.2.391.767 8096 817327 Methodi 00:00:00 00:00:[address] 3.430.2.7 0.2.7.3.698 Ho spita .3.123556 084.8 l .8 2021-05-29 2021-05-29 Orders [place]ak 1.2.840.1 [id number] 070096 3451 Methodi 00:00:00 00:00:00 Only Thompson, 18101.1.[address] Deb 3.430.2.7 Hospi ta .3.554466 l .8 2021-04-13 2021-04-13 Outpatient RICE, [facility] [id number] 686 [place] 00:00:00 00:00:00 ELLIOT 369 [place] 2021-04-13 2021-04-13 Outpatient RICE, [facility] [id number] 779 [place] 00:00:00 00:00:00 ELLIOT 191 [place] 2021-04-10 2021-04-10 Outpatient NANCY, [facility] 50946 48097 [place] 00:00:00 00:00:00 LIYA 807 Method i 2021-04-10 2021-04-10 Outpatient NANCY, [facility] 11826 24172 [place] 00:00:00 00:00:00 LIYA 869 Method i 2021-04-10 2021-04-10 Outpatient NANCY, [facility] 38378 11357 [place] 00:00:00 00:00:00 LIYA 329 Method i 2021-03-27 2021-03-27 Outpatient NANCY, [facility] [id number] 70123 [place] 00:00:00 00:00:00 LIYA 607 Method i 2021-03-09 2021-03-09 Outpatient RICE, [facility] [id number] 596 [place] 00:00:00 00:00:00 ELLIOT 599 [place] 2021-03-09 2021-03-09 Outpatient RICE, [facility] [id number] 345 [place] 00:00:00 00:00:00 ELLIOT 365 [place] 2021-02-16 2021-02-16 Outpatient RICE, [facility] [id number] 505 [place] 00:00:00 00:00:00 ELLIOT 302 [place] 2021-02-16 2021-02-16 Outpatient RICE, [facility] [id number] 163 [place] 00:00:00 00:00:00 ELLIOT 706 [place] 2020-11-24 2020-11-24 Outpatient RICE, [facility] [id number] 408 [place] 00:00:00 00:00:00 ELLIOT 611 [place] 2020-11-24 2020-11-24 Outpatient RICE, [facility] [id number] 419 [place] 00:00:00 00:00:00 ELLIOT 646 [place] 2020-08-25 2020-08-25 Outpatient RICE, [facility] [id number] 301 [place] 00:00:00 00:00:00 ELLIOT 154 [place] 2020-08-25 2020-08-25 Outpatient RICE, [facility] [id number] 101 [place] 00:00:00 00:00:00 ELLIOT 808 Meth[place] 2020-05-26 2020-05-26 Outpatient RICE, [facility] [id number] 384 [place] 00:00:00 00:00:00 ELLIOT 167 Meth[place] 2020-05-26 2020-05-26 Outpatient RICE, [facility] [id number] 985 [place] 00:00:00 00:00:00 ELLIOT 853 [place] 2020-03-17 2020-03-17 Outpatient RICE, [facility] [id number] 326 [place] 00:00:00 00:00:00 ELLIOT 358 [place] 2020-03-17 2020-03-17 Outpatient RICE, [facility] [id number] 260 [place] 00:00:00 00:00:00 ELLIOT 587 [place] 2020-02-12 2020-02-12 Outpatient NACNY, [facility] [id number] 82345 [place] 00:00:00 00:00:00 LIYA 941 Method i 2020-01-22 2020-01-22 Outpatient NANCY [facility] 14730 03968 [place] 00:00:00 00:00:00 LIYA [address] 2020-01-14 2020-01-14 Outpatient MARCIAL [facility] [id number] 759 [place] 00:00:00 00:00:00 ELLIOT 528 Meth[place] 2020-01-14 2020-01-14 Outpatient MARCIAL [facility] [id number] 152 [place] 00:00:00 00:00:00 ELLIOT 164 [place] 2019-12-03 2019-12-03 Outpatient NANCY [facility] [id number] 12369 [place] 00:00:00 00:00:00 LIYA 106 Method i 2019-10-08 2019-10-08 Outpatient LINDA MARK [facility] 2099 [id number] [place] 00:00:00 00:00:00 301 Method i 2019-08-24 2019-08-24 Outpatient LINDA MARK [facility] 2100 [id number] [place] 00:00:00 00:00:[address] 2019-08-03 2019-08-03 Outpatient NANCY [facility] [id number] 82972 [place] 00:00:00 00:00:[address] LIYA [address] [...] fr om a previous Creati nine or True Martin t, go to https://www.kid tiffany.org /professionals/ kdoqi/g fr%5Fcalculator [Automated mess age] The system Pet[employer] generated this result transmitted ref erence range: > OR = 6 0 mL/min/1.73m2. The reference range was not used to int erpret this result as normal/abnormal . BUN/creatinine ratio (test NOT APPLICABLE See_Comment [Automated message] code = 3097-3) The system ich generated this result transmitted ref erence range: 6 - 22 ( calc). The reference r danni was not used to interpret this result as normal/abnor mal. Sodium (test code = 138 mmol/L 482-090 4705-2) Potassium (test code = 3.5 mmol/L 3.5-5.3 2823-3) Chloride (test code = 100 mmol/L 98-110 2075-0) CO2 (test code = 8-9) 26 mmol/L 20-32 Calcium (test code = 9.6 mg/dL 8.6-10.4 85435-2) Protein (test code = 7.7 g/dL 6.1-8.1 2885-2) Albumin, S (test code = 4.4 g/dL 3.6-5.1 1751-7) Globulin, total (test code 3.3 See_Comment [Automated message] = 10609-4) The system ic h generated this result transmitted ref erence [...] Performing Organization Information: Site ID: RGA Name: [facility] Address: [address] [place] [address] Director: Parish Contreras Lab Interpretation (test Abnormal code = 09081-5) [facility] [id number] 19:14:00 Test Item Value Reference Interpretation Comments [...] calculated (test <100 Desira ble code = 84780-5) range <100 m g/dL for primary prevention; [...] Zuly n SS et al. ALFREDO. 2013;310(19): 7036-9797 (http://educati on.Domosite .GotoTel /faq/CGV837) Cholesterol/HDL 3.9 See_Comment [Automated ratio (test code = message] The system 9830-1) which generated this result transmitted reference range : <5.0 (calc). Th e reference range was not used to interpret this result as normal/abnormal . Non-HDL cholesterol 92 See_Comment For rosa ents with (test code = diabetes plus 1 91274-1) major ASCVD ris k factor, treatin g [...] RAC) Organization Information: Site ID: SAIDA Name: [facility] Lab Address: [address] [place] [phone] Director: Parish Contreras Lab Interpretation Abnormal (test code = 51769-3) [facility]Hemoglobin [id number] 19:14:00 Test Item Value Reference Range Interpretation [...] specif ic patient populat ions. Standards of Tn dical Care in Diabetes(ADA). [Automated mess age] The system Pet[employer] generated this result transmitted ref erence range: <5.7 % o f total Hgb. The reference range was not used to int erpret this result as normal/abnormal . LETITIA (test code = FASTING:NO LETITIA) FASTING: NO RAC (test code = Performing RAC) Organization Information: Site ID: SAIDA Name: [facility] Address: [address] [place] [address] Director: Parish Contreras [facility] HospitalT4, [id number] 19:14:00 Test Item Value Reference Range Interpretation Comments T4, free (test code 1.5 ng/dL 0.8-1.8 = 3024-7) LETITIA (test code = FASTING:NO FASTING: NO LETITIA) RAC (test code = Performing Organization RAC) Information: Site ID: SAIDA Name[facility] Address: [address] [place] [phone] [facility] [id number] 19:14:00 Test Item Value Reference Range Interpretation [...] code = RAC) Organization Information: Site ID: RGA Name: [facility] Address: [address] [place] [address] Director[facility] [id number] 19:14:00 Test Item Value Reference Interpretation Comments Range Urine culture (test SEE NOTE A CULTURE , URINE, code = 630-4) ROUTINE Micro Number: [id number] Test Status: Fi nal Specimen Source [...] NITROFURANTOIN S <=16 PIP/TAZOBA CTAM S <=4 TOBRAMYC IN S <=1 TRIMETHOPRIM/ANDRES LFA S <=20 S=Susceptible I=Intermediate R=Resistant * = Not TestedNR = Not Reported NN = See Therapy Comment s THERAPY COMMENT S Note 1: For infections othe r than uncomplica al UTI caused by E . coli, K. pneumo niae or P. mirabilis : Cefazolin is resistant if IL C > or = 8 mcg/mL. (Distinguishing [...] RAC) Organization Information: Site ID: RGA [facility]: [facility] Address: [address] [place] [address] Director: Parish Contreras Lab Interpretation Abnormal (test code = 87742-3) [facility] automated with [id number] 19:14:00 Test Item Value Reference Range Interpretation Comments Color, UA (test code YELLOW YELLOW = 5778-6) Appearance (test CLEAR CLEAR code = 5767-9) Specific gravity, 1.020 1.001-1.035 urine (test code = 5811-5) pH, urine (test code 5.5 5.0-8.0 = 5803-2) Glucose, urine (test NEGATIVE NEGATIVE code = 70642-0) Bilirubin, UA (test NEGATIVE NEGATIVE code = 5770-3) Ketones, UA (test TRACE NEGATIVE A code = 2514-8) Occult blood, urine 2+ NEGATIVE A (test code = 5794-3) Protein, UA (test NEGATIVE NEGATIVE code = 20393-0) Nitrite, UA (test POSITIVE NEGATIVE A code [...] code = NONE SEEN See_Comment [Autom ated 62002-3) message] The system which generated this result transmitted reference range : < OR = 2 /HPF. The reference range was not used to interpr et this result as normal/abnormal . Squamous epithelial NONE SEEN See_Comment [Automa al cells, UA (test code message ] The = 28390-0) system which generated this result transmitted reference [...] RAC) Organization Information: Site ID: A [facility]: [facility] Address: [address] [place] [id number] Director: Praish Contreras Lab Interpretation Abnormal (test code = 47623-1) [facility] HospitalVitamin D 25 hydroxy [id number] 19:14:00 Test Item Value Reference Range Interpretation Comments Vitamin D, 49 ng/mL 30-100 Vitamin D Statu s 25-hydroxy (test 25-OH Vitam in D: code = 1989-3) Deficiency: < 20 ng/mLInsufficie ncy : 20 [...] please refer to http://educatio n.Q uestDiagnostics .co m/faq/AHK512 (T his link is being provided for informational/e maricruz ational purpose s only.) LETITIA (test code = FASTING:NO FASTING: LETITIA) NO RAC (test code = Performing RAC) Organization Information: Site ID: A Name: [facility] Address: [address] [place] [phone] Director: Parish Contreras [facility] HospitalComprehensive metabolic [id number] 19:14:00 Test Item Value Reference Range Interpretation Comments Glucose (test code = 111 mg/dL 65-139 Non-fa sting 2345-7) reference interval BUN (test code = 21 mg/dL 7- 3094-0) Creatinine (test 0.92 mg/dL 0.60-0.95 code [...] . Sodium (test code = 138 mmol/L 766-527 7570-2) Potassium (test code 3.5 mmol/L 3.5-5.3 = 2823-3) Chloride (test code 100 mmol/L 98-110 = 2075-0) CO2 (test code = 26 mmol/L 20-32 2027-9) Calcium (test code = 9.6 mg/dL 8.6-10.4 26312-4) Protein (test code = 7.7 g/dL 6.1-8.1 2885-2) Albumin, S (test 4.4 g/dL 3.6-5.1 code = 1751-7) Globulin, total 3.3 See_Comment [Automated (test code = message] The 53568-2) system which generated this result transmitted reference range : 1.9 - 3.7 g/dL (calc). The reference range was not used to interpret this result as normal/abnormal . Albumin/globulin 1.3 See_Comment [Automated ratio (test code = message] The 1759-0) system which generated this result transmitted reference range : 1.0 - 2.5 (calc ). The reference range was not used to interpr et this result as normal/abnormal . Total bilirubin 0.6 mg/dL 0.2-1.2 (test code = 1974-) Alkaline phosphatase 81 U/L 37-153 (test code = 6768-6) AST (test code = 42 U/L 10-35 H 1920-8) ALT (test code = 45 U/L 6-29 H 1742-6) LETITIA (test code = FASTING:NO LETITIA) FASTING: NO RAC (test code = Performing RAC) Organization Information: Site ID: LYNETTEA Name: [facility] Address: [address] [place] [address] Director: Parish Contreras Lab Interpretation Abnormal (test code = 75007-2) [facility] [id number] 19:14:00 Test Item Value Reference Interpretation Comments [...] calculated (test <100 Desira ble code = 06367-8) range <100 m g/dL for primary prevention; <70 mg/dL for patie nts with CHD or diabetic patien ts with > or = 2 C HD risk factors. L DL-C is now calculat ed using the Marvin-Johnston calculation, wh ich is a validated novel method providing radha r accuracy than t he En[place]ald equa tion in the estimati on of LDL-C. Zuly n SS et al. ALFREDO. 2013;310(19): 7121-6357 (http://educati on.Domosite .GotoTel /faq/VHN287) Cholesterol/HDL 3.9 See_Comment [Automated ratio (test code = message] The system 9830-1) which generated this result transmitted reference range : <5.0 (calc). Th e reference range was not used to interpret this result as normal/abnormal . Non-HDL cholesterol 92 See_Comment For rosa ents with (test code = diabetes plus 1 82875-1) major ASCVD ris k factor, treatin g to a non-HDL-C goa l of <100 mg/dL (LDL -C of <70 mg/dL) i s considered a therapeutic opt ion. [Automated mess age] The system Petnet generated this result transmit al reference range : <130 mg/dL (marva c). The reference r danni was not used to interpret this result as normal/abnormal . LETITIA (test code = FASTING:NO LETITIA) FASTING: NO RAC (test code = Performing RAC) Organization Information: Site ID: RGA Name: [facility] Address: [address] [place] [phone] Director: Pairsh Contreras [facility] Interpretation Abnormal (test code = 11787-7) [facility] [id number] 19:14:00 Test Item Value Reference Range Interpretation [...] specif ic patient populat ions. Standards of Tn dical Care in Diabetes(ADA). [Automated mess age] The system Petnet generated this result transmitted ref erence range: <5.7 % o f total Hgb. The reference range was not used to int erpret this result as normal/abnormal . LETITIA (test code = FASTING:NO LETITIA) FASTING: NO RAC (test code = Performing RAC) Organization Information: Site ID: [facility] Name: [facility] Address: [address] [place] [phone] Director: [place] [id number], [id number] 19:14:00 Test Item Value Reference Range Interpretation Comments T4, free (test code 1.5 ng/dL 0.8-1.8 = 3024-7) LETITIA (test code = FASTING:NO FASTING: NO LETITIA) RAC (test code = Performing Organization RAC) Information: Site ID: [facility] Name: [facility] Address: [address] [place] [phone] [facility] [id number] 19:14:00 Test Item Value Reference Range Interpretation Comments TSH (test 0.94 See_Comment [Automated mes emeli] code = The system Edusoftic h 3016-3) generated this result transmit al reference range : 0.40 - 4.50 mIU /L. The reference r danni was not used to interpret this result as normal/abnormal . LETITIA (test FASTING:NO FASTING: code = LETITIA) NO RAC (test Performing code = RAC) Organization Information: Site ID: [facility] Name: [facility] Address: [address] [place] [phone] Director[facility] [id number] 19:14:00 Test Item Value Reference Interpretation Comments Range Urine culture (test SEE NOTE A CULTURE , URINE, code = 630-4) ROUTINE Micro Number: [id number] Test Status: Fi nal Specimen Source [...] P. mirabilis : Cefazolin is resistant if IL C > or = 8 mcg/mL. (Distinguishing [...] RAC) Organization Information: Site ID: [facility]GA [facility]: [facility] Address: [address] [place] [phone] Director: [facility] Interpretation Abnormal (test code = 60016-2) [facility], automated with [id number] 19:14:00 Test Item Value Reference Range Interpretation Comments Color, UA (test code YELLOW YELLOW = 5778-6) Appearance (test CLEAR CLEAR code = 5767-9) Specific gravity, 1.020 1.001-1.035 urine (test code = 5811-5) pH, urine (test code 5.5 5.0-8.0 = 5803-2) Glucose, urine (test NEGATIVE NEGATIVE code = 10295-5) Bilirubin, UA (test NEGATIVE NEGATIVE code = 5770-3) Ketones, UA (test TRACE NEGATIVE A code = 9004-8) Occult blood, urine 2+ NEGATIVE A (test code = 5794-3) Protein, UA (test NEGATIVE NEGATIVE code = 82285-7) Nitrite, UA (test POSITIVE NEGATIVE A code [...] code = NONE SEEN See_Comment [Autom ated 48860-3) message] The system which generated this result transmitted reference range : < OR = 2 /HPF. The reference range was not used to interpr et this result as normal/abnormal . Squamous epithelial NONE SEEN See_Comment [Automa al cells, UA (test code message ] The = 38069-3) system which generated this result transmitted reference [...] RAC) Organization Information: Site ID: RGA Name: [facility] Address: [address] [place] [phone] Director: [facility] Interpretation Abnormal (test code = 58589-4) [facility]it[facility] D 25 hydroxy [id number] 19:14:00 Test Item Value Reference Range Interpretation Comments Vitamin D, 49 ng/mL 30-100 Vitamin D Statu s 25-hydroxy (test 25-OH Vitam in D: code = 1989-3) Deficiency: <20 ng/mLInsufficie ncy : 20 - [...] please refer to http://educatio n.Q uestDiagnostics .co m/faq/CTO877 (T his link is being provided for informational/e maricruz ational purpose s only.) LETITIA (test code = FASTING:NO FASTING: LETITIA) NO RAC (test code = Performing RAC) Organization Information: Site ID: RGA Name: [facility] Address: [address] [place] [phone] Director: [facility] metabolic [id number] 06:04:00 Test Item Value Reference Interpretation Comments [...] EGFR Non-Afr. See_Comment L [Automated me ssage] Brazilian (test code The syst em which = 2775) generated this result transmit al reference range : > OR = 60 mL/min/1.73m2. The reference range was not used to interpret this result as normal/abnormal . EGFR See_Comment L [Automated mes emeli] Brazilian (test code The syst em which = [...] . Sodium (test code = 139 mmol/L 396-766 0211-2) Potassium (test 4.3 mmol/L 3.5-5.3 code = 2823-3) Chloride (test code 104 mmol/L 98-110 = 2075-0) CO2 (test code = 25 mmol/L 20-32 2027-9) Calcium (test code 9.6 mg/dL 8.6-10.4 = 34451-1) Protein (test code 7.5 g/dL 6.1-8.1 = 2885-2) Albumin, S (test 4.2 g/dL 3.6-5.1 code = 1751-7) Globulin, total See_Comment [Automated message] (test code = [place] h [address]-8) generated this result transmit al reference range : 1.9 - 3.7 g/dL (marva c). The reference r danni was not used to interpret this result as normal/abnormal . Albumin/globulin See_Comment [Automated message] ratio (test code = The syste m which 1759-0) generated this result transmit al reference range : 1.0 - 2.5 (calc). T he reference range was not used to interpret this result as normal/abnormal . Total bilirubin 0.6 mg/dL 0.2-1.2 (test code = 1975-2) Alkaline 84 U/L 37-153 phosphatase (test code = 6768-6) AST (test code = 39 U/L 10-35 H 1920-8) ALT (test code = 47 U/L 6-29 H 1742-6) LETITIA (test code = FASTING:NO LETITIA) FASTING: NO RAC (test code = Performing RAC) Organization Information: Site ID: RGA [facility]: [facility] Address: [address] [place] [phone] Director: [facility] Interpretation Abnormal (test code = 87442-2) [facility] Hospital[facility] [id number] 06:04:00 Test Item Value Reference Range Interpretation Comments Cholesterol, total 235 mg/dL See_Comment H [Automat ed (test code = 2093-3) message ] The system which generated this result transmitted reference range : <=200. The reference range was not used to interpret this result as normal/abnormal . HDL cholesterol 37 mg/dL See_Comment L [Automated (test code = 5-9) message ] The system which generated this [...] calculated (test <100 Desira ble code = 66539-2) range <100 m g/dL for primary prevention; <70 mg/dL for patients with C HD or diabetic patients with > or = 2 CHD risk factors. LDL-C is now calculated using the Hardy calculation, which is a validated novel method providin g better accuracy than the Friedewald equation in the estimation of LDL-C. Marvin S S et al. ALFREDO. 2013;310(19): 4181-0154 (http://educati on .Wireless Environment .com/faq/RSA057 ) Cholesterol/HDL See_Comment H [Automated ratio (test code = message] The 9830-1) system which generated this result transmitted reference range : <5.0 (calc). Th e reference range was not used to interpret this result as normal/abnormal . Non-HDL cholesterol See_Comment H For rosa ents with (test code = diabetes plus 1 98729-5) major ASCVD ris k factor, treatin g [...] RAC) Organization Information: Site ID: A [facility] Address: [address] [place] [address] Director: [facility] Interpretation Abnormal (test code = 61482-0) [facility] [place] [address], [id number] 06:04:00 Test Item Value Reference Range Interpretation Comments T4, free (test code 1.3 ng/dL 0.8-1.8 = 3024-7) LETITIA (test code = FASTING:NO FASTING: NO LETITIA) RAC (test code = Performing Organization RAC) Information: Site ID: [facility] Name: [facility] Address: [address] [place], [place] [address] Director: [facility] HospitalThyroid stimulating [id number] 06:04:00 Test Item Value Reference Range Interpretation Comments TSH (test See_Comment [Automated mes emeli] code = The system [employer] h 3016-3) generated this result transmit al reference range : 0.40 - 4.50 mIU /L. The reference r danni was not used to interpret this result as normal/abnormal . LETITIA (test FASTING:NO FASTING: code = LETITIA) NO RAC (test Performing code = RAC) Organization Information: Site ID: RGA Name: [facility] Address: [address] [place] [address] Director: [facility] HospitalAmylase [id number] 22:53:00 Test Item Value Reference Range Interpretation Comments Amylase (test code = 47 U/L 21101 1798-8) LETITIA (test code = FASTING:NO FASTING: NO LETITIA) RAC (test code = Performing Organization RAC) Information: Site ID: RGA Name: [facility] Address: [address] [place] [address] Director: [facility] HospitalLipase [id number] 22:53:00 Test Item Value Reference Range Interpretation Comments Lipase (test code = 74 U/L 7-60 H 3040-3) LETITIA (test code = LETITIA) FASTING:NO FASTING: NO RAC (test code = RAC) Performing Organization Information: Site ID: RGA Name: [facility] Address: [address] [place] [address] Director: [facility] Interpretation (test Abnormal code = 79198-2) [facility] HospitalC-reactive [id number] 22:53:00 Test Item Value Reference Range Interpretation Comments CRP (test 2.4 mg/L See_Comment [Automated mes emeli] code = The system [facility] h 1987-5) generated this result transmit al reference range : <=8.0. The refe rence range was not u sed to interpret th is result as normal/abnormal . LETITIA (test FASTING:NO FASTING: code = LETITIA) NO RAC (test Performing code = RAC) Organization Information: Site ID: RGA Name: [facility] Address: [address] [place] [phone] Director: [facility] [id number] 22:53:00 Test Item Value Reference Range Interpretation [...] = Performing RAC) Organization Information: Site ID: [facility] Address: [address] [place] [phone] Director: [facility] Interpretation Abnormal (test code = 63602-9) [facility] iron binding [id number] 22:53:00 Test Item Value Reference Range Interpretation [...] RAC) Organization Information: Site ID: A [facility] Address: [address] [place] [phone] Director: [facility] HospitalANA SCREEN W IFA W REFLEX TO [id number] 22:53:00 Test Item Value Reference Interpretation Comments Range LIYA Screen (test POSITIVE NEGATIVE A LIYA IFA is a first code = 61018-2) line screen for detecting thepresence of up to approximatel y 150 autoantibod ies invarious autoimmune diseases. A positive LIYA IF A resultis sugges tive of autoimmune disease and reflexes totite r and pattern. Further laborat ory testing may beconsidered if clinically indicated. For additional information, pl ease refer tohttp://educat ion. TeamStreamzDiagnostic s.co m/faq/SNZ225(Th is link is being provided for informational/e duca tional purposes only.) LIYA titer (test code 1:40 titer H A low l evel LIYA = 5048-4) titer may be present in pre-clinicalaut oimm une diseases an d normal individu als. Reference Range <1:40 Negative 1:40-1:80 Low Antibody Level >1:80 Elevated Antibody Level LIYA pattern (test Cytoplasmic A The presen ce of code = 33233-6) cytoplasmic fluorescence wa s noted onthe HEp -2 slide. Other reactivities (e .g., anti-mitochondr ial antibodies or anti-smooth muscleantibodie s) may be responsi ble for this fluorescence.Th e clinical significance of this finding is uncertain.Clini marva correlation is recommended. AC -15 to AC-23: Cytoplasmic International Consensus on AN A Patterns(https: //do i.org/10.1515/c cl- 4661-4268) LETITIA (test code = FASTING:NO LETITIA) FASTING: NO RAC (test code = Performing RAC) Organization Information: Site ID: IG Name: [facility] Address: [address] [place] [phone] Director: Dr. [facility] Interpretation Abnormal (test code = 00178-5) [facility]
[2023-03-13] MEDS ORDERED: ASPIRIN 81 MG CHEWABLE TABLET ONE (08:54)
[2023-03-13 09:00] LABS: Absolute Lymphocytes (CBC) 2.1 K/uL (0.7-4.9); Hematocrit 29.6 % (36.0-45.0); MCV 103.1 fL (80-100); MPV 8.2 fL (7.6-11.3); RBC Red Blood Cell Count 2.87 M/uL (3.86-4.86)
[2023-03-13 09:15] LABS: Magnesium 1.8 mg/dL (1.6-2.4); Potassium 3.3 mEq/L (3.5-5.1); Troponin High Sensitivity 5.7 pg/mL (<58.9)
--- NOTE | 2023-03-13 09:22 | RAD REPORT ---
EXAM DESCRIPTION: RADChest Single View03/13/2023 8:37 am CLINICAL HISTORY: CHEST PAIN COMPARISON: Chest Single View dated 11/14/2022; Chest Single View dated 10/16/2022; Chest Single View da al 09/27/2021; Chest Single View dated 06/03/2021 TECHNIQUE: Portable AP view of the chest. FINDINGS: The lungs are clear. Hyperlucency and hyperinflation as well as chronic interstitial tsang es most pronounced at the left base. Findings most suggestive of COPD. No pneumothorax or effusion. T he cardiomediastinal contours are unremarkable. IMPRESSION: No acute cardiopulmonary process. Stable sequelae of COPD.
--- NOTE | 2023-03-13 11:42 | EDPHYS ---
[facility] Name: Carmen Ewing Age: 82 yrs Sex: Female : 1940 Arrival Date: 03/13/2023 Time: 08:17 Bed 6 Private MD: ED Physician Jorge Huddleston HPI: 03/13 08:27 This 82 yrs old Female presents to ER via Unassigned with complaints of Chest Pain. ms3 08:27 82-year-old female with past medical history of idiopathic thrombocytopenia, ms3 osteoporosis, osteoarthritis presents for chest pain that began at 3 AM. Patient rates her pain an 8/10 and states it radiates to her bilateral chest and back. Patient also notes that her whole body feels bad. Patient feels as if her blood levels are off. Patient denies alleviating or inciting factors. Historical: - Allergies: 08:28 Niacin; ld1 - PMHx: 08:28 Hypertension; Hypothyroidism; Irritable bowel syndrome; neuropathy; ITP; Osteoporosis; ld1 Pulmonary Embolism; shingles; thrombocythemia; - PSHx: 08:28 Cholecystectomy; Total abdominal hysterectomy; ld1 - Immunization history:: Adult Immunizations up to date, Client reports receiving the 2nd dose of the Covid vaccine. - Social history:: Smoking status: Patient denies any tobacco usage or history of. Patient/guardian denies using alcohol. ROS: 08:27 Constitutional: Negative for fever, and chills. Neck: Negative for injury, pain, and ms3 swelling, Cardiovascular: Negative for chest pain, and palpitations. Respiratory: Negative for shortness of breath, cough, wheezing, and pleuritic chest pain. 08:27 Skin: Negative for injury, rash, and discoloration. 08:27 Respiratory: Positive for shortness of breath. 08:27 Abdomen/GI: Positive for nausea. 08:27 All other systems are negative. Exam: 08:27 Constitutional: This is a well developed, well nourished patient who is awake, alert, ms3 and in no acute distress. Head/Face: Normocephalic, atraumatic. Neck: Trachea midline, no cervical lymphadenopathy. Supple, full range of motion without nuchal rigidity, or vertebral point tenderness. No Meningismus. Chest/axilla: Normal chest wall appearance and motion. Nontender with no deformity. Cardiovascular: Regular rate and rhythm with a normal S1 and S2. No gallops, murmurs, or rubs. Normal PMI, no JVD. No pulse deficits. Respiratory: Lungs have equal breath sounds bilaterally, clear to auscultation and percussion. No rales, rhonchi or wheezes noted. No increased work of breathing, no retractions or nasal flaring. Abdomen/GI: Soft, non-tender, with normal bowel sounds. No distension or tympany. No guarding or rebound. No evidence of tenderness throughout. Skin: Warm, dry with normal turgor. Normal color with no rashes, no lesions, and no evidence of cellulitis. MS/ Extremity: Pulses equal, no cyanosis. Neurovascular intact. Full, normal range of motion. 11:37 ECG was reviewed by the Attending Physician. ms3 Vital Signs: 08:27 BP 160 / 121; Pulse 71; Resp 18; Temp 98.1(O); Pulse Ox 98% on R/A; Weight 54.43 kg; ld1 Height 5 ft. 2 in. ; Pain 8/10; 08:40 BP 145 / 80 LA Sitting (auto/reg); Pulse 66 MON; Resp 16 S; mb4 10:11 BP 158 / 91; Pulse 56; Resp 19; Pulse Ox 97% ; bp 11:13 BP 186 / 88; Pulse 58; Resp 15; Pulse Ox 97% ; bp 11:48 BP 189 / 88; Pulse 58; Resp 16; Pulse Ox 97% ; bp 08:27 Body Mass Index 21.95 (54.43 kg, 157.48 cm) ld1 08:27 Pain Scale: Adult ld1 MDM: 08:27 Patient medically screened. ms3 08:27 Differential diagnosis: abnormal EKG. ms3 13:14 HEART Score: History: Slightly Suspicious (0), ECG: Normal (0), Age: > or = 65 years ms3 (2), Risk Factors: 1 or 2 risk factors (1), Troponin: < or = 1 x Normal Limit (0), Total Score = 3. The patient was given aspirin in the Emergency Department. Data reviewed: vital signs, nurses notes, lab test result(s), EKG, radiologic studies, and as a result, I will discharge patient. Consideration of Admission/Observation Escalation of care including admission/observation considered. Delta troponin negative. I considered the following discharge prescriptions or medication management in the emergency department Medications were administered in the Emergency Department. See MAR. Independent interpretation of the following test(s) in the Emergency Department EKG: See my EKG interpretation above cardiac monitor: rate is 60 beats/min, Rhythm is normal sinus rhythm, regular. Counseling: I had a detailed discussion with the patient and/or guardian regarding: the historical points, exam findings, and any diagnostic results supporting the discharge/admit diagnosis, lab results, radiology results, the need for outpatient follow up, to return to the emergency department if symptoms worsen or persist or if there are any questions or concerns that arise at home. Special discussion: Based on the patient's history, exam, and Dx evaluation, there is no indication for emergent intervention or inpatient Tx. It is understood by the patient/guardian that if the Sx's persist or worsen they need to return immediately for re-evaluation. 03/13 08:22 Order name: Basic Metabolic Panel; Complete Time: 09:39 ms3 03/13 08:22 Order name: CBC with Diff; Complete Time: 09:39 ms3 03/13 08:22 Order name: Magnesium; Complete Time: 09:39 ms3 03/13 08:22 Order name: Troponin HS; Complete Time: 09:39 ms3 03/13 10:58 Order name: Troponin High Sensitivity; Complete Time: 11:40 ms3 03/13 08:22 Order name: XRAY Chest (1 view); Complete Time: 09:39 ms3 03/13 08:22 Order name: EKG; Complete Time: 08:23 ms3 03/13 08:22 Order name: Cardiac monitoring; Complete Time: 08:26 ms3 03/13 08:22 Order name: EKG - Nurse/Tech; Complete Time: 08:33 ms3 03/13 08:22 Order name: IV Saline Lock; Complete Time: 08:47 ms3 03/13 08:22 Order name: Labs collected and sent; Complete Time: 08:47 ms3 03/13 08:22 Order name: O2 Per Protocol; Complete Time: 08:26 ms3 03/13 08:22 Order name: O2 Sat Monitoring; Complete Time: 08:26 ms3 EC:37 Rate is 69 beats/min. Rhythm is regular. QRS [place] is Normal. CT interval is normal. QRS ms3 interval is normal. Clinical impression: Normal ECG. Interpreted by me. Reviewed by me. Administered Medications: 08:47 Drug: Aspirin PO Chewable Tablet 324 mg Route: PO; bp 08:50 Follow up: Response: No adverse reaction bp Disposition: 14:17 Chart complete. ms3 Disposition Summary: 03/13/23 11:41 Discharge Ordered Location: Home ms3 Condition: Stable ms3 Diagnosis - Chest pain, unspecified ms3 - Essential (primary) hypertension ms3 Followup: ms3 - With: Private Physician - When: 2 - 3 days - Reason: Recheck today's complaints Discharge Instructions: - Discharge Summary Sheet ms3 - Nonspecific Chest Pain, Adult ms3 - Hypertension, Adult ms3 Forms: - Medication Reconciliation Form ms3 - Thank You Letter ms3 - Antibiotic Education ms3 - Prescription Opioid Use ms3 - [email or web address] ms3 Signatures: Dispatcher [employer] Seth Villalobos RN RN bp Jorge Huddleston, DO DO ms3 Sujey Huddleston RN RN ld1
--- NOTE | 2023-03-13 11:42 | ER ---
Nurse's Notes [facility] Name: Carmen Ewing Age: 82 yrs Sex: Female : 1940 Arrival Date: 03/13/2023 Time: 08:17 Bed 6 Private MD: Diagnosis: Chest pain, unspecified;Essential (primary) hypertension Presentation: 03/13 08:27 Chief complaint: Patient states: Chest pain since 0300 this morning. Radiates to back. ld1 Coronavirus screen: At this time, the client does not indicate any symptoms associated with coronavirus-19. Ebola Screen: No symptoms or risks identified at this time. Initial Sepsis Screen: Does the patient meet any 2 criteria? No. Patient's initial sepsis screen is negative. Does the patient have a suspected source of infection? No. Patient's initial sepsis screen is negative. Risk Assessment: Do you want to hurt yourself or someone else? Patient reports no desire to harm self or others. Onset of symptoms was March 13, 2023. 08:27 Method Of Arrival: Ambulatory ld1 08:27 Acuity: ARTHUR 3 ld1 Triage Assessment: 08:28 General: Appears in no apparent distress. comfortable, Behavior is calm, cooperative, ld1 appropriate for age. Pain: Complains of pain in chest Pain radiates to back Pain at worst was 8 out of 10 on a pain scale. Quality of pain is described as sharp, shooting, throbbing. EENT: No signs and/or symptoms were reported regarding the EENT system. Neuro: Level of Consciousness is awake, alert, obeys commands, Oriented to person, place, time, situation. Cardiovascular: Capillary refill < 3 seconds Patient's skin is warm and dry. Respiratory: Airway is patent Respiratory effort is even, unlabored. GI: Abdomen is flat, non-distended. : No signs and/or symptoms were reported regarding the genitourinary system. Derm: No signs and/or symptoms reported regarding the dermatologic system. Musculoskeletal: No signs and/or symptoms reported regarding the musculoskeletal system. Historical: - Allergies: 08: Niacin; ld1 - PMHx: 08: Hypertension; Hypothyroidism; Irritable bowel syndrome; neuropathy; ITP; Osteoporosis; ld1 Pulmonary Embolism; shingles; thrombocythemia; - PSHx: 08:28 Cholecystectomy; Total abdominal hysterectomy; ld1 - Immunization history:: Adult Immunizations up to date, Client reports receiving the 2nd dose of the Covid vaccine. - Social history:: Smoking status: Patient denies any tobacco usage or history of. Patient/guardian denies using alcohol. Screenin:30 [facility] ED Fall Risk Assessment (Adult) History of falling in the last 3 months, bp including since admission No falls in past 3 months (0 pts). Abuse screen: Denies threats or abuse. Denies injuries from another. Nutritional screening: No deficits noted. Tuberculosis screening: No symptoms or risk factors identified. Assessment: 08:30 General: SEE TRIAGE NOTE. bp 10:12 Reassessment: Patient appears in no apparent distress at this time. Patient is alert, bp oriented x 3, equal unlabored respirations, skin warm/dry/pink. 11:13 Reassessment: REPEAT TROP DRAWN AND SENT. bp 11:49 Reassessment: PT DC HOME AMBULATORY. bp Vital Signs: 08:27 BP 160 / 121; Pulse 71; Resp 18; Temp 98.1(O); Pulse Ox 98% on R/A; Weight 54.43 kg; ld1 Height 5 ft. 2 in. ; Pain 8/10; 08:40 BP 145 / 80 LA Sitting (auto/reg); Pulse 66 MON; Resp 16 S; mb4 10:11 BP 158 / 91; Pulse 56; Resp 19; Pulse Ox 97% ; bp 11:13 BP 186 / 88; Pulse 58; Resp 15; Pulse Ox 97% ; bp 11:48 BP 189 / 88; Pulse 58; Resp 16; Pulse Ox 97% ; bp 08:27 Body Mass Index 21.95 (54.43 kg, 157.48 cm) ld1 08:27 Pain Scale: Adult ld1 ED Course: 08:19 Patient arrived in ED. rg4 08:22 Jorge Huddleston DO is Attending Physician. ms3 08:26 Seth Garcia, RN is Primary Nurse. bp 08:28 Triage completed. ld1 08:28 Arm band placed on right wrist. ld1 08:30 Patient has correct armband on for positive identification. Bed in low position. Call bp light in reach. Side rails up X2. Adult w/ patient. Client placed on continuous cardiac and pulse oximetry monitoring. NIBP monitoring applied. 08:32 EKG done, by ED staff, reviewed by Jorge Huddleston DO. mb4 08:39 XRAY Chest (1 view) In Process Unspecified. EDMS 08:45 Initial lab(s) drawn, by me, sent to lab. Inserted saline lock: 20 gauge in right mb4 forearm, using aseptic technique. Blood collected. 11:49 No provider procedures requiring assistance completed. IV discontinued, intact, bp bleeding controlled, No redness/swelling at site. Pressure dressing applied. Patient maintains SpO2 saturation greater than 95% on room air. Administered Medications: 08:47 Drug: Aspirin PO Chewable Tablet 324 mg Route: PO; bp 08:50 Follow up: Response: No adverse reaction bp Medication: 11:49 VIS not applicable for this client. bp Outcome: 11:41 Discharge ordered by . ms3 11:49 Discharged to home ambulatory, with family. bp 11:49 Condition: stable 11:49 Discharge instructions given to patient, Instructed on discharge instructions, follow up and referral plans. Demonstrated understanding of instructions, follow-up care. 11:57 Patient left the ED. bp Signatures: Dispatcher [employer] EDMS Gabby Cazares rg4 Seth Garcia, RN RN bp Jaja Bass mb4 Jorge Huddleston DO DO ms3 Sujey Huddleston, RN RN ld1
[2023-03-13 12:11] VITALS: TEMP 98.1
[2023-03-13 12:31] VITALS: O2SAT 97
[2023-03-13 12:33] VITALS: BP 189/88
--- NOTE | 2023-03-14 12:17 | EKG ---
Test Date: 2023-03-13 Test Time: 08:31:32 Center Director: MB MEASUREMENT RESULTS: Intervals: Rate: 69 OR: 142 QRSD: 106 QT: 424 QTc: 454 [place]: P: 58 OR: 142 QRS: 7 T: 53 INTERPRETIVE STATEMENTS: Normal sinus rhythm Normal ECG Compared to ECG 11/14/2022 12:22:06 No significant changes Electronically Signed On 03-14-23 12:14:00 CDT by Enio Flaherty
== END 2023-03-13 11:57 | disposition home or self-care (01) ==
LOC: ER 08:17
DX: R07.9 Chest pain, unspecified (principal); I10 Essential (primary) hypertension
CPT/HCPCS: 36415; 71045; 80048; 83735; 84484; 85025; 93005; 99284

== ENCOUNTER 2023-04-08 12:10 | Emergency (ER) | payer OTHER ==
--- OUTSIDE RECORDS SUMMARY | 2023-04-08 12:20 | XMS REPORT | Continuity of Care Document ---
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 Completed [facility] 00:00:00 Hospital FLUZONE HIGH-DOSE PF 2016-06-04 Completed [facility] 00:00:00 Hospital FLUZONE HIGH-DOSE PF 2016-06-04 Completed [facility] 00:00:00 Hospital FLUZONE HIGH-DOSE PF 2016-06-04 Completed [facility] 00:00:00 Hospital FLUZONE HIGH-DOSE PF 2016-06-04 Completed [facility] 00:00:00 Hospital Pneumococcal 2015-07-12 Completed [facility] Conjugate 13-Valent 00:00:00 Hospi renard Pneumococcal 2015-07-12 Completed [facility] Conjugate 13-Valent 00:00:00 Hospi [facility]ard Pneumococcal 2015-07-12 Completed [facility] Conjugate 13-Valent 00:00:00 Hospi renard Pneumococcal 2015-07-12 Completed [facility] Conjugate 13-Valent 00:00:00 Hospi renard Pneumococcal 2015-07-12 Completed [facility] Conjugate 13-Valent 00:00:00 Hospi renard FLUZONE HIGH-DOSE [...] [facility]ist 00:00:00 Hospital Pneumococcal 2013-07-07 Completed [facility] Polysaccharide 00:00:00 Hospital Pneumococcal 2013-07-07 Completed [facility] Polysaccharide 00:00:00 Hospital Pneumococcal 2013-07-07 Completed [facility] Polysaccharide 00:00:00 Hospital Pneumococcal 2013-07-07 Completed [facility] Polysaccharide 00:00:00 Hospital Pneumococcal 2013-07-07 Completed [facility] Polysaccharide 00:00:00 Hospital Influenza Trivalent 2008-06-10 Completed [facility] 00:00:00 Hospital Influenza Trivalent 2008-06-10 Completed [facility] 00:00:00 Hospital Influenza Trivalent 2008-06-10 Completed [facility] 00:00:00 Hospital Influenza Trivalent 2008-06-10 Completed [facility] 00:00:00 Hospital Influenza Trivalent 2008-06-10 Completed [facility] 00:00:00 Hospital Pneumococcal 2007-09-18 Completed [facility] Polysaccharide 00:00:00 Hospital Pneumococcal 2007-09-18 Completed [facility] Polysaccharide 00:00:00 Hospital Pneumococcal 2007-09-18 Completed [facility] Polysaccharide 00:00:00 Hospital Pneumococcal 2007-09-18 Completed [facility] Polysaccharide 00:00:00 Hospital Pneumococcal 2007-09-18 Completed [facility] Polysaccharide 00:00:00 Hospital Pneumococcal 2007-09-18 Completed [facility] Polysaccharide 00:00:00 Hospital Pneumococcal 2007-09-18 Completed [facility] Polysaccharide 00:00:00 Hospital Pneumococcal 2007-09-18 Completed [facility] Polysaccharide 00:00:00 Hospital Pneumococcal 2007-09-18 Completed [facility] Polysaccharide 00:00:00 Hospital Pneumococcal 2007-09-18 Completed [facility] Polysaccharide 00:00:00 Hospital Vital Signs Vital Name Observation Time Observation Value Comments Source Systolic blood 2023-02-14 18:09:00 145 mm[Hg] Method is Hospital pressure Diastolic blood 2023-02-14 18:09:00 74 [facility]Hg[facility] pressure Heart rate 2023-02-14 18:09:00 80 /min [facility] Body height 2023-02-14 18:09:00 167.6 cm [facility] Body weight 2023-02-14 18:09:00 58.877 kg [facility] BMI 2023-02-14 18:09:00 20.95 kg/m2 [facility] Oxygen saturation in 2023-02-14 18:09:00 97 /min [facility] Arterial blood by Pulse oximetry Respiratory rate 2023-01-03 18:02:00 20 /min [facility] Systolic blood 2022-10-04 19:03:00 132 mm[Hg] Method [facility] Hospital pressure Diastolic blood 2022-10-04 19:03:00 60 mm[Hg] [facility] Hospital pressure Heart rate 2022-10-04 19:03:00 78 /min [facility] Body height 2022-10-04 19:03:00 167.6 cm [facility] Body weight 2022-10-04 19:03:00 55.702 kg [facility] BMI 2022-10-04 19:03:00 19.82 kg/m2 [facility] Oxygen saturation in 2022-10-04 19:03:00 97 /min [facility] Arterial blood by Pulse oximetry Respiratory rate 2022-07-05 18:18:00 18 /min [facility] Systolic blood 2022-04-05 18:20:00 153 mm[Hg] Method [facility] Hospital pressure Diastolic blood 2022-04-05 18:20:00 74 mm[Hg] [facility] Hospital pressure Heart rate 2022-04-05 18:20:00 71 /min [facility] Respiratory rate 2022-04-05 18:20:00 17 /min [facility] Body height 2022-04-05 18:20:00 167.6 cm [facility] Body weight 2022-04-05 18:20:00 56.881 kg [facility] BMI 2022-04-05 18:20:00 20.24 kg/m2 [facility] Oxygen saturation in 2022-04-05 18:20:00 98 /min [facility] Arterial blood by Pulse oximetry Procedures Procedure Date / Time Performing Clinician Source Performed CBC WITH PLATELET AND 2023-02-14 18:10:00 [facility] DIFFERENTIAL MANUAL DIFFERENTIAL 2023-02-14 18:10:00 [facility] FERRITIN LEVEL 2023-02-14 18:10:00 [facility] spital CBC WITH PLATELET AND 2023-01-03 18:08:00 [facility] DIFFERENTIAL MANUAL DIFFERENTIAL 2023-01-03 18:08:00 [facility] FERRITIN LEVEL 2023-01-03 18:08:00 [facility] spital COMPREHENSIVE METABOLIC 2022-12-26 19:57:00 [facility] PANEL THYROID STIMULATING 2022-12-26 19:57[facility] 2022-12-26 19:57:00 August [facility] ospital VITAMIN D 25 HYDROXY 2022-12-26 19:57:00 August [facility] LEVEL CBC WITH PLATELET AND 2022-12-26 19:57:00 [facility] DIFFERENTIAL CHOLESTEROL 2022-12-26 19:57:00 [facility] HDL CHOLESTEROL 2022-12-26 19:57:00 Koch [facility] ospital LDL CHOLESTEROL, DIRECT 2022-12-26 [facility] AND 2022-10-04 19:08:00 [facility] DIFFERENTIAL SMEAR REVIEW 2022-10-04 19:08:00 [facility] spital CBC WITH PLATELET AND 2022-07-05 18:42:00 [facility] DIFFERENTIAL SMEAR REVIEW 2022-07-05 18:42:00 Perry [facility] spital URINE CULTURE 2022-06-27 20:28:00 Liya Cruz. [facility] CBC WITH PLATELET AND 2022-06-27 20:28:00 Nancy, Jayde. [facility] DIFFERENTIAL COMPREHENSIVE METABOLIC 2022-06-27 20:28:00 Liya Cruz [facility] PANEL HEMOGLOBIN A1C 2022-06-27 20:28:00 Liya Cruz H ospital THYROID STIMULATING 2022-06-27 20:28:00 Liya Cruz [facility] HORMONE T4, FREE 2022-06-27 20:28:00 [facility]ya [facility]ital LIPID PANEL 2022-06-27 20:28:00 Liya Cruz H ospital URINALYSIS, AUTOMATED 2022-06-27 20:28:00 Liay Cruz [facility] WITH MICROSCOPY VITAMIN D 25 HYDROXY 2022-06-27 20:28:00 Liya Cruz [facility] LEVEL CBC WITH PLATELET AND 2022-06-27 20:28:00 Liya Cruz [facility] DIFFERENTIAL CBC WITH PLATELET AND 2022-04-05 18:28:00 [facility] DIFFERENTIAL MANUAL DIFFERENTIAL 2022-04-05 18:28:00 [facility] CBC WITH PLATELET AND 2022-04-05 18:28:00 [facility] DIFFERENTIAL COMPREHENSIVE METABOLIC 2021-12-14 19:41:00 Liya Cruz Met [facility] PANEL LIPID PANEL 2021-12-14 19:41:00 Liya Cruz H ospital THYROID STIMULATING 2021-12-14 19:41:00 Liya Cruz [facility] HORMONE T4, FREE 2021-12-14 19:41:00 Liya [facility] H [facility]spital CBC WITH PLATELET AND 2021-12-14 18:15:00 [facility] DIFFERENTIAL SMEAR REVIEW 2021-12-14 18:15:00 Elliot Ceja Ho spital HC COMPLETE BLD COUNT 2021-08-21 19:44:00 [facility] W/AUTO DIFF SMEAR REVIEW 2021-08-21 19:44:00 Elliot Ceja Ho spital HC COMPLETE BLD COUNT 2021-06-29 18:40:00 [facility] W/AUTO DIFF SMEAR REVIEW 2021-06-29 18:40:00 [facility] WITH [facility]ATELET AND 2021-06-12 18:43:00 Liya Cruz [facility] DIFFERENTIAL COMPREHENSIVE METABOLIC 2021-06-12 18:43:00 Liya Cruz [facility] PANEL TOTAL IRON BINDING 2021-06-12 [facility]:43[facility] 2021-06-12 18:43:00 Liya Cruz ospital LIPASE LEVEL 2021-06-12 18:43:00 Liya Cruz ospital LIYA SCREEN W IFA W REFLEX 2021-06-12 18:43:00 Liya Cruz [facility] TO TITER C-REACTIVE PROTEIN 2021-06-12 18:43:00 NancyLiya [facility] SEDIMENTATION RATE 2021-06-12 18:43:00 [facility] CBC WITH PLATELET AND 2021-06-01 18:10:00 Elliot Ceja [facility] DIFFERENTIAL MANUAL DIFFERENTIAL 2021-06-01 18:10:00 [facility] Plan of Care Planned Activity Planned Date Details Comments Source Future Scheduled 2023-03-22 COVID-[address] Test 12:30:09 ([facility] - [facility]) [code = COVID-19 VACCINE (6 - [facility])] Future Scheduled 2023-03-22 INFLUENZA VACCINE Method ist Test 12:30:09 [code = INFLUENZA Hospital VACCINE] Future Scheduled 2023-03-22 SHINGLES VACCINES Postponed from [facility] Test 12:30:09 (1 of 2) [code = 1989 Hospital SHINGLES VACCINES (Patient Refused) (1 of 2)] Future Scheduled 2023-03-22 COVID-[address] Test 12:30:09 (6 - [facility]) [code = COVID-19 VACCINE (6 - [facility])] Future Scheduled 2023-03-22 INFLUENZA VACCINE Method [facility] Test 12:30:09 [code = INFLUENZA Hospital VACCINE] Future Scheduled 2023-03-22 SHINGLES VACCINES Postponed from [facility] Test 12:30:09 (1 of 2) [code = 1989 Hospital [...] of 2)] Future Scheduled 2022-05-09 HEPATITIS B [facility] Test 08:41:29 VACCINES (1 of 3 Hospital [...] Type Clinicians Facility Department ID 2023-02-14 2023-02-14 Jsoh Ceja, 1.2.840.1 [id number] Methodi 13:10:00 13:51:[address] 3.430.2.7 Hospit a .3.706138 l .8 2023-02-14 2023-02-14 Lab Perry, 1.2.840.1 [id number] 0554 Methodi 13:10:00 13:51:[address] 3.430.2.7 Hospit a .3.528194 l .8 2023-02-14 2023-02-14 Office Perry, 1.2.840.1 [id number] 5220 Methodi 13:15:00 13:51:08 Visit Elliot 16166.1.[address] 3.430.2.7 Hospit a .3.850411 l .8 2023-02-14 2023-02-14 Office Rice, 1.2.840.1 [id number] 7453 Methodi 13:15:00 13:51:08 Visit Elliot 81431.1.[address] 3.430.2.7 Hospit a .3.994147 l .8 2023-02-14 2023-02-14 Travel 1.2.840.1 1.2.469.301 2388 [id number] Methodi 00:00:00 00:00:[address] 3.430.2.7 0.2.7.3.698 Ho spita .3.382432 084.8 l .8 2023-02-14 2023-02-14 Travel 1.2.840.1 1.2.036.399 2920 [id number] Methodi 00:00:00 00:00:[address] 3.430.2.7 0.2.7.3.698 Ho spita .3.918488 084.8 l .8 2023-02-07 2023-02-07 Orders Snyder, 1.2.840.1 [id number] 087 [id number] Methodi 00:00:00 00:00:00 Only Delilah 69215.1.[address] 3.430.2.7 Hospit a .3.224026 l .8 2023-02-07 2023-02-07 Orders Snyder, 1.2.840.1 [id number] Methodi 00:00:00 00:00:00 Only Delilah 75434.1.[address] 3.430.2.7 Hospit a .3.218705 l .8 2023-01-31 2023-01-31 Telephone Rice, 1.2.840.1 [id number] 2099 [id number] Methodi 00:00:00 00:00:[address] 3.430.2.7 Hospit a .3.654995 l .8 2023-01-31 2023-01-31 Telephone Rice, 1.2.840.1 [id number] 2099 [id number] Methodi 00:00:00 00:00:[address] 3.430.2.7 Hospit a .3.143082 l .8 2023-01-31 2023-01-31 Refill Nancy, 1.2.840.1 [id number] 2099 [id number] Methodi 00:00:00 00:00:[address] 3.430.2.7 Hospit a .3.192757 l .8 2023-01-31 2023-01-31 Refill Nancy, 1.2.840.1 [id number] 2099 [id number] Methodi 00:00:00 00:00:[address] 3.430.2.7 Hospit a .3.507968 l .8 2023-01-25 2023-01-25 Refill Nancy, 1.2.840.1 [id number] 2099 [id number] Methodi 00:00:00 00:00:[address] 3.430.2.7 Hospit a .3.940050 l .8 2023-01-25 2023-01-25 Refill Nancy, 1.2.840.1 [id number] Methodi 00:00:00 00:00:[address] 3.430.2.7 Hospit a .3.076914 l .8 2023-01-09 2023-01-09 Orders Wardsworth, 1.2.840.1 [id number] Methodi 00:00:00 00:00:00 Only Katlin 38437.1.[address] [place] 3.430.2.7 Hospit a .3.914518 l .8 2023-01-09 2023-01-09 Orders Wardsworth, 1.2.840.1 [id number] Methodi 00:00:00 00:00:00 Only Katlin 01959.1.[address] [place] 3.430.2.7 Hospit a .3.791943 l .8 2023-01-07 2023-01-07 Refill Nancy, 1.2.840.1 [id number] 2099 [id number] Methodi 00:00:00 00:00:[address] 3.430.2.7 Hospit a .3.892458 l .8 2023-01-07 2023-01-07 Refill Nancy, 1.2.840.1 [id number] 2099 [id number] Methodi 00:00:00 00:00:[address] 3.430.2.7 Hospit a .3.088176 l .8 2023-01-03 2023-01-03 Office Rice, 1.2.840.1 [id number] 8602 Methodi 13:00:00 13:28:09 Visit Elliot 09934.1.[address] 3.430.2.7 Hospit a .3.103059 l .8 2023-01-03 2023-01-03 Office Rice, 1.2.840.1 [id number] 6227 Methodi 13:00:00 13:28:09 Visit Elliot 34646.1.[address] 3.430.2.7 Hospit a .3.986913 l .8 2023-01-03 2023-01-03 Lab Rice, 1.2.840.1 [id number] 0052 Methodi 12:50:00 12:55:[address] 3.430.2.7 Hospit a .3.867663 l .8 2023-01-03 2023-01-03 Lab Rice, 1.2.840.1 [id number] 2628 Methodi 12:50:00 12:55:[address] 3.430.2.7 Hospit a .3.727888 l .8 2023-01-03 2023-01-03 Travel 1.2.840.1 1.2.792.574 9782 575888 Methodi 00:00:00 00:00:[address] 3.430.2.7 0.2.7.3.698 Ho spita .3.796126 084.8 l .8 2023-01-03 2023-01-03 Travel 1.2.840.1 1.2.670.074 7148 395336 Methodi 00:00:00 00:00:[address] 3.430.2.7 0.2.7.3.698 Ho spita .3.606654 084.8 l .8 2022-12-26 2022-12-26 Office Koch, 1.2.840.1 [id number] 06666 Methodi 14:00:00 14:49:59 Visit Beulah 75957.1.[address] 3.430.2.7 Hospit a .3.864676 l .8 2022-12-26 2022-12-26 Office Koch, 1.2.840.1 [id number] 31291 Methodi 14:00:00 14:49:59 Visit Beulah 36668.1.[address] 3.430.2.7 Hospit a .3.852971 l .8 2022-12-25 2022-12-25 Rommel Snyder, 1.2.840.1 [id number] 062 [id number] Methodi 00:00:00 00:00:00 Only Delilah 66792.1.[address] 3.430.2.7 Hospit a .3.653699 l .8 2022-12-25 2022-12-25 Rommel Snyder, 1.2.840.1 [id number] Methodi 00:00:00 00:00:00 Only Delilah 05471.1.[address] 3.430.2.7 Hospit a .3.148676 l .8 2022-12-19 2022-12-19 Cesar Cruz, 1.2.840.1 [id number] 2100 [id number] Methodi 00:00:00 00:00:[address] 3.430.2.7 Hospit a .3.917666 l .8 2022-12-19 2022-12-19 Refill Nancy, 1.2.840.1 [id number] 2099 [id number] Methodi 00:00:00 00:00:[address] 3.430.2.7 Hospit a .3.449292 l .8 2022-11-30 2022-11-30 Refill Nancy, 1.2.840.1 [id number] 2100 [id number] Methodi 00:00:00 00:00:[address] 3.430.2.7 Hospit a .3.944166 l .8 2022-11-30 2022-11-30 Refill Nancy, 1.2.840.1 [id number] 2100 [id number] Methodi 00:00:00 00:00:[address] 3.430.2.7 Hospit a .3.854521 l .8 2022-10-04 2022-10-04 Office Rice, 1.2.840.1 [id number] 9542 Methodi 13:00:00 13:30:04 Visit Elliot 55695.1.[address] 3.430.2.7 Hospit a .3.448784 l .8 2022-10-04 2022-10-04 Office Rice, 1.2.840.1 [id number] 039322 0110 Methodi 13:00:00 13:30:04 Visit Elliot 96870.1.[address] 3.430.2.7 Hospit a .3.975771 l .8 2022-10-04 2022-10-04 Lab Rice, 1.2.840.1 [id number] 4558 Methodi 13:05:00 13:10:[address] 3.430.2.7 Hospit a .3.141831 l .8 2022-10-042022-10-04 Lab Rice, 1.2.840.1 [id number] 4630 Methodi 13:05:00 13:10:[address] 3.430.2.7 Hospit a .3.801535 l .8 2022-10-04 2022-10-04 Travel 1.2.840.1 1.2.640.382 6353 [id number] Methodi 00:00:00 00:00:[address] 3.430.2.7 0.2.7.3.698 Ho spita .3.229671 084.8 l .8 2022-10-04 2022-10-04 Travel 1.2.840.1 1.2.169.579 2303 234206 Methodi 00:00:00 00:00:[address] 3.430.2.7 0.2.7.3.698 Ho spita .3.868372 084.8 l .8 2022-10-02 2022-10-02 Orders Gaylord, 1.2.840.1 [id number] Methodi 00:00:00 00:00:00 Only Nayely 85328.1.[address] 3.430.2.7 Hospit a .3.915610 l .8 2022-10-02 2022-10-02 Orders Gaylord, 1.2.840.1 [id number] Methodi 00:00:00 00:00:00 Only Nayely 99336.1.[address] 3.430.2.7 Hospit a .3.590038 l .8 2022-09-05 2022-09-05 Telephone Claudio, 1.2.840.1 [id number] 2 [id number] Methodi 00:00:00 00:00:[address] 3.430.2.7 Hospit a .3.825448 l .8 2022-09-05 2022-09-05 Telephone Claudio, 1.2.840.1 [id number] 2 [id number] Methodi 00:00:00 00:00:[address] 3.430.2.7 Hospit a .3.474235 l .8 2022-07-05 2022-07-05 Office Rice, 1.2.840.1 [id number] [id number] 5024 Methodi 13:00:00 15:11:13 Visit Elliot 40741.1.[address] 3.430.2.7 Hospit a .3.486731 l .8 2022-07-05 2022-07-05 Office Rice, 1.2.840.1 [id number] 1378 Methodi 13:00:00 15:11:13 Visit Elliot [address]44.1.[address] 3.430.2.7 Hospit a .3.219345 l .8 2022-07-05 2022-07-05 Lab Rice, 1.2.840.1 [id number] 3297 Methodi 12:55:00 13:00:[address] 3.430.2.7 Hospit a .3.386325 l .8 2022-07-05 2022-07-05 Lab Rice, 1.2.840.1 [id number] 3501 Methodi 12:55:00 13:00:[address] 3.430.2.7 Hospit a .3.420447 l .8 2022-07-05 2022-07-05 Travel 1.2.840.1 1.2.211.754 9670 260281 Methodi 00:00:00 00:00:[address] 3.430.2.7 0.2.7.3.698 Ho spita .3.445047 084.8 l .8 2022-07-05 2022-07-05 Travel 1.2.840.1 1.2.371.990 7825 030828 Methodi 00:00:00 00:00:[address] 3.430.2.7 0.2.7.3.698 Ho spita .3.420318 084.8 l .8 2022-07-04 2022-07-04 Orders Gaylord, 1.2.840.1 [id number] 84717 Methodi 00:00:00 00:00:00 Only Nayely 38638.1.[address] 3.430.2.7 Hospit a .3.051725 l .8 2022-07-04 2022-07-04 Orders Gaylord, 1.2.840.1 [id number] 78840 Methodi 00:00:00 00:00:00 Only Nayely 10705.1.[address] 3.430.2.7 Hospit a .3.790446 l .8 2022-06-27 2022-06-27 Office Nancy, 1.2.840.1 [id number] Methodi 14:00:00 15:26:18 Visit Jayde. 43319.1.[address] 3.430.2.7 Hospit a .3.811532 l .8 2022-06-27 2022-06-27 Office Nancy, 1.2.840.1 [id number] Methodi 14:00:00 15:26:18 Visit Jayde. 89235.1.[address] 3.430.2.7 Hospit a .3.244492 l .8 2022-06-27 2022-06-27 Travel 1.2.840.1 1.2.563.021 7550 [id number] Methodi 00:00:00 00:00:[address] 3.430.2.7 0.2.7.3.698 Ho spita .3.032417 084.8 l .8 2022-06-27 2022-06-27 Travel 1.2.840.1 1.2.085.188 6044 010208 Methodi 00:00:00 00:00:[address] 3.430.2.7 0.2.7.3.698 Ho spita .3.873033 084.8 l .8 2022-05-24 2022-05-24 Refill Nancy, 1.2.840.1 [id number] 2099 [id number] Methodi 00:00:00 00:00:[address] 3.430.2.7 Hospit a .3.954432 l .8 2022-05-24 2022-05-24 Refill Nancy, 1.2.840.1 [id number] 2099 [id number] Methodi 00:00:00 00:00:[address] 3.430.2.7 Hospit a .3.161964 l .8 2022-05-04 2022-05-04 Telephone Gaylord, 1.2.840.1 [id number] 723 [id number] Methodi 00:00:00 00:00:[address] 3.430.2.7 Hospit a .3.507093 l .8 2022-05-04 2022-05-04 Telephone Gaylord, 1.2.840.1 [id number] Methodi 00:00:00 00:00:[address] 3.430.2.7 Hospit a .3.385352 l .8 2022-04-05 2022-04-05 Office Rice, 1.2.840.1 [id number] 880629 5186 Methodi 13:15:00 14:12:14 Visit Elliot 91420.1.[address] 3.430.2.7 Hospit a .3.964333 l .8 2022-04-05 2022-04-05 Lab Rice, 1.2.840.1 [id number] 002831 6128 Methodi 13:15:00 13:20:[address] 3.430.2.7 Hospit a .3.961559 l .8 2022-04-05 2022-04-05 Travel 1.2.840.1 1.2.444.673 0355 841430 Methodi 00:00:00 00:00:[address] 3.430.2.7 0.2.7.3.698 Ho spita .3.288271 084.8 l .8 2022-04-04 2022-04-04 Travel 1.2.840.1 1.2.102.193 6672 660347 Methodi 00:00:00 00:00:[address] 3.430.2.7 0.2.7.3.698 Ho spita .3.205736 084.8 l .8 2022-04-04 2022-04-04 Orders Gaylord, 1.2.840.1 [id number] 94762 Methodi 00:00:00 00:00:00 Only Nayely 19275.1.[address] 3.430.2.7 Hospit a .3.021444 l .8 2022-04-04 2022-04-04 Orders Arrington, 1.2.840.1 [id number] 025136 5749 Methodi 00:00:00 00:00:00 Only Solange 19444.1.[address] 3.430.2.7 Hospit a .3.324580 l .8 2022-03-22 2022-03-22 Refill Nancy, 1.2.840.1 [id number] 2099 505595 Methodi 00:00:00 00:00:[address] 3.430.2.7 Hospit a .3.007279 l .8 2022-03-15 2022-03-15 Travel 1.2.840.1 1.2.693.045 2896 290818 Methodi 00:00:00 00:00:[address] 3.430.2.7 0.2.7.3.698 Ho spita .3.805187 084.8 l .8 2022-03-14 2022-03-14 Travel 1.2.840.1 1.2.742.300 6397 678990 Methodi 00:00:00 00:00:[address] 3.430.2.7 0.2.7.3.698 Ho spita .3.932230 084.8 l .8 2022-03-13 2022-03-13 Orders Gaylord, 1.2.840.1 [id number] 97201 74568 Methodi 00:00:00 00:00:00 Only Nayely 21354.1.[address] 3.430.2.7 Hospit a .3.690000 l .8 2022-01-11 2022-01-11 Telephone Nancy, 1.2.840.1 [id number] Methodi 11:00:00 13:31:00 Consult [address]de[address] 90066.1.[address] 3.430.2.7 Hospit a .3.051036 l .8 2021-12-15 2021-12-15 Orders Nancy, 1.2.840.1 [id number] 2099 235568 Methodi 00:00:00 00:00:00 Only Jayde. 69318.1.[address] 3.430.2.7 Hospit a .3.019592 l .8 2021-12-14 2021-12-14 Office Nancy, 1.2.840.1 [id number] 2099 546670 Methodi 13:40:00 14:36:45 [address] Jayde. 51482.1.[address] 3.430.2.7 Hospit a .3.791014 l .8 2021-12-14 2021-12-14 Office Rice, 1.2.840.1 [id number] 722152 1548 Methodi 13:00:00 13:34:14 Visit Elliot 89195.1.[address] 3.430.2.7 Hospit a .3.866159 l .8 2021-12-14 2021-12-14 Lab Rice, 1.2.840.1 [id number] 271500 4135 Methodi 13:00:00 13:05:[address] 3.430.2.7 Hospit a .3.894925 l .8 2021-12-14 2021-12-14 Rommel Phipps, 1.2.840.1 [id number] 64184 Methodi 00:00:00 00:00:00 Only Nayely 05737.1.[address] 3.430.2.7 Hospit a .3.057268 l .8 2021-12-14 2021-12-14 Travel 1.2.840.1 1.2.763.419 5785 343065 Methodi 00:00:00 00:00:[address] 3.430.2.7 0.2.7.3.698 Ho spita .3.257652 084.8 l .8 2021-12-13 2021-12-13 Rommel Snyder, 1.2.840.1 [id number] 479 [id number] Methodi 00:00:00 00:00:00 Only Delilah 89333.1.[address] 3.430.2.7 Hospit a .3.736942 l .8 2021-12-13 2021-12-13 Travel 1.2.840.1 1.2.493.759 8788 867218 Methodi 00:00:00 00:00:[address] 3.430.2.7 0.2.7.3.698 Ho spita .3.801467 084.8 l .8 2021-12-06 2021-12-06 Jjjulio Nancy, 1.2.840.1 [id number] Methodi 00:00:00 00:00:[address] 3.430.2.7 Hospit a .3.866156 l .8 2021-11-20 2021-11-20 Travel 1.2.840.1 1.2.723.429 3393 [id number] Methodi 00:00:00 00:00:[address] 3.430.2.7 0.2.7.3.698 Ho spita .3.747841 084.8 l .8 2021-11-17 2021-11-17 Travel 1.2.840.1 1.2.664.496 9880 [id number] Methodi 00:00:00 00:00:[address] 3.430.2.7 0.2.7.3.698 Ho spita .3.099902 084.8 l .8 2021-11-15 2021-11-15 Orders Gaylord, 1.2.840.1 [id number] Methodi 00:00:00 00:00:00 Only Nayely 06368.1.[address] 3.430.2.7 Hospit a .3.918742 l .8 2021-10-19 2021-10-19 Refill Nancy, 1.2.840.1 [id number] Methodi 00:00:00 00:00:[address] 3.430.2.7 Hospit a .3.579563 l .8 2021-09-24 2021-09-24 Refill Nancy, 1.2.840.1 [id number] Methodi 00:00:00 00:00:[address] 3.430.2.7 Hospit a .3.449055 l .8 2021-09-21 2021-09-21 Orders Lamine, 1.2.840.1 [id number] Methodi 00:00:00 00:00:00 Only Jameshia L 89715.1.1 408 s t 3.430.2.7 Hospit a .3.219705 l .8 2021-09-20 2021-09-20 Orders Nancy, 1.2.840.1 [id number] Methodi 00:00:00 00:00:00 Only Jayde. 21051.1.[address] 3.430.2.7 Hospit a .3.637039 l .8 2021-09-20 2021-09-20 Orders Arrington, 1.2.840.1 [id number] 5170 Methodi 00:00:00 00:00:00 Only Solange 04636.1.[address] 3.430.2.7 Hospit a .3.203023 l .8 2021-09-20 2021-09-20 Refill Murphy, 1.2.840.1 [id number] [id number] 6492 Methodi 00:00:00 00:00:[address] 3.430.2.7 Hospit a .3.507591 l .8 2021-08-21 2021-08-21 Office Rice, 1.2.840.1 [id number] 6301 Methodi 13:30:00 14:21:19 Visit Elliot 13208.1.[address] 3.430.2.7 Hospit a .3.883810 l .8 2021-08-21 2021-08-21 Lab Rice, 1.2.840.1 [id number] 6214 Methodi 13:25:00 13:30:[address] 3.430.2.7 Hospit a .3.229037 l .8 2021-08-21 2021-08-21 Travel 1.2.840.1 1.2.736.701 6219 717919 Methodi 00:00:00 00:00:[address] 3.430.2.7 0.2.7.3.698 Ho spita .3.251728 084.8 l .8 2021-08-17 2021-08-17 Orders Moise, 1.2.840.1 [id number] 91401 71652 Methodi 00:00:00 00:00:00 Only Nayely 89697.1.[address] 3.430.2.7 Hospit a .3.934719 l .8 2021-06-29 2021-06-29 Office Rice, 1.2.840.1 [id number] 6236 Methodi 13:30:00 13:45:00 Visit Elliot [address]2633.1.[address] 3.430.2.7 Hospit a .3.004467 l .8 2021-06-29 2021-06-29 Lab Perry, 1.2.840.1 [id number] 2331 Methodi 13:30:00 13:35:[address] 3.430.2.7 Hospit a .3.946137 l .8 2021-06-29 2021-06-29 Travel 1.2.840.1 1.2.923.766 6126 123043 Methodi 00:00:00 00:00:[address] 3.430.2.7 0.2.7.3.698 Ho spita .3.107657 084.8 l .8 2021-06-07 2021-06-07 Orders Sana Duran 1.2.840.1 [id number] Methodi 00:00:00 00:00:00 Only Anya 91697.1.[address] 3.430.2.7 Hospit a .3.274838 l .8 2021-06-05 2021-06-05 Office Nancy, 1.2.840.1 [id number] 2099 [id number] Methodi 16:20:00 17:39:49 Visit Liya Everett [address]8660.1.[address] 3.430.2.7 Hospit a .3.231007 l .8 2021-06-05 2021-06-05 Travel 1.2.840.1 1.2.281.258 9332 892513 Methodi 00:00:00 00:00:[address] 3.430.2.7 0.2.7.3.698 Ho spita .3.312924 084.8 l .8 2021-06-01 2021-06-01 Office Perry, 1.2.840.1 [id number] 066227 0372 Methodi 13:00:00 13:45:18 Visit Elliot 26191.1.[address] 3.430.2.7 Hospit a .3.110556 l .8 2021-06-01 2021-06-01 Lab Rice, 1.2.840.1 [id number] 2025 Methodi 13:00:00 13:05:[address] 3.430.2.7 Hospit a .3.969490 l .8 2021-06-01 2021-06-01 Travel 1.2.840.1 1.2.663.238 3522 821393 Methodi 00:00:00 00:00:[address] 3.430.2.7 0.2.7.3.698 Ho spita .3.969171 084.8 l .8 2021-05-29 2021-05-29 Orders Rajtak 1.2.840.1 [id number] 9747 Methodi 00:00:00 00:00:00 Only Thompson, 62172.1.[address] Deb 3.430.2.7 Hospi ta .3.139442 l .8 2021-04-13 2021-04-13 Outpatient RICE, [facility] [id number] [address] [place] 00:00:00 00:00:00 ELLIOT 369 Metho di 2021-04-13 2021-04-13 Outpatient RICE, [facility] [id number] [address] [place] 00:00:00 00:00:00 ELLIOT 191 Metho di 2021-04-10 2021-04-10 Outpatient NANCY, [facility] [id number] [place] 00:00:00 00:00:00 LIYA 807 Method i 2021-04-10 2021-04-10 Outpatient NANCY, [facility] [id number] 00207 [place] 00:00:00 00:00:00 LIYA 869 Method i 2021-04-10 2021-04-10 Outpatient NANCY, [facility] [id number] [place] 00:00:00 00:00:00 LIYA 329 Method i 2021-03-27 2021-03-27 Outpatient NANCY, [facility] [id number] [id number] [place] 00:00:00 00:00:00 LIYA 607 Method i 2021-03-09 2021-03-09 Outpatient RICE, [facility] [id number] [address] [place] 00:00:00 00:00:00 ELLIOT [address] 2021-03-09 2021-03-09 Outpatient RICE, [facility] [id number] [address] [place] 00:00:00 00:00:00 ELLIOT [address] 2021-02-16 2021-02-16 Outpatient RICE, [facility] [id number] [address] [place] 00:00:00 00:00:00 ELLIOT [address] 2021-02-16 2021-02-16 Outpatient RICE, [facility] [id number] [address] [place] 00:00:00 00:00:00 ELLIOT 706 Metho di 2020-11-24 2020-11-24 Outpatient RICE, [facility] [id number] [address] [place] 00:00:00 00:00:00 ELLIOT 611 Metho di 2020-11-24 2020-11-24 Outpatient RICE, [facility] [id number] [address] [place] 00:00:00 00:00:00 ELLIOT 646 Metho di 2020-08-25 2020-08-25 Outpatient RICE, [facility] [id number] [address] [place] 00:00:00 00:00:00 ELLIOT 154 Metho di 2020-08-25 2020-08-25 Outpatient RICE, [facility] [id number] [address] [place] 00:00:00 00:00:00 ELLIOT 808 Metho di 2020-05-26 2020-05-26 Outpatient RICE, [facility] [id number] [address] [place] 00:00:00 00:00:00 ELLIOT 167 Metho di 2020-05-26 2020-05-26 Outpatient RICE, [facility] [id number] [address] [place] 00:00:00 00:00:00 ELLIOT 853 Metho di 2020-03-17 2020-03-17 Outpatient RICE, [facility] [id number] [address] [place] 00:00:00 00:00:00 ELLIOT 358 Metho di 2020-03-17 2020-03-17 Outpatient RICE, [facility] [id number] [address] [place] 00:00:00 00:00:00 ELLIOT 587 Metho di 2020-02-12 2020-02-12 Outpatient NANCY, [facility] [id number] [place] 00:00:00 00:00:00 LIYA [address] 2020-01-22 2020-01-22 Outpatient NANCY, [facility] [id number] [place] 00:00:00 00:00:00 LIYA [address] 2020-01-14 2020-01-14 Outpatient PERRY, [facility] [id number] [address] [place] 00:00:00 00:00:00 ELLIOT [address] 2020-01-14 2020-01-14 Outpatient PERRY, [facility] [id number] [address] [place] 00:00:00 00:00:00 ELLIOT [address] 2019-12-03 2019-12-03 Outpatient NANCY [facility] [id number] [place] 00:00:00 00:00:00 LIYA [address] 2019-10-08 2019-10-08 Outpatient LINDA MARK [facility] 2099 [id number] [place] 00:00:00 00:00:[address] 2019-08-24 2019-08-24 Outpatient LINDA MARK [facility] 2099 [id number] [place] 00:00:00 00:00:[address] 2019-08-03 2019-08-03 Outpatient NANCY [facility] [id number] [place] 00:00:00 00:00:00 LIYA [address] Results Test Description Test Time Test Comments Results Result Comments Source Comprehensive metabolic panel 2022-12-27 12:58:00 Test Item Value Reference Range Interpretation Comme nts Glucose (test code = 100 mg/dL 65-139 Non-fa sting reference 2345-7) interval BUN (test code = 3094-0) 26 mg/dL 7-25 H Creatinine (test code = 1.09 mg/dL 0.60-0.95 H 2160-0) eGFR (test code = 31086-3) 50 See_Comment L T he eGFR is based on the CKD-EPI 202 1 equation. To ca lculate the new eGFR fr om a previous Creati nine or Cystatin Mario t, go to https://www.kid tiffany.org /professionals/ kdoqi/g fr%5Fcalculator [Automated mess age] The system [employer] generated this result transmitted ref erence range: > OR = 6 0 mL/min/1.73m2. The reference range was not used to int erpret this result as normal/abnormal . BUN/creatinine ratio (test 24 See_Comment H [Automated message] code = 3097-3) The system ich generated this result transmitted ref erence range: 6 - 22 ( calc). The reference r danni was not used to interpret this result as normal/abnor mal. Sodium (test code = 138 mmol/L 754-567 8138-2) Potassium (test code = 4.2 mmol/L 3.5-5.3 2823-3) Chloride (test code = 104 mmol/L 98-110 2075-0) CO2 (test code = 8-9) 25 mmol/L 20-32 Calcium (test code = 9.7 mg/dL 8.6-10.4 41073-7) Protein (test code = 7.5 g/dL 6.1-8.1 2885-2) Albumin, S (test code = 4.2 g/dL 3.6-5.1 1751-7) Globulin, total (test code 3.3 See_Comment [Automated message] = 00728-0) The system ic h generated this result transmitted ref erence range: 1.9 - 3. 7 g/dL (calc). The ref erence range was not u sed to interpret this result as normal/abnor mal. Albumin/globulin ratio 1.3 See_Comment [Aut omated message] (test code = 1759-0) The [facility] tem which generated this result transmitted ref erence range: 1.0 - 2. 5 (calc). The ref erence range was not u sed to interpret this result as normal/abnor mal. Total bilirubin (test code 0.3 mg/dL 0.2-1.2 = 1974-) Alkaline phosphatase (test 66 U/L 37-153 code = 6768-6) AST (test code = 1920-8) 40 U/L 10-35 H ALT (test code = 1742-6) 52 U/L 6-29 H LETITIA (test code = LETITIA) FASTING:NO FASTING: NO RAC (test code = RAC) Performing Organization Information: Site ID: RGA Name: [facility] Lab Address: [address] [place] [phone] Director: Parish Contreras Lab Interpretation (test Abnormal code = 00876-6) [facility]WkxmrlqqCmpqkdaneiq9587-52-74 12:58:00 Test Item Value Reference Range Interpretation Comments Cholesterol, total 111 mg/dL <=200 (test code = 2093-3) LETITIA (test code = FASTING:NO FASTING: NO LETITIA) RAC (test code = Performing Organization RAC) Information: Site ID: SAIDA Name: [facility] Address: [address] [place] [phone] Director: Parish Contreras [facility] [id number] 12:58:00 Test Item Value Reference Range Interpretation Comments HDL cholesterol 32 mg/dL See_Comment L [Automated (test code = 2085-9) message ] The system which generated this result transmitted reference range : > OR = 50. The reference range was not used to interpret this result as normal/abnormal . LETITIA (test code = FASTING:NO LETITIA) FASTING: NO RAC (test code = Performing RAC) Organization Information: Site ID: [facility] Name: [facility] Address: [address] [place] [phone] Director: Parish Contreras Lab Interpretation Abnormal (test code = 33230-0) [facility] cholesterol, [id number] 12:58:00 Test Item Value Reference Range Interpretation Comments LDL Direct 52 mg/dL <=100 Greatly elevate d (test code = Triglycerides v alues 96690-1) (>1200 mg/dL)interfere with the dLDL assay. As no Triglyceride s testing was ord ered, interpret resul ts with caution. Desirable range <100 mg/dL for prima ry prevention; <70 mg/dL for patie nts with CHD or von betic patients with > or = 2 CHD risk fact ors. LETITIA (test code FASTING:NO FASTING: = LETITIA) NO RAC (test code Performing = RAC) Organization Information: Site ID: [facility] Name: [facility] Address: [address] [place] [phone] Director: Parish Contreras [facility] WestT4, [id number] 12:58:00 Test Item Value Reference Range Interpretation Comments T4, free (test code 1.3 ng/dL 0.8-1.8 = 3024-7) LETITIA (test code = FASTING:NO FASTING: NO LETITIA) RAC (test code = Performing Organization RAC) Information: Site ID: SAIDA Name: [facility] Address: [address] [place] [phone] Director: Tyler Honey [facility] Hospital[facility] stimulating [id number] 12:58:00 Test Item Value Reference Range Interpretation Comments TSH (test 1.37 See_Comment [Automated mes emeli] code = The system whic h 3016-3) generated this result transmit al reference range : 0.40 - 4.50 mIU /L. The reference r danni was not used to interpret this result as normal/abnormal . LETITIA (test FASTING:NO FASTING: code = LETITIA) NO RAC (test Performing code = RAC) Organization Information: Site ID: SAIDA Name: [facility] Address: [address] [place] [phone] Director: [facility] HospitalVitamin D 25 hydroxy [id number] 12:58:00 Test Item Value Reference Range Interpretation Comments Vitamin D, 69 ng/mL 30-100 Vitamin D Statu s 25-hydroxy (test 25-OH Vitam in D: code = 1988-) Deficiency: < 20 ng/mLInsufficie ncy : 20 - 29 ng/mLOptimal: > or = 30 ng/mL F or 25-OH Vitamin D testing on patients on D2-supplementat ion and patients fo r whom quantitati on of D2 and D3 fractions is required, the QuestAssureD(TM )25 -OH VIT D, (D2,D3), LC/MS/ MS is recommended: order code 9288 8 (patients >2yrs).See Note 1 Note 1 For additional information, please refer to http://educatio n.Q uestDiagnostics .co m/faq/CXY471 (T his link is being provided for informational/e maricruz ational purpose s only.) LETITIA (test code = FASTING:NO FASTING: LETITIA) NO RAC (test code = Performing RAC) Organization Information: Site ID: SAIDA Name: [facility] Address: [address] [place] [phone] Director: [facility] HospitalComprehensive metabolic [id number] 12:58:00 Test Item Value Reference Range Interpretation Comments Glucose (test code = 100 mg/dL 65-139 Non-fa sting 2345-7) reference interval BUN (test code = 26 mg/dL 7-25 H 3094-0) Creatinine (test 1.09 mg/dL 0.60-0.95 H code = 2160-0) eGFR (test code = 50 See_Comment L The eGFR i s based 54822-3) on the CKD-EPI 2020 equation. To calculate the n ew eGFR from a previous Creatinine or Cystatin Cresul t, go to https://www.kid ne y.org/professio na ls/kdoqi/gfr%5F ca lculator [Automated message] The system which generated this result transmitted reference range : > OR = 60 mL/min/1.73m2. The reference range was not used to interpr et this result as normal/abnormal . BUN/creatinine ratio 24 See_Comment H [Autom ated (test code = 3097-3) message ] The system which generated this result transmitted reference range : 6 - 22 (calc). The reference range was not used to interpr et this result as normal/abnormal . Sodium (test code = 138 mmol/L 884-550 3653-2) Potassium (test code 4.2 mmol/L 3.5-5.3 = 2823-3) Chloride (test code 104 mmol/L 98-110 = 2075-0) CO2 (test code = 25 mmol/L 20-32 8-9) Calcium (test code = 9.7 mg/dL 8.6-10.4 52671-6) Protein (test code = 7.5 g/dL 6.1-8.1 2885-2) Albumin, S (test 4.2 g/dL 3.6-5.1 code = 1751-7) Globulin, total 3.3 See_Comment [Automated (test code = message] The 44977-2) system which generated this result transmitted reference range : 1.9 - 3.7 g/dL (calc). The reference range was not used to interpret this result as normal/abnormal . Albumin/globulin 1.3 See_Comment [Automated ratio (test code = message] The 5099-0) system which generated this result transmitted reference range : 1.0 - 2.5 (calc ). The reference range was not used to interpr et this result as normal/abnormal . Total bilirubin 0.3 mg/dL 0.2-1.2 (test code = 1974-2) Alkaline phosphatase 66 U/L 37-153 (test code = 6768-6) AST (test code = 40 U/L 10-35 H 1920-8) ALT (test code = 52 U/L 6-29 H 1742-6) LETITIA (test code = FASTING:NO LETITIA) FASTING: NO RAC (test code = Performing RAC) Organization Information: Site ID: [facility] Name: [facility] Address: [address] [place] [phone] Director: Parish Contreras Lab Interpretation Abnormal (test code = 48032-0) [facility] WestDacbyqnbGeouxecuykw3636-85-57 12:58:00 Test Item Value Reference Range Interpretation Comments Cholesterol, total 111 mg/dL <=200 (test code = 2093-3) LETITIA (test code = FASTING:NO FASTING: NO LETITIA) RAC (test code = Performing Organization RAC) Information: Site ID: [facility] Name: [facility] Address: [address] [place] [phone] Director: Parish Contreras [facility] [id number] 12:58:00 Test Item Value Reference Range Interpretation Comments HDL cholesterol 32 mg/dL See_Comment L [Automated (test code = 2085-9) message ] The system which generated this result transmitted reference range : > OR = 50. The reference range was not used to interpret this result as normal/abnormal . LETITIA (test code = FASTING:NO LETITIA) FASTING: NO RAC (test code = Performing RAC) Organization Information: Site ID: [facility]: [facility] Address: [address] [place] [phone] Director: Parish Contreras Lab Interpretation Abnormal (test code = 34468-8) [facility] WestLDL cholesterol, [id number] 12:58:00 Test Item Value Reference Range Interpretation Comments LDL Direct 52 mg/dL <=100 Greatly elevate d (test code = Triglycerides v alues 84013-2) (>1200 mg/dL)interfere with the dLDL assay. As no Triglyceride s testing was ord ered, interpret resul ts with caution. Desirable range <100 mg/dL for prima ry prevention; <70 mg/dL for patie nts with CHD or von betic patients with > or = 2 CHD risk fact ors. LETITIA (test code FASTING:NO FASTING: = LETITIA) NO RAC (test code Performing = RAC) Organization Information: Site ID: [facility] Name: [facility] Address: [address] [place] [address] Director: [facility] HospitalT, [id number] 12:58:00 Test Item Value Reference Range Interpretation Comments T4, free (test code 1.3 ng/dL 0.8-1.8 = 3024-7) LETITIA (test code = FASTING:NO FASTING: NO LETITIA) RAC (test code = Performing Organization RAC) Information: Site ID: [facility] Name: [facility] Address: [address] [place] [address] Director: [facility] HospitalThyroid stimulating [id number] 12:58:00 Test Item Value Reference Range Interpretation Comments TSH (test 1.37 See_Comment [Automated mes emeli] code = The system ic h 3016-3) generated this result transmit al reference range : 0.40 - 4.50 mIU /L. The reference r danni was not used to interpret this result as normal/abnormal . LETITIA (test FASTING:NO FASTING: code = LETITIA) NO RAC (test Performing code = RAC) Organization Information: Site ID: [facility] Name: [facility] Address: [address] [place] [phone] Director: [facility] HospitalVitamin D 25 hydroxy [id number] 12:58:00 Test Item Value Reference Range Interpretation Comments Vitamin D, 69 ng/mL 30-100 Vitamin D Statu s 25-hydroxy (test 25-OH Vitam in D: code = 1988-11) Deficiency: < 20 ng/mLInsufficie ncy : 20 [...] please refer to http://educatio n.Q uestDiagnostics .co m/faq/RSI004 (T his link is being provided for informational/e maricruz ational purpose s only.) LETITIA (test code = FASTING:NO FASTING: LETITIA) NO RAC (test code = Performing RAC) Organization Information: Site ID: RGA Name: [facility] Address: [address] [place] [phone] Director: Parish Contreras [facility] [id number] 19:14:00 Test Item Value Reference Range Interpretation [...] Cystatin Cresul t, go to https://www.kid ne y.org/profhaydeio na xavier/kdoqi/gfr%5F ca lculator [Automated message] The system which [...] . Sodium (test code = 138 mmol/L 237-034 5223-2) Potassium (test code 3.5 mmol/L 3.5-5.3 = 2823-3) Chloride (test code 100 mmol/L 98-110 = 2075-0) CO2 (test code = 26 mmol/L 20-32 2028-9) Calcium (test code = 9.6 mg/dL 8.6-10.4 98464-1) Protein (test code = 7.7 g/dL 6.1-8.1 2885-2) Albumin, S (test 4.4 g/dL 3.6-5.1 code = 1751-7) Globulin, total 3.3 See_Comment [Automated (test code = message] The 60201-9) system which generated this result transmitted reference [...] RAC) Organization Information: Site ID: RGA Name: [facility] Address: [address] [place] [phone] Director: Parish Contreras Lab Interpretation Abnormal (test code = 02287-0) [facility] WestLipid [id number] 19:14:00 Test Item Value Reference Interpretation Comments Range Cholesterol, total 124 mg/dL <=200 (test code = 2093-3) HDL cholesterol 32 mg/dL See_Comment L [Automated (test code = 2084-) message ] The system which generated this [...] calculated (test <100 Desira ble code = 72663-7) range <100 m g/dL for primary prevention; [...] Zuly n SS et al. ALFREDO. 2013;310(19): 8554-4868 (http://educati on.Hy-Drive .CG Scholar /faq/LMX622) Cholesterol/HDL 3.9 See_Comment [Automated ratio (test code = message] The system 9830-1) which generated this result transmitted reference range : <5.0 (calc). Th e reference range was not used to interpret this result as normal/abnormal . Non-HDL cholesterol 92 See_Comment For rosa ents with (test code = diabetes plus 1 73730-6) major ASCVD ris k factor, treatin g [...] RAC) Organization Information: Site ID: RGA Name: [facility] Address: [address] [place] [phone] Director: Parish Contreras Lab Interpretation Abnormal (test code = 08396-6) [facility] WestHemoglobin [id number] 19:14:00 Test Item Value Reference Range Interpretation [...] specif ic patient populat ions. Standards of [place] dical Care in Diabetes(ADA). [Automated mess age] The system [employer] generated this result transmitted ref erence range: <5.7 % o f total Hgb. The reference range was not used to int erpret this result as normal/abnormal . LETITIA (test code = FASTING:NO LETITIA) FASTING: NO RAC (test code = Performing RAC) Organization Information: Site ID: [facility] Name: [facility] Address: [address] [place] [address] Director: Parish Méndez [place] [address], [id number] 19:14:00 Test Item Value Reference Range Interpretation Comments T4, free (test code 1.5 ng/dL 0.8-1.8 = 3024-7) LETITIA (test code = FASTING:NO FASTING: NO LETITIA) RAC (test code = Performing Organization RAC) Information: Site ID: [facility] Name: [facility] Address: [address] [place] [address] Director: Parish Méndez [facility] CenterThyroid stimulating [id number] 19:14:00 Test Item Value Reference Range Interpretation Comments TSH (test 0.94 See_Comment [Automated mes emeli] code = The system [employer] 3016-3) generated this result transmit al reference range : 0.40 - 4.50 mIU /L. The reference r danni was not used to interpret this result as normal/abnormal . LETITIA (test FASTING:NO FASTING: code = LETITIA) NO RAC (test Performing code = RAC) Organization Information: Site ID: [facility] Name: [facility] Address: [address] [place] [address] Director: [facility] HospitalUrine [id number] 19:14:00 Test Item Value Reference Interpretation Comments Range Urine culture (test SEE NOTE A CULTURE , URINE, code = 630-4) ROUTINE Micro Number: [id number] Test Status: Fi nal Specimen Source : Urine, clean ca tch Specimen Qualit y: Adequate Result : Greater than 100,000 CFU/mL of Escherichia col i E.coli - INT [place] AMOX/CLAVULANAT E S <=2 AMPICILLIN S <=2 AMP/SULBACT AM S <=2 CEFAZOLIN N R <=4 2 CEFE PIME S <=1 CEFTAZID MARCOS S <=1 CEFTRIAXO NE S <=1 CIPROFLOXAC IN S <=0.25 GENTAMIC [...] P. mirabilis : Cefazolin is resistant if TX C > or = 8 mcg/mL. (Distinguishing [...] RAC) Organization Information: Site ID: [id number] Name: [facility] Address: [address] [place] [address] [address] Director: Parish Contreras [facility] Interpretation Abnormal (test code = 84570-5) [facility], automated with [id number] 19:14:00 Test Item Value Reference Range Interpretation Comments Color, UA (test code YELLOW YELLOW = 5778-6) Appearance (test CLEAR CLEAR code = 5767-9) Specific gravity, 1.020 1.001-1.035 urine (test code = 5811-5) pH, urine (test code 5.5 5.0-8.0 = 5803-2) Glucose, urine (test NEGATIVE NEGATIVE code = 72622-8) Bilirubin, UA (test NEGATIVE NEGATIVE code = 5770-3) Ketones, UA (test TRACE NEGATIVE A code = 2514-8) Occult blood, urine 2+ NEGATIVE A (test code = 5794-3) Protein, UA (test NEGATIVE NEGATIVE code = 05310-7) Nitrite, UA (test POSITIVE NEGATIVE A code [...] code = NONE SEEN See_Comment [Autom ated 89401-2) message] The system which generated this result transmitted reference range : < OR = 2 /HPF. The reference range was not used to interpr et this result as normal/abnormal . Squamous epithelial NONE SEEN See_Comment [Automa al cells, UA (test code message ] The = 76942-7) system which generated this result transmitted reference [...] RAC) Organization Information: Site ID: RGA Name: [facility] Address: [address] [place] [phone] Director: Parish Contreras [facility] Interpretation Abnormal (test code = 97711-5) [facility]it[facility] D 25 hydroxy [id number] 19:14:00 Test Item Value Reference Range Interpretation [...] please refer to http://educatio n.Q uestDiagnostics .co m/faq/DIO118 (T his link is being provided for informational/e maricruz ational purpose s only.) LETITIA (test code = FASTING:NO FASTING: ELTITIA) NO RAC (test code = Performing RAC) Organization Information: Site ID: RGA [facility]: [facility] Address: [address] [place] [phone] Director: Parish Contreras [facility]Comprehensive metabolic [id number] 19:14:00 Test Item Value Reference Range Interpretation [...] Cystatin Cresul t, go to https://www.kid ne y.org/profboo park/kdoqi/gfr%5F ca lculator [Automated message] The system which [...] . Sodium (test code = 138 mmol/L 292-944 4012-2) Potassium (test code 3.5 mmol/L 3.5-5.3 = 2823-3) Chloride (test code 100 mmol/L 98-110 = 2075-0) CO2 (test code = 26 mmol/L 20-32 8-9) Calcium (test code = 9.6 mg/dL 8.6-10.4 84102-4) Protein (test code = 7.7 g/dL 6.1-8.1 2885-2) Albumin, S (test 4.4 g/dL 3.6-5.1 code = 1751-7) Globulin, total 3.3 See_Comment [Automated (test code = message] The 86711-4) system which generated this result transmitted reference range : 1.9 - 3.7 g/dL (calc). The reference range was not used to interpret this result as normal/abnormal . Albumin/globulin 1.3 See_Comment [Automated ratio (test code = message] The 0) system which generated this result transmitted reference range : 1.0 - 2.5 (calc ). The reference range was not used to interpr et this result as normal/abnormal . Total bilirubin 0.6 mg/dL 0.2-1.2 (test code = 1974-2) Alkaline phosphatase 81 U/L 37-153 (test code = 6768-6) AST (test code = 42 U/L 10-35 H 1920-8) ALT (test code = 45 U/L 6-29 H 1742-6) LETITIA (test code = FASTING:NO LETITIA) FASTING: NO RAC (test code = Performing RAC) Organization Information: Site ID: RGA Name: [facility] Address: [address] [place] [phone] Director: Parish Contreras [facility] Interpretation Abnormal (test code = 38785-1) [facility] [id number] 19:14:00 Test Item Value Reference Interpretation Comments [...] calculated (test <100 Desira ble code = 88831-3) range <100 m g/dL for primary prevention; [...] Zuly n SS et al. ALFREDO. 2013;310(19): 4324-3766 (http://educati on.Q Storenvys .com /faq/BRW475) Cholesterol/HDL 3.9 See_Comment [Automated ratio (test code = message] The system 9830-1) which generated this result transmitted reference range : <5.0 (calc). Th e reference range was not used to interpret this result as normal/abnormal . Non-HDL cholesterol 92 See_Comment For rosa ents with (test code = diabetes plus 1 25336-6) major ASCVD ris k factor, treatin g [...] = Performing RAC) Organization Information: Site ID: [facility] Name: [facility] Address: [address] [place] [phone] Director: Parish Contreras [facility] Interpretation Abnormal (test code = 61463-8) [facility] WestHemoglobin [id number] 19:14:00 Test Item Value Reference Range Interpretation [...] specif ic patient populat ions. Standards of Me dical Care in Diabetes(ADA). [Automated mess age] The system firstSTREET for [employer] generated this result transmitted ref erence range: <5.7 % o f total Hgb. The reference range was not used to int erpret this result as normal/abnormal . LETITIA (test code = FASTING:NO LETITIA) FASTING: NO RAC (test code = Performing RAC) Organization Information: Site ID: [facility] Name: [facility] Lab Address: [address] [place] [address] Director: Parish Contreras [facility] WestT4, [id number] 19:14:00 Test Item Value Reference Range Interpretation Comments T4, free (test code 1.5 ng/dL 0.8-1.8 = 3024-7) LETITIA (test code = FASTING:NO FASTING: NO LETITIA) RAC (test code = Performing Organization RAC) Information: Site ID: [facility] Name: [facility] Address: [address] [place] [address] Director: Parish Contreras [facility] WestThyroid stimulating [id number] 19:14:00 Test Item Value Reference Range Interpretation Comments TSH (test 0.94 See_Comment [Automated mes emeli] code = The system [employer] h 3016-3) generated this result transmit al reference range : 0.40 - 4.50 mIU /L. The reference r danni was not used to interpret this result as normal/abnormal . LETITIA (test FASTING:NO FASTING: code = LETITIA) NO RAC (test Performing code = RAC) Organization Information: Site ID: SAIDA Name: [facility] Address: [address] [place] [address] Director: [facility] [id number] 19:14:00 Test Item Value Reference Interpretation Comments Range Urine culture (test SEE NOTE A CULTURE , URINE, code = 630-4) ROUTINE Micro Number: [id number] Test Status: Fi nal Specimen Source [...] P. mirabilis : Cefazolin is resistant if TX C > or = 8 mcg/mL. (Distinguishing [...] RAC) Organization Information: Site ID: RGA Name: [facility] Address: [address] [place] [phone] Director: Parish Contreras [facility] Interpretation Abnormal (test code = 74557-6) [facility] HospitalUrinal[facility], automated with [id number] 19:14:00 Test Item Value Reference Range Interpretation Comments Color, UA (test code YELLOW YELLOW = 5778-6) Appearance (test CLEAR CLEAR code = 5767-9) Specific gravity, 1.020 1.001-1.035 urine (test code = 5811-5) pH, urine (test code 5.5 5.0-8.0 = 5803-2) Glucose, urine (test NEGATIVE NEGATIVE code = 36237-6) Bilirubin, UA (test NEGATIVE NEGATIVE code = 5770-3) Ketones, UA (test TRACE NEGATIVE A code = 2514-8) Occult blood, urine 2+ NEGATIVE A (test code = 5794-3) Protein, UA (test NEGATIVE NEGATIVE code = 43428-0) Nitrite, UA (test POSITIVE NEGATIVE A code [...] code = NONE SEEN See_Comment [Autom ated 72574-1) message] The system which generated this result transmitted reference range : < OR = 2 /HPF. The reference range was not used to interpr et this result as normal/abnormal . Squamous epithelial NONE SEEN See_Comment [Automa al cells, UA (test code message ] The = 55479-3) system which generated this result transmitted reference [...] = Performing RAC) Organization Information: Site ID: [facility]: [facility] Address: [address] [place] [phone] Director: Parish Contreras [facility] Interpretation Abnormal (test code = 66203-3) [facility] WestVitamin D 25 hydroxy [id number] 19:14:00 Test Item Value Reference Range Interpretation Comments Vitamin D, 49 ng/mL 30-100 Vitamin D Statu s 25-hydroxy (test 25-OH Vitam in D: code = 1988-11) Deficiency: < 20 ng/mLInsufficie ncy : 20 [...] please refer to http://educatio n.Q uestDiagnostics .co m/faq/JSX922 (T his link is being provided for informational/e maricruz ational purpose s only.) LETITIA (test code = FASTING:NO FASTING: LETITIA) NO RAC (test code = Performing RAC) Organization Information: Site ID: [facility] Name: [facility] Address: [address] [place] [address] Director: Parish Contreras [facility] WestLipid [id number] 19:14:00 Test Item Value Reference Interpretation Comments Range Cholesterol, total 124 mg/dL <=200 (test code = 3-3) HDL cholesterol 32 mg/dL See_Comment L [Automated (test code = 2084-9) message ] The system which generated this [...] calculated (test <100 Desira ble code = 25476-5) range <100 m g/dL for primary prevention; [...] Zuly n SS et al. ALFREDO. 2013;310(19): 0171-0006 (http://educati on.Q rag & bone .CG Scholar /faq/IJO124) Cholesterol/HDL 3.9 See_Comment [Automated ratio (test code = message] The system 9830-1) which generated this result transmitted reference range : <5.0 (calc). Th e reference range was not used to interpret this result as normal/abnormal . Non-HDL cholesterol 92 See_Comment For rosa ents with (test code = diabetes plus 1 39755-6) major ASCVD ris k factor, treatin g [...] RAC) Organization Information: Site ID: RGA Name: [facility] Address: [address] [place] [phone] Director: Parish Contreras [facility] Interpretation Abnormal (test code = 93342-7) [facility] WestHemoglobin [id number] 19:14:00 Test Item Value Reference Range Interpretation [...] specif ic patient populat ions. Standards of Ga dical Care in Diabetes(ADA). [Automated mess age] The system firstSTRE[address] for [employer] generated this result transmitted ref erence range: <5.7 % o f total Hgb. The reference range was not used to int erpret this result as normal/abnormal . LETITIA (test code = FASTING:NO LETITIA) FASTING: NO RAC (test code = Performing RAC) Organization Information: Site ID: RGA Name: [facility] Lab Address: [address] [place] [phone] Director: Parish Contreras [facility] WestUrine [id number] 19:14:00 Test Item Value Reference Interpretation Comments Range Urine culture (test SEE NOTE A CULTURE , URINE, code = 630-4) ROUTINE Micro Number: [id number] Test Status: Fi nal Specimen Source [...] P. mirabilis : Cefazolin is resistant if TX C > or = 8 mcg/mL. (Distinguishing [...] RAC) Organization Information: Site ID: RGA [facility] Address: [address] [place] [phone] Director: Parish Contreras [facility] Interpretation Abnormal (test code = 00472-0) [facility] WestUrinalysis, automated with [id number] 19:14:00 Test Item Value Reference Range Interpretation Comments Color, UA (test code YELLOW YELLOW = 5778-6) Appearance (test CLEAR CLEAR code = 5767-9) Specific gravity, 1.020 1.001-1.035 urine (test code = 5811-5) pH, urine (test code 5.5 5.0-8.0 = 5803-2) Glucose, urine (test NEGATIVE NEGATIVE code = 09257-8) Bilirubin, UA (test NEGATIVE NEGATIVE code = 5770-3) Ketones, UA (test TRACE NEGATIVE A code = 6964-8) Occult blood, urine 2+ NEGATIVE A (test code = 5794-3) Protein, UA (test NEGATIVE NEGATIVE code = 79349-5) Nitrite, UA (test POSITIVE NEGATIVE A code = 0742-4) Leukocyte esterase, 1+ NEGATIVE A UA (test code = 5799-2) WBC, UA (test code = 6-10 See_Comment A [Autom ated 5821-4) message] The system which generated this result transmitted reference range : < OR = 5 /HPF. The reference range was not used to interpr et this result as normal/abnormal . RBC, UA (test code = NONE SEEN See_Comment [Autom ated 46966-0) message] The system which generated this result transmitted reference range : < OR = 2 /HPF. The reference range was not used to interpr et this result as normal/abnormal . Squamous epithelial NONE SEEN See_Comment [Automa al cells, UA (test code message ] The = 67305-4) system which generated this result transmitted reference [...] RAC) Organization Information: Site ID: RGA [facility] Address: [address] [place] [phone] Director: Parish Contreras [facility] Interpretation Abnormal (test code = 34019-7) [facility] WestLipid [id number] 19:14:00 Test Item Value Reference Interpretation Comments [...] a fasting specime nif clinically indicated. Bob akbar al. J. of Cl in. Lipidol. 2015;9:129-169. LDL cholesterol 65 mg/dL (calc) Reference ra nge: calculated (test <100 Desira ble code = 62226-1) range <100 m g/dL for primary prevention; [...] Zuly n SS et al. ALFREDO. 2013;310(19): 7193-0102 (http://educati on.Hy-Drive .CG Scholar /faq/JZU880) Cholesterol/HDL 3.9 See_Comment [Automated ratio (test code = message] The system 9830-1) which generated this result transmitted reference range : <5.0 (calc). Th e reference range was not used to interpret this result as normal/abnormal . Non-HDL cholesterol 92 See_Comment For rosa ents with (test code = diabetes plus 1 75055-9) major ASCVD ris k factor, treatin g [...] RAC) Organization Information: Site ID: RGA Name: [facility] Lab Address: [address] [place] [phone] Director: Parish Contreras [facility] Interpretation Abnormal (test code = 74206-3) [facility] WestHemoglobin [id number] 19:14:00 Test Item Value Reference Range Interpretation [...] specif ic patient populat ions. Standards of Ga dical Care in Diabetes(ADA). [Automated mess age] The system [employer]STRE[address] [employer] generated this result transmitted ref erence range: <5.7 % o f total Hgb. The reference range was not used to int erpret this result as normal/abnormal . LETITIA (test code = FASTING:NO LETITIA) FASTING: NO RAC (test code = Performing RAC) Organization Information: Site ID: RGA Name: [facility] Lab Address: [address] [place], [place] [address] Director: [facility] [id number] 19:14:00 Test Item Value Reference Interpretation Comments Range Urine culture (test SEE NOTE A CULTURE , URINE, code = 630-4) ROUTINE Micro Number: [id number] Test Status: Fi nal Specimen Source [...] P. mirabilis : Cefazolin is resistant if TX C > or = 8 mcg/mL. (Distinguishing [...] RAC) Organization Information: Site ID: RGA [facility]: [facility] Address: [address] [place] [phone] Director: Parish Contreras [facility] Interpretation Abnormal (test code = 81156-5) [facility]Urinal[facility], automated with [id number] 19:14:00 Test Item Value Reference Range Interpretation Comments Color, UA (test code YELLOW YELLOW = 5778-6) Appearance (test CLEAR CLEAR code = 5767-9) Specific gravity, 1.020 1.001-1.035 urine (test code = 5811-5) pH, urine (test code 5.5 5.0-8.0 = 5803-2) Glucose, urine (test NEGATIVE NEGATIVE code = 54346-5) Bilirubin, UA (test NEGATIVE NEGATIVE code = 5770-3) Ketones, UA (test TRACE NEGATIVE A code = 2514-8) Occult blood, urine 2+ NEGATIVE A (test code = 5794-3) Protein, UA (test NEGATIVE NEGATIVE code = 70457-5) Nitrite, UA (test POSITIVE NEGATIVE A code = 5802-4) Leukocyte esterase, 1+ NEGATIVE A UA (test code = 5799-2) WBC, UA (test code = 6-10 See_Comment A [Autom ated 1621-4) message] The system which generated this result transmitted reference range : < OR = 5 /HPF. The reference range was not used to interpr et this result as normal/abnormal . RBC, UA (test code = NONE SEEN See_Comment [Autom ated 43693-6) message] The system which generated this result transmitted reference range : < OR = 2 /HPF. The reference range was not used to interpr et this result as normal/abnormal . Squamous epithelial NONE SEEN See_Comment [Automa al cells, UA (test code message ] The = 12851-8) system which generated this result transmitted reference [...] RAC) Organization Information: Site ID: RGA [facility]: [facility] Address: [address] [place] [phone] Director: Parish Contreras [facility] Interpretation Abnormal (test code = 76635-3) [facility] metabolic [id number] 06:04:00 Test Item Value Reference Interpretation Comments [...] EGFR Non-Afr. See_Comment L [Automated me ssage] Yemeni (test code The syst em which = 7160) generated this result transmit al reference range : > OR = 60 mL/min/1.73m2. The reference range was not used to interpret this result as normal/abnormal . EGFR See_Comment L [Automated mes emeli] Yemeni (test code The syst em which = 4653) generated this result transmit al reference range : > OR = 60 mL/min/1.73m2. The reference range was not used to interpret this result as normal/abnormal . BUN/creatinine See_Comment H [Automated m essage] ratio (test code = The [employer] which 3097-3) generated this result transmit al reference range : 6 - 22 (calc). The reference range was not used to interpret this result as normal/abnormal . Sodium (test code = 139 mmol/L 567-026 4843-2) Potassium (test 4.3 mmol/L 3.5-5.3 code = 2823-3) Chloride (test code 104 mmol/L 98-110 = 2075-0) CO2 (test code = 25 mmol/L 20-32 8-9) Calcium (test code 9.6 mg/dL 8.6-10.4 = 07840-6) Protein (test code 7.5 g/dL 6.1-8.1 = 2885-2) Albumin, S (test 4.2 g/dL 3.6-5.1 code = 1751-7) Globulin, total See_Comment [Automated message] (test code = The system Tookitakiic h 72067-8) generated this result transmit al reference range : 1.9 - 3.7 g/dL (marva c). The reference r danni was not used to interpret this result as normal/abnormal . Albumin/globulin See_Comment [Automated message] ratio (test code = The [employer] which 1759-0) generated this result transmit al [...] RAC) Organization Information: Site ID: RGA [facility] Address: [address] [place] [phone] Director: Parish Contreras [facility] Interpretation Abnormal (test code = 13623-5) [facility] [id number] 06:04:00 Test Item Value Reference Range Interpretation [...] calculated (test <100 Desira ble code = 55774-2) range <100 m g/dL for primary prevention; <70 mg/dL for patients with C HD or diabetic patients with > or = 2 CHD risk factors. LDL-C is now calculated using the Marvin-Preston calculation, which is a validated novel method providin g better accuracy than the Friedewald equation in the estimation of LDL-C. Marvin S S et al. ALFREDO. 2013;310(19): 5007-3126 (http://educati on .ScrybeDiagnostMunchAway .com/faq/VDZ083 ) Cholesterol/HDL See_Comment H [Automated ratio (test code = message] The 9830-1) system which generated this result transmitted reference range : <5.0 (calc). Th e reference range was not used to interpret this result as normal/abnormal . Non-HDL cholesterol See_Comment H For rosa ents with (test code = diabetes plus 1 93003-5) major ASCVD ris k factor, treatin g to a non-HDL-C goal of <100 mg/dL (LDL-C of <70 mg/dL) is considered a therapeutic option. [Automated message] The system which generated this result transmitted reference range : <130 mg/dL (calc). The reference range was not used to interpret this result as normal/abnormal . ELTITIA (test code = FASTING:NO LETITIA) FASTING: NO RAC (test code = Performing RAC) Organization Information: Site ID: RGA [facility]: [facility] Address: [address] [place] [address] Director: Parish Contreras [facility] Interpretation Abnormal (test code = 08011-9) [facility] WestT4, [id number] 06:04:00 Test Item Value Reference Range Interpretation Comments T4, free (test code 1.3 ng/dL 0.8-1.8 = 3024-7) LETITIA (test code = FASTING:NO FASTING: NO LETITIA) RAC (test code = Performing Organization RAC) Information: Site ID: RGA [facility]: [facility] Address: [address] [place] [address] Director: Parish Contreras [facility] WestThyroid stimulating [id number] 06:04:00 Test Item Value Reference Range Interpretation [...] code = RAC) Organization Information: Site ID: LYNETTEA Name: [facility] Address: [address] [place] [address] Director: Parish Contreras [facility] WestAmylase [id number] 22:53:00 Test Item Value Reference Range Interpretation Comments Amylase (test code = 47 U/L 21-101 1798-8) LETITIA (test code = FASTING:NO FASTING: NO LETITIA) RAC (test code = Performing Organization RAC) Information: Site ID: RGA [facility]: [facility] Address: [address] [place] [address] Director: Parish Contreras [facility] WestLipase [id number] 22:53:00 Test Item Value Reference Range Interpretation Comments Lipase (test code = 74 U/L 7-60 H 3040-3) LETITIA (test code = LETITIA) FASTING:NO FASTING: NO RAC (test code = RAC) Performing Organization Information: Site ID: RGA Name: [facility] Lab Address: [address] [place] [address] Director: Parish Contreras [facility] Interpretation (test Abnormal code = 33296-5) [facility] WestC-reactive [id number] 22:53:00 Test Item Value Reference Range Interpretation [...] RAC) Organization Information: Site ID: A Name: [facility] Address: [address] [place] [address] Director: Parish Contreras [facility]ed[facility] [id number] 22:53:00 Test Item Value Reference Range Interpretation [...] = Performing RAC) Organization Information: Site ID: [facility] Name: [facility] Lab Address: [address] [place] [address] Director: Parish Contreras Lab Interpretation Abnormal (test code = 16991-8) [facility] iron binding [id number] 22:53:00 Test Item Value Reference Range Interpretation [...] range was not u sed to interpret is result as normal/abnormal . LETITIA (test code = FASTING:NO FASTING: LETITIA) NO RAC (test code = Performing RAC) Organization Information: Site ID: RGA Name: [facility] Address: [address] [place] [address] Director: Parish Tucker [facility] W IFA W REFLEX TO [id number] 22:53:00 Test Item Value Reference Interpretation Comments Range LIYA Screen (test POSITIVE NEGATIVE A LIYA IFA is a first code = 87710-3) line screen for detecting thepresence of up to approximatel y 150 autoantibod ies invarious autoimmune diseases. A positive LIYA IF A resultis sugges tive of autoimmune disease and reflexes totite r and pattern. Further laborat ory testing may beconsidered if clinically indicated. For additional information, pl ease refer tohttp://educat ion. TheFanLeagueostic s.co m/faq/ARE159( is link is being provided for informational/e duca tional purposes only.) LIYA titer (test code 1:40 titer H A low l evel LIYA = 5048-4) titer may be present in pre-clinicalaut oimm une diseases an d normal individu als. Reference Range <1:40 Negative 1:40-1:80 Low Antibody Level >1:80 Elevated Antibody Level LIYA pattern (test Cytoplasmic A The presen ce of code = 37528-3) cytoplasmic fluorescence wa s noted onthe HEp -2 slide. Other reactivities (e .g., anti-mitochondr ial antibodies or anti-smooth muscleantibodie s) may be responsi ble for this fluorescence.Th e clinical significance of this finding is uncertain.Clini marva correlation is recommended. AC -15 to AC-23: Cytoplasmic International Consensus on AN A Patterns(https: //do i.org/10.1515/c [facility]- 8902-4561) LETITIA (test code = FASTING:NO LETITIA) FASTING: NO RAC (test code = Performing RAC) Organization Information: Site ID: IG Name: [facility] Address: [address] [place] [address] Director: Dr. Parish Contreras Lab Interpretation Abnormal (test code = 12751-8) [facility]
--- NOTE | 2023-04-08 13:31 | RAD REPORT ---
EXAM DESCRIPTION: US - UPPER EXTREMITY VENOUS UNILATE - 04/08/2023 1:22 pm CLINICAL HISTORY: ^hematoma, ecchymosis COMPARISON: None. TECHNIQUE: Real-time sonographic evaluation of the right upper extremity venous system was performed . FINDINGS: Normal compressibility, flow augmentation, phasic flow and spontaneous flow is identified in the right upper extremity venous system. No intraluminal filling defects seen. IMPRESSION: No venous thrombosis in the right upper extremity.
--- NOTE | 2023-04-08 13:42 | RAD REPORT ---
EXAM DESCRIPTION: CT - CTHCSPWOC - 04/08/2023 1:27 pm CLINICAL HISTORY: PAIN COMPARISON: CT HEAD CSPINE MPR WO CONTRAST dated 03/07/2015 TECHNIQUE: Axial 5 mm thick images of the head were obtained. Axial 2 mm thick images of the cervical spine were obtained with sagittal and coronal reconstruction images generated and reviewed. All CT scans are performed using dose optimization technique as appropriate and may include automated exposure control or mA/KV adjustment according to patient size. FINDINGS: CT HEAD WITHOUT CONTRAST: No acute hemorrhage, hydrocephalus or extra-axial collection is identified.No areas of brain edema or midline shift. The paranasal sinuses and mastoids are clear.The calvarium is intact. CT CERVICAL SPINE WITHOUT CONTRAST: No fracture or subluxation.No prevertebral soft tissues swelling is identified. Anterolisthesis of C4 on C5 is likely related to underlying facet degenerative changes. IMPRESSION: No acute intracranial or cervical spine findings.
[2023-04-08 14:04] LABS: Absolute Lymphocytes (CBC) 1.9 K/uL (0.7-4.9); Hematocrit 31.3 % (36.0-45.0); Lymphocytes % 25.4 % (15.3-44.8); MCV 102.9 fL (80-100); MPV 8.6 fL (7.6-11.3); RBC Red Blood Cell Count 3.05 M/uL (3.86-4.86)
[2023-04-08 14:06] LABS: Potassium 3.3 mEq/L (3.5-5.1)
[2023-04-08 14:15] LABS: Protime INR 0.93
[2023-04-08] MEDS ORDERED: MORPHINE 2 MG/ML SYR ONE (14:21)
[2023-04-08] MEDS ORDERED: ONDANSETRON 4 MG/2 ML VIAL ONE (14:22)
[2023-04-08] MEDS ORDERED: cloNIDine HCL 0.1 MG TAB ONE (15:44)
[2023-04-08 16:18] LABS: Specific Gravity 1.017 (1.005-1.030); Urine Bacteria <20 /HPF (<20); Urine Bilirubin NEGATIVE (Negative); Urine Blood 1+ (Negative); Urine Clarity Turbid (Clear); Urine Color Light-Yellow (Yellow); Urine Glucose NEGATIVE (Negative); Urine Mucus Slight /HPF (None Seen); Urine Protein TRACE (Negative); Urine Urobilinogen Normal (Normal); Urine pH 6.5 (5.0-7.0)
--- NOTE | 2023-04-08 16:30 | ER ---
Nurse's Notes [facility] Name: Carmen Ewing Age: 83 yrs Sex: Female : 1940 Arrival Date: 04/08/2023 Time: 12:10 Bed 7 Private MD: Diagnosis: Hematoma right arm;Essential (primary) hypertension;Low back pain;Contusion of forehead Presentation: 04/08 12:26 Chief complaint: Patient states: noticed bruising to right inner arm since yesterday, iw denies injury, then had some bruising on forehead today , denies falling or injury , also has back pain. Coronavirus screen: At this time, the client does not indicate any symptoms associated with coronavirus-19. Ebola Screen: Patient negative for fever greater than or equal to 101.5 degrees Fahrenheit, and additional compatible Ebola Virus Disease symptoms Patient denies exposure to infectious person. Patient denies travel to an Ebola-affected area in the 21 days before illness onset. No symptoms or risks identified at this time. Initial Sepsis Screen: Does the patient meet any 2 criteria? No. Patient's initial sepsis screen is negative. Does the patient have a suspected source of infection? No. Patient's initial sepsis screen is negative. Risk Assessment: Do you want to hurt yourself or someone else? Patient reports no desire to harm self or others. Onset of symptoms was April 07, 2023. 12:26 Acuity: ARTHUR 3 iw 12:26 Method Of Arrival: Ambulatory iw 12:28 Acuity: ARTHUR 2 iw Historical: - Allergies: 12:27 Niacin; iw - PMHx: 12:27 Hypertension; Hypothyroidism; Irritable bowel syndrome; ITP; neuropathy; Osteoporosis; iw Pulmonary Embolism; shingles; thrombocythemia; - PSHx: 12:27 Cholecystectomy; Total abdominal hysterectomy; iw - Immunization history:: Client reports receiving the 2nd dose of the Covid vaccine. - Social history:: Smoking status: . Screenin:44 Abuse screen: Denies threats or abuse. Nutritional screening: No deficits noted. ap3 Tuberculosis screening: No symptoms or risk factors identified. 16:40 [facility] ED Fall Risk Assessment (Adult) History of falling in the last 3 months, ap3 including since admission No falls in past 3 months (0 pts). Assessment: 13:43 General: Appears in no apparent distress. Behavior is calm, cooperative. Pain: ap3 Complains of pain in right bicep. Neuro: Level of Consciousness is awake, alert, obeys commands, Oriented to person, place, time, situation. Cardiovascular: Patient's skin is warm and dry. Respiratory: Airway is patent Respiratory effort is even, unlabored, Respiratory pattern is regular, symmetrical. Derm: Bruising that is dark purple, on right bicep. 15:55 Reassessment: nurse assisted patient to restroom. no injuries reported. ap3 16:25 Reassessment: Patient and/or family updated on plan of care and expected duration. Pain ap3 level reassessed. Patient is alert, oriented x 3, equal unlabored respirations, skin warm/dry/pink. Vital Signs: 12:26 BP 170 / 92; Pulse 104; Resp 16; Temp 97.9; Pulse Ox 97% on R/A; Weight 53.52 kg; iw 13:45 BP 188 / 100; Pulse 80; Pulse Ox 100% on R/A; ap3 15:29 BP 199 / 96; Pulse 74; Pulse Ox 100% ; ap3 16:25 BP 175 / 92; Pulse 76; Pulse Ox 100% on R/A; ap3 ED Course: 12:13 Patient arrived in ED. im 12:14 [facility] kb 12:14 Carl Hooks MD is Attending Physician. kb 12:27 Triage completed. iw 12:28 Arm band placed on. iw 13:24 UPPER EXTREMITY VENOUS UNILATE In Process Unspecified. EDMS 13:29 CT Head C Spine In Process Unspecified. EDMS 13:43 Maria E Adair, KATHY is Primary Nurse. ap3 13:43 Initial lab(s) drawn, by pr, sent to lab. Inserted saline lock: 20 gauge in left ap3 antecubital area, using aseptic technique. Blood collected. 13:44 Patient has correct armband on for positive identification. Bed in low position. Call ap3 light in reach. Side rails up X2. Adult w/ patient. Pulse ox on. NIBP on. 16:27 ED physician to see patient. ap3 16:39 No provider procedures requiring assistance completed. IV discontinued, intact, ap3 bleeding controlled, No redness/swelling at site. Pressure dressing applied. 16:40 Provided Education on: discharge instructions. ap3 Administered Medications: 14:20 Drug: Ondansetron IVP 4 mg Route: IVP; Site: left antecubital; aa5 16:40 Follow up: Response: No adverse reaction ap3 14:22 Drug: morphine IVP or IV 2 mg Route: IVP; Infused Over: 4 mins; Site: left antecubital; aa5 16:40 Follow up: Response: No adverse reaction; Pain is decreased ap3 15:36 Drug: cloNIDine PO 0.1 mg Route: PO; ap3 16:40 Follow up: Response: No adverse reaction ap3 Medication: 15:29 VIS not applicable for this client. ap3 Outcome: 16:29 Discharge ordered by . kb 16:39 Discharged to home ambulatory. ap3 16:39 Condition: good 16:39 Discharge instructions given to patient, Instructed on discharge instructions, follow up and referral plans. Demonstrated understanding of instructions, follow-up care. 16:40 Patient left the ED. ap3 Signatures: Dispatcher [employer] EDLyly Phillips, LEAN SIX SIGMA BLACK BELT-C LEAN SIX SIGMA BLACK BELT-Deedee Gonsalez, RN Nena Mckeon RN RN aa5 Maria E Adair RN RN ap3 Ruth Huynh
--- NOTE | 2023-04-08 16:30 | EDPHYS ---
Physician Documentation [facility] Name: Carmen Ewing Age: 83 yrs Sex: Female : 1940 Arrival Date: 04/08/2023 Time: 12:10 Bed 7 Private MD: ED Physician Carl Hooks HPI: 04/08 16:31 This 83 yrs old Female presents to ER via Ambulatory with complaints of Arm Pain - kb right. 16:31 Onset: The symptoms/episode began/occurred yesterday. Treatment prior to arrival kb includes: no previous treatment. Severity of symptoms: At their worst the symptoms were mild, moderate, in the emergency department the symptoms are unchanged. The patient has not experienced similar symptoms in the past. The patient has not recently seen a physician. Patient presents for back pain, bruising to right arm, bruising to forehead that started yesterday. States she was with family helping take care of a new baby so she believes that was what is causing her back pain. States she is not sure what caused the bruising. Denies injury, trauma, fall. States she remembers all events of the past few days. Patient is A\T\O x4.. Historical: - Allergies: 12:27 Niacin; iw - PMHx: 12:27 Hypertension; Hypothyroidism; Irritable bowel syndrome; ITP; neuropathy; Osteoporosis; iw Pulmonary Embolism; shingles; thrombocythemia; - PSHx: 12:27 Cholecystectomy; Total abdominal hysterectomy; iw - Immunization history:: Client reports receiving the 2nd dose of the Covid vaccine. - Social history:: Smoking status: . ROS: 16:31 Constitutional: Negative for fever, chills, and weight loss. kb 16:31 Back: Positive for pain with movement. 16:31 Skin: Positive for ecchymosis, of the forehead and right bicep. 16:31 All other systems are negative. Exam: 16:31 Constitutional: This is a well developed, well nourished patient who is awake, alert, kb and in no acute distress. ENT: Moist Mucous membranes Cardiovascular: Regular rate and rhythm with a normal S1 and S2. No gallops, murmurs, or rubs. No pulse deficits. Respiratory: Respirations even and unlabored. No increased work of breathing. Talking in full sentences Abdomen/GI: Soft, non-tender. No distention Back: No spinal tenderness. No costovertebral tenderness. Full range of motion. MS/ Extremity: Pulses equal, no cyanosis. Neurovascular intact. Full, normal range of motion. Neuro: Awake and alert, GCS 15, oriented to person, place, time, and situation. Moves all extremities. Normal gait. 16:31 Head/face: Noted is no obvious of injury or deformity except contusion, that is superficial, of the forehead. 16:31 Musculoskeletal/extremity: Extremities: grossly normal except: noted in the right bicep: ecchymosis, ROM: intact in all extremities, Circulation is intact in all extremities. Sensation intact. Vital Signs: 12:26 BP 170 / 92; Pulse 104; Resp 16; Temp 97.9; Pulse Ox 97% on R/A; Weight 53.52 kg; iw 13:45 BP 188 / 100; Pulse 80; Pulse Ox 100% on R/A; ap3 15:29 BP 199 / 96; Pulse 74; Pulse Ox 100% ; ap3 16:25 BP 175 / 92; Pulse 76; Pulse Ox 100% on R/A; ap3 MDM: 12:14 Patient medically screened. kb 16:34 Differential diagnosis: contusion, hematoma, head injury, strain. Data reviewed: vital kb signs, nurses notes. Counseling: I had a detailed discussion with the patient and/or guardian regarding: the historical points, exam findings, and any diagnostic results supporting the discharge/admit diagnosis, lab results, radiology results, the need for outpatient follow up, a family practitioner, to return to the emergency department if symptoms worsen or persist or if there are any questions or concerns that arise at home. ED course: Discussed results with pt. Pt is ready to go home. States she will follow up with PCP. Pt is asymptomatic of BP. 04/08 12:22 Order name: Urinalysis w/ reflexes; Complete Time: 16:22 iw 04/08 12:22 Order name: CBC with Diff; Complete Time: 14:18 iw 04/08 12:22 Order name: Basic Metabolic Panel; Complete Time: 14:09 iw 04/08 12:28 Order name: Protime (+inr); Complete Time: 14:19 kb 04/08 12:28 Order name: Ptt, Activated; Complete Time: 14:19 kb 04/08 12:22 Order name: US Extremity Venous Unilateral Ltd iw 04/08 12:22 Order name: CT Head C Spine; Complete Time: 13:47 iw 04/08 12:25 Order name: UPPER EXTREMITY VENOUS UNILATE; Complete Time: 13:35 EDCA 04/08 12:22 Order name: IV Start; Complete Time: 13:43 iw Administered Medications: 14:20 Drug: Ondansetron IVP 4 mg Route: IVP; Site: left antecubital; aa5 16:40 Follow up: Response: No adverse reaction ap3 14:22 Drug: morphine IVP or IV 2 mg Route: IVP; Infused Over: 4 mins; Site: left antecubital; aa5 16:40 Follow up: Response: No adverse reaction; Pain is decreased ap3 15:36 Drug: cloNIDine PO 0.1 mg Route: PO; ap3 16:40 Follow up: Response: No adverse reaction ap3 Disposition: 17:52 Co-signature as Attending Physician, Carl Hooks MD I reviewed the patient's care rt provided by the Advanced Practice Provider and agree with the diagnosis and treatment plan. Disposition Summary: 04/08/23 16:29 Discharge Ordered Location: Home kb Condition: Stable kb Diagnosis - Hematoma right arm kb - Essential (primary) hypertension kb - Low back pain kb - Contusion of forehead kb Followup: kb - With: Emergency Department - When: As needed - Reason: Worsening of condition Followup: kb - With: Private Physician - When: 2 - 3 days - Reason: Recheck today's complaints, Continuance of care, Re-evaluation by your physician Discharge Instructions: - Discharge Summary Sheet kb - Hematoma, [id number] kb - Musculoskeletal Pain kb Forms: - Medication Reconciliation Form kb - Thank You Letter kb - Antibiotic Education kb - Prescription Opioid Use kb - Patient Portal Instructions kb Signatures: Dispatcher [employer] EDLyly Phillips, SERGIO OCONNELLP-Deedee Gonsalez, RN KATHY iw Nena Carlin RN RN aa5 Maria E Adair RN RN ap3 Carl Hooks MD MD rt
[2023-04-08 16:46] VITALS: TEMP 97.9
[2023-04-08 16:47] VITALS: O2SAT 100
[2023-04-08 16:51] VITALS: BP 175/92
== END 2023-04-08 16:40 | disposition home or self-care (01) ==
LOC: ER 12:10
DX: S40.021A Contusion of right upper arm, initial encounter (principal); S00.83XA Contusion of other part of head, initial encounter; M54.50 Low back pain, unspecified; I10 Essential (primary) hypertension; Z91.048 Other nonmedicinal substance allergy status
CPT/HCPCS: 85025; 81001; 80048; 36415; 85610; 85730; 70450; 72125; 93971; 96375; 96374; 99284; J2270; J2405

== ENCOUNTER 2023-04-12 14:00 | Emergency (ER) | payer OTHER ==
--- OUTSIDE RECORDS SUMMARY | 2023-04-12 14:08 | XMS REPORT | Continuity of Care Document ---
:1940 Author Organization [facility] t Address [address] [facility] [address] [place] [address] Care Team Providers Name Role Phone Nancy SOLIS, Liya Everett Primary Care Physician Liya Cruz MD Attending Clinician Elliot Ceja MD Attending Clinician Delilah Snyder MA Attending Clinician Unavailable Albina WRAPPER SIZER, Katlin Gallardo Attending Clinician [phone] Beulah Koch NP Attending Clinician Nayely Phipps MA Attending Clinician [...] Disease Active 2017-09 [facility] deficiency deficiency - st 00:00: Hospita 00 l Essential Essential [...] Generalize Disease Active M ethodi d d 4 abdominal abdominal 00:00: Hosp radha pain pain 00 l Left-sided Left-sided Disease Active M ethodi chest pain chest pain 4 st 00:00: Hospita 00 l Musculoske Musculoske [...] 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 00 l Insomnia Insomnia Disease Active [facility] 1 st 00:00: Hospita 00 l Low back Low back Disease Active 2012-09 [facility] pain pain 0[address] st 00:00: Hospita 00 l Fibromyalg Fibromyalg [...] Date Stop Date Source Natural father Hypertension [facility] Maternal aunt Osteoporosis [facility] Natural mother Breast cancer [facility] Natural [facility] Other [facility]ary [facility] disease Natural sister [facility] Social History Social Habit Start Date Stop Date Quantity Comments Source History SDOH Social [facility] Connections Phone Hospita l History SDOH Social [facility] History SDOH Social [facility] History SDOH [facility] Membership History SDOH Social [facility] Meetings History SDOH [facility] Physical Activity [facility]ospita l MPS [facility] Alcohol intake 2022-12-26 2022-12-26 Current Church 00:00:00 00:00:00 non-drinker of Hospital alcohol (finding) History of Social 2022-12-26 2022-12-[address] function 00:00:00 00:00:00 Hospital Tobacco use and 2022-06-27 2022-06-27 Smokeless Church exposure 00:00:00 00:00:00 tobacco non-user Hospital History SDOH Social 2019-10-15 2019-10-15 4 [facility] Living 00:00:00 00:00:00 Hospit al History SDOH 2019-10-15 2019-10-15 0 [facility] Physical Activity 00:00:00 00:00:00 Hospita l DPW History SDOH Stress 2019-10-15 2019-10-15 1 [facility] dist 00:00:00 00:00:00 Hospital History SDOH 2019-10-15 2019-10-15 5 [facility] Financial 00:00:00 00:00:00 Hospital History SDOH IPV [...] [facility] Scarcity 00:00:00 00:00:00 Hospital History SDUT 2019-10-15 2019-10-15 2 [facility] Transport Med 00:00:00 00:00:00 Hospital History SDUT 2019-10-15 2019-10-15 2 [facility] Transport Non-Med 00:00:00 00:00:00 Hospita l Sex Assigned At [birth year] [facility] 00:00[facility] 00:[facility]:00 Hospital Smoking Status Start Date Stop Date Source Never smoked tobacco [facility] Medications Ordered Filled Start Stop Current Ordering Indication Dosage Frequency Signature Comments Components Source Medication Medication Date Date Medication? Clinician (SIG) Name Name rosuvastati 2022-0 2023- Yes [id number] TAKE 1 [facility] n (CRESTOR) 04-[address] 10 mg 00:00: 04:59 MOUTH Hospita tablet 00 :00 EVERY DAY l aspirin 2023-0 Yes 81mg QD Take 1 [...] and take 2 tabs on Saturday hydroxyurea 2022-0 Yes QD Take by Met [facility] (HYDREA) 6-[address] 500 mg 13:30: daily. Hospita capsule 30 Take 1 cap l Mo- Sat and take 2 tabs on Saturday hydroxyurea 2022-0 Yes QD Take by Met [facility] (HYDREA) 6-[address] 500 mg 13:30: daily. Hospita capsule 30 Take 1 cap l Mo- Sat and take 2 tabs on Saturday POLYETHYLEN 2022-0 Yes Miralax [facility] E GLYCOL 6-08 st 3350 13:30: Hospita (MIRALAX 06 l ORAL) POLYETHYLEN 2022-0 Yes Miralax [facility] E GLYCOL 6-08 st 3350 13:30: Hospita (MIRALAX 06 l ORAL) POLYETHYLEN 2022-0 Yes Miralax [facility] E GLYCOL 6-08 [...] DROPS 03 times/day l OPHT) VITAMIN E 3-0 Yes 800[iU] QD 800 Int'l Methodi (AQUASOL E 6-[address] ORAL) 13:29: daily. Hospita 38 vitamin E l VITAMIN E 3-0 Yes 800[iU] QD 800 Int'l Methodi (AQUASOL E 6-[address] ORAL) 13:29: daily. Hospita 38 vitamin E l VITAMIN E 3-0 Yes 800[iU] QD 800 Int'l Methodi (AQUASOL E 6-[address] ORAL) 13:29: daily. Hospita 38 vitamin E l levothyroxi 2022-0 Yes [...] TAKE 2 TABLETS IN THE EVENING verapamiL 3-0 Yes 120mg QD TAKE 1 [facility] di (CALAN) 120 4-[address] MG tablet 00:00: (120 MG Hospi ta 00 TOTAL) BY l MOUTH EVERY EVENING. verapamil 2023-0 Yes 240mg QD TAKE 1 [facility] di extended 4-[address] release 00:00: (240 MG Hospita (VERELAN) 00 TOTAL) BY l 240 MG 24 MOUTH hr capsule EVERY MORNING. atenoloL 3-0 Yes TAKE 2 Methodi (TENORMIN) 4-[address] 25 MG 00:00: MOUTH Hospita tablet 00 EVERY l MORNING AND TAKE 2 TABLETS IN THE EVENING verapamiL 2023-0 Yes 120mg QD TAKE 1 Metho di (CALAN) 120 4-[address] MG tablet 00:00: (120 MG Hospi ta 00 TOTAL) BY l MOUTH EVERY EVENING. verapamil 2023-0 Yes 240mg QD TAKE 1 [facility] di extended 4-[address] release 00:00: (240 MG Hospita (VERELAN) 00 TOTAL) BY l 240 MG 24 MOUTH hr capsule EVERY MORNING. atenoloL Yes TAKE 2 Methodi (TENORMIN) 4-12 TABLETS [...] 24 MOUTH hr capsule EVERY MORNING. omega-3 Yes TAKE 1 Methodi acid ethyl 3-24 [...] E l TETRAHYDROZ 2021-09 Yes Apply to [facility] OLINE 0-[address] HCL/ZN SULF 14:37: 4x Hospit a (EYE DROPS 35 times/day l OPHT) POLYETHYLEN 2021-09 Yes Miralax [facility] E GLYCOL 0-27 st 3350 14:37: Hospita (MIRALAX 35 l ORAL) VITAMIN E 2021-09 Yes 800[iU] QD 800 Int'l Methodi (AQUASOL E 0-[address] ORAL) 14:37: daily. Hospita 35 vitamin E l TETRAHYDROZ 2021-09 Yes Apply to [place] OLINE 0-[address] HCL/ZN [...] BI-FLEX ORAL) glucosamine 2021-09- No Take by [facility] /chondr andres 0-19 10-[address] A sod 15:05: 00:00 Hospita (OSTEO 25 :00 l BI-FLEX ORAL) glucosamine 2021-09- No Take by [facility] /chondr andres 0-19 10-[address] [...] 00:00 Hospita ORAL 18 :00 l teriparatid 2021-09 No 20ug QD Inject 20 Methodi e (FORTEO) 0-19 10-[address] 20 mcg/dose 15:04: 00:00 the skin H ospita (600mcg/2.4 08 :00 daily. l mL) injection teriparatid 2021-09 No 20ug QD Inject 20 [facility] (FORTEO) 0-19 10-[address] 20 mcg/dose 15:04: 00:00 the skin H ospita (600mcg/2.4 08 :00 daily. l mL) injection teriparatid 2021-09 No 20ug QD Inject 20 [facility] (FORTEO) 0-19 10-[address] 20 mcg/dose 15:04: 00:00 the skin H ospita (600mcg/2.4 08 :00 daily. l mL) injection teriparatid 2021-09 No 20ug QD Inject 20 [facility] e (FORTEO) 0-19 10-[address] 20 mcg/dose 15:04: 00:00 the skin H ospita (600mcg/2.4 08 :00 daily. l mL) injection teriparatid 2021-09 No 20ug QD Inject 20 Methodi e [...] moderate pain .acute pain. acetaminoph 2021-09 Yes 1{tbl} Q4H Take 1 M ethodi en-codeine 0-[address] (TYLENOL 00:00: mouth Hospita WITH 00 every 4 l CODEINE #3) (four) 300-30 mg hours as per tablet needed for moderate pain .acute pain. acetaminoph 2021-09 Yes 1{tbl} Q4H Take 1 M ethodi en-codeine 0-[address] (TYLENOL 00:00: mouth Hospita WITH 00 every 4 l CODEINE #3) (four) 300-30 mg hours as per tablet needed for moderate pain .acute pain. acetaminoph 2021-09 Yes [id number] 1{tbl} Q4H Take 1 M ethodi en-codeine 0-[address] (TYLENOL 00:00: mouth Hospita WITH 00 every 4 l CODEINE #3) (four) 300-30 mg hours as per tablet needed for moderate pain .acute pain. acetaminoph 2021-09 Yes [id number] 1{tbl} Q4H Take 1 M ethodi en-codeine [...] TWICE A l gram DAY capsule omeprazole 0 Yes TAKE 1 Metho di (PriLOSEC) 7-[address] 40 MG 00:00: MOUTH Hospita capsule 00 EVERY DAY l omeprazole 2021-0 2021- No TAKE 1 Meth davey (PriLOSEC) 7-14 10-[address] 40 MG 00:00: 00:00 MOUTH Hospita capsule 00 :00 EVERY DAY l omeprazole 2022-0 2022- No TAKE 1 Meth davey (PriLOSEC) 03-22 [...] 00 :00 EVERY DAY [place] [id number] 1{tbl} Q6H Take 1 M ethodi en-codeine 5-[address] (TYLENOL 00:00: mouth Hospita WITH 00 every 6 l CODEINE #3) (six) 300-30 mg hours as per tablet needed for moderate pain for up to 30 days .chronic pain, post herpetic neurlagia. rosuvastati 2022- No [id number] 10mg QD Take 1 Methodi n (Crestor) 5-05 05-06 tablet (10 s t 10 mg 00:00: 04:59 mg total) Hospit a tablet 00 :00 by mouth l daily. rosuvastati 2021- No [id number] 10mg QD Take 1 Methodi n (Crestor) 5-05 10-19 tablet (10 s t 10 mg 00:00: 00:00 mg total) Hospit a tablet 00 :00 by mouth l daily. acetaminoph 2- [place] [id number] 1{tbl} Q6H Take 1 Methodi en-codeine 5-05 10-[address] (TYLENOL 00:00: 00:00 mouth Hospita WITH 00 :00 every 6 l CODEINE #3) (six) 300-30 mg hours as per tablet needed for moderate pain for up to 30 days .chronic pain, post herpetic neurlagia. rosuvastati 2021- No [id number] 10mg QD Take 1 Methodi n (Crestor) 5-05 10-19 tablet (10 s t 10 mg 00:00: 00:00 mg total) Hospit a tablet 00 :00 [place] [id number] 1{tbl} Q6H Take 1 Methodi en-codeine 5-05 10-[address] (TYLENOL 00:00: 00:00 mouth Hospita WITH 00 :00 every 6 l CODEINE #3) (six) 300-30 mg hours as per tablet needed for moderate pain for up to 30 days .chronic pain, post herpetic neurlagia. rosuvastati [id number] 10mg QD Take 1 Methodi n (Crestor) 5-05 10-19 tablet (10 s t 10 mg 00:00: 00:00 mg total) Hospit a tablet 00 :00 [place] [id number] 1{tbl} Q6H Take 1 Methodi en-codeine 5-05 10-[address] (TYLENOL 00:00: 00:00 mouth Hospita WITH 00 :00 every 6 l CODEINE #3) (six) 300-30 mg hours as per tablet needed for moderate pain for up to 30 days .chronic pain, post herpetic neurlagia. rosuvastati No [id number] 10mg QD Take 1 Methodi n (Crestor) 5-05 10-19 tablet (10 s t 10 mg 00:00: 00:00 mg total) Hospit a tablet 00 :00 by [place] [id number] 1{tbl} Q6H Take 1 Methodi en-codeine 5-05 10-[address] (TYLENOL 00:00: 00:00 mouth Hospita WITH 00 :00 every 6 l CODEINE #3) (six) 300-30 mg hours as per tablet needed for moderate pain for up to 30 days .chronic pain, post herpetic neurlagia. rosuvastati No [id number] 10mg QD Take 1 Methodi n (Crestor) 5-05 10-19 tablet (10 s t 10 mg 00:00: 00:00 mg total) Hospit a tablet 00 :00 by mouth l daily. acetamin[place] 2021- [place] [id number] 1{tbl} Q6H Take 1 Methodi en-codeine 5-05 10-[address] (TYLENOL 00:00: 00:00 mouth Hospita WITH 00 :00 every 6 l CODEINE #3) (six) 300-30 mg hours as per tablet needed for moderate pain for up to 30 days .chronic pain, post herpetic neurlagia. acetaminoph 2021- [place] [id number] 1{tbl} Q6H Take 1 Methodi en-codeine 4-08 05-[address] (TYLENOL 00:00: 00:00 mouth Hospita WITH 00 :00 every 6 l CODEINE #3) (six) 300-30 mg hours as per tablet needed for moderate pain for up to 30 days .chronic pain, post herpetic neurlagia. acetaminoph 2021- [place] [id number] 1{tbl} Q6H Take 1 Methodi en-codeine 4-08 05-[address] (TYLENOL 00:00: 00:00 mouth Hospita WITH 00 :00 every 6 l CODEINE #3) (six) 300-30 mg hours as per tablet needed for moderate pain for up to 30 days .chronic pain, post herpetic neurlagia. acetaminoph 2021- No [id number] 1{tbl} Q6H Take 1 Methodi en-codeine 4-08 [...] 24 mouth hr capsule every morning. losartan 2022-0 Yes 50mg Q.5D Take 1 Methodi (COZAAR) 50 4-07 tablet (50 st MG tablet 00:00: mg total) Hos steve 00 by mouth 2 l (two) times a day. losartan 2022-0 Yes 50mg Q.5D Take 1 Methodi (COZAAR) 50 4-07 tablet (50 st MG tablet 00:00: mg total) Hos steve 00 by mouth 2 l (two) times a day. losartan 2022-0 Yes 50mg Q.5D Take 1 Methodi (COZAAR) 50 4-07 tablet (50 st MG tablet 00:00: mg total) Hos steve 00 by mouth 2 l (two) times a day. levothyroxi 2-0 2023- No 100ug QD Take 1 Me thodi ne 4-07 05-[address] (SYNTHROID) 00:00: 00:00 (100 mcg H ospita 100 mcg 00 :00 total) by l tablet mouth daily. levothyroxi 2022- No 100ug QD Take 1 Me gabbieodi ne 12-[address] (SYNTHROID) 00:00: 00:00 (100 mcg H ospita 100 mcg 00 :00 total) by l tablet mouth daily. levothyroxi 2022- No 100ug QD Take 1 Me thodi ne 12-[address] (SYNTHROID) 00:00: 00:00 (100 mcg H ospita 100 mcg 00 :00 total) by l tablet mouth daily. hydroCHLORO 2022- No 12.5mg QD Take 1 M ethodi thiazide 12-[address] (HYDRODIURI 00:00: 00:00 (12.5 mg H ospita L) 12.5 MG 00 :00 total) by l tablet mouth daily. hydroCHLORO 2022- No 12.5mg QD Take 1 M ethodi thiazide 12-[address] (HYDRODIURI 00:00: 00:00 (12.5 mg H ospita L) 12.5 MG 00 :00 total) by l tablet mouth daily. hydroCHLORO 2022- No 12.5mg QD Take 1 M ethodi thiazide 12-[address] (HYDRODIURI 00:00: 00:00 (12.5 mg [...] TAKE 2 TABLETS IN THE EVENING verapamiL 2021-2022- No 120mg QD Take 1 Meth davey [...] hr capsule every morning. hydroxyurea 2021- No [id number] 500mg QD Take 1 Methodi (HYDREA) 12-[address] 500 mg 00:00: 04:59 (500 mg Hospita capsule 00 :00 total) by l mouth daily for 30 days. amoxicillin 2021- No Take 4 Met hodi (AMOXIL) 12-[address] 500 MG 00:00: 04:59 hours Hospita capsule 00 :00 before l procedure hydroxyurea 2021-2021- No [id number] 500mg QD Take 1 Methodi (HYDREA) 12-[address] 500 mg 00:00: 04:59 (500 mg Hospita capsule 00 :00 total) by l mouth daily for 30 days. amoxicillin 2021- No Take 4 Met hodi (AMOXIL) 12-14-[address] 500 MG 00:00: 04:59 hours Hospita capsule 00 :00 before l procedure hydroxyurea 2021- No [id number] 500mg QD Take 1 Methodi (HYDREA) 12-14-08 [...] No TAKE 1 Method i (COZAAR) 50 12-07 04-[address] MG tablet 00:00: 00:00 MOUTH Hospit a 00 :00 TWICE A l DAY omega-3 2021- Yes TAKE 1 Methodi acid ethyl 2-[address] esters 00:00: MOUTH Hospita (LOVAZA) 1 00 TWICE A l gram DAY capsule omega-3 2021-2021- No TAKE 1 Methodi acid ethyl 2-10 09-[address] esters 00:00: 00:00 MOUTH Hospita (LOVAZA) 1 00 :00 TWICE A l gram DAY capsule omega-3 2021-0 2021- No TAKE 1 Methodi acid ethyl 2-10 09-[address] esters 00:00: 00:00 MOUTH Hospita (LOVAZA) 1 00 :00 TWICE A l gram DAY capsule omega-3 2021-2021- No TAKE 1 Methodi acid ethyl 2-10 09-[address] esters 00:00: 00:00 MOUTH Hospita (LOVAZA) 1 00 :00 TWICE A l gram DAY capsule omega-3 2021-2021- No TAKE 1 Methodi acid ethyl 2-10 09-[address] esters 00:00: 00:00 MOUTH Hospita (LOVAZA) 1 00 :00 TWICE A l gram DAY capsule omega-3 2021-2021- No TAKE 1 Methodi acid ethyl 2-10 09-[address] esters 00:00: 00:00 MOUTH Hospita (LOVAZA) 1 00 :00 TWICE A l gram DAY capsule atenoloL 2021-2021- No TAKE 2 Method i (TENORMIN) 09-24- TABLETS BY st 25 MG 00:00: 00:00 MOUTH Hospita tablet 00 :00 EVERY l MORNING AND TAKE 2 TABLETS IN THE EVENING atenoloL 2021-0 2021- No TAKE 2 Method i (TENORMIN) 09-24-[address] 25 MG 00:00: 00:00 MOUTH Hospita tablet 00 :00 EVERY l MORNING AND TAKE 2 TABLETS IN THE EVENING atenoloL 2021-0 2021- No TAKE 2 Method i (TENORMIN) 09-24-[address] 25 MG 00:00: 00:00 MOUTH Hospita tablet 00 :00 EVERY l MORNING AND TAKE 2 TABLETS IN THE EVENING penicillin 2021-2021- No 500mg Q.25D Take 1 Me thodi [...] E l TETRAHYDROZ 2020-09 Yes Apply to [place] [facility] O[place] 0-[address] [...] QD Take 1 Meth davey (PriLOSEC) 06-05 07-[address] 40 MG 00:00: 00:00 (40 [...] :00 l mg tablet acetaminoph 2021- [place] [id number] 1{tbl} Q6H Take 1 Methodi en-codeine 06-[address] (TYLENOL 00:00: 00:00 mouth Hospita WITH 00 :00 every 6 l CODEINE #3) (six) 300-30 mg hours as per tablet needed for moderate pain for up to 30 days .chronic pain, post herpetic neurlagia. acetamin[place] 2021- [place] [id number] 1{tbl} Q6H Take 1 Methodi en-codeine 06-[address] (TYLENOL 00:00: 00:00 mouth Hospita WITH 00 :00 every 6 l CODEINE #3) (six) 300-30 mg hours as per tablet needed for moderate pain for up to 30 days .chronic pain, [place] [id number] 1{tbl} Q6H Take 1 Methodi en-codeine 06-01- [...] 2021- No TAKE 1 [facility] acid ethyl 04-[address] esters 00:00: 00:00 MOUTH [...] QD Take 1 Method i (AMBIEN) 5 - 10-19 tablet (5 st MG tablet 00:00: 00:00 mg total) Ho spita 00 :00 by mouth l nightly as needed for sleep for up to 30 days. gabapentin 2021- No TAKE 2 Meth davey (NEURONTIN) - 10-19 CAPSULE BY s t 100 mg 00:00: 00:00 MOUTH 3 Hospita capsule 00 :00 TIMES A l DAY zolpidem 2021- No 5mg QD Take 1 Method i (AMBIEN) 5 - 10-19 tablet (5 st MG tablet 00:00: [...] QD Take 1 Method i (AMBIEN) 5 03-27 tablet (5 st MG tablet 00:00: 00:00 [...] QD Take 1 Method i (AMBIEN) 5 03-27 tablet (5 st MG tablet 00:00: 00:00 [...] EVERY DAY l IN THE EVENING verapamiL 2020-2021- No TAKE 1 [facility]o di (CALAN) 120 [...] No TAKE 1 Method i (COZAAR) 50 12-10- TABLET BY st MG tablet 00:00: 00:00 MOUTH Hospit a 00 :00 TWICE A l DAY levothyroxi 2021- No 100ug QD TAKE 1 [facility] thodi ne 12-[address] (SYNTHROID) 00:00: 00:00 (100 MCG H ospita 100 mcg 00 :00 TOTAL) BY l tablet MOUTH DAILY FOR 360 DAYS. losartan 2021- No TAKE 1 Method i (COZAAR) 50 -11 09-[address] MG tablet 00:00: 00:00 MOUTH Hospit a 00 :00 TWICE A l DAY levothyroxi 2021- No 100ug QD TAKE 1 Me thodi ne 12-10-[address] (SYNTHROID) 00:00: 00:00 (100 MCG [...] BY st release 00:00: 00:00 MOUTH [facility] 00 :00 EVERY DAY l 240 MG 24 IN THE hr capsule MORNING verapamil 2021- No TAKE 1 Metho di extended 3-14 -[address] release 00:00: 00:00 MOUTH Hospita ([facility]) 00 :00 EVERY DAY l 240 MG 24 IN THE hr capsule MORNING verapamil 2021- No TAKE 1 Metho di extended 3-14 -[address] release 00:00: 00:00 MOUTH Hospita ([facility]) 00 :00 EVERY DAY l 240 MG 24 IN THE hr capsule MORNING atenoloL 2021- No TAKE 2 Method i (TENORMIN) 1-17 01-[address] 25 MG 00:00: 00:00 MOUTH Hospita tablet 00 :00 EVERY l MORNING AND TAKE 2 TABLETS IN THE EVENING acetaminoph 2020- No [id number] 1{tbl} Q6H Take 1 Methodi en-codeine 6-05 [...] l 240 MG SR MORNING tablet verapamil 2019- Yes TAKE 1 Method i sustained 3-[address] release 00:00: MOUTH Hospita (CALAN-SR) 00 EVERY l 240 MG SR MORNING tablet verapamil 2019-0 Yes TAKE 1 Method i sustained 3-[address] release 00:00: MOUTH Hospita (CALAN-SR) 00 EVERY l 240 MG SR MORNING tablet verapamil 2022- No TAKE 1 Metho di sustained 3-27 04-[address] release 00:00: 00:00 MOUTH Hospita (CALAN-SR) 00 :00 EVERY l 240 MG SR MORNING tablet verapamil 2022- No TAKE 1 Metho di sustained 3-27 04-[address] release 00:00: 00:00 MOUTH Hospita (CALAN-SR) 00 :00 EVERY l 240 MG SR MORNING tablet verapamil 2022- No TAKE 1 Metho di sustained 3-27 04-[address] release 00:00: 00:00 MOUTH Hospita (CALAN-SR) 00 :00 EVERY l 240 MG SR MORNING tablet HYDROcodone Yes [id number] 1{tbl} Q6H Take 1 M ethodi -acetaminop 3-[address] hen (Firm58) 00:00: mouth Hospi ta 5-325 mg 00 every 6 l per tablet (six) hours as needed for severe pain (post herpetic neuralgia) for up to 90 days .chronic pain, has new issue with history of chronic pain- has acute shingles. Max Daily Amount: 4 tablets HYDROcodone 2021- No [id number] 1{tbl} Q6H Take 1 Methodi -acetaminop 3-26 10-[address] hen (Firm58) 00:00: 00:00 mouth Hosp radha 5-325 mg 00 :00 every 6 l per tablet (six) hours as needed for severe pain (post herpetic neuralgia) for up to 90 days .chronic pain, has new issue with history of chronic pain- has acute shingles. Max Daily Amount: 4 tablets HYDROcodone 2021- No [id number] 1{tbl} Q6H Take 1 Methodi -acetaminop 3-26 10-[address] hen (Firm58) 00:00: 00:00 mouth Hosp radha 5-325 mg 00 :00 every 6 l per tablet (six) hours as needed for severe pain (post herpetic neuralgia) for up to 90 days .chronic pain, has new issue with history of chronic pain- has acute shingles. Max Daily Amount: 4 tablets HYDROcodone 2021- No [id number] 1{tbl} Q6H Take 1 Methodi -acetaminop 3-26 10-[address] hen (Firm58) 00:00: 00:00 mouth Hosp radha 5-325 mg 00 :00 every 6 l per tablet (six) hours as needed for severe pain (post herpetic neuralgia) for up to 90 days .chronic pain, has new issue with history of chronic pain- has acute shingles. Max Daily Amount: 4 tablets HYDROcodone 0 2021- No [id number] 1{tbl} Q6H Take 1 Methodi -acetaminop 3-26 10-[address] hen (Firm58) 00:00: 00:00 mouth Hosp radha 5-325 mg 00 :00 every 6 l per tablet (six) hours as needed for severe pain (post herpetic neuralgia) for up to 90 days .chronic pain, has new issue with history of chronic pain- has acute shingles. Max Daily Amount: 4 tablets HYDROcodone 2019-0 2021- [place] [id number] 1{tbl} Q6H Take 1 Methodi -acetaminop 3-26 10-[address] hen (Firm58) 00:00: 00:00 mouth Hosp radha 5-325 mg [...] 00 AREA FOUR l TIMES DAILY diclofenac 2018- Yes APPLY 4 Meth davey (VOLTAREN) 5-12 [...] Name ITALIA BERGERID-19 MRNA 2022-06-27 Completed Met [facility]ist BIVALENT [facility] 00:00:00 Hospital VACCINATION [facility] COVID-19 MRNA 2022-06-27 Completed Met [facility]ist BIVALENT BOOSTER 00:00:00 Hospital VACCINATION [facility] COVID-19 MRNA 2022-06-27 Completed Met hodist BIVALENT BOOSTER 00:00:00 Hospital VACCINATION [facility] COVID-19 MRNA 2022-06-27 Completed Met hodist BIVALENT BOOSTER 00:00:00 Hospital VACCINATION [facility] COVID-19 MRNA 2022-06-27 Completed Met hodist BIVALENT BOOSTER 00:00:00 Hospital VACCINATION FLUZONE HIGH-DOSE PF 2022-05-10 Completed Meth odist 00:00:00 [facility] FLUZONE HIGH-DOSE PF 2022-05-10 Completed Meth odist 00:00:00 [facility] FLUZONE HIGH-DOSE PF 2022-05-10 Completed Meth odist 00:00:00 Hospital FLUZONE HIGH-DOSE PF 2022-05-10 Completed Meth odist 00:00:00 [facility] FLUZONE HIGH-DOSE PF 2022-05-10 Com[facility] Com[facility] 2022-01-29 Com[facility] 2022-01-29 Completed [facility] 2022-01-29 Completed [facility] 2022-01-29 Completed [facility] 2021-05-19 Completed [facility] 2021-05-19 Com[facility] 2021-05-19 Completed Met [facility]ist VACCINATION 00:00:00 [facility] HILARYA COVID-19 MRNA 2021-05-19 Completed Met hodist VACCINATION 00:00:00 [facility] HILARYA COVID-19 MRNA 2021-05-19 Completed Met hodist VACCINATION 00:00:00 [facility] MODERNA COVID-19 MRNA 2021-05-19 Completed Met hodist VACCINATION 00:00:00 [facility] MODERNA COVID-19 MRNA 2020-12-14 Completed Met hodist VACCINATION 00:00:00 [facility] HILARYA COVID-19 MRNA 2020-12-14 Completed Met hodist VACCINATION 00:00:00 [facility] HILARYA COVID-19 MRNA 2020-12-14 Completed Met hodist VACCINATION 00:00:00 [facility] HILARYA COVID-19 MRNA 2020-12-14 Completed Met hodist VACCINATION 00:00:00 [facility] HILARYA COVID-19 MRNA 2020-12-14 Completed Met hodist VACCINATION 00:00:00 [facility] HILARYA COVID-19 MRNA 2020-12-14 Completed Met hodist VACCINATION 00:00:00 [facility] HILARYA COVID-19 MRNA 2020-11-16 Completed Met hodist VACCINATION 00:00:00 [facility] HILARYA COVID-19 MRNA 2020-11-16 Completed Met hodist VACCINATION 00:00:00 [facility] HLIARYA COVID-19 MRNA 2020-11-16 Completed Met hodist VACCINATION 00:00:00 [facility] MODERNA COVID-19 MRNA 2020-11-16 Completed Met hodist VACCINATION 00:00:00 [facility] MODERNA COVID-19 MRNA 2020-11-16 Completed Met hodist VACCINATION 00:00:00 [facility] MODERNA COVID-19 MRNA 2020-11-16 Completed [facility]ACC[facility]ATION [facility]00 [facility] [facility] FLUZONE QUAD 2020-06-02 Completed [facility] FLUZONE QUAD 2020-06-02 Completed [facility] FLUZONE QUAD 2020-06-02 Completed [facility]00 [facility] FLUZONE QUAD 2020-06-02 Completed [facility] 00:[facility]:00 [facility] FLUZONE QUAD 2020-06-02 Completed [facility] 00:[facility]00 [facility] FLUZONE QUAD 2020-06-02 Completed [facility]:00 Hospital Influenza, 2019-06-09 Completed [facility] Unspecified 00:00:00 Hospital Influenza, 2019-06-09 Completed [facility] Un[facility] 00:00:00 Hospital Influenza, 2019-06-09 Completed [facility] Un[facility] 00:00:00 Hospital Influenza, 2019-06-09 Completed [facility] Un[facility] 00:00:00 Hospital Influenza, 2019-06-09 Completed [facility] Un[facility] 00:00:00 Hospital Influenza, 2019-06-09 Completed [facility] Un[facility] 00:00:00 Hospital Influenza, 2018-06-09 Completed [facility] Un[facility] 00:00:00 Hospital Influenza, 2018-06-09 Completed [facility] Un[facility] 00:00:00 Hospital Influenza, 2018-06-09 Completed [facility] 00:00:00 Hospital Influenza, 2018-06-09 Completed [facility] 00:[facility]:00 Hospital Influenza, 2018-06-09 Completed [facility] Un[facility] 00:00:00 Hospital Influenza, 2018-06-09 Completed [facility] Un[facility] 00:[facility]:00 Hospital Influenza Trivalent 2017-06-12 Completed [...] [facility] 00:[facility]:00 Hospital Tdap 2017-05-20 Completed [facility] 00:[facility]00 Hospital Tdap 2017-05-20 Completed [facility] 00:[facility]00 Hospital Tdap 2017-05-20 Completed [facility] 00:00:00 Hospital Tdap 2017-05-20 Completed [facility] 00:[facility]:00 Hospital Tdap 2017-05-20 Completed [facility] 00:[facility]00 Hospital Tdap 2017-05-20 Completed [facility] 00:[facility]:00 Hospital FLUZONE HIGH-DOSE PF 2016-06-04 Completed [facility] 00:00:00 Hospital FLUZONE HIGH-DOSE PF 2016-06-04 Completed [facility] 00:00:00 Hospital FLUZONE HIGH-DOSE PF 2016-06-04 Completed [facility] 00:00:00 Hospital FLUZONE HIGH-DOSE PF 2016-06-04 Completed [facility] 00:00:00 Hospital FLUZONE HIGH-DOSE PF 2016-06-04 Completed Meth odist 00:00:00 [facility] FLUZONE HIGH-DOSE PF 2016-06-04 Completed [facility]ist 00:00:00 [facility] Pneumococcal 2015-07-12 Completed [facility] Conjugate 13-Valent 00:00:00 [facility] Pneumococcal 2015-07-12 Completed [facility] Conjugate 13-Valent 00:00:00 [facility] Pneumococcal 2015-07-12 Completed [facility] Conjugate 13-Valent 00:00:00 [facility] Pneumococcal 2015-07-12 Completed [facility] Conjugate [facility] 00:[facility] Pneum[facility] 2015-07-12 Completed [facility] Conjugate 13-Valent 00:00:00 [facility] Pneumococcal 2015-07-12 Completed [facility] Conjugate 13-[facility] 00[facility]00:00 [facility] FLUZONE HIGH-DOSE PF 2015-06-26 Completed [facility] odist 00:00:00 [facility] FLUZONE HIGH-DOSE PF 2015-06-26 Completed Meth odist 00:00:00 [facility] FLUZONE HIGH-DOSE PF 2015-06-26 Completed [facility] 00:00:00 Hospital FLUZONE HIGH-DOSE PF 2015-06-26 Completed Meth odist 00:00:00 [facility] FLUZONE HIGH-DOSE PF 2015-06-26 Completed [facility]ist 00:00:00 Hospital FLUZONE HIGH-DOSE PF 2015-06-26 Completed [facility] 00:00:00 Hospital FLUZONE HIGH-DOSE PF 2014-06-11 Completed [facility] 00:00:00 Hospital FLUZONE HIGH-DOSE PF 2014-06-11 Completed Meth odist 00:00:00 [facility] FLUZONE HIGH-DOSE PF 2014-06-11 Completed [facility] 00:00:00 Hospital FLUZONE HIGH-DOSE PF 2014-06-11 Completed [facility] 00:00:00 Hospital FLUZONE HIGH-DOSE PF 2014-06-11 Completed [facility] 00:00:00 Hospital FLUZONE HIGH-DOSE PF 2014-06-11 Completed [facility] 00:00:00 Hospital Pneumococcal 2013-07-07 Completed [facility] Polysaccharide 00:00:00 Hospital Pneumococcal 2013-07-07 Completed [facility] Polysaccharide 00:00:00 Hospital Pneumococcal 2013-07-07 Completed [facility] Polysaccharide 00:00:00 Hospital Pneumococcal 2013-07-07 Completed [facility] Polysaccharide 00:00:00 Hospital Pneumococcal 2013-07-07 Completed [facility] Polysaccharide 00:00:00 Hospital Pneumococcal 2013-07-07 Completed [facility] Polysaccharide 00:00:00 Hospital Influenza Trivalent 2008-06-10 Completed [facility] 00:00:00 Hospital Influenza Trivalent 2008-06-10 Completed [facility] 00:00:00 Hospital Influenza Trivalent 2008-06-10 Completed [facility] 00:00:00 Hospital Influenza Trivalent 2008-06-10 Completed [facility] 00:00:00 Hospital Influenza Trivalent 2008-06-10 Completed [facility] 00:00:00 Hospital Influenza Trivalent 2008-06-10 Completed [facility] 00:00:00 Hospital Pneumococcal 2007-09-18 Completed [facility] Polysaccharide 00:00:00 Hospital Pneumococcal 2007-09-18 Completed [facility] Polysaccharide 00:00:00 Hospital Pneumococcal 2007-09-18 Completed [facility] Polysaccharide 00:00:00 Hospital Pneumococcal 2007-09-18 Completed [facility] Polysaccharide 00:00:00 Hospital Pneumococcal 2007-09-18 Completed [facility] Polysaccharide 00:00:00 Hospital Pneumococcal 2007-09-18 Completed [facility] Polysaccharide 00:00:00 Hospital Pneumococcal 2007-09-18 Completed [facility] Polysaccharide 00:00:00 Hospital Pneumococcal 2007-09-18 Completed [facility] Polysaccharide 00:00:00 Hospital Pneumococcal 2007-09-18 Completed [facility] Polysaccharide 00:00:00 Hospital Pneumococcal 2007-09-18 Completed [facility] Polysaccharide 00:00:00 Hospital Pneumococcal 2007-09-18 Completed [facility] Polysaccharide 00:00:00 Hospital Pneumococcal 2007-09-18 Completed [facility] Polysaccharide 00:00:00 Hospital Vital Signs Vital Name Observation Time Observation Value Comments Source Systolic blood 2023-02-14 18:09:00 145 mm[Hg] [facility] pressure Diastolic blood 2023-02-14 18:09:00 74 mm[Hg] [facility] pressure Heart rate 2023-02-14 18:09:00 80 /min [facility] Body height 2023-02-14 18:09:00 167.6 cm [facility] Body weight 2023-02-14 18:09:00 58.877 kg [facility] BMI 2023-02-14 18:09:00 20.95 kg/m2 [facility] Oxygen saturation in 2023-02-14 18:09:00 97 /min [facility] Arterial blood by Pulse oximetry Respiratory rate 2023-01-03 18:02:00 20 /min [facility] Systolic blood 2022-10-04 19:03:00 132 mm[Hg] Method [facility] pressure Diastolic blood 2022-10-04 19:03:00 60 mm[Hg] [facility] pressure Heart rate 2022-10-04 19:03:00 78 /min [facility] Body height 2022-10-04 19:03:00 167.6 cm [facility] Body weight 2022-10-04 19:03:00 55.702 kg [facility] BMI 2022-10-04 19:03:00 19.82 kg/m2 [facility] Oxygen saturation in 2022-10-04 19:03:00 97 /min [facility] Arterial blood by Pulse oximetry Respiratory rate 2022-07-05 18:18:00 18 /min [facility] Systolic blood 2022-04-05 18:20:00 153 mm[Hg] Method [facility] pressure Diastolic blood 2022-04-05 18:20:00 74 mm[Hg] [facility] pressure Heart rate 2022-04-05 18:20:00 71 /min [facility] Respiratory rate 2022-04-05 18:20:00 17 /min [facility] Body height 2022-04-05 18:20:00 167.6 cm [facility] Body weight 2022-04-05 18:20:00 56.881 kg [facility] BMI 2022-04-05 18:20:00 20.24 kg/m2 [facility] Oxygen saturation in 2022-04-05 18:20:00 98 /min [facility] Arterial blood by Pulse oximetry Procedures Procedure Date / Time Performing Clinician Source Performed CBC WITH PLATELET AND 2023-02-14 18:10:00 [facility] DIFFERENTIAL MANUAL DIFFERENTIAL 2023-02-14 18:10:00 [facility] FERRITIN LEVEL 2023-02-14 18:10:00 Elliot Ceja [facility] spital CBC WITH PLATELET AND 2023-01-03 18:08:00 [facility] DIFFERENTIAL MANUAL DIFFERENTIAL 2023-01-03 18:08:00 [facility] FERRITIN LEVEL 2023-01-03 18:08:00 [facility] spital COMPREHENSIVE METABOLIC 2022-12-26 19:57:00 August [facility] PANEL THYROID STIMULATING 2022-12-26 [facility]:57[facility] 2022-12-26 19:57:00 August [facility] ospital VITAMIN D 25 HYDROXY 2022-12-26 19:57:00 August [facility] LEVEL CBC WITH PLATELET AND 2022-12-26 19:57:00 August [facility] DIFFERENTIAL CHOLESTEROL 2022-12-26 19:57:00 August [facility] ospital HDL CHOLESTEROL 2022-12-26 19:57:00 August [facility] ospital LDL CHOLESTEROL, DIRECT 2022-12-26 19:57:00 August [facility] CBC WITH PLATELET AND 2022-10-04 19:08:00 [facility] DIFFERENTIAL SMEAR REVIEW 2022-10-04 19:08:00 Marcial Elliot [facility] spital CBC WITH PLATELET AND 2022-07-05 18:42:00 [facility] DIFFERENTIAL SMEAR REVIEW 2022-07-05 18:42:00 Elliot Ceja [facility] spital URINE CULTURE 2022-06-27 20:28:00 Liya Cruz [facility] ospital CBC WITH PLATELET AND 2022-06-27 20:28:00 Liya Cruz [facility] DIFFERENTIAL COMPREHENSIVE METABOLIC 2022-06-27 20:28:00 Liya Cruz [facility] PANEL HEMOGLOBIN A1C 2022-06-27 20:28:00 Liya Cruz H ospital THYROID STIMULATING 2022-06-27 20:28:00 Liya Cruz [facility] HORMONE T4, FREE 2022-06-27 20:28:00 [facility]ya [facility] LIPID PANEL 2022-06-27 20:28:00 Liya Cruz H ospital URINALYSIS, AUTOMATED 2022-06-27 20:28:00 Liya Cruz [facility] WITH MICROSCOPY VITAMIN D 25 HYDROXY 2022-06-27 20:28:00 Liya Cruz [facility] LEVEL CBC WITH PLATELET AND 2022-06-27 20:28:00 Liya Cruz [facility] DIFFERENTIAL CBC WITH PLATELET AND 2022-04-05 18:28:00 [facility] DIFFERENTIAL MANUAL DIFFERENTIAL 2022-04-05 18:28:00 [facility] CBC WITH PLATELET AND 2022-04-05 18:28:00 [facility] DIFFERENTIAL COMPREHENSIVE METABOLIC 2021-12-14 19:41:00 Liya Cruz [facility] PANEL LIPID PANEL 2021-12-14 19:41:00 Liya Cruz ospital THYROID STIMULATING 2021-12-14 19:41:00 Liya Cruz [facility] HORMONE T4, FREE 2021-12-14 19:41:00 Liya Cruzist ospital CBC WITH PLATELET AND 2021-12-14 18:15:00 [facility] DIFFERENTIAL SMEAR REVIEW 2021-12-14 18:15:00 Elliot Ceja spital HC COMPLETE BLD COUNT 2021-08-21 19:44:00 [facility] W/AUTO DIFF SMEAR REVIEW 2021-08-21 19:44:00 Elliot Ceja Ho spital HC COMPLETE BLD COUNT 2021-06-29 18:40:00 [facility] W/AUTO DIFF SMEAR REVIEW 2021-06-29 18:40:00 Elliot Ceja Ho spital CBC WITH PLATELET AND 2021-06-12 18:43:00 Liya Cruz [facility] DIFFERENTIAL COMPREHENSIVE METABOLIC 2021-06-12 18:43:00 Liya Cruz [facility] PANEL TOTAL IRON BINDING 2021-06-12 [facility]:43[facility] 2021-06-12 18:43:00 Liya Cruz H ospital LIPASE LEVEL 2021-06-12 18:43:00 Liya Cruz [facility] ospital LIYA SCREEN W IFA W REFLEX 2021-06-12 18:43:00 Liya Cruz [facility] TO TITER C-REACTIVE PROTEIN 2021-06-12 [facility] SEDIMENTATION RATE 2021-06-12 18:43[facility]00 [facility] CBC WITH PLATELET AND 2021-06-01 18:10:00 [facility] DIFFERENTIAL MANUAL DIFFERENTIAL 2021-06-01 18:10:00 [facility] Plan of Care Planned Activity Planned Date Details Comments Source Future Scheduled 2023-04-09 COVID-[address] Test 13:52:11 (6 [facility]) [code = COVID-19 VACCINE (6 - [facility])] Future Scheduled 2023-04-09 INFLUENZA VACCINE [facility] Test 13:52:11 [code = INFLUENZA Hospital VACCINE] Future Scheduled 2023-04-09 SHINGLES VACCINES Postponed from [facility] Test 13:52:11 (1 of 2) [code = 1989 Hospital [...] of 2)] Future Scheduled 2022-05-09 HEPATITIS B [facility] Test 08:41:29 VACCINES (1 of 3 Hospital [...] Date/Time Type Type Clinicians Facility Department ID 2023-04-09 2023-04-09 Federica Zarate.2.840.1 [id number] Methodi 00:00:00 00:00:[address] 3.430.2.7 Hospit a .3.195823 l .8 2023-02-14 2023-02-14 Elder Villalba2.840.1 [id number] 3552 Methodi 13:10:00 13:51:[address] 3.430.2.7 Hospit a .3.787110 l .8 2023-02-14 2023-02-14 Lab Rice, 1.2.840.1 [id number] 1286 Methodi 13:10:00 13:51:[address] 3.430.2.7 Hospit a .3.661564 l .8 2023-02-14 2023-02-14 Office Rice, 1.2.840.1 [id number] 2720 Methodi 13:15:00 13:51:08 Visit Elliot 52408.1.[address] 3.430.2.7 Hospit a .3.600388 l .8 2023-02-14 2023-02-14 Office Rice, 1.2.840.1 [id number] 3551 Methodi 13:15:00 13:51:08 Visit Elliot 50505.1.[address] 3.430.2.7 Hospit a .3.591727 l .8 2023-02-14 2023-02-14 Travel 1.2.840.1 1.2.551.233 3114 [id number] Methodi 00:00:00 00:00:[address] 3.430.2.7 0.2.7.3.698 Ho spita .3.739115 084.8 l .8 2023-02-14 2023-02-14 Travel 1.2.840.1 1.2.740.840 5986 [id number] Methodi 00:00:00 00:00:[address] 3.430.2.7 0.2.7.3.698 Ho spita .3.074357 084.8 l .8 2023-02-07 2023-02-07 Rommel Snyder, 1.2.840.1 [id number] Methodi 00:00:00 00:00:00 Only Delilah 57456.1.[address] 3.430.2.7 Hospit a .3.587371 l .8 2023-02-07 2023-02-07 Orders Snyder, 1.2.840.1 [id number] 991 [id number] Methodi 00:00:00 00:00:00 Only Delilah 42160.1.[address] 3.430.2.7 Hospit a .3.601910 l .8 2023-01-31 2023-01-31 Telephone Rice, 1.2.840.1 [id number] 2099 [id number] Methodi 00:00:00 00:00:[address] 3.430.2.7 Hospit a .3.828891 l .8 2023-01-31 2023-01-31 Refill Nancy, 1.2.840.1 [id number] 2099 [id number] Methodi 00:00:00 00:00:[address] 3.430.2.7 Hospit a .3.189393 l .8 2023-01-31 2023-01-31 Telephone Rice, 1.2.840.1 [id number] 2099 [id number] Methodi 00:00:00 00:00:[address] 3.430.2.7 Hospit a .3.199437 l .8 2023-01-31 2023-01-31 Refill Nancy, 1.2.840.1 [id number] 2099 [id number] Methodi 00:00:00 00:00:[address] 3.430.2.7 Hospit a .3.269752 l .8 2023-01-25 2023-01-25 Refill Nancy, 1.2.840.1 [id number] Methodi 00:00:00 00:00:[address] 3.430.2.7 Hospit a .3.806529 l .8 2023-01-25 2023-01-25 Refill Nancy, 1.2.840.1 [id number] 2099 [id number] Methodi 00:00:00 00:00:[address] 3.430.2.7 Hospit a .3.837874 l .8 2023-01-09 2023-01-09 [facility].840[facility]1 [id number] Methodi 00:00:00 00:00:00 Only Katlin 04746.1.[address] [place] 3.430.2.7 Hospit a .3.702388 l .8 2023-01-09 2023-01-09 Orders [facility], 1.2.840.1 [id number] Methodi 00:00:00 00:00:00 Only Katlin 94260.1.[address] [place] 3.430.2.7 Hospit a .3.960764 l .8 2023-01-07 2023-01-07 Refill Nancy, 1.2.840.1 [id number] 2099 [id number] Methodi 00:00:00 00:00:[address] 3.430.2.7 Hospit a .3.700123 l .8 2023-01-07 2023-01-07 Refill Nancy, 1.2.840.1 [id number] 2099 [id number] Methodi 00:00:00 00:00:[address] 3.430.2.7 Hospit a .3.024545 l .8 2023-01-03 2023-01-03 Office Rice, 1.2.840.1 [id number] 2860 Methodi 13:00:00 13:28:09 Visit Elliot 09771.1.[address] 3.430.2.7 Hospit a .3.085308 l .8 2023-01-03 2023-01-03 Office Rice, 1.2.840.1 [id number] 1527 Methodi 13:00:00 13:28:09 Visit Elliot [address]209.1.[address] 3.430.2.7 Hospit a .3.482370 l .8 2023-01-03 2023-01-03 Lab Rice, 1.2.840.1 [id number] 8760 Methodi 12:50:00 12:55:[address] 3.430.2.7 Hospit a .3.094647 l .8 2023-01-03 2023-01-03 Lab Rice, 1.2.840.1 [id number] 3687 Methodi 12:50:00 12:55:[address] 3.430.2.7 Hospit a .3.198737 l .8 2023-01-03 2023-01-03 Travel 1.2.840.1 1.2.663.825 2759 598328 Methodi 00:00:00 00:00:[address] 3.430.2.7 0.2.7.3.698 Ho spita .3.180319 084.8 l .8 2023-01-03 2023-01-03 Travel 1.2.840.1 1.2.851.722 6407 307795 Methodi 00:00:00 00:00:[address] 3.430.2.7 0.2.7.3.698 Ho spita .3.559249 084.8 l .8 2022-12-26 2022-12-26 Office August, 1.2.840.1 [id number] 15646 Methodi 14:00:00 14:49:59 Visit Beulah 53377.1.[address] 3.430.2.7 Hospit a .3.651612 l .8 2022-12-26 2022-12-26 Office August, 1.2.840.1 [id number] 60621 Methodi 14:00:00 14:49:59 Visit Ebulah 24451.1.[address] 3.430.2.7 Hospit a .3.562466 l .8 2022-12-25 2022-12-25 Orders Snyder, 1.2.840.1 [id number] 514 [id number] Methodi 00:00:00 00:00:00 Only Delilah 86178.1.[address] 3.430.2.7 Hospit a .3.547617 l .8 2022-12-25 2022-12-25 Orders Snyder, 1.2.840.1 [id number] 344 [id number] Methodi 00:00:00 00:00:00 Only Delilah 90283.1.[address] 3.430.2.7 Hospit a .3.196100 l .8 2022-12-19 2022-12-19 Refill Nancy, 1.2.840.1 [id number] 2099 [id number] Methodi 00:00:00 00:00:[address] 3.430.2.7 Hospit a .3.041068 l .8 2022-12-19 2022-12-19 Refill Nancy, 1.2.840.1 [id number] 2099 [id number] Methodi 00:00:00 00:00:[address] 3.430.2.7 Hospit a .3.411568 l .8 2022-11-30 2022-11-30 Refill Nancy, 1.2.840.1 [id number] 2099 838262 Methodi 00:00:00 00:00:[address] 3.430.2.7 Hospit a .3.268662 l .8 2022-11-30 2022-11-30 Refill Nancy, 1.2.840.1 [id number] 2099 748354 Methodi 00:00:00 00:00:[address] 3.430.2.7 Hospit a .3.033143 l .8 2022-10-04 2022-10-04 Office Rice, 1.2.840.1 [id number] 939083 9239 Methodi 13:00:00 13:30:04 Visit Elliot 91270.1.[address] 3.430.2.7 Hospit a .3.392245 l .8 2022-10-04 2022-10-04 Office Rice, 1.2.840.1 [id number] 078778 0435 Methodi 13:00:00 13:30:04 Visit Elliot 27022.1.[address] 3.430.2.7 Hospit a .3.161096 l .8 2022-10-04 2022-10-04 Lab Rice, 1.2.840.1 [id number] 0806 Methodi 13:05:00 13:10:[address] 3.430.2.7 Hospit a .3.319783 l .8 2022-10-04 2022-10-04 Lab Rice, 1.2.840.1 [id number] 4590 Methodi 13:05:00 13:10:[address] 3.430.2.7 Hospit a .3.931854 l .8 2022-10-04 2022-10-04 Travel 1.2.840.1 1.2.177.979 9887 819345 Methodi 00:00:00 00:00:[address] 3.430.2.7 0.2.7.3.698 Ho spita .3.442858 084.8 l .8 2022-10-04 2022-10-04 Travel 1.2.840.1 1.2.409.407 8628 493284 Methodi 00:00:00 00:00:[address] 3.430.2.7 0.2.7.3.698 Ho spita .3.615464 084.8 l .8 2022-10-02 2022-10-02 Orders [place], 1.2.840.1 [id number] 80869 17562 Methodi 00:00:00 00:00:00 Only Nayely 19953.1.[address] 3.430.2.7 Hospit a .3.033410 l .8 2022-10-02 2022-10-02 Orders [place], 1.2.840.1 [id number] 67736 69634 Methodi 00:00:00 00:00:00 Only Nayely 16880.1.[address] 3.430.2.7 Hospit a .3.207288 l .8 2022-09-05 2022-09-05 Telephone Claudio, 1.2.840.1 [id number] 2 [id number] Methodi 00:00:00 00:00:[address] 3.430.2.7 Hospit a .3.462474 l .8 2022-09-05 2022-09-05 Telephone Claudio, 1.2.840.1 [id number] 2 [id number] Methodi 00:00:00 00:00:[address] 3.430.2.7 Hospit a .3.304539 l .8 2022-07-05 2022-07-05 Office Rice, 1.2.840.1 [id number] [id number] 8526 Methodi 13:00:00 15:11:13 Visit Elliot 37551.1.[address] 3.430.2.7 Hospit a .3.663090 l .8 2022-07-05 2022-07-05 Office Rice, 1.2.840.1 [id number] 898690 6798 Methodi 13:00:00 15:11:13 Visit Elliot [address]649.1.[address] 3.430.2.7 Hospit a .3.056875 l .8 2022-07-05 2022-07-05 Lab Rice, 1.2.840.1 [id number] 7861 Methodi 12:55:00 13:00:[address] 3.430.2.7 Hospit a .3.109850 l .8 2022-07-05 2022-07-05 Lab Rice, 1.2.840.1 [id number] 2406 Methodi 12:55:00 13:00:[address] 3.430.2.7 Hospit a .3.967912 l .8 2022-07-05 2022-07-05 Travel 1.2.840.1 1.2.803.066 3331 445380 Methodi 00:00:00 00:00:[address] 3.430.2.7 0.2.7.3.698 Ho spita .3.662335 084.8 l .8 2022-07-05 2022-07-05 Travel 1.2.840.1 1.2.218.099 3880 288741 Methodi 00:00:00 00:00:[address] 3.430.2.7 0.2.7.3.698 Ho spita .3.365189 084.8 l .8 2022-07-04 2022-07-04 Orders [place], 1.2.840.1 [id number] 86381 Methodi 00:00:00 00:00:00 Only Nayely 80882.1.[address] 3.430.2.7 Hospit a .3.494655 l .8 2022-07-04 2022-07-04 Orders [place], 1.2.840.1 [id number] 99 Methodi 00:00:00 00:00:00 Only Nayely 89994.1.[address] 3.430.2.7 Hospit a .3.617759 l .8 2022-06-27 2022-06-27 Office Nancy, 1.2.840.1 [id number] Methodi 14:00:00 15:26:18 Visit Jayde. 37437.1.[address] 3.430.2.7 Hospit a .3.331697 l .8 2022-06-27 2022-06-27 Office Nancy, 1.2.840.1 [id number] Methodi 14:00:00 15:26:18 Visit Jayde. 90718.1.[address] 3.430.2.7 Hospit a .3.517053 l .8 2022-06-27 2022-06-27 Travel 1.2.840.1 1.2.481.111 9628 358950 Methodi 00:00:00 00:00:[address] 3.430.2.7 0.2.7.3.698 Ho spita .3.192465 084.8 l .8 2022-06-27 2022-06-27 Travel 1.2.840.1 1.2.040.670 4415 591616 Methodi 00:00:00 00:00:[address] 3.430.2.7 0.2.7.3.698 Ho spita .3.530051 084.8 l .8 2022-05-24 2022-05-24 Refill Nancy, 1.2.840.1 [id number] Methodi 00:00:00 00:00:[address] 3.430.2.7 Hospit a .3.922539 l .8 2022-05-24 2022-05-24 Refill Nancy, 1.2.840.1 [id number] Methodi 00:00:00 00:00:[address] 3.430.2.7 Hospit a .3.161147 l .8 2022-05-04 2022-05-04 Telephone [place], 1.2.840.1 [id number] Methodi 00:00:00 00:00:[address] 3.430.2.7 Hospit a .3.882542 l .8 2022-05-04 2022-05-04 Telephone [place], 1.2.840.1 [id number] Methodi 00:00:00 00:00:[address] 3.430.2.7 Hospit a .3.495668 l .8 2022-04-05 2022-04-05 Office Rice, 1.2.840.1 [id number] 845135 5285 Methodi 13:15:00 14:12:14 Visit Elliot [address]6600.1.[address] 3.430.2.7 Hospit a .3.431969 l .8 2022-04-05 2022-04-05 Lab Marcial, 1.2.840.1 [id number] 283718 1306 Methodi 13:15:00 13:20:[address] 3.430.2.7 Hospit a .3.041864 l .8 2022-04-05 2022-04-05 Travel 1.2.840.1 1.2.967.713 7019 964327 Methodi 00:00:00 00:00:[address] 3.430.2.7 0.2.7.3.698 Ho spita .3.493074 084.8 l .8 2022-04-04 2022-04-04 Travel 1.2.840.1 1.2.293.663 8666 337114 Methodi 00:00:00 00:00:[address] 3.430.2.7 0.2.7.3.698 Ho spita .3.092126 084.8 l .8 2022-04-04 2022-04-04 Orders [place], 1.2.840.1 [id number] 70164 97210 Methodi 00:00:00 00:00:00 Only Nayely [address]508.1.[address] 3.430.2.7 Hospit a .3.345383 l .8 2022-04-04 2022-04-04 Orders [place], 1.2.840.1 [id number] 540631 2061 Methodi 00:00:00 00:00:00 Only Solange 94701.1.[address] 3.430.2.7 Hospit a .3.167824 l .8 2022-03-22 2022-03-22 Refill Nancy, 1.2.840.1 [id number] 2099 527486 Methodi 00:00:00 00:00:[address] 3.430.2.7 Hospit a .3.830290 l .8 2022-03-15 2022-03-15 Travel 1.2.840.1 1.2.624.497 0736 194184 Methodi 00:00:00 00:00:[address] 3.430.2.7 0.2.7.3.698 Ho spita .3.726318 084.8 l .8 2022-03-14 2022-03-14 Travel 1.2.840.1 1.2.480.914 8221 930264 Methodi 00:00:00 00:00:[address] 3.430.2.7 0.2.7.3.698 Ho spita .3.183935 084.8 l .8 2022-03-13 2022-03-13 Orders [place], 1.2.840.1 [id number] 44528 Methodi 00:00:00 00:00:00 Only Nayely 26764.1.[address] 3.430.2.7 Hospit a .3.388056 l .8 2022-01-11 2022-01-11 Telephone Nancy, 1.2.840.1 [id number] Methodi 11:00:00 13:31:00 Consult [address]de[address] 96386.1.[address] 3.430.2.7 Hospit a .3.409245 l .8 2021-12-15 2021-12-15 Orders Nancy, 1.2.840.1 [id number] 2099 888060 Methodi 00:00:00 00:00:00 Only Jayde. 74584.1.[address] 3.430.2.7 Hospit a .3.340340 l .8 2021-12-14 2021-12-14 Office Nancy, 1.2.840.1 [id number] 2099 446404 Methodi 13:40:00 14:36:45 Visit Jayde. 13779.1.[address] 3.430.2.7 Hospit a .3.154131 l .8 2021-12-14 2021-12-14 Office [place], 1.2.840.1 [id number] 425537 5243 Methodi 13:00:00 13:34:14 Visit Elliot 63540.1.[address] 3.430.2.7 Hospit a .3.241661 l .8 2021-12-14 2021-12-14 Lab [place], 1.2.840.1 [id number] 627014 3675 Methodi 13:00:00 13:05:[address] 3.430.2.7 Hospit a .3.059355 l .8 2021-12-14 2021-12-14 Orders [place], 1.2.840.1 [id number] 25492 Methodi 00:00:00 00:00:00 Only Nayely 05414.1.[address] 3.430.2.7 Hospit a .3.389765 l .8 2021-12-14 2021-12-14 Travel 1.2.840.1 1.2.284.279 3343 [id number] Methodi 00:00:00 00:00:[address] 3.430.2.7 0.2.7.3.698 Ho spita .3.007949 084.8 l .8 2021-12-13 2021-12-13 Orders Snyder, 1.2.840.1 [id number] 331 [id number] Methodi 00:00:00 00:00:00 Only Delilah 73879.1.[address] 3.430.2.7 Hospit a .3.654108 l .8 2021-12-13 2021-12-13 Travel 1.2.840.1 1.2.977.300 6192 266949 Methodi 00:00:00 00:00:[address] 3.430.2.7 0.2.7.3.698 Ho spita .3.009412 084.8 l .8 2021-12-06 2021-12-06 Refill Nancy, 1.2.840.1 [id number] 2099 [id number] Methodi 00:00:00 00:00:[address] 3.430.2.7 Hospit a .3.788887 l .8 2021-11-20 2021-11-20 Travel 1.2.840.1 1.2.060.743 3026 587669 Methodi 00:00:00 00:00:[address] 3.430.2.7 0.2.7.3.698 Ho spita .3.173014 084.8 l .8 2021-11-17 2021-11-17 Travel 1.2.840.1 1.2.849.636 6540 847938 Methodi 00:00:00 00:00:[address] 3.430.2.7 0.2.7.3.698 Ho spita .3.242430 084.8 l .8 2021-11-15 2021-11-15 Orders [place], 1.2.840.1 [id number] Methodi 00:00:00 00:00:00 Only Nayely 33101.1.[address] 3.430.2.7 Hospit a .3.310613 l .8 2021-10-19 2021-10-19 Refill Nancy, 1.2.840.1 [id number] 2099 300530 Methodi 00:00:00 00:00:[address] 3.430.2.7 Hospit a .3.453915 l .8 2021-09-24 2021-09-24 Refill Nancy, 1.2.840.1 [id number] 2099 425727 Methodi 00:00:00 00:00:[address] 3.430.2.7 Hospit a .3.750298 l .8 2021-09-21 2021-09-21 Orders Lamine, 1.2.840.1 [id number] 21 [id number] Methodi 00:00:00 00:00:00 Only Anitaa L 97829.1.1 408 [address] t 3.430.2.7 Hospit a .3.009498 l .8 2021-09-20 2021-09-20 Orders Nancy, 1.2.840.1 [id number] 2100 643648 Methodi 00:00:00 00:00:00 Only Jayde. 39439.1.[address] 3.430.2.7 Hospit a .3.912080 l .8 2021-09-20 2021-09-20 Orders Arrington, 1.2.840.1 [id number] 614613 7794 Methodi 00:00:00 00:00:00 Only Solange 38176.1.[address] 3.430.2.7 Hospit a .3.709083 l .8 2021-09-20 2021-09-20 Refill Arrington, 1.2.840.1 [id number] 161508 4917 Methodi 00:00:00 00:00:[address] 3.430.2.7 Hospit a .3.634772 l .8 2021-08-21 2021-08-21 Office Marcial, 1.2.840.1 [id number] 670774 5947 Methodi 13:30:00 14:21:19 Visit Elliot 74761.1.[address] 3.430.2.7 Hospit a .3.431161 l .8 2021-08-21 2021-08-21 Lab Marcial, 1.2.840.1 [id number] 936799 6912 Methodi 13:25:00 13:30:[address] 3.430.2.7 Hospit a .3.709376 l .8 2021-08-21 2021-08-21 Travel 1.2.840.1 1.2.601.337 8717 271073 Methodi 00:00:00 00:00:[address] 3.430.2.7 0.2.7.3.698 Ho spita .3.928810 084.8 l .8 2021-08-17 2021-08-17 Orders Moise, 1.2.840.1 [id number] 38637 28931 Methodi 00:00:00 00:00:00 Only Nayely 07095.1.[address] 3.430.2.7 Hospit a .3.675189 l .8 2021-06-29 2021-06-29 Office Rice, 1.2.840.1 [id number] 091146 2779 Methodi 13:30:00 13:45:00 Visit Elliot 48389.1.[address] 3.430.2.7 Hospit a .3.069658 l .8 2021-06-29 2021-06-29 Lab Marcial, 1.2.840.1 [id number] 733821 6217 Methodi 13:30:00 13:35:[address] 3.430.2.7 Hospit a .3.564527 l .8 2021-06-29 2021-06-29 Travel 1.2.840.1 1.2.884.202 2216 699581 Methodi 00:00:00 00:00:[address] 3.430.2.7 0.2.7.3.698 Ho spita .3.714994 084.8 l .8 2021-06-07 2021-06-07 Sana Stokes 1.2.840.1 [id number] 797 3773814 Methodi 00:00:00 00:00:00 Only Anya 88415.1.[address] 3.430.2.7 Hospit a .3.346013 l .8 2021-06-05 2021-06-05 Office Nancy, 1.2.840.1 [id number] 2100 156954 Methodi 16:20:00 17:39:49 Visit Liya Everett 12054.1.[address] 3.430.2.7 Hospit a .3.179091 l .8 2021-06-05 2021-06-05 Travel 1.2.840.1 1.2.634.036 2252 507251 Methodi 00:00:00 00:00:[address] 3.430.2.7 0.2.7.3.698 Ho spita .3.507383 084.8 l .8 2021-06-01 2021-06-01 Office Rice, 1.2.840.1 [id number] 121064 0943 Methodi 13:00:00 13:45:18 Visit Elliot 13034.1.[address] 3.430.2.7 Hospit a .3.929702 l .8 2021-06-01 2021-06-01 Lab Rice, 1.2.840.1 [id number] 726150 1470 Methodi 13:00:00 13:05:[address] 3.430.2.7 Hospit a .3.745240 l .8 2021-06-01 2021-06-01 Travel 1.2.840.1 1.2.700.059 2926 297536 Methodi 00:00:00 00:00:[address] 3.430.2.7 0.2.7.3.698 Ho spita .3.145500 084.8 l .8 2021-05-29 2021-05-29 Orders Rajtak 1.2.840.1 [id number] 433669 7275 Methodi 00:00:00 00:00:00 Only Thompson, 66656.1.[address] Deb 3.430.2.7 Hospi ta .3.788637 l .8 2021-04-13 2021-04-13 Outpatient RICE, [facility] [id number] 686 [place] 00:00:00 00:00:00 ELLIOT [address] 2021-04-13 2021-04-13 Outpatient RICE, [facility] [id number] 779 [place] 00:00:00 00:00:00 ELLIOT [address] 2021-04-10 2021-04-10 Outpatient NANCY, [facility] 51406 [id number] [place] 00:00:00 00:00:00 LIYA [address] 2021-04-10 2021-04-10 Outpatient NANCY, [facility] 89420 45280 [place] 00:00:00 00:00:00 LIYA [address] 2021-04-10 2021-04-10 Outpatient NANCY, [facility] [id number] [place] 00:00:00 00:00:00 LIYA [address] 2021-03-27 2021-03-27 Outpatient NANCY, [facility] 62851 [id number] [place] 00:00:00 00:00:00 LIYA [address] 2021-03-09 2021-03-09 Outpatient RICE, [facility] [id number] 596 [place] 00:00:00 00:00:00 ELLIOT [address] 2021-03-09 2021-03-09 Outpatient RICE, [facility] [id number] 345 [place] 00:00:00 00:00:00 ELLIOT [address] 2021-02-16 2021-02-16 Outpatient RICE, [facility] [id number] 505 [place] 00:00:00 00:00:00 ELLIOT [address] 2021-02-16 2021-02-16 Outpatient RICE, [facility] [id number] 163 [place] 00:00:00 00:00:00 ELLIOT [address] 2020-11-24 2020-11-24 Outpatient RICE, [facility] [id number] 408 [place] 00:00:00 00:00:00 ELLIOT 611 [address] 2020-11-24 2020-11-24 Outpatient RICE, [facility] [id number] 419 [place] 00:00:00 00:00:00 ELLIOT [address] 2020-08-25 2020-08-25 Outpatient RICE, [facility] [id number] 301 [place] 00:00:00 00:00:00 ELLIOT [address] 2020-08-25 2020-08-25 Outpatient RICE, [facility] [id number] 101 [place] 00:00:00 00:00:00 ELLIOT 808 Meth[address] 2020-05-26 2020-05-26 Outpatient RICE, [facility] [id number] 384 [place] 00:00:00 00:00:00 ELLIOT 167 Meth[address] 2020-05-26 2020-05-26 Outpatient RICE, [facility] [id number] 985 [place] 00:00:00 00:00:00 ELLIOT 853 Meth[address] di 2020-03-17 2020-03-17 Outpatient RICE, [facility] [id number] 326 [place] 00:00:00 00:00:00 ELLIOT 358 Meth[address] di 2020-03-17 2020-03-17 Outpatient RICE, [facility] [id number] 260 [place] 00:00:00 00:00:00 ELLIOT 587 [address] 2020-02-12 2020-02-12 Outpatient NANCY, [facility] [id number] [place] 00:00:00 00:00:00 LIYA [address] 2020-01-22 2020-01-22 Outpatient NANCY, [facility] [id number] [id number] [place] 00:00:00 00:00:00 LIYA [address] 2020-01-14 2020-01-14 Outpatient RICE, [facility] [id number] 759 [place] 00:00:00 00:00:00 ELLIOT 528 [address] 2020-01-14 2020-01-14 Outpatient RICE, [facility] [id number] 152 [place] 00:00:00 00:00:00 ELLIOT 164 [address] 2019-12-03 2019-12-03 Outpatient NANCY, [facility] 29032 [id number] [place] 00:00:00 00:00:00 LIYA [address] 2019-10-08 2019-10-08 Outpatient LINDA MARK [facility] 2100 [id number] [place] 00:00:00 00:00:[address] 2019-08-24 2019-08-24 Outpatient MARK LINDA [facility] 2100 [id number] [place] 00:00:00 00:00:[address] 2019-08-03 2019-08-03 Outpatient NANCY, [facility] 18631 [id number] [place] 00:00:00 00:00:[address] LIYA [address] [...] 0.60-0.95 H 2160-0) eGFR (test code = 91771-7) 50 See_Comment L T he eGFR is based on the CKD-EPI 202 1 equation. To ca lculate the new eGFR fr om a previous Creati nine or Cystatin Cresul t, go to https://www.kid tiffany.org /professionals/ kdoqi/g fr%5Fcalculator [Automated mess age] The system [employer] generated this result transmitted ref erence range: > OR = 6 0 mL/min/1.73m2. The reference range was not used to int erpret this result as normal/abnormal . BUN/creatinine ratio (test 24 See_Comment H [Automated message] code = 3097-3) The system [facility] generated this result transmitted ref erence range: 6 - 22 ( calc). The reference r danni was not used to interpret this result as normal/abnor mal. Sodium (test code = 138 mmol/L 854-690 8158-2) Potassium (test code = 4.2 mmol/L 3.5-5.3 2823-3) Chloride (test code = 104 mmol/L 98-110 2075-0) CO2 (test code = 8-9) 25 mmol/L 20-32 Calcium (test code = 9.7 mg/dL 8.6-10.4 79676-2) Protein (test code = 7.5 g/dL 6.1-8.1 2885-2) Albumin, S (test code = 4.2 g/dL 3.6-5.1 1751-7) Globulin, total (test code 3.3 See_Comment [Automated message] = 41377-7) The system [employer] generated this result transmitted ref erence range: 1.9 - 3. 7 g/dL (calc). The ref erence range was not u sed to interpret this result as normal/abnor mal. Albumin/globulin ratio 1.3 See_Comment [Aut omated message] (test code = 1759-0) The [facility] tem which generated this result transmitted ref erence range: 1.0 - 2. 5 (calc). The ref erence range was not u sed to interpret this result as normal/abnor mal. Total bilirubin (test code 0.3 mg/dL 0.2-1.2 = 1975-2) Alkaline phosphatase (test 66 U/L 37-153 code = 6768-6) AST (test code = 1920-8) 40 U/L 10-35 H ALT (test code = 1742-6) 52 U/L 6-29 H LETITIA (test code = LETITIA) FASTING:NO FASTING: NO RAC (test code = RAC) Performing Organization Information: Site ID: [facility] Name: [facility] Address: [address] [place] [address] Director: Parish Contreras Lab Interpretation (test Abnormal code = 93840-5) [facility] TylerJnqjpmhlTxwlljbcymt0020-70-53 12:58:00 Test Item Value Reference Range Interpretation Comments Cholesterol, total 111 mg/dL <=200 (test code = 2093-3) LETITIA (test code = FASTING:NO FASTING: NO LETITIA) RAC (test code = Performing Organization RAC) Information: Site ID: [facility] Name: [facility] Address: [address] [place] [address] Director: Parish Contreras [facility] [id number] 12:58:00 Test Item Value Reference Range Interpretation [...] = Performing RAC) Organization Information: Site ID: [facility] Address: [address] [place], [place] [id number] Director: Parish Contreras Lab Interpretation Abnormal (test code = 74325-9) [facility], [id number] 12:58:00 Test Item Value Reference Range Interpretation Comments LDL Direct 52 mg/dL <=100 Greatly elevate d (test code = Triglycerides v alues 27225-6) (>1200 mg/dL)interfere with the dLDL assay. As [...] Performing = RAC) Organization Information: Site ID: [facility] Name: [facility] Address: [address] [place] [address] Director: Desoto [facility] Campus[facility], [id number] 12:58:00 Test Item Value Reference Range Interpretation Comments T4, free (test code 1.3 ng/dL 0.8-1.8 = 3024-7) LETITIA (test code = FASTING:NO FASTING: NO LETITIA) RAC (test code = Performing Organization RAC) Information: Site ID: [facility] Name: [facility] Address: [address] [place] [address] Director: [facility] HospitalThyroid stimulating [id number] 12:58:00 Test Item Value Reference Range Interpretation [...] code = RAC) Organization Information: Site ID: [facility]: [facility] Address: [address] [place] [address] Director: [facility] HospitalVitamin D 25 hydroxy [id number] 12:58:00 Test Item Value Reference Range Interpretation [...] please refer to http://educatio n.Q uestDiagnostics .co m/faq/UGZ290 (T his link is being provided for informational/e maricruz ational purpose s only.) LETITIA (test code = FASTING:NO FASTING: LETITIA) NO RAC (test code = Performing RAC) Organization Information: Site ID: [facility] Name: [facility] Address: [address] [place] [address] Director: Parish Contreras [facility] metabolic [id number] 12:58:00 Test Item Value Reference Range Interpretation Comments Glucose (test code = 100 mg/dL 65-139 Non-fa sting 2345-7) reference interval BUN (test code = 26 mg/dL 7-25 H 3094-0) Creatinine (test 1.09 mg/dL 0.60-0.95 H code = 2160-0) eGFR (test code = 50 See_Comment L The eGFR i s based 36517-7) on the CKD-EPI 2020 equation. To calculate the n ew eGFR from a previous Creatinine or Cystatin Cresul t, go to https://www.kid ne y.org/profhaydeio jose dej esus park/kdoqi/gfr%5F ca lculator [Automated message] The system [...] . Sodium (test code = 138 mmol/L 140-997 3766-2) Potassium (test code 4.2 mmol/L 3.5-5.3 = 2823-3) Chloride (test code 104 mmol/L 98-110 = 2075-0) CO2 (test code = 25 mmol/L 20-32 2028-05) Calcium (test code = 9.7 mg/dL 8.6-10.4 26077-2) Protein (test code = 7.5 g/dL 6.1-8.1 2885-2) Albumin, S (test 4.2 g/dL 3.6-5.1 code = 1751-7) Globulin, total 3.3 See_Comment [Automated (test code = message] The 47308-5) system which generated this result transmitted reference [...] = Performing RAC) Organization Information: Site ID: [facility] Name: [facility] Address: [address] [place] [address] Director: Parish Contreras Lab Interpretation Abnormal (test code = 74869-3) [facility] [id number] 12:58:00 Test Item Value Reference Range Interpretation Comments Cholesterol, total 111 mg/dL <=200 (test code = 2093-3) LETITIA (test code = FASTING:NO FASTING: NO LETITIA) RAC (test code = Performing Organization RAC) Information: Site ID: [facility] Name: [facility] Address: [address] [place] [address] Director: Parish Contreras [facility] [id number] 12:58:00 Test Item Value Reference Range Interpretation [...] RAC) Organization Information: Site ID: [facility]: [facility] Address: [address] [place] [address] Director: Parish Contreras Lab Interpretation Abnormal (test code = 89204-3) [facility] CenterLDL cholesterol, [id number] 12:58:00 Test Item Value Reference Range Interpretation Comments LDL Direct 52 mg/dL <=100 Greatly elevate d (test code = Triglycerides v alues 58324-3) (>1200 mg/dL)interfere with the dLDL assay. As [...] Performing = RAC) Organization Information: Site ID: [facility] Name: [facility] Address: [address] [place] [address] Director: Parish Personridge [facility] CenterT4, [id number] 12:58:00 Test Item Value Reference Range Interpretation Comments T4, free (test code 1.3 ng/dL 0.8-1.8 = 3024-7) LETITIA (test code = FASTING:NO FASTING: NO LETITIA) RAC (test code = Performing Organization RAC) Information: Site ID: [facility] Name: [facility] Address: [address] [place] [address] Director: Parish PersonChillicothe HospitalThyroid stimulating [id number] 12:58:00 Test Item Value Reference Range Interpretation [...] code = RAC) Organization Information: Site ID: [facility] Name: [facility] Lab Address: [address] [place] [address] Director: [facility] HospitalVitamin D 25 hydroxy [id number] 12:58:00 Test Item Value Reference Range Interpretation [...] please refer to http://educatio n.Q uestDiagnostics .co m/faq/JUJ870 (T his link is being provided for informational/e maricruz ational purpose s only.) LETITIA (test code = FASTING:NO FASTING: LETITIA) NO RAC (test code = Performing RAC) Organization Information: Site ID: [facility] Name: [facility] Lab Address: [address] [place] [address] Director: [facility] HospitalComprehensive metabolic [id number] 12:58:00 Test Item Value Reference Range Interpretation Comments Glucose (test code = 100 mg/dL 65-139 Non-fa sting 2345-7) reference interval BUN (test code = 26 mg/dL 7-25 H 3094-0) Creatinine (test 1.09 mg/dL 0.60-0.95 H code = 2160-0) eGFR (test code = 50 See_Comment L The eGFR i s based 70514-1) on the CKD-EPI 2020 equation. To calculate [...] . Sodium (test code = 138 mmol/L 161-414 7217-2) Potassium (test code 4.2 mmol/L 3.5-5.3 = 2823-3) Chloride (test code 104 mmol/L 98-110 = 2075-0) CO2 (test code = 25 mmol/L 20-32 2027-9) Calcium (test code = 9.7 mg/dL 8.6-10.4 06637-9) Protein (test code = 7.5 g/dL 6.1-8.1 2885-2) Albumin, S (test 4.2 g/dL 3.6-5.1 code = 1751-7) Globulin, total 3.3 See_Comment [Automated (test code = message] The 33523-7) system which generated this result transmitted reference range : 1.9 - 3.7 g/dL (calc). The reference range was not used to interpret this result as normal/abnormal . Albumin/globulin 1.3 See_Comment [Automated ratio (test code = message] The 17590) system which generated this result transmitted reference range : 1.0 - 2.5 (calc ). The reference range was not used to interpr et this result as normal/abnormal . Total bilirubin 0.3 mg/dL 0.2-1.2 (test code = 1974-) Alkaline phosphatase 66 U/L 37-153 (test code = 6768-6) AST (test code = 40 U/L 10-35 H 1920-8) ALT (test code = 52 U/L 6-29 H 174-6) LETITIA (test code = FASTING:NO LETITIA) FASTING: NO RAC (test code = Performing RAC) Organization Information: Site ID: [facility] Address: [address] [place] [address] Director: Parish Contreras Lab Interpretation Abnormal (test code = 86149-8) [facility] CenterJfvdpevjTtmhguzcunp4994-32-70 12:58:00 Test Item Value Reference Range Interpretation Comments Cholesterol, 111 mg/dL See_Comment [Automated total (test message] The sy stem code = 3-3) which generat ed this result transmitted reference range : <=200. The reference range was not used to interpret this result as normal/abnormal . LETITIA (test code FASTING:NO FASTING: = LETITIA) NO RAC (test code Performing = RAC) Organization Information: Site ID: [facility] Name: [facility] Address: [address] [place] [address] Director: Parish Contreras [facility] CenterHDL [id number] 12:58:00 Test Item Value Reference Range Interpretation [...] = Performing RAC) Organization Information: Site ID: [facility]: [facility] Address: [address] [place] [address] Director: Parish Contreras Lab Interpretation Abnormal (test code = 56884-0) [facility] CenterLDL cholesterol, [id number] 12:58:00 Test Item Value Reference Range Interpretation Comments LDL Direct 52 mg/dL See_Comment Greatly elevate d (test code = Triglycerides v alues 53616-8) (>1200 mg/dL)interfere with the dLDL assay. As no Triglyceride s testing was ord ered, interpret resul ts with caution. Desirable range <100 mg/dL for prima ry prevention; <70 mg/dL for patie nts with CHD or von betic patients with > or = 2 CHD risk fact ors. [Automated mess age] The system whic h generated this result transmit al reference range : <=100. The refe rence range was not u sed to interpret th is result as normal/abnormal . LETITIA (test code FASTING:NO FASTING: = LETITIA) NO RAC (test code Performing = RAC) Organization Information: Site ID: [facility] Name: [facility] Address: [address] [place] [address] Director: [facility] HospitalT4, [id number] 12:58:00 Test Item Value Reference Range Interpretation Comments T4, free (test code 1.3 ng/dL 0.8-1.8 = 3024-7) LETITIA (test code = FASTING:NO FASTING: NO LETITIA) RAC (test code = Performing Organization RAC) Information: Site ID: A Name: [facility] Lab Address: [address] [place] [address] Director: [facility] HospitalThyroid stimulating [id number] 12:58:00 Test Item Value Reference Range Interpretation [...] code = RAC) Organization Information: Site ID: [place] Name: [facility] Lab Address: [address] [place] [address] Director: [facility] HospitalVitamin D 25 hydroxy [id number] 12:58:00 Test Item Value Reference Range Interpretation Comments Vitamin D, 69 ng/mL 30-100 Vitamin D Statu s 25-hydroxy (test 25-OH Vitam in D: code = 1989-) Deficiency: < 20 ng/mLInsufficie ncy : 20 [...] please refer to http://educatio n.Q uestDiagnostics .co m/faq/HOY394 (T his link is being provided for informational/e maricruz ational purpose s only.) LETITIA (test code = FASTING:NO FASTING: LETITIA) NO RAC (test code = Performing RAC) Organization Information: Site ID: [facility] Name: [facility] Address: [address] [place] [address] Director: Parish Contreras [facility] CenterComprehensive metabolic [id number] 19:14:00 Test Item Value Reference Range Interpretation [...] t, go to https://www.kid ne y.org/professio na xavier/kdoqi/gfr%5F ca lculator [Automated message] The [...] . Sodium (test code = 138 mmol/L 234-713 8511-2) Potassium (test code 3.5 mmol/L 3.5-5.3 = 2823-3) Chloride (test code 100 mmol/L 98-110 = 2075-0) CO2 (test code = 26 mmol/L 20-32 8-9) Calcium (test code = 9.6 mg/dL 8.6-10.4 77303-2) Protein (test code = 7.7 g/dL 6.1-8.1 2885-2) Albumin, S (test 4.4 g/dL 3.6-5.1 code = 1751-7) Globulin, total 3.3 See_Comment [Automated (test code = message] The 46928-3) system which generated this result transmitted reference [...] (test code = 42 U/L 10-35 H 192-8) ALT (test code = 45 U/L 6-29 H 174-) LETITIA (test code = FASTING:NO LETITIA) FASTING: NO RAC (test code = Performing RAC) Organization Information: Site ID: [facility] Address: [address] [place] [address] Director: Parish Contreras Lab Interpretation Abnormal (test code = 18977-9) [facility] CenterLipid [id number] 19:14:00 Test Item Value Reference Interpretation Comments [...] calculated (test <100 Desira ble code = 93281-4) range <100 m g/dL for primary prevention; <70 mg/dL for patie nts with CHD or diabetic patien ts with > or = 2 C HD risk factors. L DL-C is now calculat ed using the Marvin-Johnston calculation, wh ich is a validated novel method providing radha r accuracy than cain buckley Friedreddald equa tion in the estimati on of LDL-C. Zuly n SS et al. ALFREDO. 2013;310(19): 9302-7166 (http://educati on.Q alive.cn .[employer] /faq/KSS800) Cholesterol/HDL 3.9 See_Comment [Automated ratio (test code = message] The system 9830-1) which generated this result transmitted reference range : <5.0 (calc). Th e reference range was not used to interpret this result as normal/abnormal . Non-HDL cholesterol 92 See_Comment For rosa ents with (test code = diabetes plus 1 26404-4) major ASCVD ris k factor, treatin g [...] RAC) Organization Information: Site ID: [facility] Address: [address] [place] [id number] Director: Parish Contreras Lab Interpretation Abnormal (test code = 55911-0) [id number]:14[facility]00 Test Item Value Reference Range Interpretation Comments Hemoglobin A1C 5.3 See_Comment For the purpo se of (test code = screening for t marcio 4548-4) presence ofdiab etes: <5.7% Consisten t [...] specif ic patient populat ions. [place] of [place] dical Care in Diabetes(ADA). [Automated mess age] The system [employer] generated this result transmitted ref erence range: <5.7 % o f total Hgb. The reference range was not used to int erpret this result as normal/abnormal . LETITIA (test code = FASTING:NO LETITIA) FASTING: NO RAC (test code = Performing RAC) Organization Information: Site ID: [facility] Address: [address] [place] [address] Director: [place] [address], [id number] 19:14:00 Test Item Value Reference Range Interpretation Comments T4, free (test code 1.5 ng/dL 0.8-1.8 = 3024-7) LETITIA (test code = FASTING:NO FASTING: NO LETITIA) RAC (test code = Performing Organization RAC) Information: Site ID: [facility] Address: [address] [place] [address] Director: [facility] HospitalThyroid stimulating [id number] 19:14:00 Test Item Value Reference Range Interpretation Comments TSH (test 0.94 See_Comment [Automated mes emeli] code = The system [employer] 3016-3) generated this result transmit al reference range : 0.40 - 4.50 mIU /L. The reference r danni was not used to interpret this result as normal/abnormal . LETITIA (test FASTING:NO FASTING: code = LETITIA) NO RAC (test Performing code = RAC) Organization Information: Site [facility] Address: [address] [place] [address] Director: [facility] HospitalUrine [id number] 19:14:00 Test Item Value Reference Interpretation Comments Range Urine culture (test SEE NOTE A CULTURE , URINE, code = 630-4) ROUTINE Micro Number: [id number] Test Status: Fi nal Specimen Source [...] P. mirabilis : Cefazolin is resistant if MN C > or = 8 mcg/mL. (Distinguishing [...] RAC) Organization Information: Site ID: [facility]: [facility] Address: [address] [place] [address] Director: Parish Contreras Lab Interpretation Abnormal (test code = 69145-4) [facility] with [id number] 19:14:00 Test Item Value Reference Range Interpretation Comments Color, UA (test code YELLOW YELLOW = 5778-6) Appearance (test CLEAR CLEAR code = 5767-9) Specific gravity, 1.020 1.001-1.035 urine (test code = 5811-5) pH, urine (test code 5.5 5.0-8.0 = 5803-2) Glucose, urine (test NEGATIVE NEGATIVE code = 80720-3) Bilirubin, UA (test NEGATIVE NEGATIVE code = 5770-3) Ketones, UA (test TRACE NEGATIVE A code = 2514-8) Occult blood, urine 2+ NEGATIVE A (test code = 5794-3) Protein, UA (test NEGATIVE NEGATIVE code = 62708-1) Nitrite, UA (test POSITIVE NEGATIVE A code [...] code = NONE SEEN See_Comment [Autom ated 25786-4) message] The system which generated this result transmitted reference range : < OR = 2 /HPF. The reference range was not used to interpr et this result as normal/abnormal . Squamous epithelial NONE SEEN See_Comment [Automa al cells, UA (test code message ] The = 59536-7) system which generated this result transmitted reference [...] RAC) Organization Information: Site ID: [facility] Name: [facility] Address: [address] [place] [address] Director: Parish Contreras Lab Interpretation Abnormal (test code = 30558-3) [facility] CenterVitamin D 25 hydroxy [id number] 19:14:00 Test Item Value Reference Range Interpretation [...] please refer to http://educatio n.Q uestDiagnostics .co m/faq/SKX994 (T his link is being provided for informational/e maricruz ational purpose s only.) LETITIA (test code = FASTING:NO FASTING: LETITIA) NO RAC (test code = Performing RAC) Organization Information: Site ID: [facility] Name: [facility] Address: [address] [place] [address] Director: Parish Contreras [facility] CenterComprehensive metabolic [id number] 19:14:00 Test Item Value Reference Range Interpretation [...] t, go to https://www.kid ne y.org/profhaydeio na ls/kdoqi/gfr%5F ca lculator [Automated message] The [...] . Sodium (test code = 138 mmol/L 738-674 5000-2) Potassium (test code 3.5 mmol/L 3.5-5.3 = 2823-3) Chloride (test code 100 mmol/L 98-110 = 2074-0) CO2 (test code = 26 mmol/L 20-32 2028-05) Calcium (test code = 9.6 mg/dL 8.6-10.4 27231-2) Protein (test code = 7.7 g/dL 6.1-8.1 [...] bilirubin 0.6 mg/dL 0.2-1.2 (test code = 1974-10) Alkaline phosphatase 81 U/L 37-153 (test code = 6768-6) AST (test code = 42 U/L 10-35 H 8) ALT (test code = 45 U/L 6-29 H 6) LETITIA (test code = FASTING:NO LETITIA) FASTING: NO RAC (test code = Performing RAC) Organization Information: Site ID: [facility] Address: [address] [place] [address] Director: Parish Contreras Lab Interpretation Abnormal (test code = 37017-8) [facility] CenterLipid [id number] 19:14:00 Test Item Value Reference Interpretation Comments Range Cholesterol, total 124 mg/dL <=200 (test code = 2092-3) HDL cholesterol 32 mg/dL See_Comment L [Automated [...] calculated (test <100 Desira ble code = 07954-3) range <100 m g/dL for primary prevention; [...] Zuly n SS et al. ALFREDO. 2013;310(19): 0843-7580 (http://educati on.Zipnosis .[employer] /faq/RIB196) Cholesterol/HDL 3.9 See_Comment [Automated ratio (test code = message] The system 9830-1) which generated this result transmitted reference range : <5.0 (calc). Th e reference range was not used to interpret this result as normal/abnormal . Non-HDL cholesterol 92 See_Comment For rosa ents with (test code = diabetes plus 1 45136-7) major ASCVD ris k factor, treatin g [...] RAC) Organization Information: Site ID: [facility]: [facility] Address: [address] [place] [address] Director: Parish Contreras Lab Interpretation Abnormal (test code = 37989-2) [facility] CenterHemoglobin [id number] 19:14:00 Test Item Value Reference Range Interpretation [...] specif ic patient populat ions. [place] Care in Diabetes(ADA). [Automated mess age] The system [employer] generated this result transmitted ref erence range: <5.7 % o f total Hgb. The reference range was not used to int erpret this result as normal/abnormal . LETITIA (test code = FASTING:NO LETITIA) FASTING: NO RAC (test code = Performing RAC) Organization Information: [facility] Address: [address] [place] [address] Director: [address]2022-10-21 19:14:00 Test Item Value Reference Range Interpretation Comments T4, free (test code 1.5 ng/dL 0.8-1.8 = 3024-7) LETITIA (test code = FASTING:NO FASTING: NO LETITIA) RAC (test code = Performing Organization RAC) Information: Site [facility] Address: [address] [place] [address] Director: [facility] HospitalThyroid stimulating [id number] 19:14:00 Test Item Value Reference Range Interpretation Comments TSH (test 0.94 See_Comment [Automated mes emeli] code = The system [employer] 3016-3) generated this result transmit al reference range : 0.40 - 4.50 mIU /L. The reference r danni was not used to interpret this result as normal/abnormal . LETITIA (test FASTING:NO FASTING: code = LETITIA) NO RAC (test Performing code = RAC) Organization Information: Site ID: [facility] Name: [facility] Address: [address] [place] [address] Director: Parish Contreras [facility] CenterClarisa [id number] 19:14:00 Test Item Value Reference Interpretation Comments Range Urine culture (test SEE NOTE A CULTURE , URINE, code = 630-4) ROUTINE Micro Number: [id number] Test Status: Fi nal Specimen Source [...] P. mirabilis : Cefazolin is resistant if MN C > or = 8 mcg/mL. (Distinguishing [...] RAC) Organization Information: Site ID: [facility] Address: [address] [place] [address] Director: Parish Contreras Lab Interpretation Abnormal (test code = 18411-0) [facility] CenterUrinalysis, automated with [id number] 19:14:00 Test Item Value Reference Range Interpretation Comments Color, UA (test code YELLOW YELLOW = 5778-6) Appearance (test CLEAR CLEAR code = 5767-9) Specific gravity, 1.020 1.001-1.035 urine (test code = 5811-5) pH, urine (test code 5.5 5.0-8.0 = 5803-2) Glucose, urine (test NEGATIVE NEGATIVE code = 14270-7) Bilirubin, UA (test NEGATIVE NEGATIVE code = 5770-3) Ketones, UA (test TRACE NEGATIVE A code = 2514-8) Occult blood, urine 2+ NEGATIVE A (test code = 5794-3) Protein, UA (test NEGATIVE NEGATIVE code = 32779-9) Nitrite, UA (test POSITIVE NEGATIVE A code [...] code = NONE SEEN See_Comment [Autom ated 00899-4) message] The system which generated this result transmitted reference range : < OR = 2 /HPF. The reference range was not used to interpr et this result as normal/abnormal . Squamous epithelial NONE SEEN See_Comment [Automa al cells, UA (test code message ] The = 37996-0) system which generated this result transmitted reference [...] RAC) Organization Information: Site ID: [facility] Address: [address] [place] [address] Director: Parish Contreras Lab Interpretation Abnormal (test code = 11287-5) [facility] CenterVitamin D 25 hydroxy [id number] 19:14:00 Test Item Value Reference Range Interpretation [...] please refer to http://educatio n.Q uestDiagnostics .co m/faq/FNL394 (T his link is being provided for informational/e maricruz ational purpose s only.) LETITIA (test code = FASTING:NO FASTING: LETITIA) NO RAC (test code = Performing RAC) Organization Information: Site ID: [facility] Name: [facility] Address: [address] [place] [address] Director: Parish Contreras [facility] CenterLipid [id number] 19:14:00 Test Item Value Reference Interpretation Comments [...] calculated (test <100 Desira ble code = 67798-8) range <100 m g/dL for primary prevention; <70 mg/dL for patie nts with CHD or diabetic patien ts with > or = 2 C HD risk factors. L DL-C is now calculat ed using the Marvin-Johnston calculation, wh ich is a validated novel method providing radha r accuracy than t marcio Friedewald equa tion in the estimati on of LDL-C. Zuly n SS et al. ALFREDO. 2013;310(19): 9634-7220 (http://educati on.Zipnosis .[employer] /faq/DTI379) Cholesterol/HDL 3.9 See_Comment [Automated ratio (test code = message] The system 9830-1) which generated this result transmitted reference range : <5.0 (calc). Th e reference range was not used to interpret this result as normal/abnormal . Non-HDL cholesterol 92 See_Comment For rosa ents with (test code = diabetes plus 1 96460-6) major ASCVD ris k factor, treatin g [...] RAC) Organization Information: Site ID: [facility] Address: [address] [place] [address] Director: Parish Contreras Lab Interpretation Abnormal (test code = 27741-6) [facility] CenterHemoglobin [id number] 19:14:00 Test Item Value Reference Range Interpretation Comments Hemoglobin A1C 5.3 See_Comment For the purpo se of (test code = screening for t marcio 4548-4) presence ofdiab etes: <5.7% Consiste nt with the absenc e of diabetes5.7-6.4 % Consistent with increased risk [...] specif ic patient populat ions. [place]ical Care in Diabetes(ADA). [Automated mess age] The system [employer] generated this result transmitted ref erence range: <5.7 % o f total Hgb. The reference range was not used to int erpret this result as normal/abnormal . LETITIA (test code = FASTING:NO LETITIA) FASTING: NO RAC (test code = Performing RAC) Organization Information: Site ID: [facility] Name: [facility] Address: [address] [place], [place] [address] Director: Parish Honey BurrellSargentsThe [facility] [id number] 19:14:00 Test Item Value Reference Interpretation Comments Range Urine culture (test SEE NOTE A CULTURE , URINE, code = 630-4) ROUTINE Micro Number: [id number] Test Status: Fi nal Specimen Source : Urine, clean ca [facility] Specimen Qualit y: Adequate Result : Greater than 100,000 CFU/mL of Escherichia col i E.coli - INT FRANCE AMOX/CLAVULANAT E S <=2 AMPICILLIN S <=2 AMP/SULBACT AM S <=2 CEFAZOLIN N R <=4 2 CEFE PIME S <=1 CEFTAZIDI ME S <=1 CEFTRIAXO NE S <=1 CIPROFLOXAC [...] P. mirabilis : Cefazolin is resistant if MN C > or = 8 mcg/mL. (Distinguishing [...] RAC) Organization Information: Site ID: [facility] Address: [address] [place] [address] Director: Parish Contreras Lab Interpretation Abnormal (test code = 24078-0) [facility] CenterUrinalysis, automated with [id number] 19:14:00 Test Item Value Reference Range Interpretation Comments Color, UA (test code YELLOW YELLOW = 5778-6) Appearance (test CLEAR CLEAR code = 5767-9) Specific gravity, 1.020 1.001-1.035 urine (test code = 5811-5) pH, urine (test code 5.5 5.0-8.0 = 5803-2) Glucose, urine (test NEGATIVE NEGATIVE code = 35179-2) Bilirubin, UA (test NEGATIVE NEGATIVE code = 5770-3) Ketones, UA (test TRACE NEGATIVE A code = 2514-8) Occult blood, urine 2+ NEGATIVE A (test code = 5794-3) Protein, UA (test NEGATIVE NEGATIVE code = 40619-4) Nitrite, UA (test POSITIVE NEGATIVE A code [...] code = NONE SEEN See_Comment [Autom ated 39870-4) message] The system which generated this result transmitted reference range : < OR = 2 /HPF. The reference range was not used to interpr et this result as normal/abnormal . Squamous epithelial NONE SEEN See_Comment [Automa al cells, UA (test code message ] The = 49088-0) system which generated this result transmitted reference [...] RAC) Organization Information: Site ID: [facility] Address: [address] [place] [address] Director: Parish Contreras Lab Interpretation Abnormal (test code = 45225-3) [facility] CenterLipid [id number] 19:14:00 Test Item Value Reference Interpretation Comments [...] calculated (test <100 Desira ble code = 30685-6) range <100 m g/dL for primary prevention; <70 mg/dL for patie nts with CHD or diabetic patien ts with > or = 2 C HD risk factors. L DL-C is now calculat ed using the Marvin-Johnston calculation, wh ich is a validated novel method providing radha r accuracy than cain buckley Enidald equa tion in the estimati on of LDL-C. Zuly n SS et al. ALFREDO. 2013;310(19): 7784-9556 (http://educati on.Q alive.cn .[employer] /faq/ZLN383) Cholesterol/HDL 3.9 See_Comment [Automated ratio (test code = message] The system 9830-1) which generated this result transmitted reference range : <5.0 (calc). Th e reference range was not used to interpret this result as normal/abnormal . Non-HDL cholesterol 92 See_Comment For rosa ents with (test code = diabetes plus 1 94415-8) major ASCVD ris k factor, treatin g [...] RAC) Organization Information: Site ID: [facility] Address: [address] [place] [address] Director: Parish Contreras Lab Interpretation Abnormal (test code = 72447-4) [facility] CenterHemoglobin [id number] 19:14:00 Test Item Value Reference Range Interpretation Comments Hemoglobin A1C 5.3 See_Comment For the purpo se of (test code = screening for t marcio 4548-4) presence ofdiab etes: <5.7% Consisten t [...] in Diabetes(ADA). [Automated mess age] The system [employer] generated this result transmitted ref erence range: <5.7 % o f total Hgb. The reference range was not used to int erpret this result as normal/abnormal . LETITIA (test code = FASTING:NO LETITIA) FASTING: NO RAC (test code = Performing RAC) Organization Information: Site ID: [facility] Name: [facility] Address: [address] [place] [address] Director: [facility] [id number] 19:14:00 Test Item Value Reference Interpretation Comments Range Urine culture (test SEE NOTE A CULTURE , URINE, code = 630-4) ROUTINE Micro Number: [id number] Test Status: Fi nal Specimen Source [...] P. mirabilis : Cefazolin is resistant if MN C > or = 8 mcg/mL. (Distinguishing [...] RAC) Organization Information: Site ID: [facility] Address: [address] [place] [address] Director: Parish Contreras Lab Interpretation Abnormal (test code = 41423-3) [facility] automated with [id number] 19:14:00 Test Item Value Reference Range Interpretation Comments Color, UA (test code YELLOW YELLOW = 5778-6) Appearance (test CLEAR CLEAR code = 5767-9) Specific gravity, 1.020 1.001-1.035 urine (test code = 5811-5) pH, urine (test code 5.5 5.0-8.0 = 5803-2) Glucose, urine (test NEGATIVE NEGATIVE code = 72844-5) Bilirubin, UA (test NEGATIVE NEGATIVE code = 5770-3) Ketones, UA (test TRACE NEGATIVE A code = 2514-8) Occult blood, urine 2+ NEGATIVE A (test code = 5794-3) Protein, UA (test NEGATIVE NEGATIVE code = 60578-8) Nitrite, UA (test POSITIVE NEGATIVE A code [...] code = NONE SEEN See_Comment [Autom ated 34349-3) message] The system which generated this result transmitted reference range : < OR = 2 /HPF. The reference range was not used to interpr et this result as normal/abnormal . Squamous epithelial NONE SEEN See_Comment [Automa al cells, UA (test code message ] The = 59119-8) system which generated this result transmitted reference [...] RAC) Organization Information: Site ID: [facility] Name: [facility] Address: [address] [place] [address] Director: Parish Contreras Lab Interpretation Abnormal (test code = 01627-3) [facility] CenterLip[facility] [id number] 19:14:00 Test Item Value Reference Interpretation Comments Range Cholesterol, total 124 mg/dL See_Comment [Automat ed (test code = 2093-3) message ] The system which generated this result transmitted reference range : <=200. The reference range was not used to interpret this result as normal/abnormal . HDL cholesterol 32 mg/dL See_Comment L [Automated (test code = 2085-9) message ] The system which generated this result transmitted reference range : > OR = 50. The reference range was not used to interpret this result as normal/abnormal . Triglycerides (test 200 mg/dL See_Comment H If a no n-fasting code = 2571-8) specimen was collected, considerrepeat triglyceride testing on a fasting specime nif clinically indicated. Bob akbar al. J. of Cl in. Lipidol. 2015;9:129-169. [Automated mess age] The system whic h generated this result transmit al reference range : <=150. The reference range was not used to interpret this result as normal/abnormal . LDL cholesterol 65 mg/dL (calc) Reference ra nge: calculated (test <100 Desira ble code = 54789-0) range <100 m g/dL for primary prevention; <70 mg/dL for patie nts with CHD or diabetic patien ts with > or = 2 C HD risk factors. L DL-C is now calculat ed using the Marvin-Johnston calculation, wh ich is a validated novel method providing radha r accuracy than cain buckley Friedtwan equa tion in the estimati on of LDL-C. Zuly n SS et al. ALFREDO. 2013;310(19): 9448-9236 (http://educati on.Q alive.cn .[employer] /faq/IBT377) Cholesterol/HDL 3.9 See_Comment [Automated ratio (test code = message] The system 9830-1) which generated this result transmitted reference range : <5.0 (calc). Th e reference range was not used to interpret this result as normal/abnormal . Non-HDL cholesterol 92 See_Comment For rosa ents with (test code = diabetes plus 1 60660-7) major ASCVD ris k factor, treatin g [...] RAC) Organization Information: Site ID: [facility] Address: [address] [place] [address] Director: Parish Contreras Lab Interpretation Abnormal (test code = 25026-8) [facility] CenterHemoglobin [id number] 19:14:00 Test Item Value Reference Range Interpretation Comments Hemoglobin A1C 5.3 See_Comment For the purpo se of (test code = screening for t marcio 4548-4) presence ofdiab etes: <5.7% Consisten t [...] specif ic patient populat ions. [place]ical Care in Diabetes(ADA). [Automated mess age] The system [employer] generated this result transmitted ref erence range: <5.7 % o f total Hgb. The reference range was not used to int erpret this result as normal/abnormal . LETITIA (test code = FASTING:NO LETITIA) FASTING: NO RAC (test code = Performing RAC) Organization Information: Site ID: [facility] Name: [facility] Address: [address] [place] [address] Director: [facility] [id number] 19:14:00 Test Item Value Reference Interpretation Comments Range Urine culture (test SEE NOTE A CULTURE , URINE, code = 630-4) ROUTINE Micro Number: [id number] Test Status: Fi nal Specimen Source [...] P. mirabilis : Cefazolin is resistant if MN C > or = 8 mcg/mL. (Distinguishing [...] RAC) Organization Information: Site ID: [facility] Address: [address] [place] [address] Director: Parish Contreras Lab Interpretation Abnormal (test code = 39696-2) [facility] CenterUrinalysis, automated with [id number] 19:14:00 Test Item Value Reference Range Interpretation Comments Color, UA (test code YELLOW YELLOW = 5778-6) Appearance (test CLEAR CLEAR code = 5767-9) Specific gravity, 1.020 1.001-1.035 urine (test code = 5811-5) pH, urine (test code 5.5 5.0-8.0 = 5803-2) Glucose, urine (test NEGATIVE NEGATIVE code = 59650-3) Bilirubin, UA (test NEGATIVE NEGATIVE code = 5770-3) Ketones, UA (test TRACE NEGATIVE A code = 2514-8) Occult blood, urine 2+ NEGATIVE A (test code = 5794-3) Protein, UA (test NEGATIVE NEGATIVE code = 56340-3) Nitrite, UA (test POSITIVE NEGATIVE A code [...] code = NONE SEEN See_Comment [Autom ated 43950-6) message] The system which generated this result transmitted reference range : < OR = 2 /HPF. The reference range was not used to interpr et this result as normal/abnormal . Squamous epithelial NONE SEEN See_Comment [Automa al cells, UA (test code message ] The = 29141-0) system which generated this result transmitted reference [...] RAC) Organization Information: Site ID: RGA Name: [facility] Address: [address] [place] [address] Director: Parish Contreras Lab Interpretation Abnormal (test code = 68240-9) [facility] [id number] 06:04:00 Test Item Value Reference Interpretation Comments [...] EGFR Non-Afr. See_Comment L [Automated me ssage] [place] African (test code The syst em which = 2775) generated this result transmit al reference range : > OR = 60 mL/min/1.73m2. The reference range was not used to interpret this result as normal/abnormal . EGFR See_Comment L [Automated mes emeli] [place] African (test code The syst em which = 6744) generated this result transmit la reference range : > OR = 60 [...] . Sodium (test code = 139 mmol/L 644-335 2888-2) Potassium (test 4.3 mmol/L 3.5-5.3 code = 2823-3) Chloride (test code 104 mmol/L 98-110 = 5-0) CO2 (test code = 25 mmol/L 20-32 2028-05) Calcium (test code 9.6 mg/dL 8.6-10.4 = 08219-0) Protein (test code 7.5 g/dL 6.1-8.1 = 2885-2) Albumin, S (test 4.2 g/dL 3.6-5.1 code = 1751-7) Globulin, total See_Comment [Automated message] (test code = [place] [address]12[address]-0) generated this result transmit al reference range : 1.9 - 3.7 g/dL (marva c). The reference r danni was not used to interpret this result as normal/abnormal . Albumin/globulin See_Comment [Automated message] ratio (test code = The syste m which 1758-0) generated this result transmit al reference range [...] RAC) Organization Information: Site ID: [facility] Address: [address] [place] [address] Director: Parish Contreras Lab Interpretation Abnormal (test code = 19807-4) [facility] [id number] 06:04:00 Test Item Value Reference Range Interpretation [...] calculated (test <100 Desira ble code = 59871-8) range <100 m g/dL for primary prevention; <70 mg/dL for patients with C HD or diabetic patients with > or = 2 CHD risk factors. LDL-C is now calculated using the Marvin-Preston calculation, which is a validated novel method providin g better accuracy than the Friedewald equation in the estimation of LDL-C. Marvin S S et al. ALFREDO. 2013;310(19): 8583-7049 (http://educati on .[employer] .com/faq/NJN059 ) Cholesterol/HDL See_Comment H [Automated ratio (test code = message] The 9830-1) system which generated this result transmitted reference range : <5.0 (calc). Th e reference range was not used to interpret this result as normal/abnormal . Non-HDL cholesterol See_Comment H For rosa ents with (test code = diabetes plus 1 03421-8) major ASCVD ris k factor, treatin g [...] RAC) Organization Information: Site ID: [facility] Name: [facility] Address: [address] [place] [id number] Director: Parish Contreras [facility] Interpretation Abnormal (test code = 42989-3) [place] [address], [id number] 06:04:00 Test Item Value Reference Range Interpretation Comments T4, free (test code 1.3 ng/dL 0.8-1.8 = 3024-7) LETITIA (test code = FASTING:NO FASTING: NO LETITIA) RAC (test code = Performing Organization RAC) Information: Site ID: [facility] Name: [facility] Address: [address] [place] [address] Director: Parish Contreras [facility] Center[facility] stimulating [id number] 06:04:00 Test Item Value Reference Range Interpretation Comments TSH (test See_Comment [Automated mes emeli] code = The system [employer] 3016-3) generated this result transmit al reference range : 0.40 - 4.50 mIU /L. The reference r danni was not used to interpret this result as normal/abnormal . LETITIA (test FASTING:NO FASTING: code = LETITIA) NO RAC (test Performing code = RAC) Organization Information: Site ID: [facility] Name: [facility] Address: [address] [place] [address] Director: Parish Contreras [facility] Center[facility] [id number] 22:53:00 Test Item Value Reference Range Interpretation Comments Amylase (test code = 47 U/L 21-101 1798-8) LETITIA (test code = FASTING:NO FASTING: NO LETITIA) RAC (test code = Performing Organization RAC) Information: Site ID: [facility] Name: [facility] Address: [address] [place] [address] Director: Parish Contreras [facility] Center[facility] [id number] 22:53:00 Test Item Value Reference Range Interpretation Comments Lipase (test code = 74 U/L 7-60 H 3040-3) LETITIA (test code = LETITIA) FASTING:NO FASTING: NO RAC (test code = RAC) Performing Organization Information: Site ID: A Name: [facility] Address: [address] [place] [address] Director: Parish Contreras [facility] Interpretation (test Abnormal code = 94882-1) [facility] Center[facility]-reactive [id number] 22:53:00 Test Item Value Reference Range Interpretation Comments CRP (test 2.4 mg/L See_Comment [Automated mes emeli] code = The system [employer] 1988-5) generated this result transmit al reference range : <=8.0. The refe rence range was not u sed to interpret th is result as normal/abnormal . LETITIA (test FASTING:NO FASTING: code = LETITIA) NO RAC (test Performing code = RAC) Organization Information: Site ID: [facility] Name: [facility] Address: [address] [place] [address] Director: Parish Contreras [facility] [id number] 22:53:00 Test Item Value Reference Range Interpretation [...] = Performing RAC) Organization Information: Site ID: [facility] Name: [facility] Address: [address] [place] [address] Director: Parish Contreras [facility] Interpretation Abnormal (test code = 67600-3) [facility] iron binding [id number] 22:53:00 Test Item Value Reference Range Interpretation [...] = Performing RAC) Organization Information: Site ID: [facility] Name: [facility] Address: [address] [place] [address] Director: Parish Contreras [facility] CenterANA SCREEN W IFA W REFLEX TO [id number] 22:53:00 Test Item Value Reference Interpretation Comments Range LIYA Screen (test POSITIVE NEGATIVE A LIYA IFA is a first code = 79827-4) line screen for detecting thepresence of up to approximatel y 150 autoantibod ies invarious autoimmune diseases. A positive LIYA IF A resultis sugges tive of autoimmune disease and reflexes totite r and pattern. Further laborat ory testing may beconsidered if clinically indicated. For additional information, pl ease refer tohttp://educat ion. [employer].co m/faq/MDC710(Th is link is being provided for informational/e duca tional purposes only.) LIYA titer (test code 1:40 titer H A low l evel LIYA = 5048-4) titer may be present in pre-clinicalaut oimm une diseases an d normal individu als. Reference Range <1:40 Negative 1:40-1:80 Low Antibody Level >1:80 Elevated Antibody Level LIYA pattern (test Cytoplasmic A The presen ce of code = 71894-3) cytoplasmic fluorescence wa s noted onthe HEp -2 slide. Other reactivities (e .g., anti-mitochondr ial antibodies or anti-smooth muscleantibodie s) may be responsi ble for this fluorescence.Th e clinical significance of this finding is uncertain.Clini marva correlation is recommended. AC -15 to AC-23: Cytoplasmic International Consensus on AN A Patterns(https: //do i.org/10.1515/c [facility]- 9789-4663) LETITIA (test code = FASTING:NO LETITIA) FASTING: NO RAC (test code = Performing RAC) Organization Information: Site ID: IG Name: [facility] Address: [address] [place] [id number] Director: Dr. Parish Contreras [facility] Interpretation Abnormal (test code = 37500-9) [facility]
[2023-04-12 16:01] LABS: Absolute Lymphocytes (CBC) 0.5 K/uL (0.7-4.9); Hematocrit 31.4 % (36.0-45.0); Lymphocytes % 7.1 % (15.3-44.8); MCV 103.7 fL (80-100); MPV 8.7 fL (7.6-11.3); RBC Red Blood Cell Count 3.03 M/uL (3.86-4.86)
[2023-04-12 16:08] LABS: SARS-CoV-2 Antigen Rapid Res Negative (Negative)
[2023-04-12 16:25] LABS: Albumin 3.6 g/dL (3.4-5.0); Bilirubin Direct 0.2 mg/dL (0-0.2); Bilirubin Indirect, Calculated 0.4 mg/dL (0.2-0.8); Bilirubin Total 0.6 mg/dL (0.2-1.0); Magnesium 2.1 mg/dL (1.6-2.4); Potassium 2.9 mEq/L (3.5-5.1); Protein, Total 8.5 g/dL (6.4-8.2); Troponin High Sensitivity 12.1 pg/mL (<58.9)
[2023-04-12 16:30] LABS: Anisocytosis 1+; Blood Morphology Comment NOTED (NOT SEEN); Hypochromasia 1+; Platelet Estimate INCR
[2023-04-12 16:31] LABS: Polychromasia 1+
--- NOTE | 2023-04-12 17:01 | RAD REPORT ---
EXAM DESCRIPTION: CT - Abdomen Pelvis W Contrast - 04/12/2023 4:46 pm CLINICAL HISTORY: Abdominal pain COMPARISON: 2015 TECHNIQUE: Computed axial tomography of the abdomen pelvis was obtained. 100 cc Isovue-300 was admin istered intravenously. Oral contrast was not requested which limits evaluation of bowel and appendix All CT scans are performed using dose optimization technique as appropriate and may include automated exposure control or mA/KV adjustment according to patient size. FINDINGS: The left lobe of the liver is prominent. It is unchanged Spleen, pancreas, adrenals and right kidney unremarkable. Left renal cyst unchanged. Small left renal calculus. No hydronephrosis. Two calcifications either within the bladder or vagina are unchanged from multiple prior exams. Hyste rectomy Cement has been placed into several old lumbar vertebral fractures. IMPRESSION: No acute abnormality is displayed.
--- NOTE | 2023-04-12 17:02 | RAD REPORT ---
EXAM DESCRIPTION: CT - Head Brain Wo Cont - 04/12/2023 4:46 pm CLINICAL HISTORY: Headache COMPARISON: None TECHNIQUE: Computed axial tomography of the head was obtained. IV contrast was not requested. All CT scans are performed using dose optimization technique as appropriate and may include automated exposure control or mA/KV adjustment according to patient size. FINDINGS: An intracranial bleed is not seen The ventricles are normal in caliber No extra-axial fluid collection is noted. No significant hypodensity within the brain Fluid within the sinuses/ mastoids is not seen. IMPRESSION: No acute intracranial abnormality is seen If patient's symptoms persist MRI of the brain would be recommended
--- NOTE | 2023-04-12 17:02 | RAD REPORT ---
EXAM DESCRIPTION: Munir Single View04/12/2023 4:05 pm CLINICAL HISTORY: Shortness of breath COMPARISON: March 13, 2023 FINDINGS: Areas of scarring within the lung bases. Lungs appear clear of acute infiltrate Left pleural thickening Lungs are mildly hyperaerated. Heart is normal size
[2023-04-12] MEDS ORDERED: DIPHENHYDRAMINE 50 MG/ML VIAL ONE (17:10)
[2023-04-12] MEDS ORDERED: METOCLOPRAMIDE 10 MG/2mL INJ ONE (17:10)
[2023-04-12] MEDS ORDERED: ACETAMINOPHEN 500 MG TAB ONE (17:10)
[2023-04-12] MEDS ORDERED: NA CHLORIDE 0.9% 1,000 ML ONE (17:10)
[2023-04-12] MEDS ORDERED: POTASSIUM CL SA 10 MEQ TAB PO ONE (18:47)
[2023-04-12 18:55] LABS: Specific Gravity > 1.030 (1.005-1.030); Urine Bacteria None Seen /HPF (<20); Urine Bilirubin NEGATIVE (Negative); Urine Blood Trace (Negative); Urine Clarity Clear (Clear); Urine Color Colorless (Yellow); Urine Glucose NEGATIVE (Negative); Urine Protein NEGATIVE (Negative); Urine RBC <5 /HPF (None Seen); Urine Urobilinogen Normal (Normal); Urine pH 6.5 (5.0-7.0)
--- NOTE | 2023-04-12 20:16 | EDPHYS ---
Physician Documentation [facility] Name: Carmen Ewing Age: 83 yrs Sex: Female : 1940 Arrival Date: 04/12/2023 Time: 14:00 Bed 13 Private MD: ED Physician Hector Cornelius HPI: 04/12 18:09 This 83 yrs old Female presents to ER via Ambulatory with complaints of Doesn't Feel rt Right. 18:09 Patient presents to the ED with symptoms of generally not feeling well. States that she rt has had body aches, chills, headache, nausea. Denies other specific. Symptoms are moderate severity, no other aggravating or alleviating factors.. Historical: - Allergies: 14:18 Niacin; mb9 - Home Meds: 14:18 Calan Oral 120 mg [Active]; atenolol 25 mg Oral tablet daily [Active]; Cozaar 50 mg mb9 Oral tablet daily [Active]; hydrochlorothiazide 12.5 mg Oral tablet once [Active]; Synthroid Oral 0.1 tab [Active]; Nexium 40 mg Oral capsule,delayed release (e.c.) once [Active]; aspirin 81 mg Oral capsule daily [Active]; - PMHx: 14:18 Hypertension; Hypothyroidism; Irritable bowel syndrome; ITP; neuropathy; Osteoporosis; mb9 Pulmonary Embolism; shingles; thrombocythemia; - PSHx: 14:18 Cholecystectomy; Total abdominal hysterectomy; mb9 - Immunization history:: Adult Immunizations up to date. - Social history:: Smoking status: Patient denies any tobacco usage or history of. - Family history:: not pertinent. ROS: 18:09 Constitutional: Negative for fever, chills, and weight loss, Cardiovascular: Negative rt for chest pain, palpitations, and edema, Respiratory: Negative for shortness of breath, cough, wheezing, and pleuritic chest pain, MS/Extremity: Negative for injury and deformity, Skin: Negative for injury, rash, and discoloration, Psych: Negative for depression, anxiety, suicide ideation, homicidal ideation, and hallucinations. 18:09 Constitutional: Positive for body aches, chills, malaise. 18:09 Abdomen/GI: Positive for nausea, Negative for vomiting. Exam: 18:09 Constitutional: This is a well developed, well nourished patient who is awake, alert, rt and in no acute distress. Head/Face: Normocephalic, atraumatic. Chest/axilla: Normal chest wall appearance and motion. Nontender with no deformity. No lesions are appreciated. Cardiovascular: Regular rate and rhythm with a normal S1 and S2. No gallops, murmurs, or rubs. Normal PMI, no JVD. No pulse deficits. Respiratory: Lungs have equal breath sounds bilaterally, clear to auscultation and percussion. No rales, rhonchi or wheezes noted. No increased work of breathing, no retractions or nasal flaring. Abdomen/GI: Soft, non-tender, with normal bowel sounds. No distension or tympany. No guarding or rebound. No evidence of tenderness throughout. Skin: Warm, dry with normal turgor. Normal color with no rashes, no lesions, and no evidence of cellulitis. MS/ Extremity: Pulses equal, no cyanosis. Neurovascular intact. Full, normal range of motion. Neuro: Awake and alert, GCS 15, oriented to person, place, time, and situation. Cranial nerves II-XII grossly intact. Motor strength 5/5 in all extremities. Sensory grossly intact. Cerebellar exam normal. Normal gait. Psych: Awake, alert, with orientation to person, place and time. Behavior, mood, and affect are within normal limits. 18:09 ECG was reviewed by the Attending Physician. Vital Signs: 14:16 BP 153 / 90; Pulse 93; Resp 17; Temp 98.4; Pulse Ox 98% on R/A; Weight 52.16 kg; Height mb9 5 ft. 6 in. ; Pain 8/10; 17:47 BP 188 / 79; Pulse 84; Resp 18 S; Pulse Ox 100% on R/A; kc6 19:45 BP 192 / 91; Pulse 74; Resp 17; Pulse Ox 100% on R/A; ll3 20:25 BP 184 / 97; Pulse 77; Resp 16; Pulse Ox 100% on R/A; ll3 14:16 Body Mass Index 18.56 (52.16 kg, 167.64 cm) mb9 14:16 Pain Scale: Adult mb9 MDM: 14:30 Patient medically screened. rt 20:20 Data reviewed: vital signs, nurses notes. [facility] 08/04 14:33 Order name: Basic Metabolic Panel; Complete Time: 17:02 rt 08 14:33 Order name: CBC with Diff; Complete Time: 17:02 rt 04/12 14:33 Order name: LFT's; Complete Time: 17:02 rt 08 14:33 Order name: Magnesium; Complete Time: 17:02 rt 04/12 14:33 Order name: Troponin HS; Complete Time: 17:02 rt 04/12 14:33 Order name: Lipase; Complete Time: 17:02 rt 04/12 14:33 Order name: Influenza Screen (a \T\ B); Complete Time: 17:02 rt 04/12 15:45 Order name: SARS RAPID; Complete Time: 16:17 rt 04/12 16:04 Order name: Manual Differential; Complete Time: 17:02 EDMS 04/12 17:08 Order name: UAM; Complete Time: 20:00 rt 04/12 14:33 Order name: XRAY Chest (1 view); Complete Time: 17:04 rt 04/12 14:33 Order name: CT Head Brain wo Cont; Complete Time: 17:02 rt 04/12 14:33 Order name: CT Abd/Pelvis - IV Contrast Only; Complete Time: 17:02 rt 04/12 14:33 Order name: EKG; Complete Time: 14:34 rt 04/12 14:33 Order name: Cardiac monitoring; Complete Time: 17:18 rt 04/12 14:33 Order name: EKG - Nurse/Tech; Complete Time: 15:54 rt 08/ 14:33 Order name: IV Saline Lock; Complete Time: 15:54 rt 04/12 14:33 Order name: Labs collected and sent; Complete Time: 15:54 rt 04/12 14:33 Order name: O2 Per Protocol; Complete Time: 16:58 rt 04/12 14:33 Order name: O2 Sat Monitoring; Complete Time: 16:58 rt 04/12 20:10 Order name: VS Recheck: Notify me of result; Complete Time: 20:26 kdr EC:09 Rate is 71 beats/min. Rhythm is regular, Normal Sinus Rhythm with No ectopy. QRS [place] rt is Normal. NM interval is normal. QRS interval is normal. QT interval is normal. No Q waves. Clinical impression: NSR w/ Non-specific ST/T Changes. Administered Medications: 17:17 Drug: NS 0.9% IV 1000 ml Route: IV; Rate: 1 bolus; Site: left antecubital; kc6 17:17 Drug: metoCLOPramide IVP 10 mg Route: IVP; Site: left antecubital; kc6 18:07 Follow up: Response: No adverse reaction; Nausea is decreased kc6 17:17 Drug: diphenhydrAMINE IVP 12.5 mg Route: IVP; Site: left antecubital; kc6 18:07 Follow up: Response: No adverse reaction kc6 17:17 Drug: Acetaminophen PO 1000 mg Route: PO; kc6 18:07 Follow up: Response: No adverse reaction; Pain is decreased kc6 18:46 Drug: Potassium Chloride PO 40 mEq Route: PO; kc6 19:20 Follow up: Response: No adverse reaction kc6 20:32 Drug: Hydrochlorothiazide PO 12.5 mg Route: PO; ll3 20:32 Follow up: Response: Medication administered at discharge. ll3 Disposition Summary: 04/12/23 20:16 Discharge Ordered Location: Home kdr Problem: new kdr Symptoms: have improved kdr Condition: Stable kdr Diagnosis - Weakness kdr - Confusion kdr - Unspecified superficial injury of unspecified part of head, initial encounter kdr - Multiple contusion on extremities kdr Followup: kdr - With: Private Physician - When: 2 - 3 days - Reason: If symptoms return, Further diagnostic work-up, Recheck today's complaints, Continuance of care, Re-evaluation by your physician Discharge Instructions: - Discharge Summary Sheet kdr - Confusion kdr - Hypertension, Adult, [id number]-[id number] kdr - Fall Prevention in the Home, Adult, Kvty-[id number]-Kjlg kdr - Weakness, [id number]-[id number] kdr Forms: - Medication Reconciliation Form kdr - Thank You Letter kdr - Patient Portal Instructions kdr Prescriptions: - Bactrim DS 800-160 mg Oral Tablet - take 1 tablet by ORAL route every 12 hours for 3 days; 6 tablet; Refills: 0, kdr Product Selection Permitted Signatures: Dispatcher [employer] Hector Moulton MD MD kdr Rose Vega RN RN ll3 Karlie Connor RN RN kc6 Trinidad Kamara RN RN mb9 Carl Hooks MD MD rt
--- NOTE | 2023-04-12 20:16 | ER ---
Nurse's Notes [facility] Name: Carmen Ewing Age: 83 yrs Sex: Female : 1940 Arrival Date: 04/12/2023 Time: 14:00 Bed 13 Private MD: Diagnosis: Weakness;Confusion;Unspecified superficial injury of unspecified part of head, initial encounter;Multiple contusion on extremities Presentation: 04/12 14:16 Chief complaint: Patient states: "I feel rotten all over since yesterday evening. I mb9 have body aches, lightheartedness, headache, SOB when moving around, and been nauseous". Coronavirus screen: Vaccine status: Patient reports receiving the 2nd dose of the covid vaccine. Ebola Screen: No symptoms or risks identified at this time. Initial Sepsis Screen: Does the patient meet any 2 criteria? No. Patient's initial sepsis screen is negative. Does the patient have a suspected source of infection? No. Patient's initial sepsis screen is negative. Risk Assessment: Do you want to hurt yourself or someone else? Patient reports no desire to harm self or others. Onset of symptoms was April 12, 2023. 14:16 Method Of Arrival: Ambulatory mb9 14:16 Acuity: ARTHUR 3 mb9 Triage Assessment: 14:24 General: Appears in no apparent distress. Behavior is calm, cooperative. Pain: mb9 Complains of pain in entire body. Neuro: Wade Agitation-Sedation Scale (RASS): 0 - Alert and Calm Level of Consciousness is awake, alert, obeys commands, Oriented to person, place, time, situation, Appropriate for age Reports dizziness. Cardiovascular: Patient's skin is warm and dry. Respiratory: Airway is patent Respiratory effort is even, unlabored, Respiratory pattern is regular, symmetrical. Respiratory: Reports shortness of breath. GI: Reports nausea. Derm: Skin is pink, warm \\T\\ dry. Musculoskeletal: Range of motion: intact in all extremities. Historical: - Allergies: 14:18 Niacin; mb9 - Home Meds: 14:18 Calan Oral 120 mg [Active]; atenolol 25 mg Oral tablet daily [Active]; Cozaar 50 mg mb9 Oral tablet daily [Active]; hydrochlorothiazide 12.5 mg Oral tablet once [Active]; Synthroid Oral 0.1 tab [Active]; Nexium 40 mg Oral capsule,delayed release (e.c.) once [Active]; aspirin 81 mg Oral capsule daily [Active]; - PMHx: 14:18 Hypertension; Hypothyroidism; Irritable bowel syndrome; ITP; neuropathy; Osteoporosis; mb9 Pulmonary Embolism; shingles; thrombocythemia; - PSHx: 14:18 Cholecystectomy; Total abdominal hysterectomy; mb9 - Immunization history:: Adult Immunizations up to date. - Social history:: Smoking status: Patient denies any tobacco usage or history of. - Family history:: not pertinent. Screenin:00 [facility] ED Fall Risk Assessment (Adult) History of falling in the last 3 months, kc6 including since admission Yes- physiologic fall (2 pts) Confusion or Disorientation No (0 pts) Intoxicated or Sedated No (0 pts) Impaired Gait No (0 pts) Mobility Assist Device Used No (0 pt) Altered Elimination No (0 pt) Score/Fall Risk Level 0 - 2 = Low Risk. Abuse screen: Denies threats or abuse. Denies injuries from another. Nutritional screening: No deficits noted. Tuberculosis screening: No symptoms or risk factors identified. Assessment: 16:00 General: Appears in no apparent distress. comfortable, Behavior is calm, cooperative, kc6 appropriate for age. Neuro: Wade Agitation-Sedation Scale (RASS): 0 - Alert and Calm Level of Consciousness is awake, alert, obeys commands, Oriented to person, place, time, situation, Appropriate for age. Cardiovascular: Capillary refill < 3 seconds. Respiratory: Airway is patent Trachea midline Respiratory effort is even, unlabored, Respiratory pattern is regular, symmetrical. GI: Reports nausea, Patient currently denies diarrhea, vomiting. : No signs and/or symptoms were reported regarding the genitourinary system. EENT: No signs and/or symptoms were reported regarding the EENT system. Derm: No signs and/or symptoms reported regarding the dermatologic system. Skin is intact, is healthy with good turgor, Skin is pink, warm \\T\\ dry. 17:00 Reassessment: Patient appears in no apparent distress at this time. No changes from kc6 previously documented assessment. Patient and/or family updated on plan of care and expected duration. Pain level reassessed. Patient is alert, oriented x 3, equal unlabored respirations, skin warm/dry/pink. 18:00 Reassessment: Patient appears in no apparent distress at this time. No changes from kc6 previously documented assessment. Patient and/or family updated on plan of care and expected duration. Pain level reassessed. Patient is alert, oriented x 3, equal unlabored respirations, skin warm/dry/pink. Vital Signs: 14:16 BP 153 / 90; Pulse 93; Resp 17; Temp 98.4; Pulse Ox 98% on R/A; Weight 52.16 kg; Height mb9 5 ft. 6 in. ; Pain 8/10; 17:47 BP 188 / 79; Pulse 84; Resp 18 S; Pulse Ox 100% on R/A; kc6 19:45 BP 192 / 91; Pulse 74; Resp 17; Pulse Ox 100% on R/A; ll3 20:25 BP 184 / 97; Pulse 77; Resp 16; Pulse Ox 100% on R/A; ll3 14:16 Body Mass Index 18.56 (52.16 kg, 167.64 cm) mb9 14:16 Pain Scale: Adult mb9 ED Course: 14:03 Patient arrived in ED. im 14:08 Carl Hooks MD is Attending Physician. rt 14:18 Triage completed. mb9 14:18 Arm band placed on. mb9 15:40 Influenza Screen (a \\T\\ B) Sent. aw1 15:40 COVID-19 SARS RT PCR Sent. aw1 15:54 EKG done, by ED staff. aw1 15:56 Initial lab(s) drawn, by ut, sent to lab. Inserted saline lock: 22 gauge in left mm9 antecubital area, using aseptic technique. 16:00 Patient has correct armband on for positive identification. Bed in low position. Call kc light in reach. Side rails up X2. Adult w/ patient. 16:07 XRAY Chest (1 view) In Process Unspecified. EDMS 16:47 CT Head Brain wo Cont In Process Unspecified. EDMS 16:47 CT Abd/Pelvis - IV Contrast Only In Process Unspecified. EDMS 16:57 Karlie Connor, RN is Primary Nurse. kc6 18:27 Attending Physician role handed off by Carl Hooks MD kdr 18:27 Hector Cornelius MD is Attending Physician. kdr 18:46 Urine collected: clean catch specimen, clear. aw1 20:32 No provider procedures requiring assistance completed. IV discontinued, intact, ll3 bleeding controlled, No redness/swelling at site. Pressure dressing applied. Administered Medications: 17:17 Drug: NS 0.9% IV 1000 ml Route: IV; Rate: 1 bolus; Site: left antecubital; kc6 17:17 Drug: metoCLOPramide IVP 10 mg Route: IVP; Site: left antecubital; kc6 18:07 Follow up: Response: No adverse reaction; Nausea is decreased kc6 17:17 Drug: diphenhydrAMINE IVP 12.5 mg Route: IVP; Site: left antecubital; kc6 18:07 Follow up: Response: No adverse reaction kc6 17:17 Drug: Acetaminophen PO 1000 mg Route: PO; kc6 18:07 Follow up: Response: No adverse reaction; Pain is decreased kc6 18:46 Drug: Potassium Chloride PO 40 mEq Route: PO; kc6 19:20 Follow up: Response: No adverse reaction kc6 20:32 Drug: Hydrochlorothiazide PO 12.5 mg Route: PO; ll3 20:32 Follow up: Response: Medication administered at discharge. ll3 Medication: 20:32 VIS not applicable for this client. ll3 Outcome: 20:16 Discharge ordered by MD. kdr 20:32 Discharged to home ambulatory, with friend. ll3 20:32 Condition: stable 20:32 Discharge instructions given to patient, friend, Instructed on discharge instructions, follow up and referral plans. medication usage, Demonstrated understanding of instructions, follow-up care, medications, Prescriptions given X 1. 20:33 Patient left the ED. ll3 Signatures: Dispatcher [employer] EDMS Hector Cornelius MD MD kdr Loubet, Lynsea, RN RN ll3 Karlie Connor RN RN [email or web address] Alicia Scruggs Mary Beth, RN RN mb9 Carl Hooks MD MD rt Ruth Huynh Alyssa aw1 Corrections: (The following items were deleted from the chart) 14:26 14:16 Chief complaint: Patient states: "I feel rotten all over since yesterday evening. mb9 I have body aches, headache, SOB when moving around, and been nauseous" mb9 14:26 14:24 Neuro: Wade Agitation-Sedation Scale (RASS): 0 - Alert and Calm Level of mb9 Consciousness is awake, alert, obeys commands, Oriented to person, place, time, situation, Appropriate for age mb9 20:25 20:06 BP 192 / 91; Pulse 74bpm; Resp 17bpm; Pulse Ox 100% RA; ll3 ll3
[2023-04-12] MEDS ORDERED: hydroCHLOROthiazide 25 MG TAB ONE (20:31)
[2023-04-12 20:50] VITALS: TEMP 98.4
[2023-04-12 20:52] VITALS: O2SAT 100
[2023-04-12 20:55] VITALS: BP 184/97
--- NOTE | 2023-04-15 13:10 | EKG ---
Test Date: 2023-04-12 Test Time: 15:51:22 Ply Bander: DUANE MEASUREMENT RESULTS: Intervals: Rate: 71 IN: 124 QRSD: 98 QT: 416 QTc: 452 [place]: P: 66 IN: 124 QRS: 25 T: 100 INTERPRETIVE STATEMENTS: Normal sinus rhythm Nonspecific ST and T wave abnormality Abnormal ECG Compared to ECG 03/13/2023 08:31:32 ST (T wave) deviation now present Electronically Signed On 04-15-23 13:06:40 CDT by Enio Flaherty
== END 2023-04-12 20:33 | disposition home or self-care (01) ==
LOC: ER 14:00
DX: R53.1 Weakness (principal); R41.0 Disorientation, unspecified; S00.80XA Unspecified superficial injury of other part of head, initial encounter; S40.022A Contusion of left upper arm, initial encounter; S40.021A Contusion of right upper arm, initial encounter; S80.12XA Contusion of left lower leg, initial encounter; S80.11XA Contusion of right lower leg, initial encounter; I10 Essential (primary) hypertension; E03.9 Hypothyroidism, unspecified; Z20.822 Contact with and (suspected) exposure to COVID-19; Z86.711 Personal history of pulmonary embolism; Z79.82 Long term (current) use of aspirin; Z88.8 Allergy status to other drugs, medicaments and biological substances
CPT/HCPCS: 85025; 81001; 80048; 36415; 83735; 80076; 84484; 83690; 87804 ×2; 70450; 74177; 71045; 96375; 96374; 99284; 87811; Q9967; J2765; J1200; J7030; 93005